=== PATIENT | male | born 1955 | race Caucasian/White ===

== ENCOUNTER 2017-05-09 14:27 | Emergency (ER) | payer MEDICARE ==
[~2017-05-09] VITALS: Ht 175.3 cm; Wt 127.0 kg
[~2017-05-09 14:27] MED LIST: ALBIPROI; ALBIPROI INH; ALBU90OI61 INH; ALPR.5 PO; ASCO1ER; ASPI325; ASPI81CH PO; AZIT500 PO; BUSP5 PO; CARV25 PO; CLAR500 PO; CLIN300 PO; CLOP75; DOXY100 PO; DULO60 PO; FLUSAL2505; GABA300 PO; HYDACE5 PO; Hytrin2 MG PO; IBUP800; IBUP800 PO; ISOMON20 PO; ISOMON60ER PO; LISI10; LISI20 PO; LOVA20; LOVA20 PO; LOVA40; METF500 PO; METO50; MULVITMINF; NAPR550 PO; NITRSPRAY SL; OXYACE5T PO; PRED10 PO; PRED20 PO; Prednisone20 MG PO; RXHYDACE PO; RXNAPNA550 PO; TERA5 PO; WARF5 PO; [UNRECOGNIZED DRUG - OTHER]
[2017-05-09 15:01] LABS: BASOPHILS ABSOLUTE AUTO 0.01 K/mm3 (0.00-0.23); BASOPHILS PERCENT AUTO 0 % (0-2); EOSINOPHILS ABSOLUTE AUTO 0.03 K/mm3 (0.00-0.68); EOSINOPHILS PERCENT AUTO 0 % (0-6); Hematocrit 42.6 % (37.0-53.0); Hemoglobin 13.8 g/dL (13.5-17.5); IMMATURE GRAN ABSOLUTE AUTO 0.03 K/mm3 (0.00-0.10); IMMATURE GRAN PERCENT AUTO 0 % (0-1); LYMPHOCYTES ABSOLUTE AUTO 1.17 K/mm3 (0.84-5.20); LYMPHOCYTES PERCENT AUTO 12 % (21-46); MONOCYTES ABSOLUTE AUTO 0.61 K/mm3 (0.16-1.47); MONOCYTES PERCENT AUTO 6 % (4-13); Mean Corpuscular HGB 29.6 pg (26.0-34.0); Mean Corpuscular HGB Conc 32.4 g/dL (31.5-36.5); Mean Corpuscular Volume 91 fL (80-100); Mean Platelet Volume 10.9 fL (9.1-12.4); NEUTROPHILS ABSOLUTE AUTO 7.93 K/mm3 (1.96-9.15); NEUTROPHILS PERCENT AUTO 81 % (41-73); Platelet Count 179 K/mm3 (150-400); RDW Coefficient Variation 14.4 % (11.7-14.2); RDW Standard Deviation 48.5 fL (35.1-46.3); Red Blood Cell Count 4.67 M/mm3 (4.30-5.90); White Blood Cell Count 9.78 K/mm3 (4.00-11.30)
[2017-05-09 15:20] LABS: Alanine Aminotransfer (ALT/SGP 21 U/L (12-78); Albumin, Blood 3.6 g/dL (3.4-5.0); Albumin/Globulin Ratio 0.9 (0.8-1.8); Alk Phos 72 U/L (50-136); Anion Gap 7 mmol/L (6-16); Aspartate Aminotrans (AST/SGOT 17 U/L (12-37); Bilirubin, Total 1.2 mg/dL (0.1-1.0); Blood Urea Nitrogen 13 mg/dL (8-24); Bun/Creatinine Ratio 13.3 (12.0-20.0); CO2, Blood 23 mmol/L (21-32); Calcium, Blood 9.2 mg/dL (8.5-10.1); Chloride, Blood 108 mmol/L (98-108); Creatinine, Blood 0.98 mg/dL (0.60-1.20); Globulin, Blood 4.1 g/dL (2.2-4.0); Glomerular Filtration Rate >60 (60-); Glucose, Blood 243 mg/dL (70-99); Potassium, Blood 4.2 mmol/L (3.5-5.5); Sodium, Blood 138 mmol/L (136-145); Total Protein, Blood 7.7 g/dL (6.4-8.2)
[2017-05-09] MEDS ORDERED: Zofran Odt4 MG PO (17:05)
== END 2017-05-09 17:40 | disposition home or self-care (01) ==
LOC: ER 14:27
PROVIDERS: Internal Medicine
DX: R11.2 Nausea with vomiting, unspecified (principal); E11.65 Type 2 diabetes mellitus with hyperglycemia; I10 Essential (primary) hypertension; E78.00 Pure hypercholesterolemia, unspecified; J44.9 Chronic obstructive pulmonary disease, unspecified; I48.91 Unspecified atrial fibrillation; Z88.0 Allergy status to penicillin; Z88.2 Allergy status to sulfonamides; Z79.899 Other long term (current) drug therapy; Z79.82 Long term (current) use of aspirin; Z79.01 Long term (current) use of anticoagulants; Z79.84 Long term (current) use of oral hypoglycemic drugs
CPT/HCPCS: 36415; 80053; 83690; 85025; 96374; 96376; 99283; J2405

== ENCOUNTER → 2017-05-11 | Outpatient (CLI) | payer MEDICARE, OTHER ==
[~2017-05-11] MED LIST changes: +Buspirone HCl7.5 MG PO; +COMBIVENT RESPIM4 GM INH; +GLIP5 PO; +Isosorbide Mono60 MG PO; +Metformin HCl1000 MG PO; +Zithromax250 MG PO; +Zofran Odt4 MG PO
== END | disposition home or self-care (01) ==
LOC: LAB 15:14 → LAB SHORT 15:14
DX: E11.9 Type 2 diabetes mellitus without complications (principal)
CPT/HCPCS: 82043

== ENCOUNTER 2017-06-30 13:22 | Emergency (ER) | payer MEDICARE ==
[~2017-06-30] VITALS: Ht 175.3 cm; Wt 112.0 kg
[~2017-06-30 13:22] MED LIST changes: -Buspirone HCl7.5 MG PO; -COMBIVENT RESPIM4 GM INH; -GLIP5 PO; -Isosorbide Mono60 MG PO; -Metformin HCl1000 MG PO; -Zithromax250 MG PO
[2017-06-30 14:35] LABS: Troponin I <0.015 ng/mL (0.000-0.040)
[2017-06-30] MEDS ORDERED: Metformin HCl1000 MG PO (15:21)
[2017-06-30] MEDS ORDERED: GLIP5 PO (15:21)
[2017-06-30] MEDS ORDERED: Isosorbide Mono60 MG PO (15:21)
[2017-06-30] MEDS ORDERED: Buspirone HCl7.5 MG PO (15:21)
[2017-06-30] MEDS ORDERED: COMBIVENT RESPIM4 GM INH (15:21)
[2017-06-30 15:44] LABS: BASOPHILS ABSOLUTE AUTO 0.02 K/mm3 (0.00-0.23); BASOPHILS PERCENT AUTO 0 % (0-2); EOSINOPHILS ABSOLUTE AUTO 0.33 K/mm3 (0.00-0.68); EOSINOPHILS PERCENT AUTO 6 % (0-6); Hematocrit 38.1 % (37.0-53.0); Hemoglobin 11.9 g/dL (13.5-17.5); IMMATURE GRAN ABSOLUTE AUTO 0.03 K/mm3 (0.00-0.10); IMMATURE GRAN PERCENT AUTO 1 % (0-1); LYMPHOCYTES ABSOLUTE AUTO 1.43 K/mm3 (0.84-5.20); LYMPHOCYTES PERCENT AUTO 24 % (21-46); MONOCYTES ABSOLUTE AUTO 0.41 K/mm3 (0.16-1.47); MONOCYTES PERCENT AUTO 7 % (4-13); Mean Corpuscular HGB Conc 31.2 g/dL (31.5-36.5); Mean Corpuscular Volume 93 fL (80-100); Mean Platelet Volume 11.3 fL (9.1-12.4); NEUTROPHILS ABSOLUTE AUTO 3.77 K/mm3 (1.96-9.15); NEUTROPHILS PERCENT AUTO 63 % (41-73); Platelet Count 176 K/mm3 (150-400); RDW Coefficient Variation 14.1 % (11.7-14.2); RDW Standard Deviation 48.4 fL (35.1-46.3); Red Blood Cell Count 4.11 M/mm3 (4.30-5.90); White Blood Cell Count 5.99 K/mm3 (4.00-11.30)
[2017-06-30 16:17] LABS: Alanine Aminotransfer (ALT/SGP 50 U/L (12-78); Albumin/Globulin Ratio 0.9 (0.8-1.8); Anion Gap 5 mmol/L (6-16); Aspartate Aminotrans (AST/SGOT 37 U/L (12-37); Bilirubin, Total 0.4 mg/dL (0.1-1.0); Blood Urea Nitrogen 15 mg/dL (8-24); Bun/Creatinine Ratio 13.6 (12.0-20.0); CO2, Blood 24 mmol/L (21-32); Calcium, Blood 8.4 mg/dL (8.5-10.1); Chloride, Blood 111 mmol/L (98-108); Globulin, Blood 3.5 g/dL (2.2-4.0); Glomerular Filtration Rate >60 (60-); Glucose, Blood 132 mg/dL (70-99); Potassium, Blood 5.1 mmol/L (3.5-5.5); Sodium, Blood 140 mmol/L (136-145); Total Protein, Blood 6.5 g/dL (6.4-8.2)
[2017-06-30 16:19] LABS: Alk Phos 103 U/L (50-136)
[2017-06-30] MEDS ORDERED: Zithromax250 MG PO (16:46)
== END 2017-06-30 17:03 | disposition home or self-care (01) ==
LOC: ER 13:22
PROVIDERS: Emergency Medicine; Physician Assistant
DX: J18.0 Bronchopneumonia, unspecified organism (principal); I50.9 Heart failure, unspecified; Z88.0 Allergy status to penicillin; Z88.2 Allergy status to sulfonamides; Z79.899 Other long term (current) drug therapy; Z79.82 Long term (current) use of aspirin; Z79.84 Long term (current) use of oral hypoglycemic drugs; Z79.01 Long term (current) use of anticoagulants; Z79.2 Long term (current) use of antibiotics; E78.5 Hyperlipidemia, unspecified; I10 Essential (primary) hypertension; E11.9 Type 2 diabetes mellitus without complications; I48.91 Unspecified atrial fibrillation; Z87.891 Personal history of nicotine dependence
CPT/HCPCS: 36415; 80053; 83735; 83880; 84484; 85025; 93005; 93010; J0696

== ENCOUNTER 2017-09-14 00:17 | Day surgery (SDC) | payer MEDICARE ==
[~2017-09-14] VITALS: Ht 175.3 cm; Wt 113.0 kg
[~2017-09-14 00:17] MED LIST changes: +Buspirone HCl7.5 MG PO; +COMBIVENT RESPIM4 GM INH; +GLIP5 PO; +Isosorbide Mono60 MG PO; +Metformin HCl1000 MG PO; +Zithromax250 MG PO
== END 2017-09-14 14:50 | disposition home or self-care (01) ==
LOC: MHTC 00:17
PROC: B211YZZ Fluoroscopy of Multiple Coronary Arteries using Other Contrast (ICD-10-PCS; principal; 2017-09-14)
PROC: 4A023N7 Measurement of Cardiac Sampling and Pressure, Left Heart, Percutaneous Approach (ICD-10-PCS; principal; 2017-09-14)
DX: I25.10 Atherosclerotic heart disease of native coronary artery without angina pectoris (principal); R94.39 Abnormal result of other cardiovascular function study; Z95.5 Presence of coronary angioplasty implant and graft; I34.0 Nonrheumatic mitral (valve) insufficiency; E78.00 Pure hypercholesterolemia, unspecified; I10 Essential (primary) hypertension; E11.9 Type 2 diabetes mellitus without complications; E78.5 Hyperlipidemia, unspecified; R06.02 Shortness of breath; G47.33 Obstructive sleep apnea (adult) (pediatric); Z79.82 Long term (current) use of aspirin; Z79.01 Long term (current) use of anticoagulants; Z79.84 Long term (current) use of oral hypoglycemic drugs; Z79.899 Other long term (current) drug therapy
CPT/HCPCS: 85347; 92978; 93288; 93458; 99152; 99153; C1725; C1753; C1769; C1874; C1894; C9600; J1644; J7030; Q9967

== ENCOUNTER 2018-06-26 09:58 | Emergency (ER) | payer OTHER ==
[~2018-06-26] VITALS: Ht 177.8 cm; Wt 113.4 kg
[2018-06-26 10:42] LABS: BASOPHILS ABSOLUTE AUTO 0.01 K/mm3 (0.00-0.23); BASOPHILS PERCENT AUTO 0 % (0-2); EOSINOPHILS ABSOLUTE AUTO 0.01 K/mm3 (0.00-0.68); EOSINOPHILS PERCENT AUTO 0 % (0-6); Hematocrit 39.4 % (37.0-53.0); Hemoglobin 12.4 g/dL (13.5-17.5); IMMATURE GRAN ABSOLUTE AUTO 0.07 K/mm3 (0.00-0.10); IMMATURE GRAN PERCENT AUTO 1 % (0-1); LYMPHOCYTES ABSOLUTE AUTO 1.06 K/mm3 (0.84-5.20); LYMPHOCYTES PERCENT AUTO 10 % (21-46); MONOCYTES ABSOLUTE AUTO 0.85 K/mm3 (0.16-1.47); MONOCYTES PERCENT AUTO 8 % (4-13); Mean Corpuscular HGB 28.2 pg (26.0-34.0); Mean Corpuscular HGB Conc 31.5 g/dL (31.5-36.5); Mean Corpuscular Volume 90 fL (80-100); Mean Platelet Volume 10.8 fL (9.1-12.4); NEUTROPHILS ABSOLUTE AUTO 8.86 K/mm3 (1.96-9.15); NEUTROPHILS PERCENT AUTO 82 % (41-73); Platelet Count 234 K/mm3 (150-400); RDW Coefficient Variation 13.9 % (11.7-14.2); RDW Standard Deviation 45.2 fL (35.1-46.3); Red Blood Cell Count 4.39 M/mm3 (4.30-5.90); White Blood Cell Count 10.86 K/mm3 (4.00-11.30)
[2018-06-26 11:02] LABS: Albumin, Blood 3.3 g/dL (3.4-5.0); Albumin/Globulin Ratio 0.7 (0.8-1.8); Bilirubin, Total 0.6 mg/dL (0.1-1.0); Bun/Creatinine Ratio 20.3 (12.0-20.0); Calcium, Blood 9.4 mg/dL (8.5-10.1); Creatinine, Blood 1.48 mg/dL (0.60-1.20); Globulin, Blood 4.5 g/dL (2.2-4.0); Potassium, Blood 4.6 mmol/L (3.5-5.5); Total Protein, Blood 7.8 g/dL (6.4-8.2)
[2018-06-26] MEDS ORDERED: AMLO5 PO (11:41)
[2018-06-26] MEDS ORDERED: TORS10 (11:41)
[2018-06-26 11:57] LABS: Influenza A Negative (NEGATIVE); Influenza B Negative (NEGATIVE)
[2018-06-26] MEDS ORDERED: Prednisone20 MG PO (12:21)
[2018-06-26] MEDS ORDERED: BENZ100A PO (12:21)
[2018-06-26 12:30] LABS: Source, Urine Clean Catch
[2018-06-26 12:34] LABS: Appearance, Urine Clear (Clear); Bilirubin, Urine Neg (Neg); Blood, Urine Neg (Neg); Color, Urine Yellow (P-Yellow); Glucose Qualitative, Urine Neg (Neg); Ketones, Urine 1+ (Neg); Leukocyte Esterase, Urine Neg (Neg); Nitrite, Urine Neg (Neg); Protein, Urine 1+ (Neg); Urobilinogen, Urine NORM (Normal)
== END 2018-06-26 13:37 | disposition home or self-care (01) ==
LOC: ER 09:58
PROVIDERS: Emergency Medicine
DX: J44.1 Chronic obstructive pulmonary disease with (acute) exacerbation (principal); R11.2 Nausea with vomiting, unspecified; R19.7 Diarrhea, unspecified; I10 Essential (primary) hypertension; E11.9 Type 2 diabetes mellitus without complications; I48.91 Unspecified atrial fibrillation; E78.5 Hyperlipidemia, unspecified; Z87.891 Personal history of nicotine dependence; Z88.0 Allergy status to penicillin; Z88.2 Allergy status to sulfonamides; Z79.899 Other long term (current) drug therapy; Z79.82 Long term (current) use of aspirin; Z79.84 Long term (current) use of oral hypoglycemic drugs; Z79.01 Long term (current) use of anticoagulants
CPT/HCPCS: 36415; 71046; 80053; 83690; 85025; 87804; 93005; 93010; 94640; 96361; 96374; 99284-25; J2930; J7030

== ENCOUNTER 2018-06-28 07:41 | Inpatient (IN) | payer OTHER ==
[~2018-06-28] VITALS: Ht 177.8 cm; Wt 121.3 kg
[~2018-06-28 07:41] MED LIST changes: +AMLO5 PT; -ASPI81CH PO; +ASPI81CH PT; +BENZ100A PO; +CARV25 PT; -DULO60 PO; +DULO60 PT; -GABA300 PO; +GABAPENTIN250 MG/5 M PT; +TORS10
[2018-06-28 08:17] LABS: BASOPHILS ABSOLUTE AUTO 0.04 K/mm3 (0.00-0.23); BASOPHILS PERCENT AUTO 0 % (0-2); EOSINOPHILS PERCENT AUTO 0 % (0-6); Hematocrit 37.8 % (37.0-53.0); Hemoglobin 11.7 g/dL (13.5-17.5); IMMATURE GRAN ABSOLUTE AUTO 0.18 K/mm3 (0.00-0.10); IMMATURE GRAN PERCENT AUTO 1 % (0-1); LYMPHOCYTES ABSOLUTE AUTO 1.99 K/mm3 (0.84-5.20); LYMPHOCYTES PERCENT AUTO 10 % (21-46); MONOCYTES ABSOLUTE AUTO 1.67 K/mm3 (0.16-1.47); MONOCYTES PERCENT AUTO 8 % (4-13); Mean Corpuscular HGB 28.4 pg (26.0-34.0); Mean Corpuscular Volume 92 fL (80-100); Mean Platelet Volume 11.4 fL (9.1-12.4); NEUTROPHILS ABSOLUTE AUTO 15.97 K/mm3 (1.96-9.15); NEUTROPHILS PERCENT AUTO 81 % (41-73); NRBC ABSOLUTE 0.02 K/mm3 (0.00-0.02); NRBC Auto 0.1 /100 WBC (0.0-0.2); Platelet Count 351 K/mm3 (150-400); RDW Coefficient Variation 14.1 % (11.7-14.2); RDW Standard Deviation 47.9 fL (35.1-46.3); Red Blood Cell Count 4.12 M/mm3 (4.30-5.90); White Blood Cell Count 19.85 K/mm3 (4.00-11.30)
[2018-06-28 08:33] LABS: Albumin, Blood 3.3 g/dL (3.4-5.0); Albumin/Globulin Ratio 0.6 (0.8-1.8); Bilirubin, Total 0.7 mg/dL (0.1-1.0); Bun/Creatinine Ratio 25.6 (12.0-20.0); Creatinine, Blood 1.76 mg/dL (0.60-1.20); Globulin, Blood 5.3 g/dL (2.2-4.0); Potassium, Blood 4.5 mmol/L (3.5-5.5); Total Protein, Blood 8.6 g/dL (6.4-8.2)
[2018-06-28 08:35] LABS: Troponin I 0.041 ng/mL (0.000-0.040)
[2018-06-28 10:18] LABS: Base Excess Venous -4.7 mmol/L; Bicarbonate Venous 20.5 mmol/L (24.0-30.0); PCO2 Venous 44.3 mmHg (38-42); PO2 Venous 63.1 mmHg (38-42)
[2018-06-28 10:24] LABS: Prothrombin Time Results 56.4 Sec (9.7-11.5)
[2018-06-28 10:36] LABS: International Normalized Ratio 6.29
[2018-06-28 14:04] LABS: Source, Urine Voided
[2018-06-28 14:13] LABS: Appearance, Urine Hazy (Clear); Bilirubin, Urine Neg (Neg); Blood, Urine 1+ (Neg); Color, Urine Yellow (P-Yellow); Glucose Qualitative, Urine 2+ (Neg); Ketones, Urine Neg (Neg); Leukocyte Esterase, Urine Neg (Neg); Nitrite, Urine Neg (Neg); Protein, Urine 2+ (Neg); Urobilinogen, Urine NORM (Normal)
[2018-06-28 14:52] LABS: Squamous Epithelial Cells Few /hpf (Few)
[2018-06-28 14:53] LABS: Bacteria Rare /hpf; White Blood Cells, Urine 0-2 /hpf (0-5)
--- NOTE | 2018-06-28 15:13 | NUR ---
1030: PT TO ICU8 FROM ER, CARE ASSUMED, ASSESSMENT COMPLETED. PT ON BIPAP 16/60%, SPO2 96-98%. FIO2 BEING TITRATED BY RT. HR AFIB, PT DENIES CHEST PAIN/PRESSURE, STATES SOB HAS IMPROVED BUT REMAINS MINIMAL TO MODERATE AT REST, RR MID 20'S, LOOSE COUGH PRESENT WITH BROWN SPUTUM. PT AFEBRILE, ORIENTED X4, SKIN INTACT. BLIND IN RIGHT EYE, LEFT EYE WITH NORMAL LIGHT ACOMMIDATION. HR 60, PT HAS PACEMAKER, NO PACING NOTED AT THIS TIME. AT BEDSIDE TO HELP COMPLETE ASSESSMENTS, REPORTS THAT PT BEGAN FEELING SOB LAST NIGHT, WAS UNABLE TO SLEEP DESPITE HOME CPAP, PRESENTED TO ER THIS MORNING DUE TO WORSENING SYMPTOMS. LS COARSE WITH EXPIRATORY WHEEZES T/O, PT RECEIVING NEB FROM RT AT THIS TIME. NITRO GTT AT 50MCG/MIN, BP 110'S SYSTOLIC. WILL CONTINUE TO MONITOR. 1115: PT DENIES CHEST PAIN/PRESSURE, NITRO GTT DECREASED TO 40MCG/MIN. 1300: PT RESTING IN BED, AWAKE ON AND OFF, REMAINS ORIENTED. FIO2 CONTINUES TO BE TITRATED BY RT. 1500: RT AT BEDSIDE, BIPAP 16/35%, SPO2 96-97%. BIPAP REMOVED AND O2 PLACED BY RT AT 4L/NC. PT GIVEN WATER PER DR. FERREIRA. 1515: SPO2 93%, PT SPEAKING IN SHORT SENTENCES WITH MINIMAL SOB, DRINKING WATER WITHOUT DIFFICULTY. NITRO CONTINUES TO INFUSE AT 40MCG/MIN, SBP 140'S. HR 60 AFIB, PT DENIES CHEST PAIN, CONTINUES TO EXPECTORATE BROWN SPUTUM. FAMILY AT BEDSIDE.
--- NOTE | 2018-06-28 15:58 | NUR ---
1555: PT BECOMING SOB, SPO2 88% ON 4L/NC. BIPAP REPLACED AT THIS TIME, SETTINGS 16/30%. SPO2 INCREASED TO 92% AND CLIMBING, PT DENIES CHEST PAIN. REMAINS AT BEDSIDE, PT DENIES OTHER NEEDS. LS COARSE T/O, NO WHEEZES NOTED. NITRO GTT INCREASED TO 50MCG/MIN AT THIS TIME FOR SBP 170.
--- NOTE | 2018-06-28 17:13 | NUR ---
1705: SPO2 91% ON BIPAP 16/30%, FIO2 INCREASED TO 35% BY RT AT THIS TIME. PT RSTING, AT BEDSIDE, PT DENIES OTHER NEEDS.
--- NOTE | 2018-06-28 17:41 | NUR ---
1740: PT R 40'S, FIO2 35%, SPO2 91%, RT NOTIFIED. TEMP 101.2, TYLENOL ADMINISTERE PER ORDERS
--- NOTE | 2018-06-28 18:10 | NUR ---
1809: PT HAD SUDEN ONSET ANXIETY, TACHYPNEA, SPO2 88%, PT WIDE EYED, PALLOR AND DIAPHORESIS NOTED. RT AT BEDSIDE, DR FERREIRA NOTIFIED, ORDERS RECEIVED, ATIVAN ADMINISTERED PER RONNIE. DR. GRAHAM CONSULTING, PRECEDEX ORDER RECEIVED, WILL BEGIN INFUSION SOON IT ARRIVES.
--- NOTE | 2018-06-28 19:10 | NUR ---
ASSUMING CARE OF PT AT THIS TIME. PT REPORT RECEIVED AT BEDSIDE WITH OFFGOING NURSE, TOMAS HAMMER. JAQUELIN STEPHEN INSERTING OG TUBE AT THIS TIME. DR. GRAHAM AT BEDSIDE TO EXAMINE PT. PT RECENTLY INTUBATED. PROPOFOL DRIP AT 40 MCG/KG/MIN. TITRATED PROPOFOL DRIP TO 35 MCG/KGMIN D/T HYPOTENSION (SEE VS FS). OTHERWISE, VS STABLE (SEE VS FS). PT DOES NOT APPEAR TO BE IN DISTRESS. UI LEAD DEVELOPER AT BEDSIDE FOR CHEST XRAY. DR. GRAHAM VERIFIED PLACEMENT OF ETT AND OG TUBE BASED ON CHEST XRAY. DR. GRAHAM PLANNING FOR ECHO TOMORROW AM. WILL REVIEW PLAN OF CARE.
--- NOTE | 2018-06-28 19:17 | NUR ---
1830: PT BECAME INCREASINGLY PANICKED, TACHYPNEIC AND HYPOXIC, DR. GRAHAM, NURSING STAFF, AND RT AT BEDSIDE, PT GIVEN TOTAL OF 10MG VERSED AND 250 MG PROPOFOL, INTUBATED WITH A SIZE 8.0 TUBE, 26CM AT THE LIP, CONFIRMED WITH XRAY. PT REMAINS DIAPHORETIC AND PALE, SPO2 98% VENT SETTINGS AC 16/450/100%/5, LS REMAIN COARSE IN ALL LOBES, HR 60'S AFIB. 2 PERPHERAL IV'S INSERTED INTO RIGHT ARM/HAND, 18G IN LFA DC'D WITH TIP INTACT FOR INFILTRATION. MACEDO AND OGT INSERTED, OGT PLACEMENT CONFIRMED WITH AUSCULTATION AND ASPIRATION, CONNECTED TO LIWS. SWB RESTRAINTS ON BUE'S, MACEDO DRAINING TO GRAVITY, SECURED TO PT'S LEG. 0: Vt 400-500'S, RR 34, SPO2 HIGH 90'S, VENT SETTINGS REMAIN UNCHANGED. PROPOFOL INFUSING AT 50MCG/KG/MIN, PRECEDEX AND NITRO SHUT OFF PER DR. GRAHAM. REPORT TO ONCOMING NURSE.
--- NOTE | 2018-06-28 19:30 | NUR ---
ASSESSMENT PT RESPONDS TO PAINFUL STIMULI, OPENS EYES TO PRESSURE, LOCALIZES PAIN, DOES NOT FOLLOW COMMANDS, DOES NOT NOD HEAD Y/N TO QUESTIONS. PROPOFOL DRIP AT 35 MCG/KG/MIN - WILL CONT TO TITRATE TO EFFECT. PRECEDEX ON STANDBY - WILL CONT TO TITRATE TO EFFECT. PER DR. GRAHAM - PRECEDEX AND PROPOFOL MAY BE TITRATED FOR SEDATION. HAIDER SENSATION. PT HENNING. WEAK MOVEMENT NOTED. NO S/SX OF PAIN/DISCOMFORT NOTED. PT'S FAMILY AT BEDSIDE AND PLANNING TO SPEND NIGHT IN ICU THIS SHIFT. PT IN BILAT WRIST RESTRAINTS TO PROTECT VITAL LINES/CORDS/TUBES AND TO PROTECT FROM SELF-EXTUBATION. LUNGS CLEAR AND DIMINISHED T/O. PT INTUBATED PRIOR TO ONCOMING SHIFT. VENT SETTINGS: AC 16, TV 450, PEEP 5, FIO2 100%. RT SIENA PLANNING TO OBTAIN ABG. SUCTION VIA ETT: MODERATE AMOUNTS OF THICK YELLOW SECRETIONS. SPUTUM SAMPLE SENT PRIOR TO ONCOMING SHIFT. WILL SEND RESP PANEL. DR. GRAHAM VERIFIED PLACEMENT OF OG TUBE AND ETT BASED ON CHEST XRAY. TEMP 102.7 - TYLENOL ADMINSITERED PRIOR TO ONCOMING SHIFT, ROOM TEMP TURNED DOWN, ICE PACKS ON, BLANKETS REMOVED, FAN TURNED ON. ACCELERATED JUNCTIONAL RHYTHM WITH BBB AND OCC PVC'S. NO PACEMAKER SPILES. HR 60'S. BP STABLE - SEE VS FS. STRONG PULSES. WARM, PINK SKIN. DIAPHORETIC. SCD'S FOR DVT PRO. DR GRAHAM INSTRUCTED TO D/C LOVENOX D/T INR RESULTS. DR. GRAHAM INSTRUCTED TO HOLD COREG TONIGHT D/T HYPOTENSION WITH INCREASED SEDATION AND HR 60'S. DR. GRAHAM PLANNING TO ORDER ALBUMIN FOR HYPOTENSION. HYPOACTIVE BT X4 QUADRANTS. ABD MOD DIST, SOFT, NONTENDER (NO GRIMACING WITH PALPATION). OG IN PLACE TO LIS: PINK SECRETIONS NOTED. SMALL AMOUNTS OF BLOODY ORAL SECRETIONS NOTED UPON COMPLETING ORAL CARE. NO BM. F/C IN PLACE: CLEAR, CLOUDY URINE. UA SENT BY JAQUELIN RECIO. PIV X3. DR. GRAHAM PLANNING TO ORDER NS AT 100 ML/HR AND ABX. WAITING FOR ORDERS AT THIS TIME AND WAITING FOR MEDICATIONS FROM PHARMACY AT THIS TIME.
[2018-06-28 21:17] LABS: PO2 Arterial 366 mmHg (80-100); pH Blood Arterial 7.36 (7.35-7.45)
[2018-06-28 21:53] LABS: Source, Urine Catheter
[2018-06-28 22:14] LABS: Bilirubin, Urine Neg (Neg); Blood, Urine 1+ (Neg); Glucose Qualitative, Urine 2+ (Neg); Ketones, Urine Neg (Neg); Leukocyte Esterase, Urine Neg (Neg); Nitrite, Urine Neg (Neg); Protein, Urine 2+ (Neg); Specific Gravity, Urine 1.015 (1.003-1.022); Urobilinogen, Urine NORM (Normal)
[2018-06-28 22:30] LABS: Appearance, Urine Clear (Clear); Color, Urine Yellow (P-Yellow)
[2018-06-28 22:31] LABS: Amorphous Mod (0-Heavy); Bacteria Rare /hpf; Red Blood Cells, Urine 0-2 /hpf (0-2); Squamous Epithelial Cells Rare /hpf (Few); White Blood Cells, Urine Rare /hpf (0-5)
[2018-06-28 23:17] LABS: Adenovirus Not Detected (NOT DETECT); Bordetella pertussis Not Detected (NOT DETECT); Chlamydophila pneumoniae Not Detected (NOT DETECT); Coronavirus 229E Not Detected (NOT DETECT); Coronavirus HKU1 Not Detected (NOT DETECT); Coronavirus NL63 Not Detected (NOT DETECT); Coronavirus OC43 Not Detected (NOT DETECT); Human Metapneumovirus Detected (NOT DETECT); Human Rhinovirus/Enterovirus Not Detected (NOT DETECT); Influenza A Not Detected (NOT DETECT); Influenza A/2009-H1 Not Detected (NOT DETECT); Influenza A/H1 Not Detected (NOT DETECT); Influenza A/H3 Not Detected (NOT DETECT); Influenza B Not Detected (NOT DETECT); Mycoplasma pneumoniae Not Detected (NOT DETECT); Parainfluenza Virus 1 Not Detected (NOT DETECT); Parainfluenza Virus 2 Not Detected (NOT DETECT); Parainfluenza Virus 3 Not Detected (NOT DETECT); Parainfluenza Virus 4 Not Detected (NOT DETECT); Respiratory Syncytial Virus Not Detected (NOT DETECT)
--- NOTE | 2018-06-29 03:30 | NUR ---
DR. GRAHAM PROPOFOL ON STANDBY FOR SEDATION VACATION. PT HYPERTENSIVE (SEE VS FS). CALLED DR. GRAHAM AT THIS TIME. INFORMED DR. GRAHAM OF PT'S VS (SEE VS FS). DR. GRAHAM ORDERED HYDRALAZINE PRN FOR HYPERTENSION. DR. GRAHAM INSTRUCTED TO START NITRO DRIP IF SBP REMAINS >160 AFTER ADMINSITERING HYDRALAZINE PRN. WAITING FOR VERIFICATION OF MEDICATION FROM PHARMACY AT THIS TIME. DR. GRAHAM ALSO INSTRUCTED TO NOT COMPLETE SBT THIS AM.
--- NOTE | 2018-06-29 04:25 | NUR ---
DR. CAPONE PAGED DR. HAM AT 0400. DR. CAPONE CALLED ICU BACK AT THIS TIME. INFORMED DR. CAPONE OF RESP PANEL RESULTS WHICH WAS POSITIVE FOR HUMAN METAPNEUMOVIRUS. INFORMED DR. CAPONE OF SCHEDULED ABX. NO NEW ORDERS FROM DR. CAPONE AT THIS TIME. PT PLACED IN DROPLET PRECAUTIONS AT THIS TIME.
--- NOTE | 2018-06-29 05:03 | NUR ---
SHIFT ASSESSMENT NO ACUTE CHANGES NOTED T/O SHIFT. DURING SEDATION VACATION WITH PROPOFOL ON STANDBY, PT RESPONDED TO VERBAL AND PAINFUL STIMULI, OPENED EYES TO VERBAL STIMULI, DID NOT OPEN EYES SPONT, FOLLOWED COMMANDS (PT ABLE WIGGLE TOES AND TITLE AGENT ON COMMAND), NODDED HEAD Y/N TO MOST QUESTIONS. PROPOFOL DRIP CURRENTLY AT 50 MCG/KG/MIN - CONT TO TITRATE TO EFFECT. PRECEDEX REMAINED ON STANDBY D/T HR 50'S TO 60'S. SENSATION INTACT DURING SEDATION VACATION. PT DID NOT NOD HEAD Y/N TO N/T IN EXTREMETIES. PT HENNING. WEAK MOVEMENT NOTED. OCC S/SX OF PAIN/DISCOMFORT NOTED T/O SHIFT - MEDICATED WITH FENT PER PHYSICIAN'S ORDER / UTILIZED NONPHARM METHODS. PT DENIED PAIN/DISCOMFORT DURING SEDATION VACATION. PT DENIED CP DURING SEDATION VACATION. PT'S REMAINED AT BEDSDIE T/O SHIFT. PT REMAINED IN BILAT WRIST RESTRAINTS TO PROTECT VITAL LINES/CORDS/TUBES AND TO PROTECT FROM SELF-EXTUBATION. LUNGS CLEAR AND DIMINISHED T/O. OCC WHEEZING NOTED THAT RESOLVED AFTER BREATHING TX. VENT SETTINGS: AC 16, TV 450, PEEP 5, FIO2 50%. SX VIA ETT: MODATE AMOUNTS OF THICK YELLOW SECRETIONS AT BEGINNING OF THE SHIFT TO SCANT AMOUNTS OF SEBASTIAN/PINK SECRETIONS THIS AM. AM CHEST XRAY COMPLETED. TMAX 102.9 - TYLENOL ADMINISTERED PRN, ROOM TEMP REMAINED DOWN, ICE PACKS ON, BLANKETS REMOVED, FAN TURNED ON. JUNCTIONAL TO ACCELERATED JUNCTIONAL WITH BBB AND OCC PVC'S. NO PACEMAKER SPIKES. HR 50'S TO 60'S. INCREASING BP NOTED T/O SHIFT. HYDRALAZINE 20 MG PRN ADMINISTERED. NITRO DRIP STARTED AT 5 MCG/MIN. PT DENIED CP DURING SEDATION VACATION. STRONG PULSES. WARM, PINK SKIN. LESS DIAPHORETIC THIS AM. SCD'S FOR DVT PRO. HYPOACTIVE BT X4 QUADRANTS. ABD MOD DIST, SOFT, NONTENDER (NO GRAIMACING WITH PALPATION). OG IN PLACE TO LIS: PINK SECRETIONS AT BEGINNING OF THE SHIFT TO DARK BROWN THIS AM. SMALL AMOUNTS OF BLOODY ORAL SECRETIONS UPON COMPLETING ORAL CARE. NO BM. F/C IN PLACE: DARK YELLOW URINE, LESS CLOUDY THIS AM. PIV X3. NS AT 100 ML/HR. WAITING FOR DRUM CARRIER TO COMPLETE AM LABS. WILL CONT TO MONITOR PT AND TABITAH PROVIDE BEDSIDE REPORT TO ONCOMING NURSE THIS AM.
[2018-06-29 06:20] LABS: BASOPHILS ABSOLUTE AUTO 0.01 K/mm3 (0.00-0.23); BASOPHILS PERCENT AUTO 0 % (0-2); EOSINOPHILS PERCENT AUTO 0 % (0-6); Hematocrit 32.6 % (37.0-53.0); Hemoglobin 10.2 g/dL (13.5-17.5); IMMATURE GRAN ABSOLUTE AUTO 0.17 K/mm3 (0.00-0.10); IMMATURE GRAN PERCENT AUTO 2 % (0-1); LYMPHOCYTES ABSOLUTE AUTO 0.73 K/mm3 (0.84-5.20); LYMPHOCYTES PERCENT AUTO 7 % (21-46); MONOCYTES ABSOLUTE AUTO 0.86 K/mm3 (0.16-1.47); MONOCYTES PERCENT AUTO 8 % (4-13); Mean Corpuscular HGB 28.7 pg (26.0-34.0); Mean Corpuscular HGB Conc 31.3 g/dL (31.5-36.5); Mean Corpuscular Volume 92 fL (80-100); Mean Platelet Volume 10.9 fL (9.1-12.4); NEUTROPHILS ABSOLUTE AUTO 9.23 K/mm3 (1.96-9.15); NEUTROPHILS PERCENT AUTO 84 % (41-73); Platelet Count 231 K/mm3 (150-400); RDW Coefficient Variation 14.1 % (11.7-14.2); RDW Standard Deviation 47.8 fL (35.1-46.3); Red Blood Cell Count 3.56 M/mm3 (4.30-5.90)
[2018-06-29 06:40] LABS: Bun/Creatinine Ratio 22.1 (12.0-20.0); Calcium, Blood 8.9 mg/dL (8.5-10.1); Creatinine, Blood 1.95 mg/dL (0.60-1.20); Magnesium, Blood 2.1 mg/dL (1.6-2.4); Phosphorus, Blood 2.2 mg/dL (2.5-4.9); Potassium, Blood 4.4 mmol/L (3.5-5.5); Prothrombin Time Results 40.7 Sec (9.7-11.5)
[2018-06-29 06:42] LABS: International Normalized Ratio 4.39
--- NOTE | 2018-06-29 06:45 | NUR ---
ELECTROLYTE PROTOCOL ORDERED SODIUM PHOS 20 MM PER ELECTROLTYE PROTOCOL. VERIFIED MEDICATION WITH JAQUELIN DOMINGUEZ. WAITING FOR MEDICATION FROM PHARMACY AT THIS TIME.
--- NOTE | 2018-06-29 08:42 | NUR ---
INFECTION CONTROL/ISOLATION PER INFECTION CONTROL, METAPNEUMOVIRUS DOES NOT REQUIRE ISOLATION PRECAUTIONS. ISOLATION PRECAUTIONS DISCONTINUED AT THIS TIME.
--- NOTE | 2018-06-29 11:03 | NUR ---
1045: URINE OUTPUT AND ETT SECRETIONS ARE TIGED RED, MOERATE AMOUNT OF SECRETIONS FROM ETT AT THIS TIME. CALL OUT TO DR. GRAHAM. LS REMAIN COARS T/O WITH EXPIRATORY WHEEZES. 1100: DR. GRAHAM AT [facility] TO ASSESS, NEW ORDERS RECEIVED.
--- NOTE | 2018-06-29 11:15 | NUR ---
Per admit trigger, I attempted to meet with pt/family to offer information re: Advanced Directive. Spouse is far too worried and upset for this conversation. Pt has declined and is ventilated. Provided calm presence to spouse. Comforted and affirmed excellent care and attention by nursing. Encouraged taking a break for self-care as she is clearly physically and emotionally exhausted. She was appreciative of support. Physician's/nursing still trying to determine POC. I will remain available.
--- NOTE | 2018-06-29 13:40 | NUR ---
1115: VITAMIN K INFUSING PER ORDERS. 1230: URINE SEEMS TO BE CLEARING, APPEARS TO BE PINK TINGED IN MACEDO TUBING, ETT SECRETIONS ARE WHITE AT THIS TIME. PT SEEMS TO BE RESTING MORE COMFORTABLY, RR 20'S, SPO2 HIGH 90'S. 1330: FAMILY REMAINS AT BEDSIDE, NITRO INFUSING AT 100MCG/MIN, PROPOFOL 60MCG/KG/MIN, VSS, SPO2 96%, VENT SETTINGS AC 16, Vt 450, PEEP 5, FIO2 70%.
--- NOTE | 2018-06-29 14:55 | NUR ---
TUBE FEEDING INFUSING PER ORDERS VIA OGT. VSS, PT RESTING QUIETLY.
[2018-06-29 16:36] LABS: Hematocrit 31.7 % (37.0-53.0); Hemoglobin 9.8 g/dL (13.5-17.5)
--- NOTE | 2018-06-29 16:55 | NUR ---
1630: BP 130'S-140'S SYSTOLIC, NITRO GTT OFF AT THIS TIME, WILL CONTINUE TO MONITOR. HR 60, RR 21, SPO2 93% ON FIO2 50%. PROPOFOL GTT DECREASED TO 40MCG/KG/MIN. 1655: PT GRIMACING, RR INCREASED TO 28-30, PROPOFOL BACK TO 50MCG/KG/MIN. OTHER. BP 157/68, HR 60, NITRO GTT REMAINS OFF. TEMP 100.6, FAN ON, BLANKETS OFF, WILL CONTINUE TO MONITOR.
--- NOTE | 2018-06-29 17:04 | NUR ---
0700: CARE ASSUMED, VENT SETTINGS AC 16, Vt 450, FIO2 50%, PEEP 5. SPO2 90%, RR 22, PT'S Vt 500. ICE TO GROIN, NECK, AND UNDER ARMS, NO BLANKETS, FAN ON, TEMP REMAINS LOW GRADE FEBRILE. 0800: CARE ASSUMED, VENT SETTINGS UNCHANGED, SPO2 REMAINS LOW 90'S, LS COARSE T/O WITH EXP WHEEZES ON THE LEFT, ETT SUCTIONED AT THIS TIME, THICK SEBASTIAN SPUTUM. HR 60, PACED, SCDS ON, PROPOFOL AT 60MCG/KG/MIN, NITRO AT 50MCG/MIN. 0815: SPO2 88%, TITRATING FIO2, OTHER VENT SETTINGS UNCHANGED. RR HIGH 20'S. 0930: NITRO GTT BEING TITRATED FOR HTN. 1040: SEDATION VACATION AT THIS TIME, PROPOFOL DECREASED TO 30MCG/KG/MIN. PT NOT TOLERATING SEDATION VACATION WELL, BECOMES TACHYPNEIC, GRIMACES, SPO2 88%, RR 41. PT RESPONDING TO PAIN, DOES NOT OPEN EYES OR FOLLOW COMMANDS. PROPOFOL RESUMED AT 60MCG/KG/MIN, WILL CONTINUE TO MONITOR.
--- NOTE | 2018-06-29 19:04 | NUR ---
1800: PT REPOSITIONED, FRESH ICE PACKS APPLIED TO GROIN, UNDERARMS, AND BACK OF NECK. PT TOLERATING PROPOFOL WELL AT 40MCG/KG/MIN, ALSO TOLERATING FIO2 WELL AT 50%. RR 20'S, SPO2 MID 90'S, BP 140'S-150'S SYSTOLIC, PT RESTING WITH EYES CLOSED, NO GRIMACING OR AGITATION NOTED. ET SECRETIONS SCANT AT THIS TIME, LIGHT IN COLOR. URINE YELLOW WITH SEDIMENT, NO RED TINGE NOTED TO PT'S OUTPUT. HI VITAL PROTEIN INFUSING AT 20ML/HR PER ORDERS, NO RESIDUAL. 1900: REPORT TO ONCOMING NURSE.
--- NOTE | 2018-06-29 19:15 | NUR ---
ASSUMING CARE OF PT AT THIS TIME. PT REPORT RECEIVED AT BEDSIDE WITH OFFGOING NURSE, TOMAS HAMMER. PT LAYING IN BED, INTUBATED, AND SEDATED UPON ENTERING THE ROOM. VS STABLE - SEE VS FS. PT DOES NOT APPEAR TO BE IN DISTRESS AT THIS TIME. WILL REVIEW PLAN OF CARE. PT'S AT BEDSIDE AND PLANNING TO SPEND NIGHT IN ICU THIS SHIFT.
--- NOTE | 2018-06-29 19:30 | NUR ---
ASSESSMENT PT RESPONDS TO PAINFUL STIMULI, OPENS EYES TO PRESSURE, LOCALIZES PAIN, DOES NOT FOLLOW COMMANDS, DOES NOT NOD HEAD Y/N TO QUESATIONS. PROPOFOL DRIP AT 40 MCG/KG/MIN - WILL CONT TO TITRATE TO EFFECT. PRECEDEX DRIP ON STANDBY - WILL CONT TO TITRATE TO EFFECT. HAIDER SENSTAION. PT HENNING. WEAK MOVEMENT NOTED. LESS MOVEMENT NOTED THIS PM. NO S/SX OF PAIN/DISCOMFORT NOTED. PT'S AT BEDSIDE AND PLANNING TO SPEND NIGHT IN ICU THIS HFIT. PT IN BILAT WRIST RESTRAINTS TO PROTECT VITAL LINES/CORDS/TUBES AND TO PROTECT FROM SELF-EXTUBATION. LUNGS COARSE T/O, DIMINISHED LOWER LOBES, EXP WHEEZING T/O. VENT SETTINGS: AC 16, TV 450, PEEP 5, FIO2 50%. OXY SAT >90%. RR 20'S. SUCTION VIA ETT: MODERATE AMOUNTS OF THICK YELLOW SECRETIONS. TEMP 100.6 - TYLENOL PRN, ROOM TEMP DOWN, ICE PACKS ON, BLANKETS OFF, FAN ON. 100% PACED WITH BBB. HR 60'S. BP STABLE - SEE VS FS. STRONG PULSES. WARM, PINK SKIN. SLIGHTLY DIAPHORETIC. SCD'S FOR DVT PRO. HYPOACTIVE BT X4 QUADRANTS. ABD MOD DIST, SOFT, NONTENDER (NO FACIAL GRIMACING WITH PALPATION). OG IN PLACE. TF STARTED THIS AM. VHP @ GOAL RATE 20 ML/HR AND 30 ML FLUSH Q4 HR. RESIDUAL O. NO BM. DOCUSATE ADMINISTERED. F/C IN PLACE: YELLOW, CLOUDY URINE WITH SEDIMENT. PIV X3. NS AT 100 ML/HR.
--- NOTE | 2018-06-30 | NUR ---
DR. GLADYS GRAHAM IN TO SEE PT AT THIS TIME. INFORMED DR GRAHAM OF POC GLUCOSE 398. DR. GRAHAM INSTRUCTED TO ADMINISTER INSULIN PER ORDER. DR. GRAHAM DOES NOT WANT TO INCREASE SLIDING SCALE AT THIS TIME. NO NEW ORDERS AT THIS TIME.
[2018-06-30 03:28] LABS: BASOPHILS ABSOLUTE AUTO 0.02 K/mm3 (0.00-0.23); BASOPHILS PERCENT AUTO 0 % (0-2); EOSINOPHILS PERCENT AUTO 0 % (0-6); Hematocrit 35.9 % (37.0-53.0); Hemoglobin 10.9 g/dL (13.5-17.5); IMMATURE GRAN ABSOLUTE AUTO 0.14 K/mm3 (0.00-0.10); IMMATURE GRAN PERCENT AUTO 1 % (0-1); LYMPHOCYTES ABSOLUTE AUTO 0.48 K/mm3 (0.84-5.20); LYMPHOCYTES PERCENT AUTO 5 % (21-46); MONOCYTES ABSOLUTE AUTO 0.21 K/mm3 (0.16-1.47); MONOCYTES PERCENT AUTO 2 % (4-13); Mean Corpuscular HGB 28.6 pg (26.0-34.0); Mean Corpuscular HGB Conc 30.4 g/dL (31.5-36.5); Mean Corpuscular Volume 94 fL (80-100); Mean Platelet Volume 11.5 fL (9.1-12.4); NEUTROPHILS ABSOLUTE AUTO 9.61 K/mm3 (1.96-9.15); NEUTROPHILS PERCENT AUTO 92 % (41-73); Platelet Count 231 K/mm3 (150-400); RDW Coefficient Variation 13.9 % (11.7-14.2); RDW Standard Deviation 48.3 fL (35.1-46.3); Red Blood Cell Count 3.81 M/mm3 (4.30-5.90); White Blood Cell Count 10.46 K/mm3 (4.00-11.30)
[2018-06-30 03:47] LABS: International Normalized Ratio 1.37; Prothrombin Time Results 14.1 Sec (9.7-11.5)
[2018-06-30 03:49] LABS: Albumin, Blood 3.1 g/dL (3.4-5.0); Anion Gap 8 mmol/L (6-16); Blood Urea Nitrogen 47 mg/dL (8-24); CO2, Blood 21 mmol/L (21-32); Calcium, Blood 8.8 mg/dL (8.5-10.1); Chloride, Blood 104 mmol/L (98-108); Creatinine, Blood 1.81 mg/dL (0.60-1.20); Glomerular Filtration Rate 40 (60-); Glucose, Blood 411 mg/dL (70-99); Phosphorus, Blood 3.5 mg/dL (2.5-4.9); Potassium, Blood 4.8 mmol/L (3.5-5.5); Sodium, Blood 133 mmol/L (136-145)
--- NOTE | 2018-06-30 04:30 | NUR ---
DR. GRAHAM CALLED DR. GRAHAM AT THIS TIME. INFORMED DR. GRAHAM OF LABS. DR. GRAHAM [place]AS[place] [facility] [place].
--- NOTE | 2018-06-30 05:12 | NUR ---
SHIFT ASSESSMENT NO ACUTE CHANGES NOTED T/O SHIFT. DURING SEDATION VACATION WITH PROPOFOL ON STABDY, PT CONT TO RESPOND ONLY TO PAINFUL STIMULI, OPENED EYES SLIGHTLY TO PAINFUL STIMULI, DIDNOT OPEN EYES SPONT OR TO VERBAL STIMULI, DID NOT FOLLOW COMMANDS, DID NOT NOD HEAD Y/N TO ANY QUESTIONS, LOCALIZED PAIN, RESTLESS, THRASHING AROUND IN BED, AGITATED, AND PULLING ON BILAT WRIST RESTRAINTS TOWARDS ETT. PROPOFOL DRIP AT 50 MCG/KG/MIN - CONT TO TITRATE TO EFFECT. PRECEDEX DRIP REMAINED OFF. HAIDER SENSATION. PT HENNING. WEAK MOVEMENT NOTED. LESS MOVEMENT NOTED THIS PM. NO S/SX OF PAIN/DISCOMFORT EXCEPT DURING SEDATION VACATION. MEDICATED WITH FENT PER PHYSICIAN'S ORDER / UTILIZED NONPHARM METHODS. PT'S REMAINED AT BEDSIDE T/O SHIFT. PT IN BILAT WRIST RESTRAINTS TO PROTECT VITAL LINES/CORDS/TUBES AND TO PROTECT FROM SELF-EXTUBATION. LUNGS COARSE T/O, DIMINISHED LWOER LOBES, FREQUENT EXP WHEEZING T/O. VENT SETTINGS: AC 16, TV 450, PEEP 5, FIO2 50%. OXY SAT >90%. RR 16 TO 30'S. SUCTIONV IA ETT: MODERATE AMOUNTS OF THICK YELLOW SECRETIONS. TMAX 100.6 THAT RESOLVED WITH TYLENOL PRN, ROOM TEMP DOWN, ICE PACKS ON, BLANKETS OFF, FAN ON. CURRENTLY AFEBRILE WITH ICE PACKS OFF, BLANKETS ON, FAN OFF. 100% PACED WITH BBB. HR 50'S TO 60'S. SBP INCREASED TO 180'S DURING SEDATION VACATION. OTHERWISE, BP STABLE (SEE VS FS). STRONG PULSES, WARM, PINK SKIN. LESS DIAPHORETIC THIS AM. SCD'S FOR DVT PRO. TRACE EEDEMA TO BILAT HANDS AND BILAT FT. HYPOACTIVE BT X4 QUADRANTS. ABD SOFT, NONTNEDER (NO FACIAL GRIMACING WITH PALPATION), MOD DIST. OG IN PLACE. TF: VHP @ GOAL RATE 20 ML/HR AND 30 ML FLUSH Q4 HR. RESIDUAL WNL. NO BM. F/C: YELLOW CLOUDY URINE WITH SEDIMENT. PIV X3. NS AT 100 ML/HR. WILL CONT TO MONITOR PT AND WILL PROVIDE BEDSIDE REPORT TO ONCOMING NURSE THIS AM.
--- NOTE | 2018-06-30 08:55 | NUR ---
CARE ASSUMED CARE AND REPORT ASSUMED FROM UTE HAMMER. PT INTUBATED AND SEDATED. PROPOFOL GTT INFUSING AT 50 MCG AT THIS TIME. VENT AC 16, 450, PEEP 5, FIO2 50%. LUNG SOUNDS COARSE T/O WITH THICK, YELLOW SPUTUM IN ETT. HOB ELEVATED. PT RESPONDS TO PAIN WITH STIMULATION AND APPEARS COMFORTABLE AT THIS TIME. AFEBRILE, TEMP 98.1. BP 160S/70S; BP MEDS GIVEN PER TUBE. OGT SECURED AND TF AT GOAL RATE 20 ML/HR; 10 ML RESIDUAL. BUE RESTRAINED TO PROTECT ETT AND LINES. 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 NS INFUSING AT 100 ML/HR PER ORDER. BEDSIDE AND UPDATED. WILL CONTINUE TO MONITOR.
--- NOTE | 2018-06-30 12:30 | NUR ---
REASSESSMENT SEDATION VACATION LASTING 20 MINUTES. PT BECAME AGITATED, SITTING UP IN BED, PULLING AGAINST RESTRAINTS AND SWINGING LEGS. PT NOT ABLE TO FOLLOW COMMANDS. RR UP TO 36-40. AT BEDSIDE DURING SEDATION VACATION. NOW SEDATED AGAIN WITH PROPOFOL GTT AT 50 MCG AND FENTANYL 100 MCG IVP GIVEN POST SEDATION VACATION PT WAS GRIMACING. REMAINS IN BUE RESTRAINTS. FAMILY AT BEDSIDE. VSS. REMAINS IN PACED RHYTHM, HR 60. BP STABLE. LINENS AND GOWN CHANGED DUE TO BEING WET. TF INCREASED TO 25 ML/HR PER ORDER. WILL CONTINUE TO MONITOR.
--- NOTE | 2018-06-30 18:24 | NUR ---
SHIFT SUMMARY PT INTUBATED AND SEDATED ENTIRE SHIFT. PROPOFOL GTT REMAINED AT 50-55 MCG ENTIRE SHIFT. FENTANYL GIVEN PRN. VENT REMAINED ON AC 16, 450, 5, WITH INCREASE OF FIO2 TO 55% THIS AFTERNOON. PTS LINENS WERE WET AND AFTER THOROUGH INVESTIGATING, REALIZED THAT PTS CATHETER WAS LEAKING AND SOILING BED. MACEDO CATHETER CHANGED, LINENS CHANGED, AND PT CLEANED. SINCE THEN, NO LEAKING OF URINE. TOLERATED OGT FEEDINGS ENTIRE SHIFT WITH MINIMAL RESIDUAL. TF INCREASED TO 25 ML/HR AND HAS TOLERATED. REMAINED IN BUE RESTRAINTS ENTIRE SHIFT. HAD APPROX 20 MINUTE SEDATION VACATION, IN WHICH HE QUICKLY BECAME RESTLESS AND AGITATED, PULLING AGAINST RESTRAINTS AND SHAKING HEAD BACK AND FORTH. LUNG SOUNDS COARSE THROUGHOUT ALL BANUELOS. FAMILY BEDSIDE ENITRE SHIFT. PROPOFOL GTT NOW INFUSING AT 55 MCG/KG/MIN. WILL GIVE BEDSIDE, HANDOFF REPORT TO AKOSUA RN.
--- NOTE | 2018-06-30 21:18 | NUR ---
ASSUMPTION OF CARE: Pt is intubated and sedated with vent set to AC 16/450/55%/5, O2 90-92%, VSS propofol @ 50mcg/kg/min. Pt responds to painful stimuli, occasional gross movement of the extremities. Peripheral IV x3 infusing propofol, maintanence fluids, with remaining IV SL. Soler intact and draining clear yellow urine. Tube feed per OG infusing vital high protein @ goal of 25 mL/hr.
--- NOTE | 2018-07-01 00:34 | NUR ---
High Glucose: Patient continues to have high glucose levels, 456 @ 0000hr. Contacted Dr. Mathis and informed her of glucose level, 18u regular insulin SC per sliding scale, given at 0000hr, and 20u Lantus given per EMAR at HS. Received order for IV insulin gtt. Awaiting this medication from pharmacy at this time. Will monitor blood glucose q1hr.
[2018-07-01 03:26] LABS: BASOPHILS ABSOLUTE AUTO 0.02 K/mm3 (0.00-0.23); BASOPHILS PERCENT AUTO 0 % (0-2); EOSINOPHILS PERCENT AUTO 0 % (0-6); Hematocrit 33.3 % (37.0-53.0); Hemoglobin 10.4 g/dL (13.5-17.5); IMMATURE GRAN ABSOLUTE AUTO 0.23 K/mm3 (0.00-0.10); IMMATURE GRAN PERCENT AUTO 2 % (0-1); LYMPHOCYTES ABSOLUTE AUTO 0.33 K/mm3 (0.84-5.20); LYMPHOCYTES PERCENT AUTO 3 % (21-46); MONOCYTES ABSOLUTE AUTO 0.36 K/mm3 (0.16-1.47); MONOCYTES PERCENT AUTO 3 % (4-13); Mean Corpuscular HGB 28.8 pg (26.0-34.0); Mean Corpuscular HGB Conc 31.2 g/dL (31.5-36.5); Mean Corpuscular Volume 92 fL (80-100); Mean Platelet Volume 11.1 fL (9.1-12.4); NEUTROPHILS ABSOLUTE AUTO 9.87 K/mm3 (1.96-9.15); NEUTROPHILS PERCENT AUTO 91 % (41-73); NRBC ABSOLUTE 0.04 K/mm3 (0.00-0.02); NRBC Auto 0.4 /100 WBC (0.0-0.2); Platelet Count 309 K/mm3 (150-400); RDW Coefficient Variation 14.2 % (11.7-14.2); RDW Standard Deviation 48.5 fL (35.1-46.3); Red Blood Cell Count 3.61 M/mm3 (4.30-5.90); White Blood Cell Count 10.81 K/mm3 (4.00-11.30)
[2018-07-01 03:41] LABS: International Normalized Ratio 1.25
[2018-07-01 03:46] LABS: Albumin, Blood 2.8 g/dL (3.4-5.0); Anion Gap 6 mmol/L (6-16); Blood Urea Nitrogen 63 mg/dL (8-24); Bun/Creatinine Ratio 36.8 (12.0-20.0); CO2, Blood 22 mmol/L (21-32); Calcium, Blood 9.1 mg/dL (8.5-10.1); Chloride, Blood 113 mmol/L (98-108); Creatinine, Blood 1.71 mg/dL (0.60-1.20); Glomerular Filtration Rate 43 (60-); Glucose, Blood 409 mg/dL (70-99); Phosphorus, Blood 3.2 mg/dL (2.5-4.9); Potassium, Blood 4.4 mmol/L (3.5-5.5); Sodium, Blood 141 mmol/L (136-145)
--- NOTE | 2018-07-01 06:28 | NUR ---
SHIFT SUMMARY: Pt remains intubated and sedated with vent set to AC 16/450/50%/5, 02 97%-100%, VSS with HR 60 and systolic BP 110-130's. Soler cath remains intact and draining clear yellow urine. One peripheral IV DC'd due to infiltration. Peripheral IV x2 remain intact and infusing. Insulin drip initiated at 2 units/hr and titrated (by Jones HAMMER) to 6 units/hr. Sedation vacation and spontaneous breathing trial attempted on this shift, pt became agitated/restless, violently thrashing head, lifting torso off of bed, see RT note. Precedex drip started prior to decreasing/stopping propofol to help tolerate breathing trial with no effect.
--- NOTE | 2018-07-01 09:18 | NUR ---
PT SEDATED ON 55MCG PROPOFOL FOR MECH VENT. PT GRIMACES AND MOVES TO NOXIOUS STIMULI. LUNGS COARSE T/O WITH SCATTERED EXP WHEEZES. THICK SEBASTIAN SECRETIONS SX'D FROM ETT. AT BEDSIDE. INSULIN GTT INCREASED FROM 6UNITS TO 7UNITS. BP STABLE, 100% PACED.
--- NOTE | 2018-07-01 09:49 | NUR ---
DR CHANDLER IN TO SEE PT, SEE NEW ORDERS. PROPOFOL OFF FOR APPROX. 2MIN. PT WOKE UP THRASHING HEAD FROM SIDE TO SIDE, PULLING SELF UP INTO SITTING POSITION. DID NOT OPEN EYES, DID NOT FOLLOW DIRECTIONS. PROPOFOL RESUMED AT 55MCG.
--- NOTE | 2018-07-01 10:43 | NUR ---
IV FLUIDS PLACED TO TKO, LASIX AND LOVENOX GIVEN PER ORDERS.
--- NOTE | 2018-07-01 11:50 | NUR ---
TUBE FEEDING SET CHANGED. AT GOAL RATE OF 25CC/HR, NO RESIDUAL. LUNGS SOUNS IMPROVED AFTER LASIX, EXP WHEEZE REMAINS SCATTERED. PT MEDICATED W 50MCG FENT FOR RESTLESSNESS AND AGITATION W GOOD EFFECT. INSULIN REMAINS AT 7UNITS.
--- NOTE | 2018-07-01 13:01 | NUR ---
INSULIN DECREASED FROM 6 TO 3 UNITS/HR FOR CBG 134
--- NOTE | 2018-07-01 18:02 | NUR ---
INSULIN GTT REMAINS AT 3UNITS/HR WITH BS AVERAGING AROUND 160. PROPOFOL REMAINS AT 55MCG, ATIVAN AND FENT GIVEN IV PRN FOR RESTLESSNESS AND AGITATION W ORAL CARE AND TURNING. RT TITRATED 02 DOWN TO 35%; PT APPEARS TO BE TOLERATING LOWER FI02. LUNGS CONT TO HAVE SCATTERED WHEEZES, COARSENESS HAS IMPROVED OVER THE DAY. PT'S THICK SEBASTIAN SECRETIONS HAVE REMAINED THE SAME. PT'S REMAINS AT BEDSIDE.
--- NOTE | 2018-07-01 19:15 | NUR ---
ASSUMPTION OF CARE: Pt is intubated and sedated with vent set to AC 16/450/30%/5, VSS with O2 96-99%. Pt responds to painful stimuli and positive plantar reflexes. Peripheral IV x3 patent and intact with Rt arm IV's infusing (See flowsheet) and Lt arm IV SL. OG tube set to continuous feed at goal rate of 25 mL/hr. Soler cath in place and draining clear yellow urine. Plan for sedation vacation with spontaneous breathing trial in the morning, plan to provide precedex and/or PRN ativan to help pt tolerate breathing trial.
[2018-07-02 03:08] LABS: BASOPHILS ABSOLUTE AUTO 0.02 K/mm3 (0.00-0.23); BASOPHILS PERCENT AUTO 0 % (0-2); EOSINOPHILS PERCENT AUTO 0 % (0-6); Hematocrit 35.5 % (37.0-53.0); Hemoglobin 11.2 g/dL (13.5-17.5); IMMATURE GRAN ABSOLUTE AUTO 0.33 K/mm3 (0.00-0.10); IMMATURE GRAN PERCENT AUTO 2 % (0-1); LYMPHOCYTES ABSOLUTE AUTO 0.49 K/mm3 (0.84-5.20); LYMPHOCYTES PERCENT AUTO 4 % (21-46); MONOCYTES ABSOLUTE AUTO 0.63 K/mm3 (0.16-1.47); MONOCYTES PERCENT AUTO 5 % (4-13); Mean Corpuscular HGB 28.4 pg (26.0-34.0); Mean Corpuscular HGB Conc 31.5 g/dL (31.5-36.5); Mean Corpuscular Volume 90 fL (80-100); NEUTROPHILS ABSOLUTE AUTO 12.06 K/mm3 (1.96-9.15); NEUTROPHILS PERCENT AUTO 89 % (41-73); NRBC ABSOLUTE 0.04 K/mm3 (0.00-0.02); NRBC Auto 0.3 /100 WBC (0.0-0.2); Platelet Count 371 K/mm3 (150-400); RDW Coefficient Variation 14.3 % (11.7-14.2); RDW Standard Deviation 47.4 fL (35.1-46.3); Red Blood Cell Count 3.94 M/mm3 (4.30-5.90); White Blood Cell Count 13.53 K/mm3 (4.00-11.30)
[2018-07-02 03:22] LABS: International Normalized Ratio 1.33; Prothrombin Time Results 13.7 Sec (9.7-11.5)
[2018-07-02 03:24] LABS: Albumin, Blood 2.9 g/dL (3.4-5.0); Anion Gap 5 mmol/L (6-16); Blood Urea Nitrogen 60 mg/dL (8-24); Bun/Creatinine Ratio 40.3 (12.0-20.0); CO2, Blood 23 mmol/L (21-32); Calcium, Blood 9.4 mg/dL (8.5-10.1); Chloride, Blood 119 mmol/L (98-108); Creatinine, Blood 1.49 mg/dL (0.60-1.20); Glomerular Filtration Rate 50 (60-); Glucose, Blood 186 mg/dL (70-99); Magnesium, Blood 2.7 mg/dL (1.6-2.4); Phosphorus, Blood 3.1 mg/dL (2.5-4.9); Potassium, Blood 4.6 mmol/L (3.5-5.5); Sodium, Blood 147 mmol/L (136-145)
[2018-07-02 05:39] LABS: pH Blood Arterial 7.36 (7.35-7.45)
--- NOTE | 2018-07-02 05:52 | NUR ---
SHIFT SUMMARY: Pt remains intubated and sedated vent set to AC 16/450/30%/5 with O2 95-98%, VSS. Peripheral IV's x3 remain patent and intact, right arm IV's infusing and left arm IV SL. Soler catheter in place, draining clear yellow to green urine. Sedation vacation and spontaneous breathing trial was done this AM, pt less restless than previous breathing trial but remained agitated and did not follow commands.
--- NOTE | 2018-07-02 10:57 | NUR ---
ON FIRST ASSESSMENT AT 0720, PT ON PROPOFOL 30MCG AND PRECEDEX AT 0.7MCG FOR MECH VENT. SHIFT PROGRESSED PT BECAME MORE AGITATED AND RESTLESS; USING ACCESSORY MUSCLES TO BREATH, RATE 30'S, THRASHING HEAD, SITTING UP, UNABLE TO FOLLOW DIRECTIONS, EYES GAZING UPWARD. ATIVAN PUSH DID NOT HELP. PROPOFOL PLACED BACK TO 55MCG, PRECEDEX STOPPED, FENT 50MCG GIVEN. PT NOW CALM WITH REGULAR UNLABORED RESP. SATS ALSO DECREASED TO 88% ON 30%. FIO2 TITRATED UP TO 50%. LUNGS COARSE WITH SCATTERED WHEEZES T/O. RT NOTIFIED. LARGE AMT OF THICK YELLOW SPUTUM SX'D FROM ETT. COLOR IS IMPROVED FROM YESTERDAY. DR CHANDLER IN TO SEE PT; LASIX ORDERED AND GIVEN. DR NOVAK IN THIS AM. INSULIN GTT STOPPED AT 0800; CBG Q 6HRS W MED SLIDING SCALE.
--- NOTE | 2018-07-02 18:21 | NUR ---
PT U/O > 2L AFTER LASIX GIVEN, URINE CLEAR W GREEN TINT. PROPOFOL REMAINED AT 55MCG W ATIVAN AND FENT GIVEN IV PRN FOR AGITATION. PT SEDATED AND CALM FOR MAJORITY OF SHIFT. PT WOULD OCCASSIONALLY BECOME AGITATED PRIOR TO ATIVAN AND FENT PUSHES; PEAK PRESSURES WOULD RISE INTO 40'S, PT WOULD STACK BREATHS ON VENT, AND THRASH HEAD FORM SIDE TO SIDE. INSULIN GTT REMAINED OFF. SLIDING SCALE INCREASED FROM MED TO HIGH AFTER 1630 CBG. NS REMAINED AT TKO. FIO2 TITRATED UP TO 50% AND WAS TITRATED BACK DOWN TO 40%. LUNGS COARSE WITH SCATTERED WHEEZING T/O SHIFT; SOME IMPROVEMENT OVERALL TOWARDS END OF SHIFT. DECREASE IN ETT SECRETIONS TOWARDS END OF SHIFT WELL. PT'S REMAINED AT BEDSIDE FOR MOST OF SHIFT; SHE DID RETURN TO HER HOME TODAY TO SHOWER.
--- NOTE | 2018-07-02 19:00 | NUR ---
ASSUMPTION OF CARE: Pt is intubated and sedated, vent set to AC 16/450/40%/5 with O2 97-98%, VSS. Pt responds to painful stimuli and plantar reflexes are present. Peripheral IV x3 patent and intact with propofol and TKO infusing, LFA IV SL. Soler catheter in place, draining clear yellow urine. Plan for spontaneous breathing trial in the morning.
[2018-07-03 03:36] LABS: International Normalized Ratio 1.28; Prothrombin Time Results 13.3 Sec (9.7-11.5)
[2018-07-03 04:40] LABS: BASOPHILS ABSOLUTE AUTO 0.02 K/mm3 (0.00-0.23); BASOPHILS PERCENT AUTO 0 % (0-2); EOSINOPHILS PERCENT AUTO 0 % (0-6); Hemoglobin 10.9 g/dL (13.5-17.5); IMMATURE GRAN ABSOLUTE AUTO 0.39 K/mm3 (0.00-0.10); IMMATURE GRAN PERCENT AUTO 4 % (0-1); LYMPHOCYTES ABSOLUTE AUTO 0.42 K/mm3 (0.84-5.20); LYMPHOCYTES PERCENT AUTO 4 % (21-46); MONOCYTES ABSOLUTE AUTO 0.49 K/mm3 (0.16-1.47); MONOCYTES PERCENT AUTO 5 % (4-13); Mean Corpuscular HGB 28.5 pg (26.0-34.0); Mean Corpuscular HGB Conc 31.1 g/dL (31.5-36.5); Mean Corpuscular Volume 92 fL (80-100); Mean Platelet Volume 11.3 fL (9.1-12.4); NEUTROPHILS ABSOLUTE AUTO 9.05 K/mm3 (1.96-9.15); NEUTROPHILS PERCENT AUTO 87 % (41-73); NRBC ABSOLUTE 0.02 K/mm3 (0.00-0.02); NRBC Auto 0.2 /100 WBC (0.0-0.2); Platelet Count 378 K/mm3 (150-400); RDW Coefficient Variation 14.6 % (11.7-14.2); RDW Standard Deviation 49.3 fL (35.1-46.3); Red Blood Cell Count 3.82 M/mm3 (4.30-5.90); White Blood Cell Count 10.37 K/mm3 (4.00-11.30)
[2018-07-03 04:52] LABS: Calcium, Blood 9.5 mg/dL (8.5-10.1); Creatinine, Blood 1.34 mg/dL (0.60-1.20)
--- NOTE | 2018-07-03 06:44 | NUR ---
SHIFT SUMMARY: Pt remains intubated and sedated, vent set to AC 16/450/30%/5, VSS O2 93-96%. Peripheral IV x3 patent and in tact. Soler catheter draining clear yellow urine. Spontaneous breathing trial attempted this morning, pts BP increased to 190's-212 systolic (See RT note).
--- NOTE | 2018-07-03 07:40 | NUR ---
ASSUMED CARE: REPORT RECEIVED FROM MELANIE Adamson, STUDENT NURSE, & DARNELL Gerard RN. ASSUMED CARE OF THIS PT AT APPROX 0700. ON ASSESSMENT, THE PT IS RESTING QUIETLY. BILAT WRIST RESTRAINTS IN PLACE. VENT SETTINGS: AC 16, TV 450, PEEP 5 & FIO2 30%. PROPOFOL INFUSING FOR SEDATION. PT WITHDRAWS TO PAINFUL STIMULI. MONITOR SHOWING 100% V-PACED RHYTHM, HR 60s. TUBE FEED INFUSING AT GOAL RATE OF 25 ML/HR. MACEDO PATENT/DRAINING. SKIN OVERALL CDI. WILL CONTINUE TO MONITOR & UPDATE NEEDED.
--- NOTE | 2018-07-03 08:10 | NUR ---
DR. NOVAK: PROVIDER AT BEDSIDE TO SEE PT. NO NEW ORDERS OR CHANGES AT THIS TIME. PROVIDER HAS UPDATED PT's ON POC. WILL CONTINUE TO MONITOR & UPDATE NEEDED.
--- NOTE | 2018-07-03 08:30 | NUR ---
DR. CHANDLER: PROVIDER AT BEDSIDE TO SEE PT. UPDATED ON POC. THERE ARE NO PLANS TO EXTUBATE TODAY AT THIS TIME. ORDERS FOR AM DOSE OF LANTUS HAVE BEEN PLACED R/T CONTINUED HIGH CBG READINGS. WILL CONTINUE TO MONITOR & UPDATE NEEDED.
--- NOTE | 2018-07-03 09:30 | NUR ---
SEDATION VACATION: SEDATION DECREASED & PLACED ON STANDBY THIS AM. PT PREMEDICATED FOR ANXIETY PER EMAR. HE HAS BEEN UNABLE TO FOLLOW COMMANDS BUT WITHDRAWS EXTREMITIES TO PAINFUL STIMULI & HENNING. EYES OPEN SPONTANEOUSLY, UPWARD GAZE PRESENT, NO TRACKING OR FOCUSING NOTED. PT BECOMING MORE HYPERTENSIVE & AGITATED, SEDATION RESUMED DOCUMENTED IN FLOWSHEET. WILL CONTINUE TO MONITOR & UPDATE NEEDED,
--- NOTE | 2018-07-03 18:05 | NUR ---
SHIFT SUMMARY: NO ACUTE CHANGES SINCE ASSUMING CARE. PT REMAINS SEDATED/INTUBATED. WITHDRAWS TO PAINFUL STIMULI. BILAT SOFT WRIST RESTRAINTS REMAIN ON & DOCUMENTED IN INTERVENTIONS. LS ARE COARSE & DIM T/O, OCCASIONAL WHEEZING NOTED. VENT SETTINGS UNCHANGED; AC 16, TV 450, PEEP 5 & FIO2 30%. MONITOR SHOWS 100% V-PACED RHYTHM, HR 60 ON AVG. BT HYPOACTIVE x4 QUADS, PT TOLERATING TF WELL W/ LOW RESIDUALS. FORMULA IS VITAL HP, INFUSING AT GOAL OF 25 ML/HR. 230 ML H2O FLUSH Q4H, FLUSH VOLUME INCREASED R/T HIGH SODIUM LEVELS ON LABWORK. TEMP MACEDO REMAINS PATENT/DRAINING YELLOW-GREEN URINE. SCATTERED BRUISING TO BUE. WILL CONTINUE TO MONITOR & REPORT OFF TO ONCOMING RN.
--- NOTE | 2018-07-03 19:15 | NUR ---
ASSUMING CARE OF PT AT THIS TIME. PT REPORT RECEIVED AT BEDSIDE WITH OFFGOING NURSE, REGINO HAMMER. PT LAYING IN BED, INTUBATED, AND SEDATED UPON ENTERING THE ROOM. VS STABLE - SEE VS FS. PT DOES NOT APPEAR TO BE IN DISTRESS AT THIS TIME. WILL REVIEW PLAN OF CARE.
--- NOTE | 2018-07-03 19:30 | NUR ---
ASSESSMENT PT RESPONDS TO PAINFUL STIMULI, DOES NOT OPEN EYES TO PAINFUL OR VERBAL STIMULI, LOCALIZES PAIN, DOES NOT FOLLOW COMMANDS, DOES NOT NOD HEAD Y/N TO QUESTIONS. PROPOFOL DRIP AT 55 MCG/KG/MIN - WILL CONT TO TITRATE TO EFFECT. PRECEDEX DRIP ON STANDBY - WILL CONT TO TITRATE TO EFFECT. HAIDER SENSATION. PT HENNING. WEAK MOVEMENT NOTED. LESS MOVEMENT NOTED THIS PM. NO S/SX OF PAIN/DISCOMFORT NOTED. PT'S AT BEDSIDE AND PLANNING TO SPEND NIGHT IN ICU THIS SHIFT. PT IN BILAT WRIST RESTRAINTS TO PROTECT VITAL LIENS/CORDS/TUBES AND TO PROTECT FROM SELF-EXTUBATION. LUNGS COARSE T/O, EXP WHEEZING, DIMINIHSED LOWER LOBES. VENT SETTINGS: AC 16, TV 450, PEEP 5, FIO2 30%. OXY SAT >90%. RR 20'S. SUCTION VIA ETT: SMALL AMOUNTS OF THICK YELLOW SECRETIONS. TEMP 99.3 - ROOM TEMP DOWN, BLANKETS OFF, FAN ON. 100% PACED WITH BBB. HR 60'S. BP STABLE - SEE VS FS. STRONG PULSES. WARM, PINK, DRY SKIN. SCD'S FOR DVT PRO. TRACE EDEMA BUE'S AND BLE'S. HYPOACTIVE BT X4 QUADRANTS. ABD MOD DIST, SOFT, NONTENDER (NO FACIAL GRIMACING WITH PALPATION). OG IN PLACE. TF: VHP AT GOAL RATE 25 ML/HR AND 200 ML FLUSH Q4 HR. RESIDUAL 6 ML. PER REPORT - BM X2 THIS AM. NO BM AT THIS TIME. F/C IN PLACE: YELLOW, CLEAR URINE. PIV X3. NS TKO AT 10 ML/HR.
--- NOTE | 2018-07-04 01:50 | NUR ---
DR. CHANDLER PT REMAINS HYPERTENSIVE (SEE VS FS). ADMINSITERED HYDRALAZINE PRN AND SCHEDULED ANTI-HYPERTENSIVES. CALLED DR. CHANDLER AT THIS TIME. DR CHANDLER ORDERED COREG 12.5 MG NOW AND INCREASED COREG 25 MG BID. WAITING FOR VERIFICATION OF MEDICATION FROM PHARMACY AT THIS TIME.
[2018-07-04 03:45] LABS: BASOPHILS ABSOLUTE AUTO 0.04 K/mm3 (0.00-0.23); BASOPHILS PERCENT AUTO 0 % (0-2); EOSINOPHILS PERCENT AUTO 0 % (0-6); Hematocrit 38.5 % (37.0-53.0); Hemoglobin 11.9 g/dL (13.5-17.5); IMMATURE GRAN ABSOLUTE AUTO 0.46 K/mm3 (0.00-0.10); IMMATURE GRAN PERCENT AUTO 4 % (0-1); LYMPHOCYTES ABSOLUTE AUTO 0.55 K/mm3 (0.84-5.20); LYMPHOCYTES PERCENT AUTO 4 % (21-46); MONOCYTES ABSOLUTE AUTO 0.61 K/mm3 (0.16-1.47); MONOCYTES PERCENT AUTO 5 % (4-13); Mean Corpuscular HGB 28.3 pg (26.0-34.0); Mean Corpuscular HGB Conc 30.9 g/dL (31.5-36.5); Mean Corpuscular Volume 92 fL (80-100); NEUTROPHILS ABSOLUTE AUTO 10.86 K/mm3 (1.96-9.15); NEUTROPHILS PERCENT AUTO 87 % (41-73); NRBC ABSOLUTE 0.03 K/mm3 (0.00-0.02); NRBC Auto 0.2 /100 WBC (0.0-0.2); Platelet Count 375 K/mm3 (150-400); RDW Coefficient Variation 15.1 % (11.7-14.2); White Blood Cell Count 12.52 K/mm3 (4.00-11.30)
[2018-07-04 03:59] LABS: International Normalized Ratio 1.19; Prothrombin Time Results 12.4 Sec (9.7-11.5)
[2018-07-04 04:03] LABS: Bun/Creatinine Ratio 48.5 (12.0-20.0); Calcium, Blood 9.4 mg/dL (8.5-10.1); Creatinine, Blood 1.32 mg/dL (0.60-1.20); Magnesium, Blood 2.6 mg/dL (1.6-2.4); Phosphorus, Blood 3.3 mg/dL (2.5-4.9); Potassium, Blood 5.1 mmol/L (3.5-5.5)
[2018-07-04 05:04] LABS: PCO2 Arterial 56.7 mmHg (35-45); PO2 Arterial 56.7 mmHg (80-100)
--- NOTE | 2018-07-04 05:30 | NUR ---
DR. CHANDLER INFORMED DR. CHANDLER OF PT'S VS (SEE VS FS). DR. CHANDLER INCREASED FREQUENCY OF HYDRALAZINE TO Q4 HR PRN.
--- NOTE | 2018-07-04 05:58 | NUR ---
ISOLATION ACCORDING TO NESTOR FROM INFECTION CONTROL, ISOLATION IS NOT REQUIRED FOR HAEMOPHILUS INFLUENZAE AT THIS TIME. ISOLATION D/C AT THIS TIME.
--- NOTE | 2018-07-04 06:08 | NUR ---
SHIFT ASSESSMENT DURING SEDATION VACATION WITH PROPOFOL ON STANDBY, PT CONT TO RESOPND TO PAINFUL STIMULI, OPENED EYES SLIGHTLY TO PAINFUL STIMULI, DID NOT OPEN EYES SPONT OR TO VERBAL STIMULI, DID NOT FOLLOW COMMANDS, DID NOT NOD HEAD Y/N TO ANY QUESTIONS, LOCALIZED PAIN, RESTLESS, THRASHING AROUND IN BED, AGITATED, AND PULLING ON BILAT WRIST RESTRAINTS. PROPOFOL DRIP AT 60 MCG/KG/MIN - CONT TO TITRATE TO EFFECT. PRECEDEX DRIP REMAINED OFF. HAIDER SENSATION. PT HENNING. GENERALIZED WEAKNESS NOTED. LESS MOVEMENT NOTED THIS PM. S/SX OF PAIN/DISCOMFORT NOTED THIS AM. CONT TO ASSESS FOR PAIN/DISCOMFORT AND MEDCATED WITH PAIN MEDS PER PHYSICIAN'S ORDER / UTILIZED NONPHARM METHODS. PT'S REAMINED AT [facility] T/O SHIFT. PT IN BILAT WRIST RESTRAINTS TO PROTECT VITAL LINES/CORDS/TUBES AND TO PORTECT FROM SELF-EXTUBATION. LUNGS COARSE T/O, OCC EXP WHEEZING, DIMINISHED LOWER LOBES. VENT SETTINGS: AC 16, TV 450, PEEP 5, FIO2 40%. INCREASED FIO2 REQUIRED POST SEDATION VACATION D/T OXY SAT <90%. RR 16 TO 30'S. SUCTION VIA ETT: SMALL AMOUNTS OF THICK YELLOW SECRETIONS. TMAX 99.3 - ROOM TEMP DOWN, BLANKETS OFF, FAN ON. 100% PACED WITH BBB. HR 50'S TO 60'S. HTN T/O SHIFT. ADMINISTERED SCHEUDLED ANTI-HYPERTENSIVES AND HYDRALAZINE PRN. INCREASED BP, HR, TEMP, AND RR NOTED DURING SEDATION VACATION - SEE VS FS. STRONG PULSES. WARM, PINK, DRY SKIN. SCD'S FOR DVT PRO. TRACE EDEMA BUE'S AND BLE'S. 1+ EDEMA L HAND. SCLERAL EDEMA. HYPOACTIVE BT X4 QUADRANTS ABD MOD DIST, SOFT, NONTENDER (NO FACIAL GRIMACING WITH PALPATION). OG IN PLACE. TF: VHP AT GOAL RATE AT 25 ML/HR AND 200 ML FLUSH Q4 HR. RESIDUAL WNL. NO BM T/O SHIFT. F/C IN PLACE: YELLOW/GREEN URINE. PIV X2. NS TKO ON STANDBY. WILL CONT TO MONITOR PT AND WILL PROVIDE BEDSIDE REPORT TO ONCOMING NURSE THIS AM.
--- NOTE | 2018-07-04 09:27 | NUR ---
ASSUMED CARE: REPORT RECEIVED FROM UTE Walter RN. ASSUMED CARE OF THIS PT AT APPROX 0700. ON ASSESSMENT, THE PT IS SEDATED/INTUBATED. HE APPEARS COMFORTABLE & IS SHOWING NO S/SX PAIN OR DISCOMFORT AT THAT TIME. THE PT GRIMACES/WITHDRAWS TO PAINFUL STIMULUS BUT REMAINS UNABLE TO FOLLOW COMMANDS OR TRACK/FOCUS W/ EYES. WILL PERFORM SEDATION VACATION ABLE W/ IMPROVEMENT OF BP. PERSISTANT HTN NOTED. AM MEDS PER EMAR W/ SOME IMPROVEMENT. VENT SETTINGS: AC 16, TV 450, PEEP 5 & FIO2 40%. LS ARE COARSE W/ CRACKLES TO R SIDE ON AUSCULTATION. MONITOR SHOWS 100% V-PACED RHYTHM, HR 60. BT HYPOACTIVE, VITAL HP INFUSING AT GOAL RATE OF 35 ML/HR, LOW RESIDUALS CHARTED. MACEDO REMAINS PATENT/DRAINING CLEAR, YELLOW-GREEN URINE. FAMILY IS CONTINUALLY AT BEDSIDE & SUPPORTIVE. WILL CONTINUE TO MONITOR & UPDATE NEEDED.
--- NOTE | 2018-07-04 10:16 | NUR ---
SEDATION VACATION: SEDATION VACTION INITIATED AT APPROX 0950. PT AWAKENED SOMEWHAT DURING THIS TIME & WAS ABLE TO HENNING. HE CONTINUES TO WITHDRAW FROM PAINFUL STIMULUS DURING THIS TIME, BUT IS NOT FOLLOWING COMMANDS CONSISTENTLY. WHEN PROMPTED TO WIGGLE HIS TOES, THE PT WITHDREW BOTH LEGS. IT WAS DIFFICULTY TO ASCERTAIN IF THIS WAS PURPOSEFUL OR REFLEXIVE HE HAS NOT BEEN ABLE TO FOLLOW ANY OTHER COMMANDS OR TRACK/FOCUS W/ HIS EYES. SEDATION HAS BEEN RESUMED AT APPROX 1015 FOR WORSENING HTN. HYDRALAZINE PRN PER EMAR DURING THIS TIME HAS HAD NO EFFECT ON PT's BP DURING SEDATION VACATION. W/ SEDATION RESUMED, THE PT IS NOW RESTING QUIETLY AGAIN. FAMILY REMAINS AT BEDSIDE. WILL CONTINUE TO MONITOR & UPDATE NEEDED.
--- NOTE | 2018-07-04 11:09 | NUR ---
DR. GRAHAM: PROVIDER AT BEDSIDE TO SEE PT. FAMILY IN THE ROOM AT THAT TIME. HE HAS UPDATED THEM ON THE PT's CURRENT STATUS & PLANS FOR FOR HEAD CT THIS SHIFT TO FURTHER EVALUATE PT's WORSENED MENTATION & INABILITY TO FULLY WAKE/ FOLLOW COMMANDS WHEN SEDATION OFF. ORDERS HAVE BEEN PLACED. WILL CONTINUE TO MONITOR & UPDATE NEEDED.
--- NOTE | 2018-07-04 18:03 | NUR ---
SHIFT SUMMARY: NO ACUTE CHANGES SINCE INITIAL ASSESSMENT. PT REMAINS SEDATED/INTUBATED. VENT SETTINGS: AC 16, TV 450, PEEP 5 & FIO2 40%. LS ARE COARSE T/O, OCCASIONAL WHEEZING. MONITOR SHOWS 100% V-PACED RHYTHM, AVG HR 60. BY HYPOACTIVE x4 QUADS, PT TOLERATING TF WELL W/ LOW RESIDUALS CHARTED. TF INFUSING AT GOAL RATE OF 25 ML/HR. MACEDO PATENT/DRAINING CLEAR, YELLOW URINE. PER DR. GRAHAM, HEAD CT IS NEGATIVE FOR ANY ACUTE EVENTS. FAMILY HAS BEEN AT BEDSIDE T/O SHIFT & IS SUPPORTIVE IN CARE, NEEDING OCCASIONAL REMINDERS TO LIMIT STIMULUS & NUMBER OF VISITORS AT BEDSIDE. WILL CONTINUE TO MONITOR & REPORT OFF TO ONCOMING RN.
--- NOTE | 2018-07-04 19:15 | NUR ---
ASSUMING CARE OF PT AT THIS TIME. PT REPORT RECEIVED AT BEDSIDE WITH OFFGOING REGINO BANUELOS RN. PT LAYING IN BED, INTUBATED, AND SEDATED UPON ENTERING THE ROOM. VS STABLE - SEE VS FS. PT DOES NOT APPEAR TO BE IN DISTRESS AT THIS TIME. WILL REVIEW PLAN OF CARE.
--- NOTE | 2018-07-04 19:30 | NUR ---
ASSESSMENT PT RESPONDS TO PAINFUL STIMULI, DOES NOT OPEN EYES TO PAINFUL OR VERBAL STIMULI, LOCALIZES PAIN, DOES NOT FOLLOWS COMMADNS, DOES NOT NOD HEAD Y/N TO QUESTIONS. PROPOFOL DRIP AT 60 MCG/KG/MIN - WILL CONT TO TITRATE TO EFFECT. PRECEDEX DRIP ON STANDBY - WILL CONT TO TITRATE TO EFFECT. HAIDER SENSATION. PT HENNING. MINIMAL MOVEMENT. NO S/SX OF PAIN/DISCOMFORT NOTED. PT'S AT BEDSIDE AND PLANNING TO SPEND NIGHT IN ICU THIS SHIFT. PT IN BILAT WRIST RESTARINTS TO PROTECT VITAL LINES/CORDS/TUBES AND TO PROTECT FROM SELF-EXTUBATION. LUNGS COARSE T/O, OCC EXP WHEEZING, DIMINISHED LOWER LOBES. VENT SETTINGS: AC 16, TV 450, PEEP 5, FIO2 40%. OXY SAT >90%. RR 20'S. SUCTION VIA ETT: SMALL AMOUNTS OF THICK YELLWO SECRETIONS. AFEBRILE. 100% PACED WITH BBB. HR 60'S. BP STABLE - SEE VS FS. STRONG PULSES. WARM, PINK, DRY SKIN. SCD'S FOR DVT PRO. TRACE EDEMA BUE'S AND BLE'S. HYPOACTIVE BT X4 QUADRANTS. ABD MOD DIST, SOFT, NONTENDER (NO FACIAL GRIMACING WITH PALPATION). OG IN PLACE. TF: VHP AT GOAL RATE 25 ML/HR AND 200 ML FLUSH Q4 HR. RESIDUAL 100 ML/HR. NO BM. F/C IN PLACE: YELLOW, CLEAR URINE. PIV X2.
[2018-07-05 03:46] LABS: BASOPHILS ABSOLUTE AUTO 0.03 K/mm3 (0.00-0.23); BASOPHILS PERCENT AUTO 0 % (0-2); EOSINOPHILS PERCENT AUTO 0 % (0-6); Hematocrit 40.3 % (37.0-53.0); Hemoglobin 12.6 g/dL (13.5-17.5); IMMATURE GRAN ABSOLUTE AUTO 0.61 K/mm3 (0.00-0.10); IMMATURE GRAN PERCENT AUTO 4 % (0-1); LYMPHOCYTES PERCENT AUTO 5 % (21-46); MONOCYTES ABSOLUTE AUTO 0.75 K/mm3 (0.16-1.47); MONOCYTES PERCENT AUTO 5 % (4-13); Mean Corpuscular HGB Conc 31.3 g/dL (31.5-36.5); Mean Corpuscular Volume 93 fL (80-100); Mean Platelet Volume 11.1 fL (9.1-12.4); NEUTROPHILS ABSOLUTE AUTO 13.64 K/mm3 (1.96-9.15); NEUTROPHILS PERCENT AUTO 87 % (41-73); NRBC ABSOLUTE 0.02 K/mm3 (0.00-0.02); NRBC Auto 0.1 /100 WBC (0.0-0.2); Platelet Count 357 K/mm3 (150-400); RDW Coefficient Variation 14.9 % (11.7-14.2); RDW Standard Deviation 50.8 fL (35.1-46.3); Red Blood Cell Count 4.35 M/mm3 (4.30-5.90); White Blood Cell Count 15.73 K/mm3 (4.00-11.30)
--- NOTE | 2018-07-05 03:50 | NUR ---
DR. GRAHAM / HYPERTENSION PT REMAINS HYPERTENSIVE (SEE VS FS). SCHEDULED ANTI-HYPERTENSIVES AND PRN HYDRALAZINE ADMINISTERED PER PHYSICIAN'S ORDER. DURING PREVIOUS SEDATION VACATIONS: INCREASED BP, HR, RR, AND TEMP NOTED. UNABLE TO COMPLETE SEDATION VACATION AT THIS TIME D/T HYPERTENSION. UNABLE TO COMPLETE SBT YESTERDAY AND THIS AM D/T HYPERTENSION. CALLED DR. GRAHAM AT THIS TIME. INFORMED DR. GRAHAM OF PT'S VS (SEE VS FS). DR. GRAHAM ORDERED HYDRALAZINE 50 MG Q6 HR, CLONIDINE 0.2 MG Q6 HR, AND AND CARDIZEM [address] GRAHAM INSTRUCTED TO ADMINSITERED 0600 HYDRALAZINE, CLONIDINE, AND CARDIZEM AT THIS TIME. WAITING FOR VERIFICATION OF MEDICATIONS FROM PHARMACY AT THIS TIME.
[2018-07-05 04:00] LABS: International Normalized Ratio 1.15
[2018-07-05 04:03] LABS: Albumin, Blood 2.6 g/dL (3.4-5.0); Anion Gap 4 mmol/L (6-16); Blood Urea Nitrogen 64 mg/dL (8-24); Bun/Creatinine Ratio 49.6 (12.0-20.0); CO2, Blood 26 mmol/L (21-32); Calcium, Blood 9.2 mg/dL (8.5-10.1); Chloride, Blood 115 mmol/L (98-108); Creatinine, Blood 1.29 mg/dL (0.60-1.20); Glomerular Filtration Rate 60 (60-); Glucose, Blood 261 mg/dL (70-99); Phosphorus, Blood 3.7 mg/dL (2.5-4.9); Potassium, Blood 5.4 mmol/L (3.5-5.5); Sodium, Blood 145 mmol/L (136-145)
--- NOTE | 2018-07-05 05:37 | NUR ---
SHIFT ASSESSMENT NO ACUTE CHANGES NOTED T/O SHIFT. PT RESPONDS TO PAINFUL STIMULI, DOES NOT OPEN EYES TO PAINFUL OR VERBAL STIMULI, LOCALIZES PAIN, DOES NOT FOLLOW COMAMNDS, DOES NOT NOD HEAD Y/N TO QUESTIONS. UNABLE TO COMPLETED AM SEDATION VACATION AND SBT D/T HYPERTENSION. DR. GRAHAM IS AWARE OF INABILITY TO COMPLETE AM SEDATION VACATION AND SBT. PROPOFOL DIRPO AT 50 MCG/KG/MIN - CONT TO TITRATE TO EFFECT. PRECEDEX DRIP ON STANDBY. HAIDER SENSATION. PT HENNING. MINIMAL MOVEMENT. OCC S/SX OF PAIN/DISCOMFORT NOTED T/O SHIFT. CONT TO ASSESS FOR PAIN/DISCOMFORT AND MEDICATED WITH FENT PER PHYSICIAN'S ORDER / UTILIZED NONPHARM METHODS. PT'S AT BEDSIDE T/O SHIFT. PT IN BILAT WRIST RESTRAINTS TO PROTECT VITAL LINES/CORDS/TUBES AND TO PROTECT FROM SELF-EXTUBATION. LUNGS COARSE T/O, DIMINISHED LOWER LOBES, OCC EXP WHEEZING. VENT SETTINGS: AC 16, TV 450, PEEP 5, FIO2 25%. OXY SAT >90%. RR 16 TO 20'S. SUCTION VIA ETT: SMALL TO MODERATE AMOUNTS OF THICK YELLOW SECRETIONS. TMAX 99.1 - UTILIZED FAN, BLANKETS OFF, AND ROOM TEMP TURNED DOWN. 100% PACED WITH BB. HR 50'S TO 60'S. PT HYPERTENSIVE T/O SHIFT. MEDICATED WITH ANTI-HYPERTENSIVES PER PHYSICIAN'S ORDER AND HYDRALAZINE PRN. STRONG PULSES. WAMR, PINK, DRY SKIN. SCD'S FOR DVT PRO. TRACE EDEMA BUE'S AND BLE'S. HYPOACTIVE BT X4 QUADRANTS. ABD MOD DIST, SOFT, NONTEDER (NO FACIAL GRIMACING WITH PALPATION). OG IN PLACE. TF: VHP AT GOAL RATE 25 ML/HR AND 200 ML FLUSH Q4 HR. RESIDUAL WNL. NO BM. F/C: YELLOW, CLEAR URINE. PIV X2. WILL CONT TO MONITOR PT AND WILL PROVIDE BEDSIDE REPORT TO ONCOMING NURSE THIS AM.
--- NOTE | 2018-07-05 08:00 | NUR ---
ASSUMED CARE: REPORT RECEIVED FROM UTE Walter RN. ASSUMED CARE OF THIS PT AT APPROX 0700. ON ASSESSMENT, THE PT APPEARS COMFORTABLE. HE REMAINS SEDATED/INTUBATED. SBT WAS NOT PERFORMED DURING LOOM INSPECTOR R/T PT's PERSISTANT HTN. WILL ATTEMPT SEDATION VACATION THIS SHIFT IF BP CONTROLLED. VENT SETTINGS: AC 16, TV 450, PEEP 5 & FIO2 25%. LS ARE COARSE IN R SIDE & DIM IN L SIDE. MONITOR SHOWS 100% V-PACED RHYTHM AT 60 BPM ON AVG. HTN CHARTED IN VS. TF INFUSING AT GOAL RATE, LOW RESIDUALS. MACEDO PATENT/DRAINING YELLOW-GREEN URINE. WILL CONTINUE TO MONITOR & UPDATE NEEDED.
--- NOTE | 2018-07-05 08:15 | NUR ---
DR. NOVAK: PROVIDER AT BEDSIDE TO SEE PT. CONTINUED HYPERTENSION & ELEVATED CBG READINGS ARE DISCUSSED. COREG DOSE INCREASED STARTING THIS AM. LANTUS DOSE FOR AM ALSO INCREASED. WILL CONTINUE TO MONITOR & UPDATE NEEDED.
--- NOTE | 2018-07-05 10:00 | NUR ---
SPONTANEOUS BREATHING TRIAL: VENTILATOR SWITCHED TO SPONTANEOUS MODE W/ PS 8/5 & FIO2 25% AT APPROX 0935. PT TOLERATING THIS WELL W/ RR 16-22, TV > 400. WILL CONTINUE TO MONITOR & UPDATE NEEDED.
--- NOTE | 2018-07-05 10:22 | NUR ---
DR. LARSON: PROVIDER AT BEDSIDE TO SEE PT. 200 ML H20 FLUSH Q2 HAS BEEN DISCUSSED R/T PT's DECREASING SODIUM LEVEL ON LABWORK, NO ADJUSTMENTS TO BE MADE AT THIS TIME. MONTIOR SODIUM LEVELS CLOSELY. LLL PRECUSSION HAS BEEN ORDERED FOR ATELECTASIS NOTED ON CXR. PROVIDER WOULD LIKE PROPOFOL TO BE TITRATED DOWN & PRECEDEX TO BE RESTARTED. DOCUMENTATION REGARDING TITRATION IN FLOWSHEET. IV STEROID FREQUENCY DECREASED R/T IMPROVEMENT IN WHEEZING. COUMADIN CONSULT PER PHARMACY ORDERED W/ INTENT TO D/C LOVENOX. WILL CONTINUE TO MONITOR & UPDATE NEEDED.
--- NOTE | 2018-07-05 17:51 | NUR ---
SHIFT SUMMARY: PT REMAINS SEDATED/INTUBATED. WITHDRAWS FROM PAINFUL STIMULI, DOES NOT FOLLOW COMMANDS. SEDATION DECREASED THIS AFTERNOON DOCUMENTED IN FLOWSHEET. PT TOLERATING WELL & APPEARS COMFORTABLE AT THIS TIME. VENT REMAINS ON SPONTANEOUS W/ PS 8/5 & FIO2 25%. MONITOR SHOWS 100% V-PACED RHYTHM W/ AVG HR 60. BP STABLE THIS SHIFT W/ IMPROVEMENT TO HTN NOTED. BT HYPOACTIVE x4 QUADS, TF INFUSING AT GOAL RATE W/ LOW RESIDUALS. MACEDO PATENT/DRAINING DARK, YELLOW-GREEN URINE. DR. LARSON STS SHE DOES NOT WISH TO RESUME LASIX AT THIS TIME R/T PT's IMPROVING BP & SUFFICIENT URINE OUTPUT THIS SHIFT. WILL CONTINUE TO MONITOR & REPORT OFF TO ONCOMING RN.
--- NOTE | 2018-07-05 19:15 | NUR ---
ASSUMED CARE PT INTUBATED, ON P/S 8/5 FIO2 25% AND TOLERATING WELL WITH GOOD VT'S, RR 16-20 AND O2 SATS MID 90'S; PLAN ON LEAVING PT ON PS LONG HE TOLERATES. SEDATION VIA PROPOFOL AT 30MCG/KG/MIN AND PRECEDEX AT 0.2MCG/KG/HR, PLAN TO TITRATE PROPOFOL DOWN IF ABLE. BP MEDS CHANGED TODAY AND SBP IN THE 120'S, ECG SHOWS 100% VENT PACED. KIKO IN ROOM AND PLANS TO SPEND THE NIGHT.
[2018-07-06 03:31] LABS: BASOPHILS ABSOLUTE AUTO 0.04 K/mm3 (0.00-0.23); BASOPHILS PERCENT AUTO 0 % (0-2); EOSINOPHILS PERCENT AUTO 0 % (0-6); Hematocrit 39.3 % (37.0-53.0); Hemoglobin 12.1 g/dL (13.5-17.5); IMMATURE GRAN ABSOLUTE AUTO 0.68 K/mm3 (0.00-0.10); IMMATURE GRAN PERCENT AUTO 5 % (0-1); LYMPHOCYTES ABSOLUTE AUTO 0.86 K/mm3 (0.84-5.20); LYMPHOCYTES PERCENT AUTO 6 % (21-46); MONOCYTES ABSOLUTE AUTO 0.44 K/mm3 (0.16-1.47); MONOCYTES PERCENT AUTO 3 % (4-13); Mean Corpuscular HGB 28.4 pg (26.0-34.0); Mean Corpuscular HGB Conc 30.8 g/dL (31.5-36.5); Mean Corpuscular Volume 92 fL (80-100); Mean Platelet Volume 11.1 fL (9.1-12.4); NEUTROPHILS ABSOLUTE AUTO 12.77 K/mm3 (1.96-9.15); NEUTROPHILS PERCENT AUTO 86 % (41-73); Platelet Count 314 K/mm3 (150-400); RDW Coefficient Variation 14.8 % (11.7-14.2); Red Blood Cell Count 4.26 M/mm3 (4.30-5.90); White Blood Cell Count 14.79 K/mm3 (4.00-11.30)
[2018-07-06 03:44] LABS: International Normalized Ratio 1.14; Prothrombin Time Results 11.9 Sec (9.7-11.5)
[2018-07-06 03:46] LABS: Albumin, Blood 2.4 g/dL (3.4-5.0); Anion Gap 8 mmol/L (6-16); Blood Urea Nitrogen 62 mg/dL (8-24); CO2, Blood 21 mmol/L (21-32); Calcium, Blood 9.1 mg/dL (8.5-10.1); Chloride, Blood 111 mmol/L (98-108); Creatinine, Blood 1.17 mg/dL (0.60-1.20); Glomerular Filtration Rate >60 (60-); Glucose, Blood 272 mg/dL (70-99); Magnesium, Blood 2.2 mg/dL (1.6-2.4); Phosphorus, Blood 3.6 mg/dL (2.5-4.9); Potassium, Blood 5.3 mmol/L (3.5-5.5); Sodium, Blood 140 mmol/L (136-145)
--- NOTE | 2018-07-06 06:03 | NUR ---
SEDATION VACATION PROPOFOL OFF AND PRECEDEX AT 0.2MCG/KG/HR. PT OPENS EYES SPONTANEOUSLY, DOES NOT TRACK, LEFT GAZE REMAINS UPWARD (RT EYE BLIND), PT DOES NOT FOLLOW COMMANDS AND IS SHAKING HEAD BACK AND FORTH. PROPOFOL RESUMED.
--- NOTE | 2018-07-06 06:19 | NUR ---
SHIFT SUMMARY SEE PREVIOUS NOTES FOR SHIFT. PT ON PS 8/5 FIO2 AT 35%, INCREASED FROM 25% D/T DROP IN O2 SATS AFTER BATH/REPOSITIONING TO RT SIDE. PROPOFOL AT 30MCG/KG/MIN AND PRECEDEX AT 0.2MCG/HR AFTER SEDATION VACATION X 30 MINUTES. TF AT GOAL WITH MINIMAL RESIDUALS, NO BM THIS SHIFT, BUT IS FREQUENTLY PASSING FLATUS. THIS AM, SBP IN THE 90'S AND AM BP MEDS HELD, ECG REMAINS 100% VENTRICULAR PACED AND O2 MID 90'S. ONE DOSE OF TYLENOL GIVEN FOR TEMP OF 100.2 LAST NIGHT. PT'S KIKO SPENT NIGHT IN ROOM.
--- NOTE | 2018-07-06 07:17 | NUR ---
ASSUMED CARE REPORT FROM JAQUELIN RIVER. PATIENT INTUBATED, RESTRAINED, SEDATED ON BOTH PROPOFOL AND PRECEDEX. AT BEDSIDE.
--- NOTE | 2018-07-06 08:30 | NUR ---
MD VISIT DR. NOVAK IN. NO NEW ORDERS
--- NOTE | 2018-07-06 10:59 | NUR ---
MD VISIT DR. CHANDLER IN. PROPOFOL OFF FOR SEDATION VACATION. PRECEDEX REMAINS AT 0.2
--- NOTE | 2018-07-06 11:01 | NUR ---
PERFORMING ROM WITH PATIENT. WILL REMEMBER TO PUT RESTRAINTS BACK ON WRISTS WHEN FINISHED
--- NOTE | 2018-07-06 18:43 | NUR ---
HTN Q6 MEDS HELD FOR LOW BLOOD PRESSURES WHILE ON PROPOFOL. BECOMES HYPERTENSIVE WHEN OFF SEDATION FOR SEDATION VACATION, BUT DOES NOT FOLLOW COMMANDS. HAS BEEN ON PS ALL SHIFT.
--- NOTE | 2018-07-06 19:25 | NUR ---
ASSUMED CARE PT REMAINS INTUBATED ON P/S 8/5 FIO2 35% AND SEDATED VIA PROPOFOL AT 30MCG/KG/MIN AND PRECEDEX AT 0.2MCG/KG/HR. PT OPENS EYES SPONTANEOUSLY BUT DOES NOT TRACK WITH LEFT EYE AND LEFT EYE HAS UPWARD GAZE AND DOES NOT FOLLOW COMMANDS. BP HAS REMAINED LOW BUT WITH ADEQUATE MAP AND UOP AND HYPERTENSION MEDS HAVE BEEN HELD FOR AM SHIFT. PLAN TO HOLD MEDS IF BP REMAINS LOW AND SBP CURRENTLY 90-100 BUT MAPS IN THE 70'S. TF REMAINS AT GOAL, MINIMAL RESIDUAL AT ASSESSMENT. ECG IS 100% VENTRICULAR PACED AND O2 SATS MID 90'S.
[2018-07-07 03:40] LABS: Hematocrit 37.6 % (37.0-53.0); Hemoglobin 11.8 g/dL (13.5-17.5); Mean Corpuscular HGB 28.4 pg (26.0-34.0); Mean Corpuscular HGB Conc 31.4 g/dL (31.5-36.5); Mean Corpuscular Volume 91 fL (80-100); Mean Platelet Volume 11.6 fL (9.1-12.4); Platelet Count 288 K/mm3 (150-400); RDW Coefficient Variation 14.6 % (11.7-14.2); Red Blood Cell Count 4.15 M/mm3 (4.30-5.90)
[2018-07-07 03:56] LABS: International Normalized Ratio 1.34; Prothrombin Time Results 13.8 Sec (9.7-11.5)
[2018-07-07 04:00] LABS: Albumin, Blood 2.1 g/dL (3.4-5.0); Anion Gap 8 mmol/L (6-16); Blood Urea Nitrogen 64 mg/dL (8-24); Bun/Creatinine Ratio 54.2 (12.0-20.0); CO2, Blood 22 mmol/L (21-32); Chloride, Blood 113 mmol/L (98-108); Creatinine, Blood 1.18 mg/dL (0.60-1.20); Glomerular Filtration Rate >60 (60-); Glucose, Blood 154 mg/dL (70-99); Phosphorus, Blood 3.1 mg/dL (2.5-4.9); Potassium, Blood 4.2 mmol/L (3.5-5.5); Sodium, Blood 143 mmol/L (136-145)
[2018-07-07 04:16] LABS: PCO2 Arterial 32.9 mmHg (35-45); PO2 Arterial 63.6 mmHg (80-100); pH Blood Arterial 7.41 (7.35-7.45)
[2018-07-07 05:32] LABS: BAND PERCENT MAN 1 % (0-8); BASOPHILS PERCENT MAN 0 % (0-2); EOSINOPHILS PERCENT MAN 0 % (0-6); LYMPHOCYTES ABSOLUTE MAN 1.19 K/mm3 (0.84-5.20); LYMPHOCYTES PERCENT MAN 10 % (21-46); METAMYELOCYTE ABSOLUTE MAN 0.23 K/mm3 (0.00-0.00); METAMYELOCYTE PERCENT MAN 2 % (0-0); MONOCYTES ABSOLUTE MAN 0.95 K/mm3 (0.16-1.47); MONOCYTES PERCENT MAN 8 % (4-13); MYELOCYTE ABSOLUTE MAN 0.23 K/mm3 (0.00-0.00); MYELOCYTE PERCENT MAN 2 % (0-0); NEUTROPHILS ABSOLUTE MAN 9.28 K/mm3 (1.96-9.15); SEG NEUTROPHILS PERCENT MAN 77 % (41-73); TOTAL CELLS COUNTED 100
--- NOTE | 2018-07-07 06:03 | NUR ---
SHIFT SUMMARY PT REMAINS INTUBATED. VENT SETTINGS AT PS 8/5 FIO2 25% AND TOLERATING WELL. THIS AM PROPOFOL DOWN TO 10MCG/KG/MIN AND PRECEDEX AT 0.4MCG/KG/HR. PT OPENS EYES SPONTANEOUSLY BUT IS NOT TRACKING, LEFT EYE GAZES UPWARD, NO FOLLOWING COMMANDS AND PT MOVING HEAD BACK AND FORTH. TF REMAINS AT GOAL W/ MINIMAL RESIDUALS FOR SHIFT. BP REMAINS LOW W/ ADEQUATE MAP AND SOME HTN MEDS HELD-SEE EMAR. KIKO REMAINS IN ROOM AND REPORTS IT IS PT'S BIRTHDAY.
--- NOTE | 2018-07-07 07:35 | NUR ---
ASSUMED CARE REPORT FROM JAQUELIN RIVER. SEDATION LIGHTENED. EYES OPED, BUT NOT MAKING EYE CONTACT YET. AT BEDSIDE, TALKING TO PATIENT
--- NOTE | 2018-07-07 07:46 | NUR ---
MD VISIT DR. NOVAK IN.
--- NOTE | 2018-07-07 09:15 | NUR ---
PROPOFOL OFF. PRECEDEX AT 0.6 MCG/KG/HR
--- NOTE | 2018-07-07 10:09 | NUR ---
PATIENT BECOMING INCREASINGLY AGITATED WHILE NOT FOLLOWING COMMANDS. PROPOFOL TURNED ON AT 20 MCG/KG/MIN. PRECEDEX AT 0.2 MCG/KG/HR.
--- NOTE | 2018-07-07 10:29 | NUR ---
, KIKO JONES, HAS ASKED THAT THE FOLLOWING PEOPLE NOT BE ALLOWED TO VISIT: JAMILAH STOLL, MICHAEL OLIVERA, HAMMAD WHARTON, ROBBIE REED OR AGATA REED. THIS AM, BOTH JAMILAH AND MICHAEL PRESENTED AT THE DOOR AND ASKED TO COME IN. THEY WERE TOLD THEY WERE ON A LIST OF PEOPLE NOT PERMITTED. THEY WERE UPSET, THREATENED TO LAUREN AND SENT A TEXT MESSAGE TO THE , WHO IS NOW IN TEARS.
--- NOTE | 2018-07-07 10:43 | NUR ---
MD VISIT DR. CHANDLER IN
--- NOTE | 2018-07-07 10:50 | NUR ---
BECKY KARATE INSTRUCTOR IN WITH AT THIS TIME
--- NOTE | 2018-07-07 11:24 | NUR ---
Spiritual care visit conducted. Upon receiving a request for soda fountain clerk services, I visited patient. Spouse, Kusum, is bedside and in tears. She shares with me the family unit complications, the medical issues the patient is dealing with and about her emotional staus. I listen empathically, provide pastoral counesl, reinforce helpful attitudes and practices, provide emotional support and provide prayer. Kusum responds well and displayed evidence of reduced stress and increased peace. I will continue to remain available to patient and family.
[2018-07-07 12:16] LABS: Albumin, Blood 2.3 g/dL (3.4-5.0); Albumin/Globulin Ratio 0.5 (0.8-1.8); Bilirubin, Direct 0.4 mg/dL (0.0-0.3); Bilirubin, Indirect 0.3 mg/dL (0.1-0.7); Bilirubin, Total 0.7 mg/dL (0.1-1.0); Globulin, Blood 4.3 g/dL (2.2-4.0); Total Protein, Blood 6.6 g/dL (6.4-8.2)
--- NOTE | 2018-07-07 18:35 | NUR ---
IT SOUNDS IF THERE IS A CUFF LEAK AFTER TURN. BIOX MAINTAINED. WILL NOTIFY ONCOMING RT.
--- NOTE | 2018-07-07 19:01 | NUR ---
RT DONITA. RESPONDED FOR CUFF LEAK AND ADVISED THE TUBE NEEDED TO BE ADVANCED. ASSISTED WITH ADVANCEMENT TO 26 FAY
--- NOTE | 2018-07-07 22:55 | NUR ---
REPORT GIVEN TO JAQUELIN SILVER
--- NOTE | 2018-07-08 00:12 | NUR ---
ASSUMING CARE RECEIVED PT REPORT FROM JAQUELIN NOBLE. AT APPROX 2300. PT IS INTUBATED AND SEDATED AT THIS TIME. PT IS RECEIVING PROPOFOL AT 30MCG/KG/MIN AND PRECEDEX AT 0.2MCG/KG/HR. PT VENT IS CURRENTLY ON PRESSURE SUPPORT AT 8/5 WITH 40% FIO2. PT SPO2 IS MAINTAINING IN THE MID 90'S AT THIS TIME. PT IS 100% PACED AT THIS TIME WITH RATE OF APPROX 60. PT BP IS STABLE AT THIS TIME IN THE 100-130 RANGE. PT HAS MAC[place]O TEMP PROBE IN PLACE. PT TEMP IS APPROX 99.7 AT THE TIME CARE WAS ASSUMED. PT IS RESPONSIVE TO NOXIOUS STIMULI ONLY AT THIS TME. PT WILL MOVE HEAD AND ARMS. PT IS RESTRAINED AT THIS TIME. WILL CONTINUE TO MONITOR PT.
[2018-07-08 03:44] LABS: BASOPHILS ABSOLUTE AUTO 0.05 K/mm3 (0.00-0.23); BASOPHILS PERCENT AUTO 0 % (0-2); EOSINOPHILS ABSOLUTE AUTO 0.09 K/mm3 (0.00-0.68); EOSINOPHILS PERCENT AUTO 1 % (0-6); Hematocrit 38.9 % (37.0-53.0); Hemoglobin 12.3 g/dL (13.5-17.5); IMMATURE GRAN ABSOLUTE AUTO 0.54 K/mm3 (0.00-0.10); IMMATURE GRAN PERCENT AUTO 4 % (0-1); LYMPHOCYTES ABSOLUTE AUTO 1.48 K/mm3 (0.84-5.20); LYMPHOCYTES PERCENT AUTO 11 % (21-46); MONOCYTES ABSOLUTE AUTO 1.01 K/mm3 (0.16-1.47); MONOCYTES PERCENT AUTO 7 % (4-13); Mean Corpuscular HGB 28.9 pg (26.0-34.0); Mean Corpuscular HGB Conc 31.6 g/dL (31.5-36.5); Mean Corpuscular Volume 91 fL (80-100); NEUTROPHILS ABSOLUTE AUTO 10.82 K/mm3 (1.96-9.15); NEUTROPHILS PERCENT AUTO 77 % (41-73); Platelet Count 296 K/mm3 (150-400); RDW Coefficient Variation 14.7 % (11.7-14.2); RDW Standard Deviation 48.6 fL (35.1-46.3); Red Blood Cell Count 4.26 M/mm3 (4.30-5.90); White Blood Cell Count 13.99 K/mm3 (4.00-11.30)
[2018-07-08 04:10] LABS: Anion Gap 7 mmol/L (6-16); Blood Urea Nitrogen 60 mg/dL (8-24); Bun/Creatinine Ratio 48.4 (12.0-20.0); CO2, Blood 23 mmol/L (21-32); Calcium, Blood 9.1 mg/dL (8.5-10.1); Chloride, Blood 112 mmol/L (98-108); Creatinine, Blood 1.24 mg/dL (0.60-1.20); Glomerular Filtration Rate >60 (60-); Glucose, Blood 148 mg/dL (70-99); Potassium, Blood 3.9 mmol/L (3.5-5.5); Sodium, Blood 142 mmol/L (136-145)
[2018-07-08 04:45] LABS: PCO2 Arterial 34.1 mmHg (35-45); PO2 Arterial 59.5 mmHg (80-100); pH Blood Arterial 7.42 (7.35-7.45)
--- NOTE | 2018-07-08 06:29 | NUR ---
SHIFT SUMAMRY NOTE PT REMAINS INTUBATED ON PRESSURE SUPPORT OF 8/5 WITH 40% FIO2. PT SPO2 HAS MAINTAINED IN THE 90'S THROUGHOUT THE NIGHT. PT REMAINES ON PROPOFOL FOR SEDATION, PROPOFOL WAS REDUCED TO 25MCG/KG/MIN. PT PRECEDEX WAS PLACED ON STANDBY. PT CONTINUES TO BE 100% PACED, WITH A RATE OF APPROX 60. PT BP HAS INCREASED TO THE 140-150'S RANGE. PT CONTINUES TO BE RESPONSIVE TO NOXIOUS STIMULI ONLY. PT HAS UPWARD GAZE. PT OCCASIONALLY THRASHES HEAD AND WILL MOVE ARMS, MOVEMENTS DO NOT APPEAR PURPOSEFUL. PT CONTINUES TO HAVE MAC[place]O CATH IN PLACE, CURRENTLY PATENT AND DRAINING AT THIS TIME. WILL REPORT OFF TO ONCOMING DAY SHIFT NURSE.
[2018-07-08 17:55] LABS: Source, Urine Catheter
[2018-07-08 18:06] LABS: Bilirubin, Urine Neg (Neg); Blood, Urine 2+ (Neg); Glucose Qualitative, Urine 1+ (Neg); Ketones, Urine Neg (Neg); Leukocyte Esterase, Urine 1+ (Neg); Nitrite, Urine Neg (Neg); Protein, Urine 1+ (Neg); Specific Gravity, Urine 1.015 (1.003-1.022); Urobilinogen, Urine 2+ (Normal)
[2018-07-08 18:17] LABS: Appearance, Urine Clear (Clear); Color, Urine Yellow (P-Yellow)
[2018-07-08 18:20] LABS: Bacteria Rare /hpf; Squamous Epithelial Cells Rare /hpf (Few); White Blood Cells, Urine 0-2 /hpf (0-5)
--- NOTE | 2018-07-08 19:07 | NUR ---
SEDATION VACATION THIS AM, NO PURPOSEFUL MOVEMENT, PER DR CHANDLER, PT REMAINED OFF PROPOFOL TO ASSESS NEURO STATUS. CT SCAN DONE. HYDRALYZINE 10 MG IV GIVEN ONCE FOR SBP > 200 WITH DECREASE TO 160'S. TUBE FEEDS NOTED IN ETT. RT NOTIFIED. PT BIT THROUGH OG TUBE AND TUBE FEED LEAKED AND PT ASPIRATED TUBE FEEDS. OG TUBE CLAMPED AND SUCTIONED TF. OG TUBE REPLACED AND CONFIRMED WITH XR. TF CONTINUED THIS EVENING @ 25 ML/HR. PT REMAINS V-PACED, HR 60'S. BREATHING SPONTANEOUS ON VENT, 8/, FI02 50%. URINE OUTPUT [address] CHANDLER, PLAN TO RETRIAL INTERMITTENT SEDATION VACATIONS TOMORROW.
--- NOTE | 2018-07-08 20:16 | NUR ---
Brief visits with throughout today. Review of plan of care and prognsis of patient with staff.
--- NOTE | 2018-07-08 21:25 | NUR ---
ASSUMING CARE RECEIVED PT REPORT FROM DAY SHIFT RN, PT REMAINS INTUBATED AT THIS TIME. PT VENT IS ON SPONTAINIOUS AT 8/5 WITH 50% FIO2. PT FIO2 TITRATED DOWN TO 40% BY RT SHORTLY AFTER CARE ASSUMED. PT SPO2 IS IN THE MID 90'S. PT HAS OG TUBE IN PLACE THAT WAS REPLACED ON DAY SHIFT PER REPORT. PT IS RECEIVEING TUBE FEEDING AT RATE OF 25ML/HR. MINIMAL RESIDUALS NOTED. RATE INCREASED TO 35ML/HR AT APPROX 2115. GOAL RATE FOR TUBE FEEDING IS 55ML/HR. PT IS 100% PACED AT THIS TIME WITH A RATE OF 60. PT BP IS STABLE AT THIS TIME IN THE 110'S SYSTOLIC. PT HAS MACEDO CATH IN PLACE, CURRENTLY PATENT AND DRAINING CLEAR YELLOW URINE. PT IS RECEIVING PROPOFOL FOR SEDATION AT 35MCG/KG/MIN. PT IS RECEIVING NO OTHER IV FLUIDS AT THIS TIME. PT IS RESPONSIVE TO NOXIOUS STIMULI. PT IS NON-RESPONSIVE TO VERBAL STIMULI AND IS NOT FOLLOWING ANY COMMANDS. PT IS AT BEDSIDE. ASSUMED CARE OF PT AT THE TIME OF SHIFT REPORT. WILL CONTINUE TO MONITOR PT.
--- NOTE | 2018-07-09 04:36 | NUR ---
SEDATION VACATION STARTED AT THIS TIME
--- NOTE | 2018-07-09 04:57 | NUR ---
SEDATION RESTARTED SEDATION RESTARTED DUE TO INCREASED AGITATION AND THRASHING OF HEAD BACK AND FORTH. PT ABLE TO OPEN EYES, BUT DID NOT APPEAR TO RESPOND TO VERBAL STIMULI OR TRACK MOVEMENTS WITH EYES. PT UNABLE TO FOLLOW ANY COMMANDS. WILL CONTINUE TO MONITOR PT.
--- NOTE | 2018-07-09 06:31 | NUR ---
SHIFT SUMMARY NOTE PT REMAINS INTUBATED ON PRESSURE SUPPORT AT 8/. PT FIO2 IS 40%. PT SPO2 IS IN THE 90'S. PT CONTINES TO RECEIVE TUBE FEEDING AT 35ML/HR. GOAL RATE FOR TUBE FEEDING IS 55ML/HR. PT HAS HAD MINIMAL RESIDUALS THROUGH THE NIGHT. PT WAS GIVEN SEDATION VACATION, THROUGH SEDATION VACATION PT BECAME AGITATED AND WOULD THRASH HEAD BACK AND FORTH. PT HAS REMAINED UNRESPONSIVE TO VERBAL STIMULI THROUGH THE NIGHT, AND HAS NOT FOLOWED ANY COMMANDS. PT CONTINUES TO HAVE AN UPWARD GAZE. PT IS RECEIVING PROPOFOL AT 35MCG/KG/MIN AT THIS TIME. PT HAS REMAINED 100% PACED THROUGH THE NIGHT WITH A RATE OF 60. PT BP HAS REMAINED STABLE THROUGH THE NIGHT. WILL REPORT OFF TO ONCOMING DAY SHIFT NURSE.
[2018-07-09 12:54] LABS: BASOPHILS ABSOLUTE AUTO 0.02 K/mm3 (0.00-0.23); BASOPHILS PERCENT AUTO 0 % (0-2); EOSINOPHILS ABSOLUTE AUTO 0.03 K/mm3 (0.00-0.68); EOSINOPHILS PERCENT AUTO 0 % (0-6); Hematocrit 36.3 % (37.0-53.0); Hemoglobin 11.4 g/dL (13.5-17.5); IMMATURE GRAN ABSOLUTE AUTO 0.21 K/mm3 (0.00-0.10); IMMATURE GRAN PERCENT AUTO 1 % (0-1); LYMPHOCYTES ABSOLUTE AUTO 0.76 K/mm3 (0.84-5.20); LYMPHOCYTES PERCENT AUTO 5 % (21-46); MONOCYTES ABSOLUTE AUTO 0.65 K/mm3 (0.16-1.47); MONOCYTES PERCENT AUTO 4 % (4-13); Mean Corpuscular HGB 28.9 pg (26.0-34.0); Mean Corpuscular HGB Conc 31.4 g/dL (31.5-36.5); Mean Corpuscular Volume 92 fL (80-100); NEUTROPHILS ABSOLUTE AUTO 14.91 K/mm3 (1.96-9.15); NEUTROPHILS PERCENT AUTO 90 % (41-73); Platelet Count 264 K/mm3 (150-400); RDW Standard Deviation 49.3 fL (35.1-46.3); Red Blood Cell Count 3.95 M/mm3 (4.30-5.90); White Blood Cell Count 16.58 K/mm3 (4.00-11.30)
[2018-07-09 13:20] LABS: Alanine Aminotransfer (ALT/SGP 37 U/L (12-78); Albumin, Blood 2.2 g/dL (3.4-5.0); Albumin/Globulin Ratio 0.5 (0.8-1.8); Alk Phos 96 U/L (50-136); Anion Gap 7 mmol/L (6-16); Aspartate Aminotrans (AST/SGOT 19 U/L (12-37); Blood Urea Nitrogen 51 mg/dL (8-24); Bun/Creatinine Ratio 44.7 (12.0-20.0); CO2, Blood 23 mmol/L (21-32); Calcium, Blood 9.2 mg/dL (8.5-10.1); Chloride, Blood 113 mmol/L (98-108); Creatinine, Blood 1.14 mg/dL (0.60-1.20); Globulin, Blood 4.5 g/dL (2.2-4.0); Glomerular Filtration Rate >60 (60-); Glucose, Blood 261 mg/dL (70-99); Potassium, Blood 4.8 mmol/L (3.5-5.5); Sodium, Blood 143 mmol/L (136-145); Total Protein, Blood 6.7 g/dL (6.4-8.2)
--- NOTE | 2018-07-09 18:56 | NUR ---
INTERMITTENT SEDATION VACATIONS PERFORMED TODAY. PT STILL HAS NO PURPOSEFULL MOVEMENT, L EYE UPWARD GAZE, THRASHES HEAD SIDE TO SIDE, DECREASES ON 35 MCG/KG/MIN PROPOFOL. L/S SLIGHTLY COARSE, SPO2 MID TO HIGH 90'S, 8/5 WITH FI02 40% IN SPONTANEOUS MODE ON VENT. FREQUENT THICK, BROWN SPUTUM FROM ETT. HR 60'S, V-PACED RHYTHM. PICC PLACED TO GIVE VANCOMYCIN, SPUTUM POSITIVE FOR STAPH. TUBE FEEDS INCREASED TO 45 ML/HR, GOAL 55 ML/HR. LACTULOSE GIVEN. PLAN TO ASSESS PT TUESDAY FOR POSSIBLE TRACH PLACEMENT ON 07/11/18. FAMILY AWARE AND REMAIN AT BEDSIDE. REPOSITIONED Q 2 HRS. REPORT TO JAQUELIN SILVER.
--- NOTE | 2018-07-09 23:12 | NUR ---
ASSUMING CARE RECEIVED PT REPORT FROM DAY SHIFT RN. PT REMAINS INTUBATED ON PRESSURE SUPPORT 8/5 WITH 40% FIO2. PT SPO2 IS IN THE MID 90'S. PT HAS COARSE LUNG SOUNDS THAT ARE DIMINISHED IN THE BASES. PT HR IS 100% PACED WITH HR OF APPROX 60. PT BP IS ELEVATED AT TIMES INTO THE 160'S. PT HAS MACEDO TEMP PROBE IN PLACE. CURRENTLY PATENT AND DRAINING CONCENTRATED URINE. PT TEMP INCREASED TO 101.1. TYLENOL PROVIDED. PT IS RECEIVING PROPOFOL FOR SEDATION AT 35MCG/KG/MIN. PT WAS GIVEN FREQUENT SHORT SEDATION VACATIONS THROUGH DAY SHIFT PER REPORT. PER DR MADRIGAL INSTUCTIONS PT WILL BE ALLOWED TO REST THROUGH THE NIGHT AND SEDATION VACATIONS WILL RESUME IN THE AM. PT PT APPEARS TO FLUTTER EYELIDS TO VERBAL STIMULI, PT IS UNABLE TO FOLLOW COMMANDS AT THIS TIME. ASSUMED CARE OF PT AT THE TIME OF SHIFT REPORT. WILL CONTINUE TO MONITOR PT.
[2018-07-10 03:40] LABS: BASOPHILS ABSOLUTE AUTO 0.02 K/mm3 (0.00-0.23); BASOPHILS PERCENT AUTO 0 % (0-2); EOSINOPHILS ABSOLUTE AUTO 0.08 K/mm3 (0.00-0.68); EOSINOPHILS PERCENT AUTO 1 % (0-6); Hematocrit 34.9 % (37.0-53.0); Hemoglobin 10.9 g/dL (13.5-17.5); IMMATURE GRAN ABSOLUTE AUTO 0.17 K/mm3 (0.00-0.10); IMMATURE GRAN PERCENT AUTO 1 % (0-1); LYMPHOCYTES ABSOLUTE AUTO 1.12 K/mm3 (0.84-5.20); LYMPHOCYTES PERCENT AUTO 9 % (21-46); MONOCYTES ABSOLUTE AUTO 0.87 K/mm3 (0.16-1.47); MONOCYTES PERCENT AUTO 7 % (4-13); Mean Corpuscular HGB 28.6 pg (26.0-34.0); Mean Corpuscular HGB Conc 31.2 g/dL (31.5-36.5); Mean Corpuscular Volume 92 fL (80-100); Mean Platelet Volume 11.9 fL (9.1-12.4); NEUTROPHILS ABSOLUTE AUTO 9.88 K/mm3 (1.96-9.15); NEUTROPHILS PERCENT AUTO 81 % (41-73); Platelet Count 257 K/mm3 (150-400); RDW Coefficient Variation 15.6 % (11.7-14.2); RDW Standard Deviation 50.4 fL (35.1-46.3); Red Blood Cell Count 3.81 M/mm3 (4.30-5.90); White Blood Cell Count 12.14 K/mm3 (4.00-11.30)
--- NOTE | 2018-07-10 07:03 | NUR ---
SHIFT SUMMARY NOTE PT REMAINS INTUBATED AND SEDQATED. PT IS ON PRESSURE SUPPORT OF 8/5. PT FIO2 WAS TITRATED DOWN BY RT TO 35% OVERNIGHT. PT SPO2 IS MAINTAINING IN THE 90'S. PT HR REMAINS 100% PACED. PT BP IS LABILE AND IS INCREASED IN TO THE 160'S AT TIMES. PT WAS PROVIDE TYLENOL FOR A TEMPERATURE OF 101.1. PT TEMPERATURE REDUCED TO 100.0 AT THIS TIME. PT IS RECEIVING PROPOFOL AT 35MCG/KG/MIN. PT WAS ALLOWED TO REST OVERNIGHT AND DID NOT HAVE A SEDATION VACATION. PT WILL OCCASIONALLY THRASH HEAD BACK AND FORTH. PT WILL OCCASIONALLY REPOSND TO VERBAL STIMULI BY APPEARING TO ATTEMPT TO OPEN EYES. PT HAS NOT BEEN ABLE TO FOLLOW ANY COMMANDS THROUGH THE NIGHT. PT HAD 3 BOWEL MOVEMENTS OVERNIGHT. PT HAD APPROX 1000ML OF URINE OUTPUT OVERNIGHT, URINE APPEARS DARK WITH SOME SEDIMENT. PT HAS REMAINED AT BEDSIDE THROUGH THE NIGHT. WILL REPORT OFF TO ONCOMING DAY SHIFT NURSE.
--- NOTE | 2018-07-10 08:39 | NUR ---
ASSUMED CARE: REPORT RECEIVED FROM ADRIANNE Cedillo RN. ASSUMED CARE OF THIS PT AT APPROX 0700. ON ASSESSMENT, THE PT REMAINS SEDATED/INTUBATED. BILAT SOFT WRIST RESTRAINTS IN PLACE. PROPOFOL FOR SEDATION, TITRATION DOCUMENTED IN FLOWSHEET. VENT SETTINGS: SPONTANEOUS W/ PS 8/5 & FIO2 35%. MONITOR SHOWING 100% V-PACED RHYTHM, HR 60s. HTN DOCUMENTED IN VS, AM MEDS PER EMAR. TF INFUSING AT GOAL, LOW RESIDUALS. PT HAD NO BM THIS AM, BUT IS PASSING FLATUS. MACEDO PATENT/ DRAINING. SKIN OVERALL CDI, SCATTERED BRUISING T/O. WILL CONTINUE TO MONITOR & UPDATE NEEDED.
--- NOTE | 2018-07-10 09:11 | NUR ---
DR. GARCIA: PROVIDER AT BEDSIDE TO SEE PT. NO CHANGES AT THIS TIME, PROVIDER HAS DISCUSSED POC W/ PT's & SISTER. PLAN IS FOR TRACH EVAL PER DR. CAMACHO THIS SHIFT. NO OTHER CHANGES AT THIS TIME. WILL CONTINUE TO MONITOR & UPDATE NEEDED.
--- NOTE | 2018-07-10 10:37 | NUR ---
SEDATION VACATION: SEDATION DECREASED & THEN PLACED ON STANDBY AT 0940. DURING THIS TIME, PT IS OPENING EYES & HENNING. HE DOES NOT FOLLOW COMMANDS OR TRACK W/ EYES. L EYE MOVING MORE W/ SEDATION OFF, EYE IS MORE MIDLINE VERSUS UPWARD GAZE THAT IS PRESENT W/ SEDATION ON. PRN BP MEDS PER EMAR FOR HTN DURING SEDATION VACATION. TYLENOL ALSO GIVEN PER EMAR PT's LOWGRADE TEMP INCREASED TO TMAX 100.8 W/ INCREASED MVMT OF EXTREMITIES/ RESTLESSNESS. SEDATION RESUMED AT 1015 W/ DECREASED RATE FOR WORSENING AGITATION W/ NEEDED LINEN CHANGE & ADLs. THE PT IS NOW RESTING QUIETLY & SHOWING NO S/SX PAIN OR DISTRESS. WILL CONTINUE TO MONITOR & UPDATE NEEDED.
--- NOTE | 2018-07-10 11:36 | NUR ---
DR. CAMACHO: PROVIDER AT BEDSIDE TO SEE PT. POC IS DISCUSSED REGARDING POSSIBLE TRACH PLACEMENT. DR. CAMACHO STS HE WOULD LIKE TO EXTUBATE THE PT & PLACE HIM ON CPAP AT 14. HE BELIEVES THAT THE PT SHOULD BE ABLE TO SUPPORT HIS OWN AIRWAY, BASED ON ASSESSMENT. THE IS IN THE ROOM AT THIS TIME & IS AGREEABLE TO THIS PLAN. SHERMAN Lopez, RT, IS AWARE OF PLANS TO EXTUBATE & IS GETTING VISION BIPAP READY AT BEDSIDE TO BE USED ON CPAP SETTINGS. WILL CONTINUE TO MONITOR & UPDATE NEEDED.
[2018-07-10 11:46] LABS: Alanine Aminotransfer (ALT/SGP 61 U/L (12-78); Albumin/Globulin Ratio 0.5 (0.8-1.8); Alk Phos 93 U/L (50-136); Anion Gap 6 mmol/L (6-16); Aspartate Aminotrans (AST/SGOT 31 U/L (12-37); Bilirubin, Total 0.8 mg/dL (0.1-1.0); Blood Urea Nitrogen 47 mg/dL (8-24); Bun/Creatinine Ratio 41.2 (12.0-20.0); CO2, Blood 22 mmol/L (21-32); Calcium, Blood 8.7 mg/dL (8.5-10.1); Chloride, Blood 114 mmol/L (98-108); Creatinine, Blood 1.14 mg/dL (0.60-1.20); Globulin, Blood 4.3 g/dL (2.2-4.0); Glomerular Filtration Rate >60 (60-); Glucose, Blood 289 mg/dL (70-99); Potassium, Blood 4.5 mmol/L (3.5-5.5); Sodium, Blood 142 mmol/L (136-145); Total Protein, Blood 6.3 g/dL (6.4-8.2)
[2018-07-10 11:58] LABS: Vancomycin, Trough 20.1 ug/mL (5.0-10.0)
--- NOTE | 2018-07-10 12:28 | NUR ---
EXTUBATION / BIPAP PLACEMENT: PT EXTUBATED AT 1215 BY RT EARNEST. FOLLOWING EXTUBATION & PRIOR TO BIPAP MASK PLACEMENT, THE PT IS NOT BREATHING ADEQUATELY ON HIS OWN. PT LET OUT LARGE SIGH FOLLOWING EXTUBATION & DID NOT TAKE A FULL BREATHE UNTIL BIPAP MASK WAS PLACED ONTO HIS FACE, DESPITE VERBAL DIRECTION TO "TAKE A DEEP BREATH" & "KEEP BREATHING." INITIAL ATTEMPT TO USE CPAP SETTINGS WAS NOT APPROPRIATE PT WAS UNABLE TO TAKE IN TIDAL VOLUMES > 200. SETTINGS SWITCHED TO BIPAP 12/6 & FIO2 35%. PT NOW TAKING IN TIDAL VOLUMES > 500 & O2 SATS > 92%. BILAT SOFT WRIST RESTRAINTS REMOVED AT TIME OF EXTUBATION (1215) & DOCUMENTED SUCH IN INTERVENTIONS. WILL CONTINUE TO MONITOR & UPDATE NEEDED.
--- NOTE | 2018-07-10 14:55 | NUR ---
Spiritual care visit conducted. Patient is aggitated in bed and thrashing his head. Patient's , Kusum, is bedside and talking in soft tones to patient and protecting his head from the bed rail. Patient knocks the tube off his face mask and she quickly hooks it back up. Kusum is more optimistic today and states that many of the family unit complications from last week were resolved over the weekend. I provided emotioanal support, companionship and prayer. Kusum responded well and thanked me for the visit. I continue to be available to patient and family.
--- NOTE | 2018-07-10 17:01 | NUR ---
DR. CAMACHO UPDATE / SHIFT SUMMARY: ATTEMPT TO PLACE DOBHOFF FOR CONTINUED ENTERAL NUTRITION & PO PARTS DEPARTMENT MANAGER WAS UNSUCCESSFUL BY THIS RN, ANGIE Adamson RN & DR. CAMACHO. THE PT IS TOO AGITATED & UNABLE TO FOLLOW COMMANDS REGARDING SWALLOWING TO ADVANCE THE TUBE WHEN NECESSARY. DR. CAMACHO STS THAT HE IS OKAY W/ THE PT NOT RECEIVING TUBE FEEDS OR PO MEDS FOR ONE DAY & THAT WE WILL REASSESS THE PT's MENTATION AND/OR FURTHER NEED FOR GASTRIC TUBE PLACEMENT TOMORROW. ASYA HAS ALSO BEEN D/C'd PROVIDER IS CONCERNED THAT THIS MAY BE CONTRIBUTING TO PT's AMS & INABILITY TO CLEAR MENTATION. PT IS NOW TRACKING MOVEMENT IN ROOM W/ EYES & TURNING HEAD TOWARDS VOICES, HE CONTINUES NOT FOLLOWING COMMANDS. LS REMAIN COARSE T/O, PT IS TOLERATING BREAKS FROM BIPAP WELL & HE APPEARS MORE RELAXED W/O BIPAP ON, O2 SATS > 90% ON RA. HE HAS A STRONG COUGH & IS CLEARING SECRETIONS WELL, OCCASIONAL ORAL SUCTIONING NEEDED FOR SECRETIONS AT BACK OF THROAT. MONITOR SHOWS 100% V-PACED RHYTHM, HR 60s. PRN MEDS FOR HTN PER EMAR, PT IS NOT SAFE TO SWALLOW PO MEDS AT THIS TIME. BT HYPERACTIVE x4 QUADS, HAS HAD 3 SOFT BROWN BMs SINCE LACTULOSE ADMIN THIS AM. TEMP MACEDO PATENT/DRAINING DARK YELLOW-ORANGE COLORED URINE. SCATTERED BRUISING TO ABD & BUE, SKIN OVERALL CDI. WILL CONTINUE TO MONITOR & REPORT OFF TO ONCOMING RN.
--- NOTE | 2018-07-10 19:20 | NUR ---
ASSUMED CARE PT EXTUBATED TODAY. SPONTANEOUSLY OPENS EYES, DOES NOT TRACK OR FOLLOW COMMANDS AND IS SHAKING HEAD BACK AND FORTH. CURRENTLY ON RA WITH PLANS FOR BIPAP AT HS. NO IV FLUIDS OR TF INFUSING. BP STABLE W/ PRN IV MEDS AVAILABLE, O2 SATS MID 90'S AND ECG SHOWS 100% PACED RHYTHM. PLAN TO MAINTAIN NPO STATUS D/T NEURO DEFICITS, CHECK BG'S D/T PREVIOUS REPORT OF LANTUS/HUMALOG ADMINISTRATION PRIOR TO EXTUBATION/NPO STATUS.
[2018-07-11 03:51] LABS: BASOPHILS ABSOLUTE AUTO 0.02 K/mm3 (0.00-0.23); BASOPHILS PERCENT AUTO 0 % (0-2); EOSINOPHILS ABSOLUTE AUTO 0.06 K/mm3 (0.00-0.68); EOSINOPHILS PERCENT AUTO 1 % (0-6); Hematocrit 34.9 % (37.0-53.0); Hemoglobin 10.9 g/dL (13.5-17.5); IMMATURE GRAN ABSOLUTE AUTO 0.13 K/mm3 (0.00-0.10); IMMATURE GRAN PERCENT AUTO 1 % (0-1); LYMPHOCYTES ABSOLUTE AUTO 1.05 K/mm3 (0.84-5.20); LYMPHOCYTES PERCENT AUTO 9 % (21-46); MONOCYTES ABSOLUTE AUTO 0.76 K/mm3 (0.16-1.47); MONOCYTES PERCENT AUTO 6 % (4-13); Mean Corpuscular HGB 28.4 pg (26.0-34.0); Mean Corpuscular HGB Conc 31.2 g/dL (31.5-36.5); Mean Corpuscular Volume 91 fL (80-100); NEUTROPHILS ABSOLUTE AUTO 10.18 K/mm3 (1.96-9.15); NEUTROPHILS PERCENT AUTO 83 % (41-73); Platelet Count 276 K/mm3 (150-400); RDW Coefficient Variation 15.9 % (11.7-14.2); RDW Standard Deviation 50.4 fL (35.1-46.3); Red Blood Cell Count 3.84 M/mm3 (4.30-5.90)
[2018-07-11 04:12] LABS: Alanine Aminotransfer (ALT/SGP 52 U/L (12-78); Albumin, Blood 2.2 g/dL (3.4-5.0); Albumin/Globulin Ratio 0.5 (0.8-1.8); Alk Phos 86 U/L (50-136); Anion Gap 8 mmol/L (6-16); Aspartate Aminotrans (AST/SGOT 20 U/L (12-37); Bilirubin, Total 0.8 mg/dL (0.1-1.0); Blood Urea Nitrogen 36 mg/dL (8-24); Bun/Creatinine Ratio 34.3 (12.0-20.0); CO2, Blood 23 mmol/L (21-32); Calcium, Blood 9.3 mg/dL (8.5-10.1); Chloride, Blood 119 mmol/L (98-108); Creatinine, Blood 1.05 mg/dL (0.60-1.20); Globulin, Blood 4.5 g/dL (2.2-4.0); Glomerular Filtration Rate >60 (60-); Glucose, Blood 113 mg/dL (70-99); Sodium, Blood 150 mmol/L (136-145); Total Protein, Blood 6.7 g/dL (6.4-8.2)
--- NOTE | 2018-07-11 06:21 | NUR ---
SHIFT SUMMARY NO ACUTE EVENTS OVERNIGHT. PT WORE BIPAP 12/6 W/ FIO2 21% FROM 2300 TO 0600 WITH SHORT BREAKS FOR ORAL CARE. THIS AM PT HAS BEEN SHAKING HEAD NO IN RESPONSE TO SOME QUESTIONS BUT DOES NOT SHAKE HEAD FOR YES QUESTIONS, STILL NOT FOLLOWING COMMANDS BUT DOES APPEAR TO BE TRACKING MORE IN RESPONSE TO NOISE AND MOVEMENT. BP ELEVATED AGAIN, MEDICATED PER ORDERS WITH BOTH HYDRALAZINE AND LABETALOL TO MAINTAIN SBP <160 WITH LIMITED SUCCESS. O2 SATS MID 90'S, ECG REMAINS 100% VENTRICULAR PACED. NPO STATUS MAINTAINED FOR SHIFT.
--- NOTE | 2018-07-11 07:58 | NUR ---
ASSUMED CARE: REPORT RECEIVED FROM LEELEE Calix RN. ASSUMED CARE OF THIS PT AT APPROX 0700. ON ASSESSMENT, THE PT IS AWAKE & RESTING QUIETLY. HE APPEARS TO TRACK VOICES T/O THE ROOM & LOOK TOWARDS MOVEMENT, BUT HE CONTINUES NOT FOLLOWING COMMANDS & ONLY MAKES GRUNTING NOISES IN RESPONSE TO QUESTIONS. HE REPEATEDLY SHAKES HIS HEAD BACK/FORTH IF TO SAY "NO," FOR EVERY QUESTION ASKED OF HIM, INCLUDING HIS NAME//ETC. HIS , KIKO, REMAINS AT BEDSIDE & IS SUPPORTIVE IN HIS CARE. PT CONTINUES TO BE NPO STATUS HE IS UNABLE TO SAFELY SWALLOW PO MEDS R/T INABILITY TO FOLLOW DIRECTIONS/COMMANDS. CBGs STABLE AT THIS TIME. PRN MEDS FOR HTN, CONSIDER PLACING GASTRIC TUBE AGAIN THIS SHIFT FOR PO RN ENT & CONTINUED NUTRITION. PT/OT WOULD ALSO BE BENEFICIAL TO MOBILIZE PT TODAY. WILL CONTINUE TO MONITOR & UPDATE NEEDED.
--- NOTE | 2018-07-11 08:30 | NUR ---
DR. CAMACHO: PROVIDER AT BEDSIDE TO SEE PT & DISCUSS POC. PT's AT BEDSIDE DURING THIS TIME. IT IS DECIDED THAT PT IS TO REMAIN NPO & THAT NO GASTRIC TUBE IS TO BE PLACED, WILL REASSESS THIS TOMORROW. D5W WILL BE INITIATED TO MAINTAIN STABLE BLOOD GLUCOSE LEVELS. SPEECH, PHYSICAL & OCCUPATIONAL THERAPIES TO BE ORDERED FOR EVAL & TX. VERBALIZES UNDERSTANDING OF THIS PLAN & PT's SISTER, JEREMIE, HAS BEEN UPDATED BY THIS RN PER REQUEST. WILL CONTINUE TO MONITOR & UPDATE NEEDED.
--- NOTE | 2018-07-11 15:42 | NUR ---
UPDATE: THE PT IS NOW ANSWERING QUESTIONS BY NODDING YES/NO. MACEDO CATH REMOVED & ATTENDS PLACED. PT UP TO CHAIR W/ LIFT. HE IS TOLERATING THIS WELL & IS MORE REDIRECTABLE THIS AFTERNOON, ALTHOUGH NOT YET FOLLOWING COMMANDS/DIRECTIONS. WILL CONTINUE TO MONITOR & UPDATE NEEDED.
--- NOTE | 2018-07-11 17:15 | NUR ---
SHIFT SUMMARY: NO ACUTE CHANGES SINCE PRIOR UPDATES. PT REMAINS A&O TO HIMSELF, IS NOT FOLLOWING COMMANDS. TRACKS W/ EYES & ANSWERS YES/NO QUESTIONS W/ NODS. LS ARE COARSE T/O & PT HAS PRODUCTIVE COUGH, ORAL SUCTIONING NEEDED AT TIMES TO CLEAR THESE SECRETIONS. PT ON RA W/ O2 SATS > 90%. MONITOR SHOWS 100% V-PACED RHYTHM W/ MINIMAL PVCs THIS SHIFT. BT HYPERACTIVE x4, NO BM THIS SHIFT. MACEDO OUT AT 1500 THIS AFTERNOON, NO VOID SINCE THAT TIME, ATTENDS IN PLACE. WILL CONTINUE TO MONITOR & REPORT OFF TO ONCOMING RN.
--- NOTE | 2018-07-11 19:00 | NUR ---
ASSUMING CARE OF PT AT THIS TIME. PT REPORT RECEIVED AT BEDSIDE WITH OFFGOING NURSE, REGINO HAMMER. PT SITTING IN CHAIR UPON ENTERING THE ROOM. PT'S AT BEDSIDE AND PLANNING TO SPEND NIGHT IN ICU THIS SHIFT. HTN - WILL ADMINISTER PRN HYDRALAZINE. OTHERWISE, VS STABLE - SEE VS FS. PT DOES NOT APPEAR TO BE IN DISTRESS AT THIS TIME. WILL REVIEW PLAN OF CARE.
--- NOTE | 2018-07-11 19:15 | NUR ---
ASSESSMENT PT RESPONDS TO VERBAL STIMULI, MOVES HEAD TOWARDS VERBAL STIMULI, SPONT OPENS EYES, OCC TRACKS WITH L EYE, SLUGGISH TRACKINGW ITH L EYE, DOES NOT NOD HEAD Y/N TO QUESTIONS, DOES NOT FOLLOW COMMANDS, MAKES SOUNDS, FREQ SHAKES HEAD. HAIDER SENSATION. PT HENNING. GENEARLIZED WEAKNESS. PT SITTING IN CHAIR. NO S/SX OF PAIN/DISCOMFORT NOTED. PT'S AT BEDSIDE AND PLANNING TO SPEND NIGHT IN ICU THIS SHIFT. LUNGS CLEAR, EXP WHEEZING, DIMINISHED LOWER LOBES. PT ON RA. OXY SAT >90%. RR 18. BIPAP PRN: 12/6, FIO2 21%. SHALLOW BREATHING. OCC PRODUCTIVE COUGH: SMALL AMOUNTS OF THICK SEBASTIAN SECRETIONS. WILL USE SUCTION INDICATED FOR SECRETIONS. AFEBRILE. 100% WITH BBB. HR 60'S. HTN - WILL ADMINISTER PRN HYDRALAZINE. STRONG PULSES. WARM, PINK SKIN. TRC EDEMA TO BUE'S AND BLE'S. HYPOACTIVE BT X4 QUADRANTS. ABD SOFT, NONTENDER, MOD DIST. PT NPO. PT UNABLE TO FOLLOW COMMANDS FOR SAFE SWALLOWING. PER REPORT - DOBHOFF INSERTION WAS ATTEMPTED MULTIPLE TIMES AND WILL ADDRESS NPO STATUS TOMORROW. UNABLE TO PROVIDE PO MEDICATIONS D/T NPO. NO BM. NO N/V. PER REPORT - F/C REMOVED THIS AM. ATTENDS IN PLACE. NO UO. PICC TIM. NS TKO AT 10 ML/HR. D5W AT 50 ML/HR.
[2018-07-12 03:18] LABS: BASOPHILS ABSOLUTE AUTO 0.02 K/mm3 (0.00-0.23); BASOPHILS PERCENT AUTO 0 % (0-2); EOSINOPHILS ABSOLUTE AUTO 0.08 K/mm3 (0.00-0.68); EOSINOPHILS PERCENT AUTO 1 % (0-6); Hematocrit 36.3 % (37.0-53.0); Hemoglobin 11.1 g/dL (13.5-17.5); IMMATURE GRAN ABSOLUTE AUTO 0.06 K/mm3 (0.00-0.10); IMMATURE GRAN PERCENT AUTO 1 % (0-1); LYMPHOCYTES ABSOLUTE AUTO 1.01 K/mm3 (0.84-5.20); LYMPHOCYTES PERCENT AUTO 10 % (21-46); MONOCYTES ABSOLUTE AUTO 0.61 K/mm3 (0.16-1.47); MONOCYTES PERCENT AUTO 6 % (4-13); Mean Corpuscular HGB 27.8 pg (26.0-34.0); Mean Corpuscular HGB Conc 30.6 g/dL (31.5-36.5); Mean Corpuscular Volume 91 fL (80-100); Mean Platelet Volume 12.1 fL (9.1-12.4); NEUTROPHILS ABSOLUTE AUTO 7.89 K/mm3 (1.96-9.15); NEUTROPHILS PERCENT AUTO 82 % (41-73); Platelet Count 318 K/mm3 (150-400); RDW Coefficient Variation 16.2 % (11.7-14.2); Red Blood Cell Count 3.99 M/mm3 (4.30-5.90); White Blood Cell Count 9.67 K/mm3 (4.00-11.30)
[2018-07-12 03:39] LABS: Alanine Aminotransfer (ALT/SGP 58 U/L (12-78); Albumin, Blood 2.2 g/dL (3.4-5.0); Albumin/Globulin Ratio 0.5 (0.8-1.8); Alk Phos 86 U/L (50-136); Anion Gap 8 mmol/L (6-16); Aspartate Aminotrans (AST/SGOT 31 U/L (12-37); Bilirubin, Total 1.1 mg/dL (0.1-1.0); Blood Urea Nitrogen 30 mg/dL (8-24); Bun/Creatinine Ratio 30.5 (12.0-20.0); CO2, Blood 22 mmol/L (21-32); Chloride, Blood 119 mmol/L (98-108); Creatinine, Blood 0.99 mg/dL (0.60-1.20); Globulin, Blood 4.4 g/dL (2.2-4.0); Glomerular Filtration Rate >60 (60-); Glucose, Blood 151 mg/dL (70-99); Magnesium, Blood 1.9 mg/dL (1.6-2.4); Potassium, Blood 3.8 mmol/L (3.5-5.5); Sodium, Blood 149 mmol/L (136-145); Total Protein, Blood 6.6 g/dL (6.4-8.2)
--- NOTE | 2018-07-12 03:59 | NUR ---
DR. PAULSON CALLED DR. PAULSON AT THIS TIME. INFORMED DR. PAULSON OF LABS. DR. PAULSON DOES NOT WANT TO REPLACE [facility] AT THIS TIME. NO NEW ORDERS AT THIS TIME.
--- NOTE | 2018-07-12 04:27 | NUR ---
SHIFT ASSESSMENT NO ACUTE CHANGES NOTED T/O SHIFT. PT SLEPT ON AND OFF T/O SHIFT. PT RESPONDS TO VERBAL STIMULI, MOVES HEAD TOWRADS VERBAL STIMULI, SPONT OPENS EYES, OCC TRACKS WITH L EYE, SLUGGISH TRACKING WITH L EYE, DOES NOT NOD HEAD Y/N TO QUESTIONS, DOES NOT FOLLOW COMMANDS, MAKES SOUNDS, FREQUENTLY SHAKES HEAD FROM L SIDE TO R SIDE. HAIDER SENSATION. PT HENNING. GENERALIZED WEAKNESS. INCREASED MOVEMENT NOTED T/O SHIFT. NO S/SX OF PAIN/DISCOMFORT NOTED. PT'S AT BEDSIDE T/O SHIFT. LUNGS CLEAR, DIMINISHED LOWER LOBES. OCC EXP WHEEZING. PT ON RA AT BEGINNING OF THE SHIFT WHILE AWAKE. OTHERWISE, PT ON BIPAP 01/26, FIO2 21% T/O SHIFT. OXY SAT >90%. RR 13 TO 20'S. SHALLOW BREATHING. OCC PRODUCTIVE COUGH: SMALL AMOUNTS OF THICK SEBASTIAN SECRETIONS. USE SUCTION INDICATED FOR SECRETIONS. AFEBRILE. 100% PACED WITH BBB AND OCC PVC'S. HR 50'S TO 60'S. ADMINISTERED PRN HYDRALAZINE AND PRN LABETOLOL FOR HTN. OTHERWISE, BP STABLE - SEE VS FS. STRONG PULSES. WARM, PINK SKIN. TRC EDEMA TO BUE'S AND BLE'S. HYPOACTIVE BT X4 QUADRANTS. ABD SOFT, NONTEDER, MOD DIST. PT NPO. PT UNABLE TO FOLLOW COMMANDS FOR SAFE SWALLOWING. UNABLE TO PROVIDE PO MEDICATIONS D/T NPO. NO BM. NO N/V. ATTENDS IN PLACE. INCONTINENT X2. PICC TIM. NS TKO ON STANDBY. D5W AT 50 ML/HR. WILL CONT TO MONITOR PT AND WILL PROVIDE BEDSIDE REPORT TO ONCOMING NURSE THIS AM.
--- NOTE | 2018-07-12 07:27 | NUR ---
ASSUMED CARE: REPORT RECEIVED FROM UTE Walter RN. ASSUMED CARE OF THIS PT AT APPROX 0700. ON ASSESSMENT, THE PT IS WEARING BIPAP W/ SETTINGS 12/6 & 21% FIO2. HE IS SHAKING HIS HEAD SIDE TO SIDE AT THAT TIME & APPEARS UNCOMFORTABLE. BIPAP IS REMOVED & PT LEFT ON RA W/ O2 SATS > 90%. UPON REMOVAL OF BIPAP, THE PT IS NOTED TO HAVE DRIED SEBASTIAN/GREEN SECRETIONS ON HIS LIPS & IN HIS MOUTH. EXTENSIVE ORAL CARE HAS BEEN PERFORMED THIS AM. HE IS UNABLE TO FOLLOW COMMANDS, BUT IS TRACKING MOVEMENT & VOICES T/O THE ROOM & HENNING. MONITOR SHOWS 100% V-PACED RHYTHM W/ HR 60s. BP LABILE, PRN MEDS PER EMAR. PT VOIDING W/O DIFFICULTY, ATTENDS IN PLACE FOR INCONTINENCE. PT's REMAINS AT BEDSIDE & IS SUPPORTIVE W/ ALL CARE. WILL CONTINUE TO MONITOR & UPDATE NEEDED.
--- NOTE | 2018-07-12 08:31 | NUR ---
DR. CAMACHO: PROVIDER AT BEDSIDE TO SEE PT. HE WOULD LIKE FOR THIS RN TO ATTEMPT DOBHOFF PLACEMENT AGAIN THIS SHIFT, HE WOULD LIKE TO KEEP ATTEMPTS MINIMAL SO NOT TO CAUSE BLEEDING OR IRRITATION. PO MEDS TO RESUME ORDERED IF DOBHOFF PLACEMENT SUCCESSFUL. STATUS CHANGE TO PCU OR MED OKAY PER DOUG, STS DR. GARCIA CAN DECIDE LEVEL OF TX. CPT & LACTULOSE D/C'd PER DR. CAMACHO. WILL CONTINUE TO MONITOR & UPDATE NEEDED.
--- NOTE | 2018-07-12 08:35 | NUR ---
DR. GARCIA: PROVIDER STS PT OKAY TO TRANSFER TO PCU STATUS. NO OTHER CHANGES AT THIS TIME. WILL CONTINUE TO MONITOR & UPDATE NEEDED.
--- NOTE | 2018-07-12 09:21 | NUR ---
DOBHOFF PLACEMENT / RADIOLOGY: DOBHOFF PLACED BY THIS RN, SECURED & CXR COMPLETED AT BEDSIDE. CALL FROM RADIOLOGY, DOBHOFF PLACEMENT IS CORRECT PER DR. GUY & BAILEY TO BE USED.
--- NOTE | 2018-07-12 13:41 | NUR ---
TUBE FEEDING: TUBE FEEDS INITIATED PER DIETARY RECOMMENDATIONS AT 1330. WILL ADVANCE IN 4 HRS IF PT TOLERATING WELL.
--- NOTE | 2018-07-12 14:01 | NUR ---
Therapeutic Pt visit this afternoon. Pt resting in bed with his eyes closed. Pt's Kusum present during visit. Pt appears comfortable at this time. Engaged in therapeutic discussion and encouraged Kusum to express concerns or fears. She states that God will not give her more than she can handle. She states that she knows there is a chance the Pt may not make a full recovery and know he may need 24 hours care. Kusum reports lots of family and friend support to help with his care needs. Listened as Kusum discusses her love for painting rocks and hiding them. She is part of many [employer] organizations around the [facility]. Kusum does inquire about insurance and wheather his medicaid and supplemental will cover all the current bills for this hospital stay. Instructed Kusum this RN will contact floor care specialist to address these questions. Kusum reports no other concerns. Spoke with Pt's bedside nurse Vanessa and she reports no concerns at this time. Spoke with floor care specialist Missy and relayed Kusum's concerns regarding insurance. Page reports she will address concerns with Kusum. Palliative Care will remain available.
--- NOTE | 2018-07-12 15:51 | NUR ---
Assumed care of patient and recieved report from Vanessa HAMMER. Patient on RA and sats mid 90%'s. He has PICC line in TIM dressing intact and site WNL's and is infusing NS @ 50ml/hr and Vanco. He has Dobhhoff left nares and infusing Jevity 1.5 and 25ml/hr and will increase at 1730 and has 30ml flushes Q4hr. He has attends in place and is incontinent stool and urine. He is not responsive and purposeful conversation or movement. He is 100% paced at 60 and systolic in the loww 100's
--- NOTE | 2018-07-12 18:18 | NUR ---
ASSUMED CARE OF PT FROM JAQUELIN STEPHEN AT 1730. PT OPENS EYES AND MOVES HEAD SIDE TO SIDE, NO PURPOSEFUL MOVEMENT WITH EXTREMITIES. DOES GRIMACE/CRY IN RESPONSE TO AND MUMBLES. SBP 110'S. PACED RHYTHM WITH HR 60'S. RR 20'S, SPO2 HIGH 90'S ON RA. LS COARSE. D5W @ 50 ML/HR. DOBHOFF PLACED TODAY, TUBE FEEDS 25 ML/HR. MACEDO CATHETER D/C'D, WEARING BRIEFS. REPOSITIONING Q 2 HRS. CHANGED TO PCU STATUS.
--- NOTE | 2018-07-12 21:58 | NUR ---
ASSUMING CARE RECEIVED PT REPROT FOR DAY SHIFT JAQUELIN JACINTO. PT IS ON ROOM AIR WITH SPO2 IN THE MID 90'S. PT IS RESPONSIVE TO VERBAL STIMULI IN THAT HE WILL MOVE HEAD TO DIRECTION OF SOUND OCCASIONALLY. PT IS NOT ABLE TO FOLLOW ANY COMMANDS. PT IS UNABLE TO COMMUNICATE AT THIS TIME AND WILL ONLY MAKE OCCASIONAL GRUNTING NOISES APPARENTLY IN RESPONSE TO VERBAL STIMULI. PT HAS BEEN OBSERVED TO MAKE LAUGHING SOUNDS AT TIMES IN RESPONSE TO SPEAKING WITH HIM. PT IS RECEIVING D5 W AT 50ML/HR. PT HR IS 100% PACED WITH A RATE OF 60 AT THIS TIME. PT BP IS IN THE 110-120 RANGE AT THIS TIME. PT HAS ATTENDS IN PLACE. PT HAS DOBHOFF IN PLACE. PT IS RECEIVING TUBE FEEDING OF JEVITY 1.5 SOLUTION AT A RATE OF 25ML/HR. RATE INCRESED TO 35ML/HR AT APPROX 2200. GOAL RATE IS 50ML/HR. PT IS AT BEDSIDE. ASSUMED CARE OF PT AT THE TIME OF SHIFT REPORT. WILL CONTINUE TO MONITOR.
[2018-07-13 04:11] LABS: Anion Gap 6 mmol/L (6-16); Blood Urea Nitrogen 35 mg/dL (8-24); Bun/Creatinine Ratio 28.5 (12.0-20.0); CO2, Blood 23 mmol/L (21-32); Calcium, Blood 8.7 mg/dL (8.5-10.1); Chloride, Blood 118 mmol/L (98-108); Creatinine, Blood 1.23 mg/dL (0.60-1.20); Glomerular Filtration Rate >60 (60-); Glucose, Blood 224 mg/dL (70-99); Potassium, Blood 3.8 mmol/L (3.5-5.5); Sodium, Blood 147 mmol/L (136-145)
--- NOTE | 2018-07-13 07:41 | NUR ---
SHIFT SUMMARY NOTE PT CONTINUES TO BE UNABEL TO FOLLOW COMMANDS. PT DOES APPEAR TO RESPOND TO VERBAL STIMULI AND OCCASIONALLY TRACKS WITH RIGHT EYE. PT HAS REMAINED 100% PACED THROUGH THE NIGHT WITH HR OF APPROX 60. PT BP HAS REMAINED IN THE 100-120 RANGE. PT HAS REMAINED ON ROOM AIR THROUGHOUT THE NIGHT WITHOUT ANY NOTED DESATURATIONS. PT CONTINUES TO RECEIVE TUBE FEEDING VIA DOBHOFF AT A RATE OF 35ML/HR. PT HAS BEEN INCONTINENT THROUGH THE NIGHT, WITH FREQUENT ATTENDS CHANGES. PT CONTINUES TO RECEIVE D5 W AT 50ML/HR. WILL REPORT OFF TO ONCOMING DAY SHIFT NURSE.
--- NOTE | 2018-07-13 10:28 | NUR ---
PHYSICAL THERAPY & HEAD CT: PHYSICAL THERAPY IN ROOM, ATTENDS CHANGE AND LIFT SHEET PLACED UNDER PT. IN PROCESS OF MOVING PT TO RECLINER WITH THE LIFT WHEN IMAGING CALLED TO TAKE PATIENT FOR CT OF THE HEAD. LEFT PT IN THE BED, BOOSTED UP TO THE HEAD OF THE BED. PT TO CT WITHOUT ATIVAN. TECH CALLED AND STATED PT AGITATED AND WOULD NOT BE STILL. THIS RN TOOK ATIVAN TO CT AND ADMINISTERED ATIVAN PER ORDERS. RETURNED WITH PT TO THE ROOM PT APPEARS TO BE VERY DROUSY, BUT CONTINUES TO WHIP HEAD BACK AND FORTH WHILE GRUNTING. WILL HOLD OFF ON PLACING PT IN RECLINER PER WIFES REQUEST D/T PT DROUSYNESS.
[2018-07-13 17:19] LABS: Vancomycin, Trough 22.7 ug/mL (5.0-10.0)
--- NOTE | 2018-07-13 18:07 | NUR ---
ELAVATED GLUCOSE & TRANSFER: BLOOD SUGAR IS NOTED TO BE 316 AND HAS BEEN NOTED IN THE 300'S TODAY. TALKED TO DR GARCIA ABOUT STARTING PT ON LONG ACTING INSULIN AND RECEIVED NEW ORDER. REPORT CALLED TO MEDICAL FLOOR RN. PT TRANSFERED TO 340 AT THIS TIME.
--- NOTE | 2018-07-13 18:43 | NUR ---
PT ARRIVED TO THE UNIT AT 1800. IS AT THE BEDSIDE. USED LIFT TO TRANSFER PATIENT. SUCTION IS SET UP. FEEDING WITH NG TUBE. PT MOANS AND GRUNTS. IS VERY HELPFUL WITH HIS CARE. RT CALLED ABOUT CONTINUOUS PULSE OXIMETRY.
--- NOTE | 2018-07-14 04:39 | NUR ---
REPORTS PAIN IN BLE PATIENT STARTED TO GET VERY RESTLESS IN BLE, KICKING HIS LEGS AROUND. SAYING THEY HURT. ADMINISTERED TYLENOL TO SEE IF THIS IMPROVED. WILL REASSESS.
[2018-07-14 06:30] LABS: BASOPHILS ABSOLUTE AUTO 0.01 K/mm3 (0.00-0.23); BASOPHILS PERCENT AUTO 0 % (0-2); EOSINOPHILS ABSOLUTE AUTO 0.15 K/mm3 (0.00-0.68); EOSINOPHILS PERCENT AUTO 3 % (0-6); Hematocrit 31.2 % (37.0-53.0); Hemoglobin 9.3 g/dL (13.5-17.5); IMMATURE GRAN ABSOLUTE AUTO 0.03 K/mm3 (0.00-0.10); IMMATURE GRAN PERCENT AUTO 1 % (0-1); LYMPHOCYTES ABSOLUTE AUTO 0.82 K/mm3 (0.84-5.20); LYMPHOCYTES PERCENT AUTO 14 % (21-46); MONOCYTES ABSOLUTE AUTO 0.33 K/mm3 (0.16-1.47); MONOCYTES PERCENT AUTO 6 % (4-13); Mean Corpuscular HGB 28.3 pg (26.0-34.0); Mean Corpuscular HGB Conc 29.8 g/dL (31.5-36.5); Mean Corpuscular Volume 95 fL (80-100); NEUTROPHILS ABSOLUTE AUTO 4.48 K/mm3 (1.96-9.15); NEUTROPHILS PERCENT AUTO 77 % (41-73); Platelet Count 191 K/mm3 (150-400); RDW Standard Deviation 54.4 fL (35.1-46.3); Red Blood Cell Count 3.29 M/mm3 (4.30-5.90); White Blood Cell Count 5.82 K/mm3 (4.00-11.30)
[2018-07-14 06:49] LABS: Alanine Aminotransfer (ALT/SGP 114 U/L (12-78); Albumin, Blood 2.2 g/dL (3.4-5.0); Albumin/Globulin Ratio 0.6 (0.8-1.8); Alk Phos 106 U/L (50-136); Anion Gap 5 mmol/L (6-16); Aspartate Aminotrans (AST/SGOT 50 U/L (12-37); Blood Urea Nitrogen 28 mg/dL (8-24); Bun/Creatinine Ratio 27.2 (12.0-20.0); CO2, Blood 23 mmol/L (21-32); Calcium, Blood 8.4 mg/dL (8.5-10.1); Chloride, Blood 119 mmol/L (98-108); Creatinine, Blood 1.03 mg/dL (0.60-1.20); Globulin, Blood 3.7 g/dL (2.2-4.0); Glomerular Filtration Rate >60 (60-); Glucose, Blood 289 mg/dL (70-99); Magnesium, Blood 1.9 mg/dL (1.6-2.4); Sodium, Blood 147 mmol/L (136-145); Total Protein, Blood 5.9 g/dL (6.4-8.2)
--- NOTE | 2018-07-14 07:04 | NUR ---
SHIFT SUMMARY: ERIK ARRIVED TODAY FROM ICU PRIOR TO SHIFT. PRESENT IN ROOM. HE IS ALERT ONLY TO SELF AND RESPONDS WITH MOANS AND GROANS AT BEGINNING OF SHIFT. THIS IMPROVED THROUGHOUT THE NIGHT. HE STARTED TO FORM WORDS, AND BY MORNING WAS ABLE TO SPEAK SHORT SENTANCES HERE AND THERE. HE IS BED BOUND, WITH SIERRA TO LIFT, HAS NOT GOTTEN OUT OF BED. NGT TO LEFT NOSTRIL INFUSING JEVITY 1.5 HIGH CALORIE AT 50ML AND HOUR WITH FLUSHES EVERY 4 HOURS. IV FLUIDS WERE CONNECTED BUT TURNED OFF, ORDER WAS FOR CONTINUOUS D5 45%. THEREFORE, RESTARTED FLUIDS. PICC LINE 3 LUMEN TO RUE, DRESSING WITH SMALL AMOUNT OF BLOOD NOTED, DRESSING CHANGE WAS COMPLETED PER PROTOCOL. LUNG SOUNDS WERE DIMINISHED THROUGHOUT, COUGH IS PRODUCTIVE, BUT UNABLE TO GET FULLY OUT. HE DOES NOT LIKE HIS MOUTH CLEANSED, BITES DOWN ON SWABS. ASSIST WITH THIS. ATTENDS CHANGED, AND REPOSITIONED WITH SKATESMAN ASSIST. BRUISING LARGE TO LEFT LOWER ABDOMIN. VS STAYED WNL, CHEM BG ELEVATED IN HIGH 200-300'S. HUMOLOG HIGH SLIDING SCALE GIVEN PER ORDERS, AND LANTUS IN AM. CONTINUOUS PULSE OX STARTED BY RT, REMIANED IN 90'S ALL NIGHT. HE DEVELOPED RESTLESS OF HIS LEGS THAT STOPPED WHEN CPAP WAS PLACED AND HE SLEPT FOR MOST OF THE NIGHT. IT RESTARTED THIS MORNING, HE COMPLAINED OF PAIN IN BLE, GAVE TYLENOL, THIS DID NOT WORK. DOES NOT WANT ANY SUDATION MEDS, IN FORMED ONCOMING NURSE OF POSSIBLE ORDER FOR REQUIP TO SEE IF THIS MIGHT HELP. INCONTINTIENT OF URINE, ATTENDS WAS CHANGED MULTIPLE TIMES THROHGOUT THE NIGHT. ALL MEDS GIVEN VIA PEG TUBE WIHT NO DIFFICULTY. NO OTHER CHANGES TO REPORT. AWARE TO CALL FOR ASSISTANCE.
--- NOTE | 2018-07-14 12:03 | NUR ---
Patient is lying in bed and alert with Kusum, bedside. Patient is markedly improved since my last visit. Patient is able to interact with me and even is playing jokes on me. Kusum is weary but is working hard to keep patient moving forward. I provide emotional support, encourage self care for Kusum and provide prayer. Kusum and patient respond well and show evidence of an elevated mood. I continue to remain available to patient and family.
--- NOTE | 2018-07-14 17:00 | NUR ---
SHIFT SUMMARY PATIENT HAD AN EVENTFUL SHIFT. HE PULLED HIS DOBHOFF AND HAD IT REPLACED. HE IS CURRENTLY IN WRIST RESTRAINTS TO KEEP HIM FROM PULLING THE KAREN A SECOND TIME. HE WAS PLACED WITH A CONDOM CATHETER TO REDUCE RISK OF SKIN BREAKDOWN DUE TO TENDER SCROTUM. PATIENT HAS CONTINOUS FEEDS AND A 30ML OF FLUID FLUSH Q4. PATIENT HAD CONFIRMATION OF NG TUBE PLACEMENT, AND WILL ASSESS FOR FURTHER NEED OF CHANGES. PATIENT IS TO NOT BE SEDATED IF POSSIBLE DUE TO ALERTNESS.
--- NOTE | 2018-07-15 04:29 | NUR ---
SHIFT SUMMARY ALERT AND RESPONDS TO STIMULI; AT BEDSIDE. FORMED WORDS WHEN ADDRESSED AND ANSWERED QUESTIONS APPROPRIATE SOME OF THE TIME. WRIST RESTRAINTS REMAINED IN PLACE R/T PULLING AND LINES/TUBES. CONTINUOUS TUBE FEEDINGS THROUGHOUT NIGHT WITH FLUSHES. IV FLUIDS CONTINUOUS AND INFUSING WITHOUT COMPLICATION. CONDOM CATHETER REPLACED AND CAME OFF IMMEDIATELY; WILL CONTINUE TO CHECK ATTENDS FOR INCONTINENCE. REPOSITIONED. NO ACUTE CHANGES NOTED OVERNIGHT. CPAP ON @ HS. BP ELEVATED THIS AM; BUT ALL OTHER VS WNL. BED IN LOWEST POSITION. CALL LIGHT WITHIN REACH. WCTM. REPORT TO ONCOMING RN.
[2018-07-15 08:51] LABS: BASOPHILS ABSOLUTE AUTO 0.01 K/mm3 (0.00-0.23); BASOPHILS PERCENT AUTO 0 % (0-2); EOSINOPHILS ABSOLUTE AUTO 0.16 K/mm3 (0.00-0.68); EOSINOPHILS PERCENT AUTO 2 % (0-6); Hematocrit 34.7 % (37.0-53.0); Hemoglobin 10.5 g/dL (13.5-17.5); IMMATURE GRAN ABSOLUTE AUTO 0.04 K/mm3 (0.00-0.10); IMMATURE GRAN PERCENT AUTO 1 % (0-1); LYMPHOCYTES ABSOLUTE AUTO 0.98 K/mm3 (0.84-5.20); LYMPHOCYTES PERCENT AUTO 13 % (21-46); MONOCYTES ABSOLUTE AUTO 0.37 K/mm3 (0.16-1.47); MONOCYTES PERCENT AUTO 5 % (4-13); Mean Corpuscular HGB 28.8 pg (26.0-34.0); Mean Corpuscular HGB Conc 30.3 g/dL (31.5-36.5); Mean Corpuscular Volume 95 fL (80-100); Mean Platelet Volume 11.6 fL (9.1-12.4); NEUTROPHILS ABSOLUTE AUTO 6.27 K/mm3 (1.96-9.15); NEUTROPHILS PERCENT AUTO 80 % (41-73); Platelet Count 212 K/mm3 (150-400); RDW Standard Deviation 54.4 fL (35.1-46.3); Red Blood Cell Count 3.65 M/mm3 (4.30-5.90); White Blood Cell Count 7.83 K/mm3 (4.00-11.30)
[2018-07-15 09:15] LABS: Vancomycin, Trough 19.6 ug/mL (5.0-10.0)
[2018-07-15 09:17] LABS: Alanine Aminotransfer (ALT/SGP 122 U/L (12-78); Albumin, Blood 2.4 g/dL (3.4-5.0); Albumin/Globulin Ratio 0.6 (0.8-1.8); Alk Phos 123 U/L (50-136); Anion Gap 6 mmol/L (6-16); Aspartate Aminotrans (AST/SGOT 51 U/L (12-37); Bilirubin, Total 0.8 mg/dL (0.1-1.0); Blood Urea Nitrogen 22 mg/dL (8-24); Bun/Creatinine Ratio 21.2 (12.0-20.0); CO2, Blood 21 mmol/L (21-32); Calcium, Blood 8.7 mg/dL (8.5-10.1); Chloride, Blood 118 mmol/L (98-108); Creatinine, Blood 1.04 mg/dL (0.60-1.20); Glomerular Filtration Rate >60 (60-); Glucose, Blood 304 mg/dL (70-99); Potassium, Blood 4.1 mmol/L (3.5-5.5); Sodium, Blood 145 mmol/L (136-145); Total Protein, Blood 6.4 g/dL (6.4-8.2)
--- NOTE | 2018-07-15 18:04 | NUR ---
PT IS ALERT. HE RESPONDS TO FAMILY MORE THAN HE DOES TO STAFF. HE MOANS AND GRUNTS. HAS A HARD TIME FOLLOWING COMMANDS. PHYSICAL THERAPY TRIED TO WORK WITH HIM TWICE BUT HE WAS UNABLE TO PARTICIPATE. Q2H TURNS AND REPOSITIONING WITH PILLOWS. NG FEEDING TUBE PATENT AND RUNNING AT 50 ML/HR WITH WATER FLUSHES 30 ML Q4H. ATTENDS CHANGED NEEDED AND BARRIER CREAM APPLIED TO BUTTOX AND DELFINO AREA. THE SKIN ON THE PATIENT'S PENIS IS PINK AND STARTING TO PEEL. THE PATIENT CONSTANTLY DRIBBLES URINE IN HIS ATTENDS. WILL CONTINUE TO MONITOR
[2018-07-16 05:56] LABS: BASOPHILS ABSOLUTE AUTO 0.01 K/mm3 (0.00-0.23); BASOPHILS PERCENT AUTO 0 % (0-2); EOSINOPHILS ABSOLUTE AUTO 0.14 K/mm3 (0.00-0.68); EOSINOPHILS PERCENT AUTO 2 % (0-6); Hematocrit 33.1 % (37.0-53.0); Hemoglobin 10.2 g/dL (13.5-17.5); IMMATURE GRAN ABSOLUTE AUTO 0.04 K/mm3 (0.00-0.10); IMMATURE GRAN PERCENT AUTO 1 % (0-1); LYMPHOCYTES ABSOLUTE AUTO 1.07 K/mm3 (0.84-5.20); LYMPHOCYTES PERCENT AUTO 13 % (21-46); MONOCYTES ABSOLUTE AUTO 0.43 K/mm3 (0.16-1.47); MONOCYTES PERCENT AUTO 5 % (4-13); Mean Corpuscular HGB 29.1 pg (26.0-34.0); Mean Corpuscular HGB Conc 30.8 g/dL (31.5-36.5); Mean Corpuscular Volume 94 fL (80-100); Mean Platelet Volume 12.1 fL (9.1-12.4); NEUTROPHILS ABSOLUTE AUTO 6.68 K/mm3 (1.96-9.15); NEUTROPHILS PERCENT AUTO 80 % (41-73); Platelet Count 201 K/mm3 (150-400); RDW Coefficient Variation 16.5 % (11.7-14.2); RDW Standard Deviation 55.8 fL (35.1-46.3); Red Blood Cell Count 3.51 M/mm3 (4.30-5.90); White Blood Cell Count 8.37 K/mm3 (4.00-11.30)
[2018-07-16 06:21] LABS: Alanine Aminotransfer (ALT/SGP 100 U/L (12-78); Albumin, Blood 2.1 g/dL (3.4-5.0); Albumin/Globulin Ratio 0.5 (0.8-1.8); Alk Phos 117 U/L (50-136); Anion Gap 5 mmol/L (6-16); Aspartate Aminotrans (AST/SGOT 30 U/L (12-37); Bilirubin, Total 0.8 mg/dL (0.1-1.0); Blood Urea Nitrogen 22 mg/dL (8-24); Bun/Creatinine Ratio 20.2 (12.0-20.0); CO2, Blood 23 mmol/L (21-32); Calcium, Blood 8.8 mg/dL (8.5-10.1); Chloride, Blood 118 mmol/L (98-108); Creatinine, Blood 1.09 mg/dL (0.60-1.20); Glomerular Filtration Rate >60 (60-); Glucose, Blood 267 mg/dL (70-99); Potassium, Blood 4.1 mmol/L (3.5-5.5); Sodium, Blood 146 mmol/L (136-145); Total Protein, Blood 6.1 g/dL (6.4-8.2)
--- NOTE | 2018-07-16 17:09 | NUR ---
SHIFT SUMMARY PT AXO TO SPOUSE BUT GRUNTS AT TIMES TO COMMUNICATE. DOES NOT FOLLOW COMMANDS. VSS. PT TOLERATING TUBE FEEDING WELL, CONTINUOUS AT 50ML/HR PER ORDERS. WRIST RESTRAINTS REMAIN IN PLACE PER SPOUSE REQUEST PT CONTINUES TO PULL AT LINES EVERY CHANCE HE CAN. IV PATENT AND INFUSING AT THIS TIME PER EMAR. CHARGE NURSE NOTIFIED OF PT RESTRAINTS AND CPAP. NURSE WILL DISCUSS THIS WITH PT, POSSIBLY USING NOSE PIECE C-PAP SO PT CAN REMAIN ON THIS FLOOR. NO ACUTE CHANGES THIS SHIFT. PT INCONTINENT OF BOWEL AND BLADDER. BED IN LOW POSITION, CALL LIGHT WITHIN REACH, SPOUSE PRESENT BUT SLEEPING AT THIS TIME
--- NOTE | 2018-07-16 19:25 | NUR ---
NURSE CALLED ALBERTO LYNN TO RENEW RESTRAINT ORDER, NO ANSWER, LEFT MESSAGE TO PLEASE CALL BACK IN ORDER TO RENEW.
--- NOTE | 2018-07-17 04:13 | NUR ---
Shift summary: Pt has been very agitated the last few hours. Pt given 2 doses of ativan to help with this. Pt taken off cpap to see if this would help with the agitation. It did not make much difference. Pt also groaning frequently with no apparent reason and pt cannot communicate what the issue is. Occasionally you canmake out a word but most of the time one cannot understand him. Pt does respond to pain. After giving pt ativan I was able to get cpap back on. Restraints remain on and assessment completed. CPAP and dobhoff would be gone immediately if he could reach it. remains at bedside.
[2018-07-17 05:30] LABS: BASOPHILS ABSOLUTE AUTO 0.01 K/mm3 (0.00-0.23); BASOPHILS PERCENT AUTO 0 % (0-2); EOSINOPHILS PERCENT AUTO 3 % (0-6); Hematocrit 31.2 % (37.0-53.0); Hemoglobin 9.4 g/dL (13.5-17.5); IMMATURE GRAN ABSOLUTE AUTO 0.03 K/mm3 (0.00-0.10); IMMATURE GRAN PERCENT AUTO 1 % (0-1); LYMPHOCYTES ABSOLUTE AUTO 1.06 K/mm3 (0.84-5.20); LYMPHOCYTES PERCENT AUTO 17 % (21-46); MONOCYTES ABSOLUTE AUTO 0.32 K/mm3 (0.16-1.47); MONOCYTES PERCENT AUTO 5 % (4-13); Mean Corpuscular HGB Conc 30.1 g/dL (31.5-36.5); Mean Corpuscular Volume 96 fL (80-100); NEUTROPHILS ABSOLUTE AUTO 4.64 K/mm3 (1.96-9.15); NEUTROPHILS PERCENT AUTO 74 % (41-73); Platelet Count 156 K/mm3 (150-400); RDW Coefficient Variation 16.8 % (11.7-14.2); RDW Standard Deviation 58.3 fL (35.1-46.3); Red Blood Cell Count 3.24 M/mm3 (4.30-5.90); White Blood Cell Count 6.26 K/mm3 (4.00-11.30)
[2018-07-17 05:56] LABS: Alanine Aminotransfer (ALT/SGP 80 U/L (12-78); Albumin, Blood 2.1 g/dL (3.4-5.0); Albumin/Globulin Ratio 0.6 (0.8-1.8); Alk Phos 104 U/L (50-136); Anion Gap 5 mmol/L (6-16); Aspartate Aminotrans (AST/SGOT 22 U/L (12-37); Bilirubin, Total 0.7 mg/dL (0.1-1.0); Blood Urea Nitrogen 28 mg/dL (8-24); Bun/Creatinine Ratio 23.3 (12.0-20.0); CO2, Blood 23 mmol/L (21-32); Calcium, Blood 8.2 mg/dL (8.5-10.1); Chloride, Blood 116 mmol/L (98-108); Globulin, Blood 3.6 g/dL (2.2-4.0); Glomerular Filtration Rate >60 (60-); Glucose, Blood 233 mg/dL (70-99); Potassium, Blood 4.1 mmol/L (3.5-5.5); Sodium, Blood 144 mmol/L (136-145); Total Protein, Blood 5.7 g/dL (6.4-8.2)
--- NOTE | 2018-07-17 10:30 | NUR ---
SUCTION SET UP FOR ORAL CARE PLACED IN ROOM. SPEECH THERAPY AT BEDSIDE, PT STILL NOT SAFE WITH PO MEDS. ORDER RECEIVED FROM DR GARCIA FOR RESPIRATORY TO PERFORM SOME NT SUCTION.
--- NOTE | 2018-07-18 06:29 | NUR ---
shift summary: Pt has been awake and moaning all night. Per family no sedatives given. BP high last night- hydralazine given. Pt was also able to say that he was in pain- tylenol given. Very difficult to access results. Pt will not follow commands for the most part but occasionally he will say something that is understandable. Restraints remain on to keep pt from pulling out dophoff tube. Pt changed x 4 times last night. Pt incontinent of urine and stool. at bedside.
--- NOTE | 2018-07-18 07:13 | NUR ---
ASSUMED CARE: PT RESTING AT THIS TIME. CONTINUOUS MOANS AND GROANS WHILE SLEEPING. DOBHOFF IN PLACE FOR TUBE FEED. BILATERAL WRIST RESTRAINTS. ASLEEP AT BEDSIDE. NO ACUTE NEEDS OR CONCERNS AT THIS TIME.
--- NOTE | 2018-07-18 08:38 | NUR ---
PT CONTINUES TO MOAN AND GROAN. AT BEDSIDE RAISING HER VOICE AT HIM. PT DOES NOT FOLLOW COMMANDS. BILATERAL WRIST RESTRAINTS. FAMILY IS ADAMANT THAT THEY DO NOT WANT SEDATING MEDICATIONS ADMINISTERED. DISCUSSED WITH CHARGE RNS WHO STATE TO TRANSFER PT TO SCU, ROOM 345 FOR LIFT. ROOM BEING CLEANED AT THIS TIME. FAMILY AWARE
--- NOTE | 2018-07-18 10:30 | NUR ---
PT TRANSFERRED TO ROOM 345. REPORT GIVEN TO JAQUELIN WEBB. FAMILY AWARE
--- NOTE | 2018-07-18 12:09 | NUR ---
Spiritual care visit conducted. Patient is lying in bed and alert. Patient is responding with multiple word sentences and clearly aware of his surroundings. Patient's , Kusum is bedside and she admits that this nearly 4 wk stay in the hospital has been very wearisome. I encouraged self care and normalized her experience.
--- NOTE | 2018-07-18 12:16 | NUR ---
PATIENT DID NOT EAT LUNCH THIS SHIFT DUE TO BEING NPO AT THIS TIME.
--- NOTE | 2018-07-18 17:27 | NUR ---
PATIENT ARRIVES TO ROOM ABOUT 11AM. DOBHOFF INFUSING JEVITY IN LEFT NARES. POWER PICC RT UPPER ARM WITH FLUIDS INFUSING. LUNGS COARSE T/O. BILATERAL SOFT WRIST RESTRAINTS PATIENT HAS ALREADY PULLED OUT PREVIOUS DOBHOFF. BRUISING LOWER ABD TO BACK AND TO GROIN. DOES NOT RESPOND APPROPRIATELY TO QUESTIONS. SEEMS TO LISTEN WHEN QUESTION ASKED. MOANS AND GROANS OFTEN. TURNED Q 2 HOURS. WHEN RSTRAINTS TAKEN OFF HAND GOES TO NOSE LIKE HE IS GOING TO PULL OUT TUBE. SEEMS TO TOLERATE FEEDING. WCTM
--- NOTE | 2018-07-18 18:40 | NUR ---
PATIENT PULLED DOBHOFF WHEN BAKERY CHEF'S TURNED PATIENT TO CLEAN HIM. DOBHOFF OUT ABOUT 5 -6 INCHES. DARYA RN NOTIFIED AND TAKES DOBHOFF OUT . ANA RN, PERMIT AGENT, NOTIFIED OF NEED OF DOBHOFF PLACEMENT.
[2018-07-19 05:55] LABS: PCO2 Arterial 30.6 mmHg (35-45); PO2 Arterial 75.6 mmHg (80-100); pH Blood Arterial 7.43 (7.35-7.45)
--- NOTE | 2018-07-19 07:22 | NUR ---
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 Went to pull meds for his BP, walked in room and noticed his resp were labored, above 30 using abdominal muscles, confused, and sweating. Checked BS 176, Stopped fluids, and RT was called. Blood gas was performed, no concern was noted. RT deep suctioned the patient, got small amount of secreations. I&O were noted. Conclusion was possible fluid overload.Called Dr. Franco got order to hold IV fluids, and for IV lasix 40mg. RT placed on CPAP with O2. Resp improved. Blood pressure checked 144/97, gave IV lasix, BP to be rechecked to on coming shift.
--- NOTE | 2018-07-19 07:30 | NUR ---
SHIFT SUMMARY: PT Alert to name only, will respond with moans and groins. at bedside. Soft wrist restraints in place, checked per protocol. Procedure nurse already came and placed a dobhoff NGT as the patient had pulled out previous one. States placement checked by aspiration of stomach content. Jacob RN already started his tube feeding at 50ml/hr, infusing w/out difficulty. IV fluids infusing to Picc line RUE with no difficulty. Skin PWD, attends saturated 50%. Attends changed, groin is broke down from moisture, with skin peeling on the periarea, with starting of rash. Barrier cream was applied, repositioned up in bed. Bruising noted across abdomin, sides and right foot, and BUE scattered Lung sounds were diminished, but difficult to hear due to pt not wanting to take deep breath. Several attends changes and repositioning throughout the noc shift. Pt CPAP placed around midnight, he remained restless, so Serequel was given. Pt slept well for several hours but came aroused shortly there after wanting CPAP off. ORal care was given per orders, he was difficult to suction as he continued to bite the suction and not allow it to get further back to remove secreations. Around 0546 he became labored breathing, increase into the 30's, sweaty, arousable, BS was 176, BP 154/107. Gave scheduled meds, RT was called. Blood gases were taken, per RT. MD called and order for hold fluids due to edema, and IV lasix 40mg. RT placed back on CPAP, with O2. Lasix was given right at Shift change. Informed on coming shift RN of increase in monitoring due to recent changes, and that attends would need to be changed. still at bedside and informed to report any changes if she sees any.
--- NOTE | 2018-07-19 08:43 | NUR ---
PATIENT DID NOT EAT BREAKFAST THIS SHIFT DUE TO BEING NPO AT THIS TIME.
--- NOTE | 2018-07-19 09:30 | NUR ---
SPOKE WITH DR ROBBINS VIA CELL PHONE TO DETERMINE NEW ORDERS. STATES HE WILL COME TO SEE PT IN ABOUT 10 MINUTES.
--- NOTE | 2018-07-19 11:23 | NUR ---
REPORT CALLED TO JAQUELIN WHITAKER IN ICU.
--- NOTE | 2018-07-19 12:11 | NUR ---
PT TRANSFERRED TO ICU 14 FOR CPAP USE WITH WRIST RESTRAINTS. CALL TO DR GARCIA TO DISCUSS PT'S CASE. ASKED ABOUT PLAN AND OUTLOOK. STATES SHE WANTS TO WAIT AND SEE IF PT'S MENTATION CLEARS UP BEFORE PEG TUBE PLACEMENT. PLAN IS TO GIVE PT AT LEAST A WEEK. IN THE MEAN TIME HE IS GETTING DOBHOFF FEEDINGS AND IS IN BILATERAL WRIST RESTRAINTS AND ON CPAP WITH NO O2 BLEED IN, RA. SATTING MID 90S. PT MOANS AND GRUMBLES AND SHAKES HEAD TO FIGHT CARE BUT HAS NOT SPOKEN SINCE ARRIVAL TO UNIT. CXR COMPLETED PER ORDERS. RADIOLOGIST STATES DOBHOFF NEEDS TO BE ADVANCED 10 CM DUE TO BEING IN ESOPHAGUS. WAS AT 50CM, ADVANCED TO 75. NEW ORDER PLACED. WILL CONTINUE TO MONITOR
[2018-07-19 13:30] LABS: PCO2 Arterial 28.9 mmHg (35-45); PO2 Arterial 78.6 mmHg (80-100); pH Blood Arterial 7.45 (7.35-7.45)
--- NOTE | 2018-07-19 14:27 | NUR ---
THIS RN NOTED THAT PT'S DOBHOFF TUBING WAS COILED IN HIS MOUTH. REMOVED OLD DOBHOFF AND REPLACED. AWAITING CONFIRMATION VIA XRAY. PT CURRENTLY ON 2L NC, SATTING 99%. RESPIRATIONS 20S-30S. PT CONTINUES TO SHAKE HEAD WITH ACTIVITY AND DOES NOT SPEAK TO STAFF BUT MOANS AND GROANS. WRIST RESTRAINTS REMAIN BILATERALLY
--- NOTE | 2018-07-19 16:00 | NUR ---
PT WAS PLACED BACK ON CPAP DUE TO RESPIRATIONS IN HIGH 30S. ALL OTHER VSS. PT REAMINS LETHARGIC AND MOANS WHEN STIMULATED. BILATERAL WRIST RESTRAINTS. NO FURTHER NEEDS AT THIS TIME
--- NOTE | 2018-07-19 16:58 | NUR ---
PT'S HR WAS NOTED TO DROP TO 34 BPM. HE HAS A PACER THAT APPEARS TO BE VENTRICULAR PACING. CALL TO DR GARCIA. DR GARCIA ORDERED A CARDIOLOGY CONSULT TO GET PACER INTERROGATED. DR CARL CALLED AND INSTRUCTED TO CONTACT [facility] GAVE NUMBER OF [employer] REP, STEFF. STEFF STATES SHE WILL COME NOW TO TAKE A LOOK AT DEVICE.
--- NOTE | 2018-07-19 17:30 | NUR ---
ANABEL FROM [employer] CAME TO INTERROGATE PACER. STATES PACER IS WORKING AND PACING AT 60 AND THAT OUR MONITOR IS NOT READING CORRECTLY. CHANGED OUT PT'S LEADS AND CONNECTION ON TELE LINE. SPECIFICATION CONSULTANT INSTRUCTED TO HOLD BP MEDS DUE TO HR BEING EXACTLY 60 PER INTERROGATION.
--- NOTE | 2018-07-19 18:26 | NUR ---
SHIFT SUMMARY: PT'S AT BEDSIDE. PT REMAINS ON CPAP WITH BILATERAL WRIST RESTRAINTS. O2 SAT MID 90S WITH NO O2 BLEED IN ON CPAP, RA. IV FLUIDS OFF AND LASIX ADMINISTERED BY MEDICAL FLOOR RN. PT HAS HAD 2 HEAVY INCONTINENT VOIDS SINCE TRANSFER. DOBHOFF RUNNING AT 50 ML/HR WHICH IS GOAL WITH 60 ML FLUSHES Q 4 PER DIETARY. PICC LINE DRESSING CHANGED THIS SHIFT. NO FURTHER CHANGES OR NEEDS AT THIS TIME.
--- NOTE | 2018-07-19 20:00 | NUR ---
PT RESTING IN BED ON CPAP WITH O2 BLEED IN. PT DOES NOT ANSWER QUESTIONS OR FOLLOW COMMANDS. WILL MAKE EYE CONTACT WHEN NAME IS SAID. MOANS CONSISTENTLY. R EYE IS ROLLED BACK IN HEAD WHICH IS BASELINE FOR PT. DOBHOFF IN PLACE FOR TF. NO SIGN OF DISTRESS. SEE ASSESSMENT.
[2018-07-20 05:40] LABS: BASOPHILS ABSOLUTE AUTO 0.01 K/mm3 (0.00-0.23); BASOPHILS PERCENT AUTO 0 % (0-2); EOSINOPHILS ABSOLUTE AUTO 0.22 K/mm3 (0.00-0.68); EOSINOPHILS PERCENT AUTO 3 % (0-6); Hematocrit 30.6 % (37.0-53.0); Hemoglobin 9.5 g/dL (13.5-17.5); IMMATURE GRAN ABSOLUTE AUTO 0.02 K/mm3 (0.00-0.10); IMMATURE GRAN PERCENT AUTO 0 % (0-1); LYMPHOCYTES ABSOLUTE AUTO 1.19 K/mm3 (0.84-5.20); LYMPHOCYTES PERCENT AUTO 17 % (21-46); MONOCYTES ABSOLUTE AUTO 0.48 K/mm3 (0.16-1.47); MONOCYTES PERCENT AUTO 7 % (4-13); Mean Corpuscular HGB 29.3 pg (26.0-34.0); Mean Corpuscular Volume 94 fL (80-100); Mean Platelet Volume 12.6 fL (9.1-12.4); NEUTROPHILS ABSOLUTE AUTO 4.91 K/mm3 (1.96-9.15); NEUTROPHILS PERCENT AUTO 72 % (41-73); Platelet Count 163 K/mm3 (150-400); RDW Coefficient Variation 17.2 % (11.7-14.2); RDW Standard Deviation 59.5 fL (35.1-46.3); Red Blood Cell Count 3.24 M/mm3 (4.30-5.90); White Blood Cell Count 6.83 K/mm3 (4.00-11.30)
[2018-07-20 06:17] LABS: Albumin, Blood 2.2 g/dL (3.4-5.0); Albumin/Globulin Ratio 0.5 (0.8-1.8); Bilirubin, Total 0.8 mg/dL (0.1-1.0); Bun/Creatinine Ratio 23.2 (12.0-20.0); Calcium, Blood 8.6 mg/dL (8.5-10.1); Creatinine, Blood 1.42 mg/dL (0.60-1.20); Globulin, Blood 4.1 g/dL (2.2-4.0); Magnesium, Blood 2.3 mg/dL (1.6-2.4); Potassium, Blood 4.5 mmol/L (3.5-5.5); Total Protein, Blood 6.3 g/dL (6.4-8.2)
--- NOTE | 2018-07-20 06:20 | NUR ---
SUMMARY PT ON CPAP ALL NIGHT. WILL MAKE EYE CONTACT AND MOANS BUT UNABLE TO ANSWER QUESTIONS OR FOLLOW COMMANDS. PT WILL FIGHT AGAINST ORAL CARE BY SHAKING HEAD VIGOROUSLY. HAS DOBHOFF FOR TF AND TOLERATING WELL. REMAINS IN RESTRAINTS TO KEEP HIM FROM PULLING DOBHOFF OUT. AT BEDSIDE ALL NIGHT.
[2018-07-20 06:22] LABS: Thyroid Stimulating Hormone 1.04 uIU/mL (0.360-4.800)
[2018-07-20 10:27] LABS: Percent Saturation 11.9 % (20.0-50.0)
--- NOTE | 2018-07-20 11:16 | NUR ---
The pt was wearing CPAP upon bedside handoff this morning. He was thrashing his head back and forth occasionally, and had managed to slightly pull the cpap off of its normal midline position. Dobhoff was still securely in place. Noted that the pt had his eyes open, would sqeeze my hands on command, and occasionally spoke a word or two. CPAP mask was taken off and he was put on nasal cannula at 2 l/min, but the prongs in his nose seemed to annoy him. When noted that he was maintaining spo2 of 99% on the 2 l/min, the oxygen tubing was removed and he has been maintaining good spo2 on room air this morning. He remains awake, interactive with his , albeit limited comprehension and limited meaningful conversation. He still occasionally shakes his head back and forth, presumably because the Dobhoff tubing may be tickling his nose when it is moved for medication administration, repostioning of the pt, etc. It remains securely in place. His skin on his scrotum is excoriated from very frequent urinary incontinence. Skin was cleaned, skin prep applied, and liquid adhesive also applied before an adhesive collection bag was placed around his penis as a non-invasive way to collect urine and avoid the constant moisture and irration to his skin. He tolerated this well with the assistance of his Lilibeth who has been helping out a lot in the patient's care this morning.
--- NOTE | 2018-07-20 11:22 | NUR ---
The pt was assisted to a recliner chair at this time by the CNAs using the ceiling lift.
--- NOTE | 2018-07-20 14:33 | NUR ---
Spiritual care visit conducted. Patient is sitting on a chair and alert. Patient reached out for my hand and hung on. Patient is able to track alittle better with conversation and is able to express some emotion. Patient's spouse Kusum is painting rocks for her own bit of sanity and expresses that she is weary. She states that she is focusing on the small victories and I encourage helpful attitudes and practices. I also encourage self care for Kusum as she told me that she was going to be gone for a few days because she is going to take care of her son's children. Patient seems far less aggitated today and more of his personality is coming through. I continue to remain available to patient and family.
--- NOTE | 2018-07-20 15:53 | NUR ---
Ren was taken down by imaging transporter and myself for CT of the abdomen. He tolerated it well. He remains in his confused, occasionally agitated sate of being. Frequently attempting and succeeding to reposition himself lower and lower in the bed or chair.
[2018-07-20 16:14] LABS: Calcium, Blood 8.6 mg/dL (8.5-10.1); Creatinine, Blood 1.48 mg/dL (0.60-1.20); Potassium, Blood 4.5 mmol/L (3.5-5.5)
--- NOTE | 2018-07-20 18:36 | NUR ---
Noted results posted of CT of abdomen done today. Call to Dr. Jorge regarding this. New order for Soler catheter placement.
[2018-07-20 19:43] LABS: Source, Urine Catheter
--- NOTE | 2018-07-20 19:50 | NUR ---
ASSUMED CARE REPORT RECIEVED. PT LAYING IN BED, ALERT, AND MOANING OUT. PT TURNS HEAD TOWARDS VOICE AND IS ABLE TO SQUEEZE HANDS UPON COMMAND, BUT DOES NOT FOLLOW OTHER DIRECTION. PT UNABLE TO VERBALIZE OR ANSWER QUESTIONS. PT APPEARS RESTLESS. VITAL SIGNS STABLE WITH PT ON ROOM AIR. DOBHOFF INPLACE WITH TF AT 50 ML/HR GOAL RATE. SBW RESTRAINTS IN PLACE. MACEDO CATHETER PLACED AND AN IMMEDIATE 600 ML URINE RETURN NOTED. OVER NEXT 15 MINS GREATER THAN 1L DARK YELLOW URINE DRAINED. UA SENT. PT APPEARS TO BE LESS AGITATED/RESTLESS AFTER MACEDO INSERTIONS AND BLADDER DRAINED. WILL CONTINUE TO MONITOR.
[2018-07-20 19:52] LABS: Bilirubin, Urine Neg (Neg); Blood, Urine Neg (Neg); Glucose Qualitative, Urine 1+ (Neg); Ketones, Urine Neg (Neg); Leukocyte Esterase, Urine Neg (Neg); Nitrite, Urine Neg (Neg); Protein, Urine Neg (Neg); Urobilinogen, Urine NORM (Normal)
--- NOTE | 2018-07-20 19:52 | NUR ---
Brief supportive visit with . Will get update on plan and prognosis.
[2018-07-20 20:18] LABS: Appearance, Urine Clear (Clear); Color, Urine Yellow (P-Yellow)
[2018-07-21 04:43] LABS: Bun/Creatinine Ratio 25.7 (12.0-20.0); Calcium, Blood 8.5 mg/dL (8.5-10.1); Creatinine, Blood 1.36 mg/dL (0.60-1.20); Potassium, Blood 4.1 mmol/L (3.5-5.5)
--- NOTE | 2018-07-21 06:03 | NUR ---
SHIFT SUMMARY NO ACUTE CHANGES THIS SHIFT. PT HAS REMAINED AWAKE THROUGHOUT MOST OF THE NIGHT. PT HAS BEEN RESTLESS/AGITATED AT TIMES AND INCREASING THIS AM. PT HAS SPOKEN SOME WORDS IN APPROPRIATE CONTEXT, BUT OTHERWISE MOANS OUT CONTINUALLY. PT ALTERNATED BETWEEN ROOM AIR AND CPAP ON ROOM AIR THROUGHOUT THE SHIFT. VITAL SIGNS HAVE REMAINED STABLE. DOBHOFF REMAINS IN PLACE WITH TF AT 50 ML/HR GOAL RATE. PICC REMAINS C/D/I, SALINE LOCKED. MACEDO IN PLACE WITH LARGE AMOUNT OF ANA URINE OUTPUT THIS SHIFT. SBW RESTRAINTS REMAIN IN PLACE. WILL CONTINUE TO MONITOR AND REPORT OFF TO ONCOMING RN.
--- NOTE | 2018-07-21 07:00 | NUR ---
AM ASSESSMENT: PT IS ALERT AND ORIENTED TO SELF ONLY. WHEN ASKED IF PT KNOWS WHERE HE IS, HE WILL SHAKE HIS HEAD YES, HOWEVER, WILL NOT VERBALIZE WHERE HE IS WHEN ASKED. ASKED PT IF HE WAS AT THE MALL, HE SHOOK HE HEAD YES. PT REORIENTED TO TIME AND PLACE. PT DOES NOT VERBALIZE ANY WORDS, HOWEVER, CAN BE FOUND INTERMITTENTLY MOANING. PT APPEARS COMFORTABLE WHEN UNDISTURBED, HOWEVER, SEEMS AGGITATED WITH THE RESTRAINTS. BILATERAL SOFT WRIST RESTRAINTS IN PLACE TO KEEP BIPAP IN PLACE. PT MOVES ALL EXTREMITIES AND WILL FOLLOW SIMPLE COMMANDS, HOWEVER, UNABLE TO FOLLOW DIRECTIONS TO ASSIST WITH REPOSITIONING IN BED. LUNGS ARE CLEAR BUT DIMINISHED IN THE BILATERAL BASES/RML. 02 SATS >90% ON CPAP WITH SLEEP. HR REGULAR, 100% PACED @ 60. PACER PRESENT TO LT CHEST WALL. 1-2 + PITTING EDEMA IN THE BILATERAL LE'S. PICC PRESENT TO THE RT UA, SL'D AT THIS TIME. ABD IS LARGE/ROUND/NO GRIMACE TO PALPATION. BT'S SLIGHTLY HYPOACTIVE X4 QAUDS. TUBE FEEDINGS OF JEVITY AT GOAL RATE OF 50ML/HR PER DOBHOFF. MACEDO CATH DRAINING CLEAR, ANA COLORED URINE. -FULL CODE STATUS -TURN Q2HR TO MAINTAIN SKIN INTEGRITY -CGB'S Q6HR, TX PER S/S
[2018-07-21 08:13] LABS: COMPLEMENT C3, SERUM 176 mg/dL (82-167); COMPLEMENT C4, SERUM 47 mg/dL (14-44)
--- NOTE | 2018-07-21 08:34 | NUR ---
DR GARCIA IN ASSESSING PT. UPDATED WITH PT'S CARE. DISCUSSED POSSIBLE STATUS CHANGE TO PCU. WILL CONTINUE TO MONITOR SODIUM LEVEL AND CONTINUED WITH H20 FLUSHES 100ML/Q4HR.
--- NOTE | 2018-07-21 11:23 | NUR ---
PT UPDATE: PT REMAINS UP IN THE CHAIR. PT MOANS AT MOST TIMES, OCASSIONALLY WILL MUMBLE RANDOM WORDS. PT REMAINS CONFUSED AND ONLY ABLE TO FOLLOW VERY SIMPLE COMMANDS. SOMETIMES, TAKES SEVERAL TIMES OF ASKING BEFORE PT ABLE TO COMPLETE DIRECTION (IE: SQUEEZ HAND, WIGGLE TOES). LUNGS REMAIN DIMINISHED IN THE BILATERAL BASES, W/FINE INSPIRATORY CRACKLES HEARD IN THE RT BASE. SATS MAINTAIN >90% ON RA, ONCE TAKEN OFF OF BIPAP. PT REMAINS IN BILATERAL WRISTR RESTRAINTS TO PROTECT DOBHOFF TUBE.
--- NOTE | 2018-07-21 11:36 | NUR ---
Spiritual care visit. Patient is sitting on a chair with no family present. I ask patient simple questions that he is able to answer appropriately with 3-5 word sentences. Patient can't seem to comprehend or is unable to articulate answers for questions or statement that require much reasoning. Patient still maintains his sense of humor. Patient said "sure" when asked if he would like prayer. Patient said, "Amen," at the conclusion of the prayer. I will continue to remain available to patient and family.
--- NOTE | 2018-07-21 12:03 | NUR ---
VISITORS: PT HAS HAD MULTIPLE VISITORS IN TODAY. PT WILL LOOK AT THEM AT TIMES AND MAKE KAI, NON-SENSICAL WORDS OR SENTENCES, BUT NOT ABLE TO HAVE A BACK AND FORTH CONVERSATION WITH THEM. PT STILL ONLY ORIENTED TO SELF, DESPITE, SEVERAL STAFF/FAMILY REORIENTING PT. PT WILL FOCUS/TRACK WITH LT EYE AT TIMES, OTHERWISE HAS A WANDERING GAZE.
--- NOTE | 2018-07-21 13:25 | NUR ---
PT UPDATE: PT IS STARTING TO INTERACT MORE WITH HIS FAMILY VISITORS. ANSWERS SIMPLE YES/NO QUESTIONS APPROPRIATELY, PER FAMILY. HOWEVER, THIS RN CONTINUING TO HEAR NON-SENSICAL STATEMENTS. PT SEEN PULLING ON DOBHOFF DESPITE BILATERAL WRIST RESTAINTS. EDUCATED PT ON NOT PULLING ON TUBES.
--- NOTE | 2018-07-21 14:20 | NUR ---
Review with patients nurse a plan of care. Daughters spoke with nursing about a possible family meeting about levels of care an if PEG is a good plan. Will attemtp to facilitate conversation.
--- NOTE | 2018-07-21 16:30 | NUR ---
SHIFT SUMMARY: PT MOSTLY UNCHANGED T/O SHIFT. PT IS SPEAKING MORE WORDS, HOWEVER, MUMBLES INCOHERENTLY TO SELF, WHEN NO ONE IS IN THE ROOM. NON-SENSICAL WORDS/SENTENCES WHEN STAFF/FAMILY IS IN THE ROOM. PT ABLE TO FOLLOW VERY SIMPLE COMMANDS. PT UNABLE TO TRACK WITH EYES, BUT WILL FOCUS ON STAFF/FAMILY DURING A CONVERSATION. PT AT TIMES WILL REPORT PAIN, BUT UNABLE TO USE PAIN SCALE OR STATE WHERE PAIN IS. PT BEING TX'D WITH TYLENOL PER DOBHOFF TUBE. LUNGS REMAIN CLEAR BUT DIMINISHED IN THE BILATERAL BASES. SATS 96-99% ON RA T/O SHIFT. WEARS CPAP AT [facility]. PT DOES REQUIRE BILATERAL WRIST RESTRAINTS TO KEEP VITAL LINES IN PLACE. PICC IN THE RT UA REMAINS SL'D T/O SHIFT. PT REMAINS NPO. SPEECH THERAPY IN TODAY TO WORK WITH PT. PT REMAINS STABLE ON JEVITY 1.5 TUBE FEEDINGS @ GOAL RATE OF 50ML/HR. MACEDO CATH CONTINUES TO DRAIN CLEAR, ANA COLORED URINE. -FULL CODE STATUS -TNX PCU WHEN BED IS AVAILABLE -CONTINUOUS REORIENTATION -ENCOURAGE PT WITH ADL'S
--- NOTE | 2018-07-21 17:58 | NUR ---
REPORTED OFF: REPORTED OFF TO JAQUELIN JORGE WHOM WILL ASSUME CARE OF PT ONCE HE IS TRANSFERRED TO PCU-9. ALL PT BELONGINGS, CHART, AND PT MEDS WERE SENT WITH PT. PT TNX'D VIA BED BY RAYA GERARDO AND RAYA XIONG.
--- NOTE | 2018-07-22 00:48 | NUR ---
UPDATE: AT THE BEGINNING OF THE SHIFT PATIENT WAS AWAKE AND RESTING IN BED. PATIENT WOULD SOMETIMES NOD YES/NO, AND SOMETIMES VERBALIZE YES/NO TO SOME SIMPLE QUESTIONS. HOWEVER, PATIENT WILL ASLO FREQUENTLY SIMPLY STARE AT STAFF INSTEAD OF RESPONDING OR SPEAKING TO THEM. PATIENT'S SON STAYING THE NIGHT AT THE BEDSIDE AND HAS STATED SEVERAL TIMES THAT THIS IS THE MOST WAKE AND INTERACTIVE THAT THE FAMILY HAS SEEN HIM SINCE HE CAME TO THE HOSPITAL. THE LAST COUPE OF HOURS PATIENT HAS BEGUN TO CRY OUT/MOAN LOUDLY. WHEN ASKED IF PATIENT'S STOMACH HURT HE SAID NO, PATIENT'S SON STATED THAT HE SOMETIMES JUST GETS RETLESS AND PATIENT NODDED YES VIGOROUSLY DURING SON'S STATMENT OF THIS. PATIENT DOES NOT APPEAR TO NEED ANYTHING AND SIMPLY STARES AT STAFF WHEN HE IS ASKED IF HE NEEDS ANYTHING. PATIENT DOES NOT APPEAR TO HAVE ANY NEEDS AT THIS TIME, PATIENT'S SON STATES THAT THE PATIENT DOES NOT APPEAR TO HIM TO NEED ANYTHING EITHER. PATIENT'S SON ADAMANT THAT PATIENT IS NOT TO RECEIVE ANY SEDITIVIES. PATIENT'S SON ASKED THIS RN MULTIPLE TIMES TO ENSURE THAT PATIENT DOES NOT RECEIVE SEDITIVES TONIGHT EVEN THOUGHT PATIENT APPEARS RESTLESS AND IS CALLING OUT/MOANING FREQUENTLY. SON IN ROOM WITH PATIENT AT THIS TIME AND STATES THAT THEY ARE BOTH, "FINE." WILL CONTINUE TO MONITOR PATIENT.
[2018-07-22 04:07] LABS: BASOPHILS PERCENT AUTO 0 % (0-2); EOSINOPHILS ABSOLUTE AUTO 0.36 K/mm3 (0.00-0.68); EOSINOPHILS PERCENT AUTO 7 % (0-6); Hematocrit 27.3 % (37.0-53.0); Hemoglobin 8.2 g/dL (13.5-17.5); IMMATURE GRAN ABSOLUTE AUTO 0.02 K/mm3 (0.00-0.10); IMMATURE GRAN PERCENT AUTO 0 % (0-1); LYMPHOCYTES ABSOLUTE AUTO 1.15 K/mm3 (0.84-5.20); LYMPHOCYTES PERCENT AUTO 24 % (21-46); MONOCYTES ABSOLUTE AUTO 0.41 K/mm3 (0.16-1.47); MONOCYTES PERCENT AUTO 8 % (4-13); NEUTROPHILS ABSOLUTE AUTO 2.93 K/mm3 (1.96-9.15); NEUTROPHILS PERCENT AUTO 60 % (41-73); Platelet Count 191 K/mm3 (150-400); RDW Coefficient Variation 17.5 % (11.7-14.2); RDW Standard Deviation 62.4 fL (35.1-46.3); Red Blood Cell Count 2.83 M/mm3 (4.30-5.90); White Blood Cell Count 4.87 K/mm3 (4.00-11.30)
[2018-07-22 04:12] LABS: Mean Corpuscular Volume 97 fL (80-100)
[2018-07-22 04:27] LABS: Alanine Aminotransfer (ALT/SGP 39 U/L (12-78); Albumin, Blood 2.1 g/dL (3.4-5.0); Albumin/Globulin Ratio 0.6 (0.8-1.8); Alk Phos 90 U/L (50-136); Anion Gap 6 mmol/L (6-16); Aspartate Aminotrans (AST/SGOT 16 U/L (12-37); Bilirubin, Total 0.6 mg/dL (0.1-1.0); Blood Urea Nitrogen 29 mg/dL (8-24); Bun/Creatinine Ratio 23.4 (12.0-20.0); CO2, Blood 26 mmol/L (21-32); Calcium, Blood 8.5 mg/dL (8.5-10.1); Chloride, Blood 116 mmol/L (98-108); Creatinine, Blood 1.24 mg/dL (0.60-1.20); Globulin, Blood 3.7 g/dL (2.2-4.0); Glomerular Filtration Rate >60 (60-); Glucose, Blood 115 mg/dL (70-99); Potassium, Blood 4.1 mmol/L (3.5-5.5); Sodium, Blood 148 mmol/L (136-145); Total Protein, Blood 5.8 g/dL (6.4-8.2)
--- NOTE | 2018-07-22 04:35 | NUR ---
UPDATE: PATIENT CONTINUES TO BE AWAKE AND TO CALL OUT/MOAN LOADLY FREQUENTLY. THE SON WAS EDUCATED ON SEDITIVES AND HOW IT MAY HELP PATIENT TO BECOME LESS AGITATED AND TO SLEEP BUT SON CONTINUES TO BE ADAMANT THAT PATIENT IS NOT TO RECEIVE ANY SEDATIVES.
--- NOTE | 2018-07-22 05:48 | NUR ---
SHIFT SUMMARY PATIENT CONTINUES TO MOAN/CALL OUT AND FAMILY CONTINUES TO BE ADAMANT THAT PATIENT IS NOT TO HAVE ANY SEDATIVES. PATIENT CONTINUES TO PULL AT SOFT WRIST RESTRAINTS AND DOES ATTEMPT TO REACH TOWARDS THE DOBHOFF TUBE. PATIENT TURNED Q2H. ORAL CARE PROVIDED. FEEDINGS/FLUSHES THROUGH THE DOBHOFF PER ORDERS. SON AT THE BEDSIDE THROUGHOUT THE NIGHT. WILL CONTINUE TO MONITOR PATIENT AND REPORT TO ONCOMING RN.
--- NOTE | 2018-07-22 07:30 | NUR ---
ASSUMED CARE: PT RESTING IN BED, MOANING/YELLING. CAN BE HEARD IN HALLWAY. FAMILY IS ADAMANT THAT NO SEDATIVES BE GIVEN. DISCUSSED WITH RT CPAP WITH WRIST RESTRAINTS. PT DOES NOT WEAR CPAP DURING DAY AND DID NOT WEAR LAST NIGHT. SPOKE WITH RT ABOUT SWITCHIN HIM TO NASAL CPAP WHICH RT STATES THEY WILL PASS ON TO COUNTER MAKER. DISCUSSED WITH CHARGE WELL.
[2018-07-22 11:06] LABS: ANTI-DSDNA ANTIBODIES 1 IU/mL (0-9); RNP ANTIBODIES <0.2 AI (0.0-0.9); SJOGREN'S ANTI-SS-A <0.2 AI (0.0-0.9); SJOGREN'S ANTI-SS-B <0.2 AI (0.0-0.9); SMITH ANTIBODIES <0.2 AI (0.0-0.9)
--- NOTE | 2018-07-22 11:30 | NUR ---
SPOKE WITH DR EDUARDO REGARDING PT. DR AWARE THAT PT IS IN WRIST RESTRAINTS AND USES CPAP AT NIGHT. INSTRUCTS STAFF TO CONTACT HIM WHEN PT'S ARRIVES. STATED HE WAS OK WITH MOVING PT TO MEDICAL BUT INFORMED HIM THAT PT IS IN WRIST RESTRAINTS WITH CPAP AT NIGHT. STATED TO HOLD IN PCU FOR NOW. TOLD HIM OF CONVERSATION WITH RT ABOUT SWITCHING TO NASAL MASK. WILL LEAVE TO RT DISCRETION. PT CONTINUES TO MOAN AND YELL, HEARD IN [place]. OCCASIONAL WORD HEARD, SUCH "MAKE IT HAPPEN," AND "I LOVE HER." PT REMAINS DISORIENTED AND DOES NOT FOLLOW INSTRUCTION. FAMILY STATES NO SEDATIVES.
--- NOTE | 2018-07-22 18:21 | NUR ---
SHIFT SUMMARY: PT HAS HAD VARIOUS FAMILY MEMBERS TO VIST T/O DAY. CONTINUES TO MOAN AND GROAN AND SAY OCCASIONAL PHRASES THAT DO NOT MAKE SENSE TO THE SITUATION. DOBHOFF IN PLACE WITH BILATERAL WRIST RESTRAINTS. PLAN IS FOR FAMILY TO HAVE A MEETING WITH DOCTOR TOMORROW TO DETERMINE PLAN OF CARE. NO FURTHER CHANGES OR NEEDS NOTED AT THIS TIME.
[2018-07-23 04:42] LABS: BASOPHILS ABSOLUTE AUTO 0.01 K/mm3 (0.00-0.23); BASOPHILS PERCENT AUTO 0 % (0-2); EOSINOPHILS PERCENT AUTO 8 % (0-6); Hematocrit 27.7 % (37.0-53.0); Hemoglobin 8.3 g/dL (13.5-17.5); IMMATURE GRAN ABSOLUTE AUTO 0.01 K/mm3 (0.00-0.10); IMMATURE GRAN PERCENT AUTO 0 % (0-1); LYMPHOCYTES ABSOLUTE AUTO 1.04 K/mm3 (0.84-5.20); LYMPHOCYTES PERCENT AUTO 27 % (21-46); MONOCYTES ABSOLUTE AUTO 0.33 K/mm3 (0.16-1.47); MONOCYTES PERCENT AUTO 8 % (4-13); Mean Corpuscular HGB 28.9 pg (26.0-34.0); Mean Corpuscular Volume 97 fL (80-100); Mean Platelet Volume 11.3 fL (9.1-12.4); NEUTROPHILS ABSOLUTE AUTO 2.24 K/mm3 (1.96-9.15); NEUTROPHILS PERCENT AUTO 57 % (41-73); Platelet Count 196 K/mm3 (150-400); RDW Coefficient Variation 17.2 % (11.7-14.2); RDW Standard Deviation 61.2 fL (35.1-46.3); Red Blood Cell Count 2.87 M/mm3 (4.30-5.90); White Blood Cell Count 3.93 K/mm3 (4.00-11.30)
[2018-07-23 04:57] LABS: Anion Gap 5 mmol/L (6-16); Blood Urea Nitrogen 25 mg/dL (8-24); Bun/Creatinine Ratio 22.7 (12.0-20.0); CO2, Blood 27 mmol/L (21-32); Calcium, Blood 8.4 mg/dL (8.5-10.1); Chloride, Blood 116 mmol/L (98-108); Glomerular Filtration Rate >60 (60-); Glucose, Blood 151 mg/dL (70-99); Potassium, Blood 4.1 mmol/L (3.5-5.5); Sodium, Blood 148 mmol/L (136-145)
--- NOTE | 2018-07-23 07:18 | NUR ---
SHIFT SUMMARY PATIENT CONTINUES TO MOAN/CALL OUT FREQUENTLY THROUGHOUT THE NIGHT. PATIENT'S STAYED THE NIGHT AT THE BEDSIDE AND PATIENT'S FAMILY CONTINUES TO REQUEST THAT NO SEDITIVES ARE TO BE GIVEN TO THE PATIENT. PATIENT APPEARED TO BE AWAKE THROUGHOUT THE NIGHT. PATIENT TURNED Q2H, ORAL CARE PROVIDED. PATIENT'S FEEDINGS AND FLUSHES CONTINUE TO RUN PER ORDERS THROUGH THE DOBHOFF. PATIENT'S CONTINUES TO BE IN BILATERAL SOFT WRIST RESTRAINTS DUE TO PATIENT CONTINUING TO ATEMPT TO PULL DOBHOFF TUBE OUT. VITAL SIGNS CHARTED. PATIENT CURRENTLY RESTING IN BED, MOANING AND CALLING OUT. PATIENT HAS BEEN RESTLESS THROUGHOUT THE NIGHT. WILL CONTINUE TO MONITOR PATIENT AND REPORT TO ON COMING RN.
--- NOTE | 2018-07-23 10:36 | NUR ---
RECEIVED REPORT AND ASSUMED CARE OF PATIENT. HE IS LYING IN BED MOANING AND CRYING OUT. SOME WORDS AND SMALL SENTENCES; HOWEVER NOT CONSISTENTLY ANSWERING QUESTIONS APPROPRIATELY. PT AT BEDSIDE. REPOSITIONING NEEDED AND USING 2 LPM VIA NC WHEN PATIENT IS SLEEPING TO KEEP O2 SAT >88%. PT TOLERATING WELL. B/L SOFT WRIST RESTRAINTS IN PLACE FOR SAFETY OF LINES. ISTRATE IN TO SEE PT AND , HE DISCUSSED THE PEG TUBE OPTION WITH . SHE ASKED IF PT CAN GO TO [facility], DR STATED ONCE TUBE IS PLACE, HE CAN BE TRANSFERRED. WILL CONTINUE TO MONITOR AND FOLLOW ORDERS FOR THIS PATIENT. BED LOCKED AND LOW, ALARM SET, RESTRAINTS SECURE, MACEDO PATENT AND DRAINING TO GRAVITY.
--- NOTE | 2018-07-23 14:42 | NUR ---
FAMILY MET WITH DR. EDUARDO AND PLAN TO PUT PEG TUBE IN AND GET PT TRANSFERRED TO [facility]. WILL CONTINUE TO MONITOR.
--- NOTE | 2018-07-23 19:54 | NUR ---
PT HAD A GOOD DAY, NO SIGNIFICANT CHANGES FROM ASSESSMENT. PT CONTINUES TO CRY OUT AND MOAN OFTEN THROUGHOUT THE SHIFT. PT CONTINUES ON 1LPM NC, O2 SAT >95%. PT MACEDO IN PLACE DRAINING CLEAR YELLOW URINE. WILL CONTINUE TO MONITOR AND GIVE REPORT TO NOC RN. PT FAMILY MET WITH DR SANDOVAL, SEE PRIOR NOTE REGARDING DECISIONS.
[2018-07-24 05:46] LABS: BASOPHILS ABSOLUTE AUTO 0.01 K/mm3 (0.00-0.23); BASOPHILS PERCENT AUTO 0 % (0-2); EOSINOPHILS ABSOLUTE AUTO 0.32 K/mm3 (0.00-0.68); EOSINOPHILS PERCENT AUTO 7 % (0-6); Hematocrit 28.6 % (37.0-53.0); Hemoglobin 8.5 g/dL (13.5-17.5); IMMATURE GRAN ABSOLUTE AUTO 0.02 K/mm3 (0.00-0.10); IMMATURE GRAN PERCENT AUTO 0 % (0-1); LYMPHOCYTES ABSOLUTE AUTO 0.95 K/mm3 (0.84-5.20); LYMPHOCYTES PERCENT AUTO 20 % (21-46); MONOCYTES ABSOLUTE AUTO 0.39 K/mm3 (0.16-1.47); MONOCYTES PERCENT AUTO 8 % (4-13); Mean Corpuscular HGB 29.1 pg (26.0-34.0); Mean Corpuscular HGB Conc 29.7 g/dL (31.5-36.5); Mean Corpuscular Volume 98 fL (80-100); Mean Platelet Volume 11.5 fL (9.1-12.4); NEUTROPHILS PERCENT AUTO 64 % (41-73); Platelet Count 210 K/mm3 (150-400); RDW Coefficient Variation 16.8 % (11.7-14.2); RDW Standard Deviation 60.7 fL (35.1-46.3); Red Blood Cell Count 2.92 M/mm3 (4.30-5.90); White Blood Cell Count 4.69 K/mm3 (4.00-11.30)
[2018-07-24 06:02] LABS: Anion Gap 4 mmol/L (6-16); Blood Urea Nitrogen 21 mg/dL (8-24); Bun/Creatinine Ratio 20.4 (12.0-20.0); CO2, Blood 28 mmol/L (21-32); Calcium, Blood 8.8 mg/dL (8.5-10.1); Chloride, Blood 116 mmol/L (98-108); Creatinine, Blood 1.03 mg/dL (0.60-1.20); Glomerular Filtration Rate >60 (60-); Glucose, Blood 131 mg/dL (70-99); Potassium, Blood 4.3 mmol/L (3.5-5.5); Sodium, Blood 148 mmol/L (136-145)
--- NOTE | 2018-07-24 07:15 | NUR ---
SHIFT SUMMARY PATIENT DID NOT APPEAR TO BE ABLE TO ANSWER MANY YES/NO QUESTIONS, BY SHAKING HIS HEAD OR VERBALLY, LAST NIGHT. PATIENT CONTINUES TO CALL OUT/MOAN FREQUENTLY THROUGHOUT THE NIGHT. PATIENT'S DID REQUEST BENADRYL A SLEEP AID IN AN ATTEMPT TO HELP PATIENT SLEEP. BENADRYL WAS GIVEN X 2 PER REQUEST. PATIENT DID APPEAR TO DOZE A LITTLE MORE THAN LAST NIGHT AND WAS A LITTLE LESS AGITATED FOR A SHORT PERIOD OF TIME AFTER THE BENADRYL, HOWEVER, PATIENT WAS AWAKE MOST OF THE NIGHT CALLING OUT AND MOANING. PATIENT TURNED Q2H. ORAL CARE PROVIDED. TUBE FEEDINGS AND FLUSHES RUNNING PER ORDERS THROUGH THE DOBHOFF TUBE. PATIENT CONTINUES TO BE IN BILATERAL SOFT WRIST RESTRAINTS TO PROTECT DOBHOFF AND PICC LINE. STAYED THE NIGHT AT THE BEDSIDE. REPORT GIVEN TO ONCOMING RN.
--- NOTE | 2018-07-24 10:03 | NUR ---
0950 INTO SDS, MIN TANVI MCMAHON AT TIMES, SPOUSE AT BEDSIDE TO SIGN CONSENT FOR PEG TUBE, DUO NEB INITIATED, LUNGS DIM BASES, MIN FOLLOWING OF COMMANDS, FOELY CLEAR YELLOW, KAREN L NARES, L WRIST RESTRAINT WITH CAP REFILL TO FINGERS L HAND LESS THAN TWO SECONDS AND PWD, ABD PREP W/CLIPPING AND CHLORPREP,
--- NOTE | 2018-07-24 11:19 | NUR ---
PT BACK TO BASELINE. WILL GIVE DEBORAH Gonzalez RN FOR ROOM PCU 09 REPORT AT BEDSIDE PER REQUEST. PT AWAKE. BACK TO BASELINE. ABDOMINAL BINDER IN PLACE FOR PT CONFUSION. SITE CDI.
--- NOTE | 2018-07-24 12:15 | NUR ---
PT RETURNED FROM PEG TUBE PLACEMENT. SETTLED IN, TWO 15 MIN VITALS COMPLETED AND SENT. PT TO CT SCAN FOR HEAD CT PER DR. EDUARDO.
--- NOTE | 2018-07-24 18:53 | NUR ---
PT HAD PEG TUBE PLACED TODAY, DR VILLAGRAN STATED TUBE MAY BE USED, STARTED TUBE FEED. PT TOLERATED WELL. HE HAD LOTS OF FAMILY AT BEDSIDE THROUGHOUT THE SHIFT. PT DID HAVE A FEW MOMENT OF LUCIDITY AFTER HE RETURNED FROM THE PROCEDURE, HOWEVER, HE REVERTED BACK TO NONSENSICAL SPEECH AND CALLING OUT. DR EDUARDO INSTRUCTED THIS RN TO CALL PATIENT ADVOCATE, CALLED BUT NO ANSWER, WILL CALL BACK TOMORROW 07/25 TO MAKE CONSULT FOR THE FAMILY. PT ON ROOM AIR. MACEDO CATH IN PLACE DRAINING ANA/YELLOW URINE. BL WRIST RESTRAINTS IN PLACE. USED LFT ANKLE RESTRAINT FOR POSITIONING TO PROTECT AGAINST PT KICKING STAFF. BED LOCKED AND LOW, BED ALARM SET, CALL LIGHT WITH FAMILY. WILL GIVE REPORT TO NOC RN.
--- NOTE | 2018-07-24 19:00 | NUR ---
ASSUMED CARE OF PATIENT - IN ROOM REPORT RECIEVED FROM JAQUELIN CABRERA. PATIENT LYING IN BED, MOVING LEFT LEG RESTLESSLY. NO MOVEMENT NOTED FROM RIGHT LEG. BILATERAL WRIST RESTRAINTS IN PLACE - CIRCULATION CHECKED. PATIENT FEEDING PUT ON HOLD AND PATIENT REPOSTIONED ONTO RIGHT SIDE AND HEAD OF BED ELEVATED TO 40 DEGREES. AT BEDSIDE EDUCATED. PEG TUBE FEEDING RESTARTED. PATIENT HAS NONSENSICAL COMMUNICATION WITH MOANS AND GRUNTS (THIS HAS BEEN PATIENTS BASELINE FOR SEVERAL DAYS). NO MEANINGFUL COMMUNICATION OF NEEDS AND PATIENT DOES NOT FOLLOW DIRECTION WITH REPOSITIONING. IT WAS NOTED THAT PATIENT HAD ANKLE CUFFS IN PLACE BUT RESTRAINTS WEAR NOT LATCHED - PER DAYSHIFT RN THESE WERE IN PLACE FOR REPOSITIONING DUE TO PATIENT KICKING STAFF EARLIER. ANKLE CUFFS REMOVED FROM PATIENT AT THIS TIME, WILL FURTHER ASSESS NEED T/O SHIFT. WILL CONTINUE TO MONITOR.
--- NOTE | 2018-07-24 21:30 | NUR ---
CALLED MD ROCK SPOKE WITH MD ROCK REGARDING FAMILYS REQUEST OF PATIENTS NEED FOR SOMETHING TO CALM HIM FOR SLEEP - ORDERS GIVEN AND MEDICATIONS GIVEN PER EMAR. TYLENOL INCREASED FROM Q6 TO Q4. WILL CONTINUE TO MONITOR.
[2018-07-25 04:12] LABS: BASOPHILS ABSOLUTE AUTO 0.02 K/mm3 (0.00-0.23); BASOPHILS PERCENT AUTO 0 % (0-2); EOSINOPHILS ABSOLUTE AUTO 0.23 K/mm3 (0.00-0.68); EOSINOPHILS PERCENT AUTO 3 % (0-6); Hematocrit 29.6 % (37.0-53.0); Hemoglobin 8.7 g/dL (13.5-17.5); IMMATURE GRAN ABSOLUTE AUTO 0.03 K/mm3 (0.00-0.10); IMMATURE GRAN PERCENT AUTO 0 % (0-1); LYMPHOCYTES PERCENT AUTO 17 % (21-46); MONOCYTES ABSOLUTE AUTO 0.63 K/mm3 (0.16-1.47); MONOCYTES PERCENT AUTO 8 % (4-13); Mean Corpuscular HGB 28.6 pg (26.0-34.0); Mean Corpuscular HGB Conc 29.4 g/dL (31.5-36.5); Mean Corpuscular Volume 97 fL (80-100); Mean Platelet Volume 11.6 fL (9.1-12.4); NEUTROPHILS ABSOLUTE AUTO 5.96 K/mm3 (1.96-9.15); NEUTROPHILS PERCENT AUTO 72 % (41-73); Platelet Count 236 K/mm3 (150-400); RDW Coefficient Variation 17.2 % (11.7-14.2); RDW Standard Deviation 61.8 fL (35.1-46.3); Red Blood Cell Count 3.04 M/mm3 (4.30-5.90); White Blood Cell Count 8.27 K/mm3 (4.00-11.30)
[2018-07-25 04:28] LABS: Anion Gap 4 mmol/L (6-16); Blood Urea Nitrogen 20 mg/dL (8-24); Bun/Creatinine Ratio 17.4 (12.0-20.0); CO2, Blood 28 mmol/L (21-32); Calcium, Blood 8.9 mg/dL (8.5-10.1); Chloride, Blood 116 mmol/L (98-108); Creatinine, Blood 1.15 mg/dL (0.60-1.20); Glomerular Filtration Rate >60 (60-); Glucose, Blood 132 mg/dL (70-99); Potassium, Blood 4.6 mmol/L (3.5-5.5); Sodium, Blood 148 mmol/L (136-145)
--- NOTE | 2018-07-25 06:41 | NUR ---
PCU NOC SHIFT SUMMARY PATIENT MADE NO MEANINGFUL COMMUNICATION T/O SHIFT. MOANED AND SCREAMED OUT T/O SHIFT. PATIENT MEDICATED PER EMAR WITH NO RELIEF NOTED T/O SHIFT. REMAINED AT BEDSIDE. PATIENT HAD 2 BOWEL MOVEMENTS THAT WERE BROWN AND PASTY. RESP LABORED AND UNEVEN AT TIME - PATIENT POSITIONED FOR COMFORT WITH HEAD OF BED ELEVATED GREATER THAN 30 DEGREES T/O SHIFT DUE TO PEG TUBE FEEDING PRECAUTIONS. FEEDING RAN CONTINUOUSLY T/O SHIFT PER ORDERS NO MORE THAN 10 MLS OF RESIDUAL NOTED WHEN CHECKED. PATIENTS MACEDO CATH DRAINING DARK YELLOW URINE. PATIENT HYPERTENSIVE T/O SHIFT AND MEDICATED PER EMAR. PATIENT HAS PACEMAKER AND HEART RATE REMAINED IN THE 60'S PER CHAIN TENDER. NO FURTHER ACUTE FINDINGS, WILL CONTINUE TO MONITOR AND GIVE REPORT TO DAYSHIFT RN.
--- NOTE | 2018-07-25 08:04 | NUR ---
RECIEVED REPORT FROM RN AND ASSUMED CARE OF PATIENT. PT IS MOANING AND HAS SOME NONSENSICAL SPEECH THIS MORNING. IN ROOM TO GIVE MEDS, AND PROVIDE PATIENT CARE WITH SHINGLE PACKER TO GIVE BATH AND CLEAN UP BM, PT IS KICKING AND YELLING OUT FREQUENTLY. IS HOLDING PATIENT LEGS AND HE KICKED HER HURTING HER WRIST/SHOULDER. PLACED RESTRAINT ON PT LFT ANKLE TO SECURE AND PROVIDE SAFETY WHILE GIVING BED BATH AND PROVIDING CARE. B/L WRIST RESTRAINTS IN PLACE, ANKLE RESTRAINT REMOVED AFTER BATH AND CARE COMPLETED. PLACED ALEX VALVE ON PEG TUBE, TUBE FEED RUNNING AT 55 ML/HR WITH 160 H2O FLUSH Q4. PT TOLERATING WELL. WILL CONTINUE TO MONITOR AND FOLLOW ORDERS FOR THIS PATIENT.
--- NOTE | 2018-07-25 12:18 | NUR ---
Spiritual care visit conducted. Sat with patient and provided prayer. Patient is very sleepy today and less verbal.
--- NOTE | 2018-07-25 13:32 | NUR ---
07/25/18 1332 Antonia Kuo EDIT FOR VERIFICATION PURPOSE ON ANESTHESIA END TIME.
--- NOTE | 2018-07-25 19:42 | NUR ---
PT HAD A GOOD DAY, SWITCHED BEDS AND MOVED PT TO ROOM 10 TO MAKE THE LIFT AVALAIBLE FOR THE PATIENT. PT SLEPT OFF AND ON THROUGHOUT THE SHIFT. PT CONTINUES TO GET TF AT 55 ML/HR WITH H2O FLUSHES OF 160 Q4HR. PT TOLERATED WELL THROUGHOUT SHIFT. RESTRAINTS B/L WRISTS, PROVIDED ROM FOR REDUCTION OF EDEMA IN HANDS, PT TOLERATED WELL. MACEDO IN PLACE DRAINING TO GRAVITY. WILL CONTINUE TO MONITOR AND GIVE REPORT TO AKOSUA HAMMER.
--- NOTE | 2018-07-25 20:05 | NUR ---
review of patient needs and plan of care with clinical director and strategies of care. family met with pt advocate.
--- NOTE | 2018-07-26 03:51 | NUR ---
ASSUMED CARE APPROXIMATELY 1900 FROM JAQUELIN CABRERA. PT ON 3 LPM NC, O2 SATS >90%; PT CONFUSED; YELLING OUT AND MOANING THROUGHOUT SHIFT; PT KICKING L LEG CONTINUALLY; BILATERAL WRIST RESTRAINTS DUE TO PULLING ON CORDS AND LINES; PT NODDING YES OR NO TO CERTAIN QUESTIONS; PT STATING "HELP ME"; APPEARS ANXIOUS; NEEDS REORIENTED, EVERY MINUTE AT TIMES; PT STATES "OKAY" OR "YES" WHEN ASKED IF HE IS FEELING FINE; NEEDS AT TIMES; ABLE TO REPORT HE HAS PAIN IN BACK; MUMBLES FREQUENTLY; TURNED FREQUENTLY AND REPOSITIONED OFTEN; ORAL CARE PERFORMED; TUBE FEEDING PER ORDER; PICC LINE IN R UPPER ARM ONLY RED PORT INFUSING, ICU CHARGE NOTIFIED BY PCU CHARGE; PT'S SLEEPING AT BEDSIDE; AT ONE POINT STATED, "JUST GIVE HIM SOMETHING" WHEN ASKED HOW TO HELP W/ HIS AGITATION; TELLING PT TO KEEP IT DOWN; PT INCONTINENT OF STOOL ONCE PER SHIFT; ANA URINE DRAINING IN CATHETER; ABDOMINAL BINDER IN PLACE FROM PREVIOUS SHIFT; R EYE GAZE TO R, REPORTS BASELINE FOR PT; PT NEEDS REASSURANCE OFTEN; STAFF IN FREQUENTLY; PT APPEARS TO FALL ASLEEP AND THEN IN SECONDS WAKES LIKES HE WAS STARTLED; CARE DISCUSSED W/ PT AND FREQUENTLY; BED IN LOWEST POSITION; CALL LIGHT WITHIN REACH; WILL CONTINUE TO MONITOR AND ASSESS UNTIL HANDOFF TO DAY SHIFT RN.
--- NOTE | 2018-07-26 06:06 | NUR ---
PT VERY RESTLESS; 0500 PT C/O BACK PAIN AND STOMACH PAINS; STATES "PLEASE HELP ME"; PT'S STATED HE NEEDED SOMETHING STRONGER THAN TYLENOL; STAFF ASKED IF SHE WANTED THE DOCTOR CALLED AND SHE SAID "YES. MAYBE THE OTHER FAMILY CAN JUST STAY THE NIGHT TO SEE."; ONE TIME ORDER FOR 50MCG OF FENTANYL WAS GIVEN PER ORDER BY HOSPITALIST;
--- NOTE | 2018-07-26 07:38 | NUR ---
NURSING PCU DAYSHIFT: Assumed care of pt at approx 0700. Confused, moans and yells frequently, appears oriented to self and spouse only, unable to follow commands or redirect. Skin fairly intact though redness noted to ngozi area, scattered bruising on UE's. Gross movement of all ext's, no noted fine motor skills, weakness to RLE. Tele in place, paced w/HR 60's, SBP 150 prior to a.m. meds, edema of all ext's other than LLE. L/S fairly cta t/o, O2 sat mid to upper 90's on 2L NC, no noted cough. Abd moderately distended/firm, tender w/palp, BT+, PEG tube present in upper abd w/TF infusing at goal rate of 55mls/hr, abd binder in place, FC/stat lock present and draining. PICC present in RUE, s/l. Spouse arrived at bedside this a.m. Plan of care discussed, denies any questions/needs at this time. Call light in reach of family member, awaiting rounding from PMD, cont to monitor for any changes.
--- NOTE | 2018-07-26 11:06 | NUR ---
PT'S GAVE THIS STUDENT RN PERMISSION TO PROVIDE CARE FOR HIM TODAY. ASSISTED WITH BED BATH AND LINEN CHANGE. PERFORMED ORAL CARE WITH ASSISTANCE FROM AT 1100. PT ATTEMPTED TO BITE THE ORAL SUCTION BUT RELEASED WHEN PROMPTED. PATIENT TOLERATED WELL. AIRWAY IS PATENT. NO OBVIOUS DISTRESS AT THIS TIME. PT STILL YELLING/MOANING IN BED BUT CALMS WHEN SPOKEN TO. PT WILL CONTINUE TO BE MONITORED. PRESENT IN ROOM.
--- NOTE | 2018-07-26 12:19 | NUR ---
[facility] care visit conducted. Patient's , Kusum is just given the news that the patient's current condition maybe his new base-line and that he will be going to extermination supervisor care rather than rehab. Kusum is tearful and shares about her pain of having to see her man like this and many of the concerns going forward (including getting her house ready to move him home viktor). We discuss healthy activities for her, the importance of rest and mini-vacations from care giving and the need to rally the family and friends that are safe and positive. I listened empathically, provided companionship, reinforced helpful attitudes and practices and provided prayer. Kusum responded well and patient gave me a big smile from time to time. I will continue to remain available to patient and family.
--- NOTE | 2018-07-26 14:12 | NUR ---
Review of patient with nurse for supportive care strategy for with his transition.
--- NOTE | 2018-07-26 17:46 | NUR ---
NURSING PCU DAYSHIFT SUMMARY: No significant changes noted t/o the shift. Spouse spent majority of the day at bedside w/other family members visiting intermittently. PMD rounded on pt, discussed plan of care w/spouse. appeared tearful after discussion and was provided much support from clinical coodinator, spiritual care, and floor staff. Spouse denies any questions or needs at this time. Frequent repositioning and ROM completed. Oral care done t/o the shift. TF continues to infuse at 55mls/hr, pt tolerating well w/no residuals. Wrist restraints remain in place d/t pt's frequent pulling at lines and swinging. Pt remains confused w/difficulty expressing needs. Yells out often though attempts to verbally interact w/staff and family at bedside by repeating words or calming briefly w/reassurance. No s/s of acute distress at this time. Cont to monitor until rpt is given to NOC RN.
[2018-07-27 05:59] LABS: BASOPHILS ABSOLUTE AUTO 0.02 K/mm3 (0.00-0.23); BASOPHILS PERCENT AUTO 0 % (0-2); EOSINOPHILS ABSOLUTE AUTO 0.19 K/mm3 (0.00-0.68); EOSINOPHILS PERCENT AUTO 2 % (0-6); Hematocrit 28.2 % (37.0-53.0); Hemoglobin 8.1 g/dL (13.5-17.5); IMMATURE GRAN ABSOLUTE AUTO 0.04 K/mm3 (0.00-0.10); IMMATURE GRAN PERCENT AUTO 0 % (0-1); LYMPHOCYTES ABSOLUTE AUTO 1.34 K/mm3 (0.84-5.20); LYMPHOCYTES PERCENT AUTO 15 % (21-46); MONOCYTES ABSOLUTE AUTO 0.59 K/mm3 (0.16-1.47); MONOCYTES PERCENT AUTO 7 % (4-13); Mean Corpuscular HGB 28.9 pg (26.0-34.0); Mean Corpuscular HGB Conc 28.7 g/dL (31.5-36.5); Mean Corpuscular Volume 101 fL (80-100); Mean Platelet Volume 11.4 fL (9.1-12.4); NEUTROPHILS ABSOLUTE AUTO 6.78 K/mm3 (1.96-9.15); NEUTROPHILS PERCENT AUTO 76 % (41-73); Platelet Count 258 K/mm3 (150-400); RDW Coefficient Variation 17.2 % (11.7-14.2); RDW Standard Deviation 63.7 fL (35.1-46.3); White Blood Cell Count 8.96 K/mm3 (4.00-11.30)
--- NOTE | 2018-07-27 07:28 | NUR ---
SHIFT SUMMARY PATIENT CONTINUES TO MOAN AND CRY OUT/CALL OUT FOR MOST OF THE NIGHT. PATIENT MORE VERBAL AND IS ABLE TO ANSWER SOME YES/NO QUESTIONS AND IS ABLE TO SAY MORE SENTENCES, HOWEVER PATIENT STILL WILL NOT ALWAYS RESPOND TO STAFF WHEN SPOKEN TOO OR WHEN A QUESTION IS ASKED. TYLENOL PROVIDED FOR COMFORT AFTER PEG TUBE INSERTION. ABD BINDER IN PLACE TO HELP PROTECT LINE AND PREVENT IT FROM BEING PULLED OUT. STATED THAT PATIENT TAKES GABAPENTIN AT HOME AND REQUESTED THAT THE PATIENT START IT AGAIN FOR COMFORT. AN ORDER FOR GABAPENTIN WAS RECEIVED FROM DR PAULSON AND PATIENT DID APPEAR TO BE ABLE TO SLEEP WELL FOR APPROX ONE AND A HALF HOURS WITH MINIMAL MOANING/CRYING OUT AFTER GABAPENTIN WAS GIVEN. PATIENT TURNED Q2H, ORAL CARE PROVIDED. PATIENT'S TUBE FEEDINGS/FLUSHES CONTINUE TO RUN PER ORDERS. STAYED THE NIGHT AT THE BEDSIDE AND HELPED TO PROVIDE SOME CARE TO PATIENT. VITAL SIGNS CHARTED. REPORT GIVEN TO ONCOMING RN.
--- NOTE | 2018-07-27 07:48 | NUR ---
NURSING PCU DAYSHIFT: Assumed care of pt at approx 0700. Confused, unable to redirect, does not follow commands. Moans/yells out, unable to express needs. General weakness noted, increased in RLE, gross movement and frequent kicking of LLE. Chronic R eye gaze w/no pupil reaction. Skin is fairly intact though redness noted to ngozi area and skin folds, no breakdown noted, scattered bruising to UE's. B/L soft wrist restraints in place to protect pt, staff, and lines. Tele in place, paced, SBP 130's prior to a.m. meds, trace-1+ edema in all ext's except LLE. L/S w/wheezes in anterior upper lobes, dim bases, respirations shallow and irregular, O2 sat mid 90's on 3L NC, continuous bedside O2 monitoring. Abd moderately distended and firm, BT hypoactive, PEG tube present in upper abd w/TF infusing at goal rate of 55mls/hr, FC and stat lock in place. PICC present in RUE, s/l. No acute changes noted from previous day. Spouse at bedside, plan of care discussed. Plan to discuss w/care management possible placement. Spouse denies any questions or needs at this time. Call light in reach of family. Awaiting rounding from PMD, cont to monitor for changes.
--- NOTE | 2018-07-27 13:41 | NUR ---
Spiritual care visit conducted. Patient is lying in bed, Spouse Kusum, is bedside. Patient is less able to track with me today and said no intelligible words. Kusum weary and will take a couple of days away from the hospital to babysit her grandchildren (she may stil come by for a few minutes in the evenings). Kusum, although emotional, has an inner strength and drive to roll up her sleaves and do whatever it takes to care for the patient. She states that her love for the patient and her ability to just take it a day at a time, is what keeps her going. She is thankful for the support of the hospital staff and her family and friends. She said that she is just waiting on placement. After he is placed in a truck mechanic apprentice care facility she hopes to fix up her home in order to take him home. I provided companionship and emotional support. Kusum thanks me for the visit.
--- NOTE | 2018-07-27 17:48 | NUR ---
NURSING PCU DAYSHIFT SUMMARY: VS remains stable t/o the shift. Upper airway sounds moist w/respirations, RT notified. Called placed to PMD, new d/o received for 1 view CXR. Spouse has remained at bedside t/o shift. Plan for assessment from [facility] tomorrow. No visitors w/o spouse at bedside per spouse request. No s/s of acute distress at this time, call light in reach of family, cont to monitor until rpt is given to NOC RN.
[2018-07-28 05:46] LABS: Hematocrit 27.6 % (37.0-53.0); Hemoglobin 7.8 g/dL (13.5-17.5); Mean Corpuscular HGB 28.8 pg (26.0-34.0); Mean Corpuscular HGB Conc 28.3 g/dL (31.5-36.5); Mean Corpuscular Volume 102 fL (80-100); Mean Platelet Volume 11.5 fL (9.1-12.4); Platelet Count 247 K/mm3 (150-400); RDW Coefficient Variation 16.9 % (11.7-14.2); Red Blood Cell Count 2.71 M/mm3 (4.30-5.90)
[2018-07-28 06:05] LABS: Anion Gap 3 mmol/L (6-16); BAND PERCENT MAN 5 % (0-8); BASOPHILS PERCENT MAN 0 % (0-2); Blood Urea Nitrogen 22 mg/dL (8-24); CO2, Blood 30 mmol/L (21-32); Calcium, Blood 8.8 mg/dL (8.5-10.1); Chloride, Blood 110 mmol/L (98-108); EOSINOPHILS ABSOLUTE MAN 0.06 K/mm3 (0.00-0.68); EOSINOPHILS PERCENT MAN 1 % (0-6); Glomerular Filtration Rate >60 (60-); Glucose, Blood 201 mg/dL (70-99); LYMPHOCYTES PERCENT MAN 11 % (21-46); METAMYELOCYTE ABSOLUTE MAN 0.06 K/mm3 (0.00-0.00); METAMYELOCYTE PERCENT MAN 1 % (0-0); MONOCYTES ABSOLUTE MAN 0.25 K/mm3 (0.16-1.47); MONOCYTES PERCENT MAN 4 % (4-13); MYELOCYTE ABSOLUTE MAN 0.06 K/mm3 (0.00-0.00); MYELOCYTE PERCENT MAN 1 % (0-0); NEUTROPHILS ABSOLUTE MAN 5.24 K/mm3 (1.96-9.15); Potassium, Blood 4.7 mmol/L (3.5-5.5); SEG NEUTROPHILS PERCENT MAN 77 % (41-73); Sodium, Blood 143 mmol/L (136-145); TOTAL CELLS COUNTED 100
--- NOTE | 2018-07-28 07:39 | NUR ---
SHIFT SUMMARY PATIENT PLEASENT AND COOPERATIVE THROUGHOUT THE NIGHT. PATIENT CONTINUES TO BE ABLE TO ANSWER YES/NO QUESTIONS BUT WILL OCCATIONALLY NOT ANSWER QUESTIONS AND SIMPLEY STARE AT STAFF. PATIENT APPEARED TO SLEEP VERY WELL THROUGHOUT MOST OF THE NIGHT. AT APPROX 2330 THE BILATERAL WRIST RESTRAINTS WERE ABLE TO BE TAKEN OFF OF PATIENT. PATIENT HAS TOLERATED WELL. PATIENT HAS NOT ATTEMPTED TO PULL AT LINES OR PEG TUBE. CPAP PLACED AFTER RESTRAINTS REMOVED. PATIENT HAS USED HIS CPAP THROUGHOUT THE REST OF THE NIGHT. PATIENT TURNED Q2H. FEEDINGS/FLUSHES GIVEN VIA PEG TUBE PER ORDERS. NO VISITERS THROUGHOUT THE NIGHT. ORAL CARE PROVIDED. VITAL SIGNS CHARTED. REPORT GIVEN TO ONCOMING RN.
--- NOTE | 2018-07-28 08:30 | NUR ---
AM NOTE. ASSUMED CARE OF PT APROX 0700, PT IS ALERT AND ORIENTED TO HIMSELF, PT IS ABLE TO ANSWER SOME YES OR NO QUESTIONS BUT UNABLE TO STATE HIS LOCATION, DATE OR SITUATION. PT WAS NOT IN SOFT WRIST RESTRAINTS SINCE 07/27 @ 2330. CPAP IS ON AT PT IS NOT IN ANY DISTRESS. PEG TUBE FEEDING IS RUNNING AT 55MLS/HR WITH 160MLS FLUSH Q 4HRS. HRR IN THE 60'S, PT'S BP 136/81. PT HAS 3+ EDEMA TO HIS RUE, 1+ TO HIS LUE, 1+ TO HIS RLE AND TRACE TO HIS LLE. L/S CLEAR AND DIM T/O, PT IS ON 2L NC AT 97% RR 20 EVEN AND UNLABORED, RR CAN BE IRREGULAR AND LABORED AT TIMES. BT PRESENT AND HYPOACTIVE, ABD IS MOD DISTENDED, SLIGHLTY FIRM BUT PT DID NOT REACT WITH ANY PAIN RESPONSE DURING PALP. CALL LIGHT IN REACH, BED IS LOCKED AND LOW WILL CONTINUE TO MONITOR.
--- NOTE | 2018-07-28 17:26 | NUR ---
SHIFT SUMMARY. NO ACUTE CHANGES NOTED THIS SHIFT. PT'S VS HAVE BEEN STABLE. PT HAS NOT BEEN IN RESTRAINTS SINCE 07/27 2330 PER REPORT AND HAS NOT NEEDED RESTRAINTS THIS SHIFT. PT'S WAS AT BEDSIDE FOR A FEW MINS THIS SHIFT BUT NO OTHER VISITORS. PT IS ABLE TO ANSWER VERY BASIC YES OR NO QUESTIONS AT TIMES. PT'S TUBE FEEDING IS RUNNING AT 55MLS/HR W/WATER BOLUS AT 160MLS Q 4. CALL LIGHT IN REACH, BED IS LOCKED AND LOW WILL CONTINUE TO MONITOR UNTIL REPORT IS GIVEN TO ONCOMING RN.
[2018-07-29 04:23] LABS: Hematocrit 27.9 % (37.0-53.0); Hemoglobin 8.1 g/dL (13.5-17.5); Mean Corpuscular HGB 29.1 pg (26.0-34.0); Mean Corpuscular Volume 100 fL (80-100); Mean Platelet Volume 11.6 fL (9.1-12.4); Platelet Count 265 K/mm3 (150-400); RDW Coefficient Variation 16.6 % (11.7-14.2); RDW Standard Deviation 60.8 fL (35.1-46.3); Red Blood Cell Count 2.78 M/mm3 (4.30-5.90); White Blood Cell Count 6.92 K/mm3 (4.00-11.30)
[2018-07-29 04:33] LABS: Anion Gap 1 mmol/L (6-16); Blood Urea Nitrogen 22 mg/dL (8-24); Bun/Creatinine Ratio 23.3 (12.0-20.0); CO2, Blood 31 mmol/L (21-32); Calcium, Blood 8.9 mg/dL (8.5-10.1); Chloride, Blood 108 mmol/L (98-108); Creatinine, Blood 0.94 mg/dL (0.60-1.20); Glomerular Filtration Rate >60 (60-); Glucose, Blood 222 mg/dL (70-99); Potassium, Blood 4.9 mmol/L (3.5-5.5); Sodium, Blood 140 mmol/L (136-145)
[2018-07-29 04:56] LABS: BAND PERCENT MAN 3 % (0-8); BASOPHILS ABSOLUTE MAN 0.06 K/mm3 (0.00-0.23); BASOPHILS PERCENT MAN 1 % (0-2); EOSINOPHILS ABSOLUTE MAN 0.27 K/mm3 (0.00-0.68); EOSINOPHILS PERCENT MAN 4 % (0-6); LYMPHOCYTES ABSOLUTE MAN 0.83 K/mm3 (0.84-5.20); LYMPHOCYTES PERCENT MAN 12 % (21-46); MONOCYTES ABSOLUTE MAN 0.41 K/mm3 (0.16-1.47); MONOCYTES PERCENT MAN 6 % (4-13); NEUTROPHILS ABSOLUTE MAN 5.32 K/mm3 (1.96-9.15); SEG NEUTROPHILS PERCENT MAN 74 % (41-73); TOTAL CELLS COUNTED 100
--- NOTE | 2018-07-29 05:21 | NUR ---
SHIFT SUMMARY PT MEDICAL NO TELE STATUS, ALERT, ORIENTED TO SELF AND FAMILY. PT'S AT BEDSIDE THIS SHIFT STATING PT'S "DOING MUCH BETTER EVER SINCE WE PUT THAT SIGN UP" REFERRING TO SIGN PLACED PER PT'S SPOUSE REQUEST DISALLOWING PERSONS OTHER THAN CARE TEAM IN THE ROOM W/OUT 'S PRESENCE. PT ABLE TO STATE NAME AND BIRTHDATE, OTHERWISE STARES AT STAFF W/ LEFT EYE W/OUT FURTHER COMMUNICATION. PT'S RIGHT EYE ROLLED UPWARDS, HAIDER. SPO2 > 90% ON 4L NC. PT TOLERATING CPAP & SLEEPING T/O SHIFT, WAKING FOR ASSESSMENTS AND CARE. PT INFUSING JEVITY 1.5 @ 55 MLS/HR. MACEDO CATH PATENT AND DRAINING CLEAR, DARK, YELLOW URINE. GROIN RED. ROUTINE/PRN DELFINO CARE/CATH CARE/ATTENDS CHANGES PROVIDED. PT NOT IN RESTRAINTS T/O SHIFT. IN BED W/ CALL LIGHT IN REACH. WILL CONTINUE TO MONITOR AND PROVIDE CARE UNTIL REPORT OFF TO DAY SHIFT RN.
--- NOTE | 2018-07-29 10:35 | NUR ---
AM NOTE. ASSUMED CARE OF PT APROX 0700. PT IS A&O TO HIMSELF AND FAMILY. PT'S ABILITY TO RESPOND PROPERLY TO QUETIONS HAS IMPROVED FROM YESTERDAY. PT WAS ABLE TO PARTICIPATE WITH PT THIS AM WELL. PEG TUBE DRESSING WAS CHANGED AND AREA CLEANED. PT'S HR IN THE 60'S, BP 135/77, PT HAS 3+ EDEMA TO HIS BLE, 3+ EDEMA TO HIS LUE AND 1+ TO HIS RUE, PT ALSO HAS GENERALIZED EDEMA T/O. L/S CLEAR BUT DIM T/O RR 32 EVEN, LABORED AND IRREGULAR W/O2 SATS AT 96% ON 3L NC. BT PRESENT BUT HYPOACTIVE, ABD IS SLIGHTLY FIRM AREA BY HIS PEG TUBE IS TENDER TO PALP HOWEVER THE OTHER ABD QUADRANTS ARE NONTENDER TO PALP. PROVIDER AT THE BEDSIDE, NO NEW ORDERS
--- NOTE | 2018-07-29 18:38 | NUR ---
SHIFT SUMMARY. NO ACUTE CHANGES NOTED THIS SHIFT, PT'S VS HAVE BEEN STABLE. PT'S TUBE FEEDINGS WERE CHANGED TO NOC FEEDINGS PER ORDERS. PT'S 1800 CBG WAS 47, HYPOGLYCEMIA PROTOCOL STARTED AND PT WAS GIVEN DEXTROS PER ORDERS (SEE EMAR.) PT HAS BEEN MORE ALERT AND AWAKE THIS SHIFT, PT HAS BEEN ABLE TO RESPOND TO THIS RN WITH MORE THAN JUST YES OR NO ANSWERS. PT WAS ABLE TO TELL THIS RN "I AM HUNGERY AND DON'T FEEL RIGHT." DURING THE HYPOGLYCEMIC EPISODE. PT WAS IN GOOD SPIRITS ALL SHIFT. CALL LIGHT IN REACH, BED IS LOCKED AND LOW WILL CONTINUE TO MONITOR UNTIL REPORT IS GIVEN TO ONCOMING RN.
[2018-07-30 04:20] LABS: Anion Gap 3 mmol/L (6-16); Blood Urea Nitrogen 21 mg/dL (8-24); Bun/Creatinine Ratio 24.7 (12.0-20.0); CO2, Blood 30 mmol/L (21-32); Calcium, Blood 8.5 mg/dL (8.5-10.1); Chloride, Blood 102 mmol/L (98-108); Creatinine, Blood 0.85 mg/dL (0.60-1.20); Glomerular Filtration Rate >60 (60-); Glucose, Blood 234 mg/dL (70-99); Sodium, Blood 135 mmol/L (136-145)
--- NOTE | 2018-07-30 04:47 | NUR ---
SHIFT SUMMARY PT MEDICAL NO TELE STATUS. PT ALERT, ORIENTED TO SELF AND FAMILY. PT SLEEPING MAJORITY OF SHIFT, WEARING CPAP W/ 4L BLEED IN, SPO2 > 92%. TF INFUSING PER ORDERS VIA PEG TUBE. ABD BINDER IN PLACE TO PROTECT PEG TUBE. MACEDO CATH PATENT AND DRAINING DARK YELLOW URINE. RESTRAINTES NOT NEEDED T/O SHIFT. WILL CONTINUE TO MONITOR AND PROVIDE CARE UNTIL REPORT OFF TO DAY SHIFT RN.
--- NOTE | 2018-07-30 09:55 | NUR ---
AM NOTE. ASSUMED CARE OF PT APROX 0700, PT IS A&O TO SELF AT THIS TIME. PT IS ON HIS CPAP AND SLEEPIING. PT WAKES EASILY TO VERBAL STIMULI. PT HAS BEEN MOVING HIS ARMS MORE INDEPENDENTLY THAN YESTERDAY, CURRENTLY PT'S ARMS ARE CROSSSED OVER HIS ABD. NO TELE, HRR IN THE 60'S. PT'S BP 144/77. PT HAS 2+ EDEMA TO HIS NAMRATA AND BLE WELL GENERALIZED AND SCROTAL EDEMA. L/S CLEAR BUT DIM T/O ON CPAP TO SLEEP OR 2L NC. BT PRESENT AND HYPOACTIVE, ABD IS SOFT AND NONTENDER TO PALP. PT DENEIS PAIN TO PEG TUBE SITE. CALL LIGHT IN REACH, PT IS Q2 TURNS, WILL CONTINUE TO MONITOR.
--- NOTE | 2018-07-30 11:22 | NUR ---
PT UPDATE... DURING PT BATH ABD BINDER WAS REMOVED, IT WAS NOTED THAT THE DRESSING AROUND THE PEG TUBE WAS SATURATED BY A FOUL SMELLING BROWNISH/PINKISH FLUID FROM AROUND THE PEG TUBE. NO RESIDUAL WAS NOTED FROM THE PEG TUBE AT THIS TIME, FEEDINGS ARE CURRENTLY STOPPED DURING THE DAY. IT WAS NOTED YESTERDAY BY THIS RN THAT THERE WAS A SMALLER AMOUNT OF THIS FLUID ON THE PEG TUBE DRESSING, HOWEVER NO FOUL SMELL AND IT WAS NOT SATURATED. PT REPONSDED IN PAIN WITH PALPATION TO THE AREA AROUND HIS PEG TUBE. THERE IS A HARD, FRIM MARGIN NOTED UPON PALPATION THAT IS EGG SHAPED AND DISTAL FROM THE PEG TUBE SITE. PROVIDER CALLED AND ORDERS OBTAINED FOR SUGRICAL CONSULT AND WOUND CULTURES. WILL CONTINUE TO MONITOR.
--- NOTE | 2018-07-30 13:28 | NUR ---
PT UPDATE... SURGICAL PROVIDER IN THE ROOM TO ASSESS PEG TUBE AND DRAINAGE. NO NEW ORDERS OBTAINED, PROVIDER INSTRUCTED DRESSING CHANGES PRN TO KEEP AREA CLEAN, MONITOR FOR FEVERS AND INCREASED DRAINAGE. WILL CONTINUE TO MONITOR.
--- NOTE | 2018-07-30 18:07 | NUR ---
SHIFT SUMMARY. NO ACUTE CHANGES NOTED THIS SHIFT. PT HAS BEEN MORE AWAKE AND ALERT THIS SHFIT THAN YESTERDAY. PT HAD AND FAMILY AT THE BEDSIDE FOR APROX 2 HOURS THIS EARLY AFTERNOON. PT'S VS HAVE BEEN STABLE T/O SHIFT. DRESSING CHANGES TO PEG TUBE DONE 3 TIMES THIS SHIFT. CALL LIGHT IN REACH, BED IS LOCKED AND LOW WILL CONTINUE TO MONITOR UNTIL REPORT IS GIVEN TO ONCOMING RN.
[2018-07-31 03:34] LABS: BASOPHILS ABSOLUTE AUTO 0.04 K/mm3 (0.00-0.23); BASOPHILS PERCENT AUTO 1 % (0-2); EOSINOPHILS ABSOLUTE AUTO 0.13 K/mm3 (0.00-0.68); EOSINOPHILS PERCENT AUTO 2 % (0-6); Hematocrit 28.9 % (37.0-53.0); Hemoglobin 8.6 g/dL (13.5-17.5); IMMATURE GRAN ABSOLUTE AUTO 0.13 K/mm3 (0.00-0.10); IMMATURE GRAN PERCENT AUTO 2 % (0-1); LYMPHOCYTES ABSOLUTE AUTO 1.28 K/mm3 (0.84-5.20); LYMPHOCYTES PERCENT AUTO 16 % (21-46); MONOCYTES ABSOLUTE AUTO 0.55 K/mm3 (0.16-1.47); MONOCYTES PERCENT AUTO 7 % (4-13); Mean Corpuscular HGB 28.7 pg (26.0-34.0); Mean Corpuscular HGB Conc 29.8 g/dL (31.5-36.5); Mean Platelet Volume 11.2 fL (9.1-12.4); NEUTROPHILS ABSOLUTE AUTO 5.82 K/mm3 (1.96-9.15); NEUTROPHILS PERCENT AUTO 73 % (41-73); NRBC ABSOLUTE 0.02 K/mm3 (0.00-0.02); NRBC Auto 0.3 /100 WBC (0.0-0.2); Platelet Count 292 K/mm3 (150-400); RDW Standard Deviation 56.2 fL (35.1-46.3); White Blood Cell Count 7.95 K/mm3 (4.00-11.30)
[2018-07-31 03:38] LABS: Mean Corpuscular Volume 96 fL (80-100)
[2018-07-31 03:53] LABS: Alanine Aminotransfer (ALT/SGP 27 U/L (12-78); Albumin, Blood 2.4 g/dL (3.4-5.0); Albumin/Globulin Ratio 0.6 (0.8-1.8); Alk Phos 164 U/L (50-136); Anion Gap 4 mmol/L (6-16); Aspartate Aminotrans (AST/SGOT 15 U/L (12-37); Bilirubin, Total 0.5 mg/dL (0.1-1.0); Blood Urea Nitrogen 20 mg/dL (8-24); Bun/Creatinine Ratio 22.8 (12.0-20.0); CO2, Blood 30 mmol/L (21-32); Calcium, Blood 8.6 mg/dL (8.5-10.1); Chloride, Blood 102 mmol/L (98-108); Creatinine, Blood 0.88 mg/dL (0.60-1.20); Globulin, Blood 4.1 g/dL (2.2-4.0); Glomerular Filtration Rate >60 (60-); Glucose, Blood 207 mg/dL (70-99); Potassium, Blood 4.7 mmol/L (3.5-5.5); Sodium, Blood 136 mmol/L (136-145); Total Protein, Blood 6.5 g/dL (6.4-8.2)
--- NOTE | 2018-07-31 05:47 | NUR ---
SHIFT SUMMARY PT MEDICAL NO TELE STATUS. PT ALERT, ORIENTED TO SELF AND FAMILY, MINIMALLY FOLLOWING INSTRUCTIONS. PT HYPERTENSIVE, MEDICATING PER EMAR. PT TOLERATING CPAP W/ 2-4L BLEED IN ON AND OFF T/O SHIFT. PT REMOVAL OF O2 W/ DESAT TO 84% X1 THIS SHIFT, QUICK RECOVERY W/ REAPPLICATION OF O2. PEG TUBE INFUSING JEVITY 1.5 PER ORDERS. RESIDUALS < 5MLS UPON EACH ASSESSMENT. PEG TUBE SITE CLEAN AND DRY. MEDICATING CBG'S PER EMAR. MACEDO CATH PATENT AND DRAINING DARK YELLOW URINE. PT 2-PERSON MAX ASSIST FOR REPOSITIONING. BLE AND BUE EDEMATOUS, ATTEMPTING TO KEEP PT EXTREMITIES ELEVATED, BUT PT KICKS OUT AND THROWS OUT PILLOWS. WILL CONTINUE TO MONITOR AND PROVIDE CARE UNTIL REPORT OFF TO DAY SHIFT RN.
--- NOTE | 2018-07-31 18:34 | NUR ---
SHIFT SUMMARY PT ALERT TO SELF AND SITUATION. PT FOLLOWING COMMANDS. PT ANSWERS QUESTIONS WITH MINIMAL RESPONSE. VS STABLE. O2 SATS HAVE REMAINED ABOVE 90% ON 3L NC. PT ON CPAP WHILE SLEEPING. PT REPOSITIONED Q2H. PT WORKED WITH THERAPY TODAY. TUBE FEEDING HAS BEEN CHANGED TO BOLUS FEEDS. PT TOLERATED TUBE FEED TO GRAVITY. CBG HAS BEEN STABLE. MACEDO CATHETER IRRIGATED THIS SHIFT IS PATENT AND DRAINING CLEAR YELLOW URINE WITH SEDIMENT PRESENT. PT DENIES ANY PAIN. FAMILY AT BEDSIDE. WILL CONTINUE TO MONITOR AND REPORT TO ONCOMING RN.
--- NOTE | 2018-07-31 19:40 | NUR ---
ASSUMED CARE PT RESTING IN ROOM COMFORTABLY AT THIS TIME. PER DAY SHIFT PT HAS DONW WELL AND NOT NEEDED RESTRAINTS FOR 48 HRS. PT HAS PEG TUBE AND HAS BOLUS FEEDINGS SCHEDULED. PT ABLE TO ANSWER SHORT QUESTIONS AND APPEARS TO BE ORIENTED TO SELF. RESP EVEN UNLABORED ON 2L NC W/ SATS >92%. PT DENIES PAIN WHEN ASKED, APPEARS TO BE COMFORTABLE AT THIS TIME, NO S/S OF PAIN. MACEDO IN PLACE AND DRAINING YELLOW URINE W/ SOME SEDIMENT. CALL LIGHT IN REACH, AND BED ALARM ON FOR SAFETY. PT CALM AT THIS TIME.
--- NOTE | 2018-08-01 07:16 | NUR ---
SHIFT SUMMARY PT SLEEPING IN ROOM COMFORTABLY AT THIS TIME. NO ACUTE CHANGES IN STATUS T/O NIGHT. PT SLEPT WELL W/ CPAP ON. TOLERATED WELL. PT WAS CALM T/O NIGHT, DENIED NEEDS, OR PAIN. RESP EVEN AND TACHY ON CPAP W/ SATS >92%. MACEDO IN PLACE AND DRAINING YELLOW URINE. CALL LIGHT IN REACH.
--- NOTE | 2018-08-01 11:55 | NUR ---
Spiritual care visit conducted. I spent time with Ren today, he seems to brighten up when people are near him. No family or friends were present at the time of my visit. He grabs ahold of my hand and hangs on. I ask questions that require a "yes' or "no" response and he seems to be tracking with me for a few questions then he becomes less verbal. Patient agreed to having prayer and restated an "Amen" when he I completed the prayer. I think the companionship and attention is really what produces more smiles and focus. I will remain available to patient and family.
--- NOTE | 2018-08-01 17:40 | NUR ---
SHIFT SUMMARY PT ALERT. PT ONLY STATING YES OR NO THIS SHIFT. PT DOES NOT SHOW ANY SIGNS OR SYMPTOMS OF PAIN. VS STABLE. PT TOLERATING BOLUS FEEDS. PT REPOSITIONINED Q2H. MACEDO PATENT AND DRAINING CLEAR YELLOW URINE. THERE HAS NOT BEEN ANY FAMILY PRESENT TODAY. ORAL CARE AND A BED BATH PROVIDED. WILL CONTINUE TO MONITOR AND REPORT TO ONCOMING RN.
--- NOTE | 2018-08-02 03:00 | NUR ---
MACEDO REPLACED MACEDO CATH REPLACED DUE TO NOT FLUSHING AND NO DRAINAGE NOTED. ONCE NEW MACEDO INSERTED 800 ML OUT INTIAL. PATIENT TOLERTATED WELL.
--- NOTE | 2018-08-02 06:13 | NUR ---
PCU NOC SHIFT SUMMARY PATIENT ALERT AND ORIENTED TO SELF AND FAMILY - ANSWERS YES OR NO QUESTIONS AND COMMUNICATES SOME NEEDS. PATIENT REMAINS CONFUSED TO LOCATION AND SITUATIONS AND REMAINS CHILDLIKE IN EXPRESSIONS. PATIENT HAS ABDNORMAL FLEXTION AND EXTENTION OF BLE. MINIMAL TO WEAK MOVEMENT NOTED IN LEFT ARM WITH 2-3 + PITTING EDEMA NOTED IN LEFT ARM. PATIENTS ABD DISTENDED WITH PEG TUBE IN PLACE, 0 RESIDUALS NOTED THIS SHIFT AND PEG TUBE FLOWS WELL TO GRAVITY FOR GOAL RATE OF TUBE FEEDING BOLUS W/ WATER FLUSHES. VS REMAIN STABLE (PATIENT IS NO TELE ORDER). NO ACUTE CHANGES OR FINDINGS THIS SHIFT. PATIENT HAS BEEN PLEASANT AND COOPERATIVE WITH CARE. BEDREST, Q2 TURNS. WILL CONTINUE TO MONITOR AND REPORT TO DAYSHIFT RN.
--- NOTE | 2018-08-02 19:30 | NUR ---
SHIFT SUMMARY PT ALERT AND ORIENTED TO SELF, FAMILY, AND FOLLOWING DIRECTIONS. VS STABLE. PT DENIES ANY PAIN. PT TOLERATING TUBE FEEDING. PEG TUBE HAS SLIGHT DRAINAGE ON THE DRESSING THAT IS LIGHT BROWN AND ODIFEROUS. PER REPORT DR. PRATHER HAS ASSESSED SITE AND IS CLEAR OF INFECTION. PT ABLE TO SIT ON EDGE OF BED THIS SHIFT WITH PHYSICAL THERAPY. NO OTHER CHANGES NOTED THIS SHIFT. REPORT GIVEN TO POULTRY CULLER RN.
--- NOTE | 2018-08-03 03:53 | NUR ---
SHIFT SUMMARY: PATIENT LEFT ARM SEEMS TO BE GETTING WORSE WITH EDEMA, TAUT. PATIENT MUCH BETTER AT COMMUNICATING NEEDS NOW, WAS COOPERATIVE WITH TURNING AND CLEANING. PATIENTS VSS, CALL LIGHT WITHIN REACH, BED LOW AND LOCKED WITH EXIT ALARM ON AND PATIENT EASILY VISUALIZED FROM NURSES STATION.
[2018-08-03 08:00] LABS: BASOPHILS ABSOLUTE AUTO 0.02 K/mm3 (0.00-0.23); BASOPHILS PERCENT AUTO 0 % (0-2); EOSINOPHILS ABSOLUTE AUTO 0.07 K/mm3 (0.00-0.68); EOSINOPHILS PERCENT AUTO 1 % (0-6); Hematocrit 29.2 % (37.0-53.0); Hemoglobin 8.6 g/dL (13.5-17.5); IMMATURE GRAN PERCENT AUTO 1 % (0-1); LYMPHOCYTES PERCENT AUTO 11 % (21-46); MONOCYTES ABSOLUTE AUTO 0.63 K/mm3 (0.16-1.47); MONOCYTES PERCENT AUTO 7 % (4-13); Mean Corpuscular HGB 28.3 pg (26.0-34.0); Mean Corpuscular HGB Conc 29.5 g/dL (31.5-36.5); Mean Corpuscular Volume 96 fL (80-100); Mean Platelet Volume 11.1 fL (9.1-12.4); NEUTROPHILS ABSOLUTE AUTO 7.02 K/mm3 (1.96-9.15); NEUTROPHILS PERCENT AUTO 80 % (41-73); Platelet Count 258 K/mm3 (150-400); RDW Coefficient Variation 17.2 % (11.7-14.2); RDW Standard Deviation 58.8 fL (35.1-46.3); Red Blood Cell Count 3.04 M/mm3 (4.30-5.90); White Blood Cell Count 8.84 K/mm3 (4.00-11.30)
[2018-08-03 08:19] LABS: Alanine Aminotransfer (ALT/SGP 25 U/L (12-78); Albumin, Blood 2.4 g/dL (3.4-5.0); Albumin/Globulin Ratio 0.6 (0.8-1.8); Alk Phos 127 U/L (50-136); Anion Gap 0 mmol/L (6-16); Aspartate Aminotrans (AST/SGOT 13 U/L (12-37); Bilirubin, Total 0.7 mg/dL (0.1-1.0); Blood Urea Nitrogen 20 mg/dL (8-24); Bun/Creatinine Ratio 22.2 (12.0-20.0); CO2, Blood 36 mmol/L (21-32); Calcium, Blood 8.9 mg/dL (8.5-10.1); Chloride, Blood 102 mmol/L (98-108); Globulin, Blood 4.1 g/dL (2.2-4.0); Glomerular Filtration Rate >60 (60-); Glucose, Blood 121 mg/dL (70-99); Potassium, Blood 4.6 mmol/L (3.5-5.5); Sodium, Blood 138 mmol/L (136-145); Total Protein, Blood 6.5 g/dL (6.4-8.2)
--- NOTE | 2018-08-03 16:06 | NUR ---
Patient is sitting on a chair and alert. Patient answers simple questions but only for a short amount of time then he does not respond much at all. I provide companionship and prayer. No family present.
--- NOTE | 2018-08-03 16:24 | NUR ---
SHIFT SUMMARY THE PATIENT PRESENTED THIS SHIFT WITH VITALS WNL, A&O X2 AND WITH CLEAR LUNG SOUNGS. THE PATIENT KNOWS HIS DATE OF AND WILL ANSWER SIMPLE YES OR NO QUESTIONS. THE PATIENT WAS UP TO HIS CHAIR FOR FIVE HOURS. THE PATIENT HAS GOTTEN HIS TUBE FEEDING BOLUS' WITH ON HAVING SMALL RESIDUE. THE PATIENT IS RESTING IN HIS BED AT THIS TIME, WILL CONTINUE TO MONITOR.
--- NOTE | 2018-08-04 06:21 | NUR ---
SHIFT SUMMARY PT VERY RESTLESS @BEGINNING OF NIGHT, WOULD NOT LEAVE NC OR CPAP ON, CAUSING SPO2 TO RANGE 81-89%. LUNGS SOUND DIM W/CRACKLES IN BASES, HAS LABORED BREATHING & USES ACCESSORY MUSCLES, SOUNDS WET IN BACK OF THROAT LIKE HE NEEDS TO COUGH. INCREASED TO 9L O2 BLEED INTO CPAP ONCE FELL ASLEEP TO MAINTAIN SATS. NODS HEAD YES/NO & ANSWERS SOME YES/NO QUESTIONS APPROPRIATE. NO S/S OF PAIN OR N/V. REPOSITIONED & TURNED Q2H PRN. PEG TUBE HAS FOUL SMELLING PURULENT DRAINAGE W/REDNESS AROUND SITE, CLEANED & APPLIED NEW DRAIN SPONGE. NPO & BOLUS FEEDING GIVEN BY PEG TUBE PER ORDERS. BP ELEVATED @176/97 THIS AM, SCHEDULED HYDRALAZINE GIVEN PER ORDERS & BP DOWN TO 165/100. CALL LIGHT IN REACH.
--- NOTE | 2018-08-04 07:37 | NUR ---
AM NOTE. ASSUMED CARE OF PT APROX 0700, PT IS A&Ox2 AND APPEARES SLEEPY/LETHARGIC AT THIS TIME. PT WAS GIVEN MELATONIN AND BENADRYL PREVIOUS SHIFT. PT IS ON HIS CPAP WITH 7 L BLEED IN AT 88-89%, THIS IS A CHANGE FROM EARLIER PER NOC RN. PT'S PEG TUBE SITE IS RED WITH FOUL SMELLING DRAINAGE, SURGICAL CONSULT WAS ALREADY DONE, HOWEVER THIS REDNESS IS A CHANGE WELL TO THE SITE FROM LAST TIME THIS RN HAD THIS PT. PT'S RR IS 36, LABORED, SHALLOW AND IRREGULAR. PT'S HRR IN THE 80'S, PT'S BP 161/89, PT HAS GENERALIZED EDEMA, 1+ EDEMA TO HIS BLE, 3+ TO HIS LUE. BT PRESENT AND HYPOACTIVE, ABD IS MOD DISTENDED AND TENDER TO PALP. L/S COARSE AND VERY DIM T/O ON CPAP W/7L BLEED IN. CALL LIGHT IN REACH, BED IS LOCKED AND LOW WILL CONTINUE TO MONITOR.
[2018-08-04] MEDS ORDERED: ACET325UDC PT (14:45)
[2018-08-04] MEDS ORDERED: ALBU2.5V5 NEB (14:47)
[2018-08-04] MEDS ORDERED: VENL25 PT (14:47)
[2018-08-04] MEDS ORDERED: ASCO500 PT (14:47)
[2018-08-04] MEDS ORDERED: ATOR40TA PT (14:48)
[2018-08-04] MEDS ORDERED: BISA10S PR (14:48)
[2018-08-04] MEDS ORDERED: Docu Liqui50 MG/5 ML PT (14:49)
[2018-08-04] MEDS ORDERED: FEROSUL300 MG/6.8 PT (14:50)
[2018-08-04] MEDS ORDERED: HYDRA50 PT (14:51)
[2018-08-04] MEDS ORDERED: INSULANPEN SC (14:51)
[2018-08-04] MEDS ORDERED: ISODIN10 PO (14:53)
[2018-08-04] MEDS ORDERED: HUMALOG KWIKPEN SC (14:53)
[2018-08-04] MEDS ORDERED: MELATONIN5 M1 PT (14:54)
[2018-08-04] MEDS ORDERED: Pedi-Dri 100,0060 GM TOP (14:55)
[2018-08-04] MEDS ORDERED: MODA200 PT (14:55)
[2018-08-04] MEDS ORDERED: OMEPRAZOLE PT (14:58)
[2018-08-04] MEDS ORDERED: ONDA4ODT MM (14:58)
[2018-08-04] MEDS ORDERED: XARELTO20 MG PT (14:59)
[2018-08-04 16:04] LABS: BASOPHILS ABSOLUTE AUTO 0.02 K/mm3 (0.00-0.23); BASOPHILS PERCENT AUTO 0 % (0-2); EOSINOPHILS ABSOLUTE AUTO 0.04 K/mm3 (0.00-0.68); EOSINOPHILS PERCENT AUTO 1 % (0-6); Hematocrit 30.2 % (37.0-53.0); Hemoglobin 8.9 g/dL (13.5-17.5); IMMATURE GRAN ABSOLUTE AUTO 0.08 K/mm3 (0.00-0.10); IMMATURE GRAN PERCENT AUTO 1 % (0-1); LYMPHOCYTES ABSOLUTE AUTO 0.95 K/mm3 (0.84-5.20); LYMPHOCYTES PERCENT AUTO 11 % (21-46); MONOCYTES ABSOLUTE AUTO 0.54 K/mm3 (0.16-1.47); MONOCYTES PERCENT AUTO 6 % (4-13); Mean Corpuscular HGB 29.2 pg (26.0-34.0); Mean Corpuscular HGB Conc 29.5 g/dL (31.5-36.5); NEUTROPHILS ABSOLUTE AUTO 6.94 K/mm3 (1.96-9.15); NEUTROPHILS PERCENT AUTO 81 % (41-73); Platelet Count 265 K/mm3 (150-400); RDW Coefficient Variation 17.1 % (11.7-14.2); RDW Standard Deviation 60.5 fL (35.1-46.3); Red Blood Cell Count 3.05 M/mm3 (4.30-5.90); White Blood Cell Count 8.57 K/mm3 (4.00-11.30)
[2018-08-04 16:05] LABS: Mean Corpuscular Volume 99 fL (80-100)
[2018-08-04 16:21] LABS: Anion Gap 3 mmol/L (6-16); Blood Urea Nitrogen 21 mg/dL (8-24); Bun/Creatinine Ratio 25.5 (12.0-20.0); CO2, Blood 36 mmol/L (21-32); Calcium, Blood 8.9 mg/dL (8.5-10.1); Chloride, Blood 97 mmol/L (98-108); Creatinine, Blood 0.83 mg/dL (0.60-1.20); Glomerular Filtration Rate >60 (60-); Glucose, Blood 264 mg/dL (70-99); Potassium, Blood 5.1 mmol/L (3.5-5.5); Sodium, Blood 136 mmol/L (136-145)
--- NOTE | 2018-08-04 18:36 | NUR ---
SHIFT SUMMARY. PT WAS SCHEDULED TO D/C TO SNF TODAY AT 1545, HOWEVER, T/O THE DAY THE PT WAS HAVING SEVERE SECRETIONS THAT REQUIRED NT SUCTION BY RT, PT'S MENTAL STATUS ALSO HAS DECLINED, PT IS NOT RESPONDING LIKE HE HAD THE PRVIOUS DAY, PT NOT VERY RESPONSIVE TO STAFF OR . PT'S 02 REQUIREMENTS HAVE INCREASED FROM 2L NC TO 10L NC AND 10L BLEED IN TO THE CPAP. IT WAS DISCUSSED WITH PROVIDER, BLANKET BINDER, THE PT'S , THIS RN AND RT ABOUT KEEPING THE PT HERE FOR OBSERVATION AT LEAST FOR TODAY, EVERYONE WAS IN AGREEMENT. PEG TUBE DRESSING CHANGES HAVE BEEN DONE FREQUENTLY T/O THIS SHIFT DUE TO DRAINAGE. PT'S VS HAVE BEEN STABLE EXCEPT THE PT'S O2 SATS/REQUIREMENTS. CALL LIGHT IN REACH, BED IS LOCKED AND LOW WILL CONTINUE TO MONITOR UNTIL REPORT IS GIVEN TO ONCOMING RN.
--- NOTE | 2018-08-04 19:30 | NUR ---
ASSUMED CARE PT SLEEPING IN ROOM, APPEARS TO BE COMFORTABLE AT THIS TIME. PER DAY SHIFT PT STATUS HAS CHANGED, AND MENTATION HAS DECREASED T/O DAY. PT NOW LETHARGIC, AND HARD TO WAKE TO VERBAL. PT OXYGEN DEMAND HAS INCREASED, AND PT NOW ON CPAP W/ 10L BLEED IN. PT WAS SUPPOSED TO BE SENT TO SNF TODAY BUT W/ CHANGE IN STATUS PT UNABLE TO BE DC'D AT THIS TIME. PT DEVELOPED VERY MOIST PRODUCTIVE COUGH DURING DAY, AND REQUIRED SUCTIONING. RESP IS TACHY AND SEMI LABORED W/ SATS 90-92% ON CPAP. PT SHAKES HEAD YES OR NO TO SIMPLE QUESTIONS, BUT IS UNABLE TO TO COMMUNICATE FURTHER AT THIS TIME. PEG TUBE IN PLACE AND SITE WNL, SOME PURULENT DISCHARGE NOTED, CONSISTENT W/ OTHER RN NOTES. PT APPEARS TO BE SLEEPING COMFORTABLY IN ROOM. BED ALARM ON FOR SAFETY, CALL LIGHT IN REACH.
--- NOTE | 2018-08-05 01:08 | NUR ---
LOW O2 SATS PT ON CPAP AND SATS DIPPED TO MID 80'S, O2 BLEED IN INCREASED TO 13L ON CPAP AND MASK READJUSTED TO FIX LEAK. PT COMFORTABLE, AWAKENS TO VERBAL AND NODS HEAD. SATS BACK UP TO 91-92%.
--- NOTE | 2018-08-05 05:38 | NUR ---
SHIFT SUMMARY PT SLEEPING IN ROM COMFORTABLY AT THIS TIME. PT HAD EPISODE OF LOW O2 SATS INTO MID 80'S. MASK FIT WAS ADJUSTED AND BLEED IN WAS INCREASED FROM 10L TO 13L SATS CAME BACK UP TO 90-91% AT THIS TIME. PT WAS REASSESSED AFTER 2 HOURS AND O2 SATS BACK UP TO 96%, BLEED IN WAS TITRATED DOWN OVER 2 HOURS BACK TO 10L AND PT SATS >92%. PT MENTATION IMPROVED THIS AM. PT WAS ABLE TO SAY "GOOD MORNING" TO THIS RN, AND WAS ABLE TO ANSWER SHORT YES/NO QUESTIONS. RESP EVEN, SHALLOW AND TACHY AT 24-30/MIN. SHAKES HEAD NO WHEN ASKED IF IN PAIN, APPEARS TO BE COMFORTABLE AT THIS TIME. CATH CARE, AND DELFINO CARE DONE. L [facility] WAS ELEVATED T/O SHIFT AND EDEMA APPEARS TO BE REDUCED. CALL LIGHT IN REACH. BED ALARM ON FOR SAFETY.
--- NOTE | 2018-08-05 07:59 | NUR ---
AM NOTE. ASSUMED CARE OF PT APROX 0700, PT'S MENTATION HAS GREATLY IMPROVED FROM YESTERDAY, PT IS RESPONDING TO QUESTIONS APROPPRIATELY BY NODDING HIS HEAD YES/NO. PT IS MORE ALERT THAN YESTERDAY, HIS L/S HAVE IMPROVED GREATLY, HIS O2 REQUIREMENTS HAVE IMPROVED FROM YESTERDAY WELL, HE IS CURRENTLY ON 6L BLEED IN W/HIS CPAP AT 94%, TITRATED DOWN FROM 10L BLEED IN. PT'S HRR IN THE 60'S, PT'S BP 138/78, 2+ EDEMA NOTED TO THE PT'S BLE, PT'S LEFT ARM HAS NONPITTING EDEMA, PT ALSO HAS GENERALIZED/DEPENDENT EDEMA/ L/S CLEAR BUT DIM T/O. BT PRESENT AND HYPERACTIVE, ABD IS SOFT AND NONTENDER TO PALP, PEG TUBE DRESSING CHANGED, RED AREA NOTED TO THE PEG TUBE SITE, THIS IS UNCHANGED FROM YESTERDAY. MACEDO IS PATENT AND DRAINING DARK YELLOW URINE TO GRAVITY. CALL LIGHT IN REACH, BED IS LOCKED AND LOW WILL CONTINUE TO MONITOR.
--- NOTE | 2018-08-05 17:59 | NUR ---
SHIFT SUMMARY. NO ACUTE CHANGES NOTED SINCE PREVIOUS NOTE. PT'S VS HAVE BEEN STABLE. PT HAS BEEN VERY ALERT AND ABLE TO SPEAK IN FULL SENTENCES MOST OF THE TIME. PT IS ABLE TO RESPOND PROPERLY TO QUESTIONS AND HELP WITH TURNING. MACEDO IS PATENT AND DRAINING TO GRAVITY DARK YELLOW URINE. PT HAD BM TODAY. PT WAS UP IN THE CHAIR FOR SEVERAL HOURS THIS SHIFT. PICC LINE DRESSING WAS CHANGED AND ALL 3 LINES NOW FLUSH AND DRAW EASILY. PT HAS BEEN ON 2L NC AND RA AT TIMES. PEG TUBE DRESSING HAS BEEN CHANGEDx4 TODAY DUE TO DISCHARGE. CALL LIGHT IN REACH, BED IS LOCKED AND LOW WILL CONTINUE TO MONTIOR UNTIL REPORT IS GIVEN TO ONCOMING RN.
[2018-08-06 04:34] LABS: BASOPHILS ABSOLUTE AUTO 0.01 K/mm3 (0.00-0.23); BASOPHILS PERCENT AUTO 0 % (0-2); EOSINOPHILS ABSOLUTE AUTO 0.03 K/mm3 (0.00-0.68); EOSINOPHILS PERCENT AUTO 0 % (0-6); Hematocrit 25.9 % (37.0-53.0); Hemoglobin 7.8 g/dL (13.5-17.5); IMMATURE GRAN ABSOLUTE AUTO 0.04 K/mm3 (0.00-0.10); IMMATURE GRAN PERCENT AUTO 1 % (0-1); LYMPHOCYTES ABSOLUTE AUTO 0.95 K/mm3 (0.84-5.20); LYMPHOCYTES PERCENT AUTO 13 % (21-46); MONOCYTES ABSOLUTE AUTO 0.53 K/mm3 (0.16-1.47); MONOCYTES PERCENT AUTO 7 % (4-13); Mean Corpuscular HGB Conc 30.1 g/dL (31.5-36.5); Mean Corpuscular Volume 96 fL (80-100); Mean Platelet Volume 10.9 fL (9.1-12.4); NEUTROPHILS ABSOLUTE AUTO 5.67 K/mm3 (1.96-9.15); NEUTROPHILS PERCENT AUTO 79 % (41-73); Platelet Count 190 K/mm3 (150-400); RDW Coefficient Variation 17.2 % (11.7-14.2); RDW Standard Deviation 59.6 fL (35.1-46.3); Red Blood Cell Count 2.69 M/mm3 (4.30-5.90); White Blood Cell Count 7.23 K/mm3 (4.00-11.30)
[2018-08-06 04:51] LABS: Alanine Aminotransfer (ALT/SGP 22 U/L (12-78); Albumin, Blood 2.3 g/dL (3.4-5.0); Albumin/Globulin Ratio 0.6 (0.8-1.8); Alk Phos 141 U/L (50-136); Anion Gap 2 mmol/L (6-16); Aspartate Aminotrans (AST/SGOT 15 U/L (12-37); Bilirubin, Total 0.6 mg/dL (0.1-1.0); Blood Urea Nitrogen 24 mg/dL (8-24); Bun/Creatinine Ratio 26.3 (12.0-20.0); CO2, Blood 37 mmol/L (21-32); Calcium, Blood 8.6 mg/dL (8.5-10.1); Chloride, Blood 96 mmol/L (98-108); Creatinine, Blood 0.91 mg/dL (0.60-1.20); Globulin, Blood 3.8 g/dL (2.2-4.0); Glomerular Filtration Rate >60 (60-); Glucose, Blood 162 mg/dL (70-99); Potassium, Blood 4.8 mmol/L (3.5-5.5); Sodium, Blood 135 mmol/L (136-145); Total Protein, Blood 6.1 g/dL (6.4-8.2)
--- NOTE | 2018-08-06 05:32 | NUR ---
SHIFT SUMMARY PT SLEEPING IN ROOM COMFORTABLY. NO ACUTE CHANGES T/O SHIFT. PT HAS SLIGHTLY LOWER H/H THIS AM. DISCUSSED W/ CLINICAL RESOURCE NURSE, WILL REPORT TO DAY RN TO DISCUSS W/ HOSPITALIST. PT HAS HX OF ANEMIA. RESP EVEN AND TAHCYPNIC W/ SATS >94% ON CPAP, W/ 5L BLEED IN. PT MUCH MORE ALERT, AND ABLE TO CONVERSE IN SHORT SENTANCES W/ STAFF. PEG TUBE IN PLACE, SITE CONTINUES TO HAVE PURULENT DISCHARGE AT SITE, AND SOME REDNESS NOTED TO SKIN. ABD NONTENDER W/ PALP. MACEDO CATH IN PLACE DRAINING YELLOW URINE W/ SOME SEDIMENT. PT WORE CPAP T/O NIGHT AND TOLERATED WELL. PT DENIES PAIN WHEN ASKED. CALL LIGHT IN REACH. BED ALARM ON FOR SAFETY.
--- NOTE | 2018-08-06 11:59 | NUR ---
AM NOTE. ASSUMED CARE OF PT APROX 0700, PT IS A&Ox2, PT IS ABLE TO RESPOND PROPERLY TO QUESTIONS AND ABLE TO STATE NAME AND BIRTHDAY, AND RECOGNIZE FAMILY. PT'S HRR IN THE 60'S, PT'S BP 148/74, PT HAS 1+ EDEMA TO HIS BLE, 2+ TO THE TOPS OF HIS FEET AND 2+ TO HIS LUE. L/S COARSE T/O AND DIM IN THE BASES, PT IS ON 2-3L NC AT >90%. BT PRESENT AND HYPERACTIVE, ABD IS SLIGHTLY DISTENDED AND A LITTLE FIRM BUT NON TENDER TO PALP. CALL LIGHT IN REACH.
[2018-08-06 12:03] LABS: Hematocrit 27.2 % (37.0-53.0)
--- NOTE | 2018-08-06 18:48 | NUR ---
SHIFT SUMMARY. NO ACUTE CHANGES NOTED THIS SHIFT. PT HAS BEEN SLIGHLTY FEBRILE WITH TEMPS OF 100.1, TYLENOL WAS GIVEN AND TEMP CAME DOWN TO 98.9. PT HAS REFUSED TO GET OUT OF BED TODAY, PT WAS OFFERED SEVERAL TIMES TO GET UP IN THE CHAIR AND EACH TIME PT STATED "NO, I DON'T WANT TO." OR "NO I DON'T WANT IN THE CHAIR." WHEN ASKED WHY THE PT SAID: "I DON'T KNOW I AM JUST HAVING A BAD DAY." PT'S CATH STILL PATENT AND DRAINING DARK YELLOW URINE TO GRAVITY. PT HAS BEEN PULLING OFF HIS NC T/O THE DAY, WHEN THIS HAPPENS THE PT'S O2 SATS WILL DROP DOWN TO THE MID 80'S. A RED/BRUISED AREA WAS NOTED TO THE TOP OF THE PT'S NOSE WHERE HIS CPAP MASK SITS, PT STATED THAT IT HURTS, A GEL PAD IS AVAILABLE FOR THE CPAP TO PREVENT FURTHER PRESSURE SORES. CALL LIGHT IN REACH, BED IS LOCKED AND LOW WILL CONTINUE TO MONITOR UNTIL REPORT IS GIVEN TO ONCOMING RN.
[2018-08-07 04:42] LABS: BASOPHILS ABSOLUTE AUTO 0.02 K/mm3 (0.00-0.23); BASOPHILS PERCENT AUTO 0 % (0-2); EOSINOPHILS ABSOLUTE AUTO 0.06 K/mm3 (0.00-0.68); EOSINOPHILS PERCENT AUTO 1 % (0-6); Hemoglobin 7.9 g/dL (13.5-17.5); IMMATURE GRAN ABSOLUTE AUTO 0.04 K/mm3 (0.00-0.10); IMMATURE GRAN PERCENT AUTO 1 % (0-1); LYMPHOCYTES ABSOLUTE AUTO 0.99 K/mm3 (0.84-5.20); LYMPHOCYTES PERCENT AUTO 13 % (21-46); MONOCYTES ABSOLUTE AUTO 0.55 K/mm3 (0.16-1.47); MONOCYTES PERCENT AUTO 7 % (4-13); Mean Corpuscular HGB 28.9 pg (26.0-34.0); Mean Corpuscular HGB Conc 29.3 g/dL (31.5-36.5); Mean Platelet Volume 11.3 fL (9.1-12.4); NEUTROPHILS ABSOLUTE AUTO 5.88 K/mm3 (1.96-9.15); NEUTROPHILS PERCENT AUTO 78 % (41-73); Platelet Count 197 K/mm3 (150-400); RDW Coefficient Variation 17.1 % (11.7-14.2); RDW Standard Deviation 61.1 fL (35.1-46.3); Red Blood Cell Count 2.73 M/mm3 (4.30-5.90); White Blood Cell Count 7.54 K/mm3 (4.00-11.30)
[2018-08-07 04:49] LABS: Mean Corpuscular Volume 99 fL (80-100)
[2018-08-07 05:02] LABS: Albumin, Blood 2.3 g/dL (3.4-5.0); Anion Gap 3 mmol/L (6-16); Blood Urea Nitrogen 26 mg/dL (8-24); CO2, Blood 36 mmol/L (21-32); Calcium, Blood 8.7 mg/dL (8.5-10.1); Chloride, Blood 95 mmol/L (98-108); Creatinine, Blood 0.96 mg/dL (0.60-1.20); Glomerular Filtration Rate >60 (60-); Glucose, Blood 129 mg/dL (70-99); Phosphorus, Blood 3.4 mg/dL (2.5-4.9); Potassium, Blood 4.8 mmol/L (3.5-5.5); Sodium, Blood 134 mmol/L (136-145)
--- NOTE | 2018-08-07 06:30 | NUR ---
SHIFT SUMMARY PT HAS REMAINED AOX4 THROUGHOUT SHIFT, BUT IS SLOW TO RESPOND TO SOME ORIENTATION QUESTIONS . VSS. PLEASANT AND COOPERATIVE WITH CARE. PT HAS REMAINED ON BEDREST WITH Q2 TURNS AND GENERALIZED WEAKNESS. L EXTREMITIES REMAIN MORE EDEMATOUS THAN R- ELEVATED ON PILLOWS. O2 SATS HAVE REMAINED >90% ON 3L VIA NASAL CANNULA OR ON CPAP WITH 3-6L BLEED IN. PT WITH ONE EPISODE OF O2 DESATURATION TO MID-80'S WHILE ON CPAP WITH 3L O2 BLEED-IN THAT INCREASED WITHIN 30 SECONDS OF INCREASING O2 TO 6L. PT HAS REMAINED >90% SINCE. DENIES PAIN. DENIES FEELING DYSPNEIC. NO OTHER CHANGES NOTED FROM INITIAL ASSESSMENT. WILL CONTINUE TO MONITOR AND REPORT TO ONCOMING SHIFT RN. BED IN LOW POSITION, CALL LIGHT IN REACH. BED ALARM SET FOR SAFETY.
[2018-08-07 13:54] LABS: Hematocrit 27.5 % (37.0-53.0); Hemoglobin 8.1 g/dL (13.5-17.5)
--- NOTE | 2018-08-07 14:42 | NUR ---
Patient is lying in bed and alert. Patient answers short questions with even shorter answers. I provide companionship, a calming presence and held patients hand. Patient is alone with no family present. I continue to remain available to patient and family.
--- NOTE | 2018-08-07 16:56 | NUR ---
SHIFT SUMMARY PT RESTING IN BED THROUGHOUT THE DAY. VSS. ALERT AND ORIENTED TO SELF AND PLACE, FOLLOWING COMMANDS SLOWLY, BUT APPROPRIATELY. LUNG SOUNDS DIMINISHED THROUGHOUT, PT HAS MOIST COUGH THROUGHOUT THE DAY. OXYGEN SATURATION MID 90s ON 3L OXYGEN VIA NC. RIGHT PICC LINE FLUSHING AND DRAWING WELL. RIGHT ARM STRONG, LEFT ARM WEAK. BILATERAL LEGS WEAK, BUT PT IS MOVING THEM INDEPENDENTLY. MACEDO DRAINING CLEAR DARK YELLOW URINE. PEG TUBE CDI, TOLERATING TUBE FEEDS AND MEDICATIONS WELL. FAMILY IN FOR A VISIT THIS AFTERNOON. WILL CONTINUE TO MONITOR.
[2018-08-08 04:16] LABS: BASOPHILS ABSOLUTE AUTO 0.02 K/mm3 (0.00-0.23); BASOPHILS PERCENT AUTO 0 % (0-2); EOSINOPHILS ABSOLUTE AUTO 0.06 K/mm3 (0.00-0.68); EOSINOPHILS PERCENT AUTO 1 % (0-6); Hematocrit 25.4 % (37.0-53.0); Hemoglobin 7.6 g/dL (13.5-17.5); IMMATURE GRAN ABSOLUTE AUTO 0.03 K/mm3 (0.00-0.10); IMMATURE GRAN PERCENT AUTO 0 % (0-1); LYMPHOCYTES ABSOLUTE AUTO 1.15 K/mm3 (0.84-5.20); LYMPHOCYTES PERCENT AUTO 17 % (21-46); MONOCYTES ABSOLUTE AUTO 0.59 K/mm3 (0.16-1.47); MONOCYTES PERCENT AUTO 9 % (4-13); Mean Corpuscular HGB 29.2 pg (26.0-34.0); Mean Corpuscular HGB Conc 29.9 g/dL (31.5-36.5); Mean Corpuscular Volume 98 fL (80-100); Mean Platelet Volume 11.7 fL (9.1-12.4); NEUTROPHILS ABSOLUTE AUTO 5.11 K/mm3 (1.96-9.15); NEUTROPHILS PERCENT AUTO 73 % (41-73); Platelet Count 185 K/mm3 (150-400); RDW Coefficient Variation 17.3 % (11.7-14.2); White Blood Cell Count 6.96 K/mm3 (4.00-11.30)
[2018-08-08 04:33] LABS: Albumin, Blood 2.3 g/dL (3.4-5.0); Anion Gap 3 mmol/L (6-16); Blood Urea Nitrogen 26 mg/dL (8-24); Bun/Creatinine Ratio 24.1 (12.0-20.0); CO2, Blood 37 mmol/L (21-32); Calcium, Blood 8.7 mg/dL (8.5-10.1); Chloride, Blood 97 mmol/L (98-108); Creatinine, Blood 1.08 mg/dL (0.60-1.20); Glomerular Filtration Rate >60 (60-); Glucose, Blood 95 mg/dL (70-99); Phosphorus, Blood 2.8 mg/dL (2.5-4.9); Potassium, Blood 4.4 mmol/L (3.5-5.5); Sodium, Blood 137 mmol/L (136-145)
--- NOTE | 2018-08-08 05:12 | NUR ---
SHIFT SUMMARY PT HAS REMAINED ORIENTED TO SELF, PLACE, YEAR AND FOLLOWING DIRECTIONS THROUGHOUT THE NIGHT. VSS. PLEASANT AND COOPERATIVE WITH CARE. O2 SATS HAVE REMAINED >90% ON RA WHILE AWAKE. PT WITH ONE EPISODE OF O2 DESATURATION WHEN FALLING ASLEEP WITH BIPAP IN PLACE WITH NO O2 BLEED-IN; O2 BLEED-IN INCREASED TO 2-4L WHILE SLEEPING AND SATS INCREASED TO >90% WIHTIN ONE MINUTE. PT WITH NO DISTRESS NOTED WITH DESATURATION. PT MOVING BOTH LEGS AND RIGHT ARM WELL WHEN PROMPTED, BUT REMAINS FAIRLY WEAK. LUE MORE WEAK THAN R AND REQUIRES ENCOURAGEMENT TO MOVE IT. PT HAS TOLERATED BOLUS TUBE FEEDING AND MED ADMINISTRATION WELL. DENIES PAIN OR DYSPNEA. NO OTHER CHANGES NOTED FROM INITIAL ASSESSMENT. WILL CONTINUE TO MONITOR AND REPORT TO ONCOMING SHIFT RN. BED IN LOW POSITION, CALL LIGHT IN REACH. BED ALARM SET FOR SAFETY.
[2018-08-08 09:09] LABS: Percent Saturation 12.5 % (20.0-50.0)
--- NOTE | 2018-08-08 11:45 | NUR ---
SPOKE TO KIKO RE: VISITORS. KIKO STATES STAFF TO ASK THE PT IF HE FEELS UP TO VISITORS WHEN THEY ARRIVE. STATES NO ONE NEEDS TO RECEIVE UPDATES OVER THE PHONE. WILL UPDATE STAFF OF THIS INFORMATION. 1322 SISTER AND MOTHER HERE TO SEE PT, PT AGREEABLE TO SEEING FAMILY.
--- NOTE | 2018-08-08 12:00 | NUR ---
Patient is more verbal today and is speaking in longer sentences. I brought my guitar up to patient's room and provided music from several different genres and patient responded well to all of music but would tap on rhythm to the upbeat songs and smile. Patient voiced appreciation for the music.
--- NOTE | 2018-08-08 17:50 | NUR ---
SHIFT SUMMARY PT RESTING IN BED THROUGHOUT THE DAY. VSS. ALERT AND ORIENTED TO SELF ONLY, FOLLOWING COMMANDS SLOWLY, BUT APPROPRIATELY. DENIES PAIN THROUGHOUT THE DAY. LUNG SOUNDS COARSE THROUGHOUT, PT HAS A MOIST COUGH BUT IS UNABLE TO BRING UP SECRETIONS AT THIS TIME. ON ROOM AIR, OXYGEN SATURATIONS 90%. PLACED ON 1L OXYGEN VIA NC WHEN SATURATIONS BELOW 90%. SATURATIONS MID 95% ON 1L NC. 2+ EDEMA TO LEFT ARM, 1+ PITTING EDEMA TO RIGHT LEG, TRACE EDEMA TO LEFT LEG. WEAKNESS NOTED TO LEFT ARM AND RIGHT LEG, BUT PT IS ABLE TO MOVE THIS EXTREMITIES SLOWLY WHEN ASKED. PT TOLERATING TUBE FEEDS WELL. PT UP TO RECLINER THIS EVENING VIA OVERHEAD LIFT. PT RESTING IN CHAIR, NO NEEDS AT THIS TIME. WILL CONTINUE TO MONITOR.
[2018-08-09 05:29] LABS: BASOPHILS ABSOLUTE AUTO 0.02 K/mm3 (0.00-0.23); BASOPHILS PERCENT AUTO 0 % (0-2); EOSINOPHILS ABSOLUTE AUTO 0.08 K/mm3 (0.00-0.68); EOSINOPHILS PERCENT AUTO 1 % (0-6); Hematocrit 29.5 % (37.0-53.0); Hemoglobin 8.9 g/dL (13.5-17.5); IMMATURE GRAN ABSOLUTE AUTO 0.04 K/mm3 (0.00-0.10); IMMATURE GRAN PERCENT AUTO 1 % (0-1); LYMPHOCYTES ABSOLUTE AUTO 1.06 K/mm3 (0.84-5.20); LYMPHOCYTES PERCENT AUTO 16 % (21-46); MONOCYTES ABSOLUTE AUTO 0.69 K/mm3 (0.16-1.47); MONOCYTES PERCENT AUTO 10 % (4-13); Mean Corpuscular HGB Conc 30.2 g/dL (31.5-36.5); Mean Corpuscular Volume 96 fL (80-100); Mean Platelet Volume 11.3 fL (9.1-12.4); NEUTROPHILS ABSOLUTE AUTO 4.86 K/mm3 (1.96-9.15); NEUTROPHILS PERCENT AUTO 72 % (41-73); Platelet Count 185 K/mm3 (150-400); RDW Coefficient Variation 17.9 % (11.7-14.2); RDW Standard Deviation 62.1 fL (35.1-46.3); Red Blood Cell Count 3.07 M/mm3 (4.30-5.90); White Blood Cell Count 6.75 K/mm3 (4.00-11.30)
[2018-08-09 05:54] LABS: Albumin, Blood 2.4 g/dL (3.4-5.0); Anion Gap 1 mmol/L (6-16); Blood Urea Nitrogen 23 mg/dL (8-24); Bun/Creatinine Ratio 20.5 (12.0-20.0); CO2, Blood 38 mmol/L (21-32); Calcium, Blood 8.8 mg/dL (8.5-10.1); Chloride, Blood 99 mmol/L (98-108); Creatinine, Blood 1.12 mg/dL (0.60-1.20); Glomerular Filtration Rate >60 (60-); Glucose, Blood 53 mg/dL (70-99); Phosphorus, Blood 4.6 mg/dL (2.5-4.9); Potassium, Blood 4.4 mmol/L (3.5-5.5); Sodium, Blood 138 mmol/L (136-145)
--- NOTE | 2018-08-09 06:13 | NUR ---
SHIFT SUMMARY PT HAS REMAINED ORIENTED TO SELF AND FOLLOWING DIRECTIONS THROUGHOUT SHIFT. FORGETFUL OF EVENT/PLACE/TIME. VERY PLEASANT AND COOPERATIVE WITH CARE. VSS. LUNG SOUNDS REMAIN COARSE IN THE UPPER LOBES, DIMINISHED IN THE BASES WITH MOIST, NON-PRODUCTIVE COUGH. PT ENCOURAGED TO COUGH AND WILL OCCASIONALLY. O2 SATS HAVE REMAINED >90% ON RA WHILE AWAKE. CPAP IN PLACE WITH 5L BLEED-IN WHILE SLEEPING AFTER SHORT DESATURATIONS TO THE MID 80'S DURING APNEIC PERIODS. BLOOD SUGAR THIS AM OF 49 MG/DL, 12.5 GRAMS IV DEXTROSE GIVEN DUE TO PATIENT'S NPO STATUS. UNABLE TO TELL IF PATIENT IS SYMPTOMATIC DUE TO MENTAL STATUS- NO APPARENT CHANGE IN MENTATION OR DEMEANOR. NO OTHER CHANGES NOTED FROM INITIAL ASSESSMENT. WILL CONTINUE TO MONITOR AND REPORT TO ONCOMING SHIFT RN. BED IN LOW POSITION, CALL LIGHT IN REACH. BED ALARM SET FOR SAFETY.
--- NOTE | 2018-08-09 08:35 | NUR ---
NURSING PCU DAYSHIFT: Assumed care of pt at approx 0700. Oriented to self, family, following commands, forgets limitations. Denies any pain/discomfort. Skin is fragile, scattered bruising on ext's, redness to ngozi area. No tele in place, SBP 120's, no c/o CP/pressure, 1-3+ BLE edema (R>L) and trace general edema. L/S coarse in upper lobes, diminished t/o, respirations shallow w/pursed lip breathing, O2 sat upper 90's on RA, continuous bedside O2 monitoring. Abd distended and firm, BT+, PEG tube present in upper abd w/bolus feeds scheduled, FC w/stat lock present and draining. PICC line present in RUE, s/l. No s/s of acute distress at this time. Seen by PMD, new d/o received. Plan for discharge this afternoon if CBGs remain stable. No current needs identified, call light in reach, cont to monitor for changes.
--- NOTE | 2018-08-09 14:56 | NUR ---
NURSING PCU DISCHARGE SUMMARY: Seen by PMD this a.m. Discharge home d/o received. CBG's stable during Q1-2 hr checks. Family at bedside this a.m., plan of care discussed, all questions addressed. Pt antipating discharge from hospital though unable to have complete understanding of plan for rehab. Worked w/P.T., able to stand at bedside x3 this a.m., tolerated well. ST at bedside for eval, tolerated "[employer]" with assistance, remains NPO at this time, should receive f/u from facility. No s/s of acute distress at this time. Pt appears in good spirits. Transport scheduled for approx 1630, monitor until discharge is completed.
--- NOTE | 2018-08-09 15:02 | NUR ---
Patient is more talkative today. I ask patient if he is leaving the hospital today and he affirms that he is and that he is going to [facility] [place]. Patient says that he is ready. Patient says that he'll remembers me. I tell patient that he will be missed but I wish him well. I provide companionship and prayer. I pray a prayer of blessing ang healing for him and his family.
== END 2018-08-09 18:16 | DRG 870 ==
LOC: DELPENDDIS → ER 07:41 → ICUW 09:56 → PCU 09:56 → ICUE 09:56 → ICUW 07-12 17:15 → MEDS 07-13 18:10 → ENPENDDIS 07-19 09:41 → ICUW 07-19 11:21 → PCU 07-21 17:58
PROVIDERS: Emergency Medicine; Family Medicine; Internal Medicine; Internal Medicine Critical Care Medicine; Internal Medicine Pulmonary Disease; Pharmacist Critical Care; ADMIT Internal Medicine
PROC: 5A1955Z Respiratory Ventilation, Greater than 96 Consecutive Hours (ICD-10-PCS; principal; 2018-06-28)
PROC: 0BH17EZ Insertion of Endotracheal Airway into Trachea, Via Natural or Artificial Opening (ICD-10-PCS; 2018-06-28)
PROC: 0DH63UZ Insertion of Feeding Device into Stomach, Percutaneous Approach (ICD-10-PCS; 2018-07-24)
PROC: 30233N1 Transfusion of Nonautologous Red Blood Cells into Peripheral Vein, Percutaneous Approach (ICD-10-PCS; 2018-08-08)
DX: A41.9 Sepsis, unspecified organism (principal); J96.01 Acute respiratory failure with hypoxia; I50.33 Acute on chronic diastolic (congestive) heart failure; G92 Toxic encephalopathy; J14 Pneumonia due to Hemophilus influenzae; I63.9 Cerebral infarction, unspecified; I13.0 Hypertensive heart and chronic kidney disease with heart failure and stage 1 through stage 4 chronic kidney disease, or unspecified chronic kidney disease; J44.1 Chronic obstructive pulmonary disease with (acute) exacerbation; E87.1 Hypo-osmolality and hyponatremia; N17.9 Acute kidney failure, unspecified; N13.4 Hydroureter; R65.20 Severe sepsis without septic shock; I48.2 Chronic atrial fibrillation; I25.10 Atherosclerotic heart disease of native coronary artery without angina pectoris; N18.3 Chronic kidney disease, stage 3 (moderate); E11.22 Type 2 diabetes mellitus with diabetic chronic kidney disease; G47.33 Obstructive sleep apnea (adult) (pediatric); R33.9 Retention of urine, unspecified; Z95.5 Presence of coronary angioplasty implant and graft; Z79.01 Long term (current) use of anticoagulants; E11.649 Type 2 diabetes mellitus with hypoglycemia without coma; Z95.0 Presence of cardiac pacemaker; A49.01 Methicillin susceptible Staphylococcus aureus infection, unspecified site; D64.9 Anemia, unspecified; I95.9 Hypotension, unspecified
CPT/HCPCS: 31500; 31720; 36415; 36430; 36569; 36600; 51702; 70450; 70496; 71045; 71046; 74176; 76770; 80048; 80053; 80069; 80076; 80202; 81001; 81003; 82140; 82533; 82607; 82728; 82746; 82803; 82947; 83540; 83550; 83605; 83690; 83735; 83880; 84100; 84145; 84443; 84484; 85014; 85018; 85025; 85610; 85651; 86038; 86160; 86225; 86235; 86850; 86900; 86901; 86923; 87040; 87070; 87075; 87077; 87086; 87147; 87185; 87186; 87205; 87486; 87581; 87633; 87798; 92507; 92523; 92526; 92610; 93005; 93010; 93306; 93970; 94002; 94003; 94640; 94660; 94667; 94668; 94762; 95819; 96365-59; 96366; 96375-59; 97110; 97112; 97163; 97164; 97166; 97168; 97530; 97535; 99285-25; A9270; A9270-GY; C1751; C1769; C9113; J0171; J0360; J0456; J0696; J1200; J1630; J1644; J1650; J1815; J1940; J1956; J2060; J2250; J2704; J2920; J3010; J3370; J3430; J7030; J7042; J7050; J7060; J7070; J7120; J7512; J7799; P9016; P9041; P9046; Q9967

== ENCOUNTER 2018-08-14 09:33 | Inpatient (IN) | payer OTHER ==
[~2018-08-14] VITALS: Ht 182.9 cm; Wt 116.4 kg
[~2018-08-14 09:33] MED LIST changes: +ACET325UDC PT; +ALBU2.5V5 NEB; +ASCO500 PT; +ATOR40TA PT; +BISA10S PR; +Docu Liqui50 MG/5 ML PT; +FEROSUL300 MG/6.8 PT; +HUMALOG KWIKPEN SC; +HYDRA50 PT; +INSULANPEN SC; +ISODIN10 PO; +MELATONIN5 M1 PT; +MODA200 PT; +OMEPRAZOLE PT; +ONDA4ODT MM; +Pedi-Dri 100,0060 GM TOP; +VENL25 PT; +XARELTO20 MG PT
[2018-08-14 10:06] LABS: PO2 Arterial 69.6 mmHg (80-100)
[2018-08-14 10:07] LABS: PCO2 Arterial 104 mmHg (35-45); pH Blood Arterial 7.18 (7.35-7.45)
[2018-08-14 10:14] LABS: BASOPHILS ABSOLUTE AUTO 0.02 K/mm3 (0.00-0.23); BASOPHILS PERCENT AUTO 0 % (0-2); EOSINOPHILS ABSOLUTE AUTO 0.04 K/mm3 (0.00-0.68); EOSINOPHILS PERCENT AUTO 1 % (0-6); Hematocrit 35.2 % (37.0-53.0); Hemoglobin 9.8 g/dL (13.5-17.5); IMMATURE GRAN ABSOLUTE AUTO 0.11 K/mm3 (0.00-0.10); IMMATURE GRAN PERCENT AUTO 1 % (0-1); LYMPHOCYTES ABSOLUTE AUTO 1.05 K/mm3 (0.84-5.20); LYMPHOCYTES PERCENT AUTO 13 % (21-46); MONOCYTES ABSOLUTE AUTO 0.53 K/mm3 (0.16-1.47); MONOCYTES PERCENT AUTO 6 % (4-13); Mean Corpuscular HGB 29.2 pg (26.0-34.0); Mean Corpuscular HGB Conc 27.8 g/dL (31.5-36.5); Mean Platelet Volume 11.8 fL (9.1-12.4); NEUTROPHILS ABSOLUTE AUTO 6.58 K/mm3 (1.96-9.15); NEUTROPHILS PERCENT AUTO 79 % (41-73); Platelet Count 196 K/mm3 (150-400); RDW Coefficient Variation 16.5 % (11.7-14.2); RDW Standard Deviation 64.1 fL (35.1-46.3); Red Blood Cell Count 3.36 M/mm3 (4.30-5.90); White Blood Cell Count 8.33 K/mm3 (4.00-11.30)
[2018-08-14 10:21] LABS: Mean Corpuscular Volume 105 fL (80-100)
[2018-08-14 10:31] LABS: Troponin I <0.015 ng/mL (0.000-0.040)
[2018-08-14 10:34] LABS: Alanine Aminotransfer (ALT/SGP 49 U/L (12-78); Albumin, Blood 2.6 g/dL (3.4-5.0); Albumin/Globulin Ratio 0.6 (0.8-1.8); Alk Phos 137 U/L (50-136); Anion Gap 1 mmol/L (6-16); Aspartate Aminotrans (AST/SGOT 20 U/L (12-37); Bilirubin, Total 0.6 mg/dL (0.1-1.0); Blood Urea Nitrogen 33 mg/dL (8-24); Bun/Creatinine Ratio 23.2 (12.0-20.0); CO2, Blood 35 mmol/L (21-32); Calcium, Blood 8.8 mg/dL (8.5-10.1); Chloride, Blood 99 mmol/L (98-108); Creatinine, Blood 1.42 mg/dL (0.60-1.20); Globulin, Blood 4.2 g/dL (2.2-4.0); Glomerular Filtration Rate 53 (60-); Glucose, Blood 225 mg/dL (70-99); Potassium, Blood 6.4 mmol/L (3.5-5.5); Sodium, Blood 135 mmol/L (136-145); Total Protein, Blood 6.8 g/dL (6.4-8.2)
[2018-08-14 10:47] LABS: PCO2 Arterial 100 mmHg (35-45); PO2 Arterial 55.3 mmHg (80-100)
[2018-08-14 12:08] LABS: Source, Urine Catheter
[2018-08-14 12:16] LABS: Bilirubin, Urine Neg (Neg); Blood, Urine 4+ (Neg); Glucose Qualitative, Urine Neg (Neg); Ketones, Urine Neg (Neg); Leukocyte Esterase, Urine 3+ (Neg); Nitrite, Urine Neg (Neg); Protein, Urine 3+ (Neg); Specific Gravity, Urine 1.015 (1.003-1.022); Urobilinogen, Urine NORM (Normal)
[2018-08-14 12:24] LABS: PCO2 Arterial 102 mmHg (35-45); PO2 Arterial 80.2 mmHg (80-100); pH Blood Arterial 7.17 (7.35-7.45)
[2018-08-14] MEDS ORDERED: FLUT1DIS2 INH (12:55)
[2018-08-14 13:17] LABS: Appearance, Urine Hazy (Clear); Color, Urine Yellow (P-Yellow)
[2018-08-14 13:20] LABS: White Blood Cells, Urine 25-50 /hpf (0-5); Yeast/Fungi Urine Mod /hpf
[2018-08-14 13:21] LABS: Bacteria Mod /hpf; Red Blood Cells, Urine 25-50 /hpf (0-2); Squamous Epithelial Cells Many /hpf (Few)
[2018-08-14 13:47] LABS: PCO2 Arterial 91.8 mmHg (35-45); PO2 Arterial 64.6 mmHg (80-100); pH Blood Arterial 7.21 (7.35-7.45)
--- NOTE | 2018-08-14 14:20 | NUR ---
ARRIVAL TO ICU Assumed care with Joyce RN upon pt arrival to ICU at 1114. Pt arrived accompanied by RT and ED RN. Transferred from ED rbarnhart to ICU bed using slider sheet and 5 staff. Pt arrived wearing BiPAP 22/8 with 45% FiO2. Pt responds to pain- opens eyes and moans. Pt does not follow commands. Right pupil obstructed by cataract and not well visualized. Left pupil 2 mm and not responsive to light. Soler catheter present on admit. Catheter removed. Temp Soler placed and urinalysis sent. Clamped PEG tube noted to abdomen. Moderate amount of green, milky, drainage noted to drain sponge. Site cleaned and new drain sponge applied. 100% ventricular paced with rate at 60 per monitor. Field start IV to right hand saline locked. 20 ga IV to left lateral AC infusing with NS bolus and vancomycin upon arrival; site leaking. 18 ga IV placed to left AC by Joyce RN. Powerglide midline placed to TIM by Rayna HAMMER. Dr Elise in to see pt. Discussed asymmetrical BLE edema, 4+ to RLE and 3+ to LLE. Provider stated plan to order venous doppler of RLE. Provider also notified this RN of orders he entered for labs and fluids. Provider also stated Dr Snyder has been consulted. Dr Snyder in to see patient shortly afterwards. Provider stated to not administer ordered IV fluids until further notice. Stated plan for repeat ABG at 1230. This RN discussed 1230 ABG results with provider. Provider stated plan for repeat ABG at 1330. Provider increased IPAP to 24. This RN discussed changes and plan with RTNasrin. Family updated on plan of care. Family pointed out dry skin under pt's mouth, beneath BiPAP mask, and asked if patient could have a mouth swab. This RN discussed importance of keeping mask in place due to ABG results and risk for potential intubation. Family verbalized understanding. Powerglide replaced with PICC line by Karina HAMMER. Placement verification received from radiologist prior to accessing line. Line utilized to draw one set of blood cultures and BMP. 1330 ABG results discussed with Dr Snyder. Provider stated plan for redraw at 1600 and reinforced need to keep BiPAP in place. Family updated on plan of care. Blood consent and verbal release of information documents completed with pt's spouse, Kusum. Currently, pt is resting in bed with BiPAP in place. Pt is tolerating BiPAP well. Will continue to closely monitor.
[2018-08-14 14:43] LABS: Bun/Creatinine Ratio 22.2 (12.0-20.0); Calcium, Blood 9.2 mg/dL (8.5-10.1); Creatinine, Blood 1.44 mg/dL (0.60-1.20); Potassium, Blood 5.3 mmol/L (3.5-5.5)
[2018-08-14 16:13] LABS: PCO2 Venous 70.1 mmHg (38-42); PO2 Venous 44.6 mmHg (38-42); pH Blood Venous 7.33 (7.34-7.37)
[2018-08-14 16:54] LABS: Bun/Creatinine Ratio 22.5 (12.0-20.0); Calcium, Blood 9.1 mg/dL (8.5-10.1); Creatinine, Blood 1.42 mg/dL (0.60-1.20); Potassium, Blood 5.1 mmol/L (3.5-5.5)
--- NOTE | 2018-08-14 18:27 | NUR ---
SHIFT SUMMARY No acute changes since last note. Pt has remained on BiPAP for entire time since arrival to ICU. Pt continues to tolerate BiPAP well. 24/8 55% FiO2, O2 saturations 96%. NS infusing into PICC line at 75 mL/hr. Pt has not gotten OOB this shift. Bedbath provided, pt tolerated well. Will continue to closely monitor until care handoff and bedside report with oncoming RN.
--- NOTE | 2018-08-14 19:15 | NUR ---
ASSUMING CARE OF PT AT THIS TIME. PT REPORT RECEIVED AT BEDSIDE WITH OFFGOING NURSE, KEE HAMMER. PT LAYING IN BED, SLEEPING, BIPAP ON. VS STABLE (SEE VS FS). PT DOES NOT APPEAR TO BE IN DISTRESS AT THIS TIME. WILL REVIEW PLAN OF CARE.
--- NOTE | 2018-08-14 19:30 | NUR ---
ASSESSMENT PT RESPONDS TO PAINFUL AND VERBAL STIMULI, OPENS EYES TO SOUND, A&O TO SELF, FOLLOWS SOME COMMANDS (ABLE TO HOSPITAL RECEPTIONIST WITH HANDS ON COMMAND), MOANS, DOES NOT ANSWER QUESTIONS, DOES NOT NOD HEAD Y/N TO QUESTIONS, WITHDRAWN. HAIDER SENSATION. PT HENNING. GENEARLIZED WEAKNESS. MINIMAL MOVEMENT. NO S/SX OF PAIN/DISCOMFORT NOTED. LUNGS DIMINISHED T/O. SHALLOW BREATHING. BIPAP 24/8, FIO2 55%. OXY SAT >95%> RR 18. NO SOB. OCC NONPRODUCTIVE COUGH. TEMP 99.9 - DECREASED ROOM TEMP, TURNED FAN ON, BLANKETS REMOVED. 100% V-PACED AND BBB. HR 60'S. BP STABLE - SEE VS FS. STRONG RADIAL PULSES. FAINT TIBIAL AND PEDAL PULSES. EDEMA NOTED. WARM, PALE SKIN. ACTIVE BT X4 QUADRANTS. ABD MOD DIST, SOFT, NONTENDER. NO N/V. NO BM. PEG TUBE - CLAMPED. F/C IN PLACE: CLOUDY, SEDIMENT, DARK YELLOW URINE NOTED. PIV X1 - SL. PICC TIM. NS @ 75 ML/HR. NS TKO AT 10 ML/HR.
--- NOTE | 2018-08-15 00:26 | NUR ---
DR. CAPONE CALLED DR. CAPONE. PT PULLING AT LINES/CORDS/TUBES, REMOVING BP CUFF, REMOVING TELE, REMOVING SPO2 MONITORING, REMOVING GOWN. DR. CAPONE ORDERED BILAT WRIST RESTRAINTS. PT PLACED IN SOFT BILAT WRIST RESTRAINTS TO PROTECT VITAL LINES/CORDS/TUBES. INCREASING TEMP TO 100.[address] CAPONE ORDERED TYLENOL PRN. WAITING FOR VERIFICATION OF MEDICATION FROM PHARMACY AT THIS TIME.
[2018-08-15 03:26] LABS: Bicarbonate Venous 32.9 mmol/L (24.0-30.0); PCO2 Venous 67.5 mmHg (38-42); PO2 Venous 72.6 mmHg (38-42); pH Blood Venous 7.34 (7.34-7.37)
[2018-08-15 03:27] LABS: Base Excess Venous 10.4 mmol/L
[2018-08-15 03:37] LABS: Hematocrit 26.5 % (37.0-53.0); Hemoglobin 7.6 g/dL (13.5-17.5); Mean Corpuscular HGB 29.2 pg (26.0-34.0); Mean Corpuscular HGB Conc 28.7 g/dL (31.5-36.5); Mean Platelet Volume 11.9 fL (9.1-12.4); Platelet Count 140 K/mm3 (150-400); RDW Coefficient Variation 15.9 % (11.7-14.2); RDW Standard Deviation 59.7 fL (35.1-46.3); White Blood Cell Count 4.94 K/mm3 (4.00-11.30)
[2018-08-15 03:40] LABS: Mean Corpuscular Volume 102 fL (80-100)
[2018-08-15 03:56] LABS: Anion Gap 1 mmol/L (6-16); Blood Urea Nitrogen 30 mg/dL (8-24); Bun/Creatinine Ratio 24.4 (12.0-20.0); CO2, Blood 37 mmol/L (21-32); Calcium, Blood 8.7 mg/dL (8.5-10.1); Chloride, Blood 104 mmol/L (98-108); Creatinine, Blood 1.23 mg/dL (0.60-1.20); Glomerular Filtration Rate >60 (60-); Glucose, Blood 92 mg/dL (70-99); Phosphorus, Blood 3.1 mg/dL (2.5-4.9); Potassium, Blood 4.6 mmol/L (3.5-5.5); Sodium, Blood 142 mmol/L (136-145)
--- NOTE | 2018-08-15 04:17 | NUR ---
SHIFT ASSESSMENT NO ACUTE CHANGES NOTED T/O SHIFT. PT RESPONDS TO PAINFUL AND VERBAL STIMULI, OPENS EYES TO SOUND, OCC OPENS EYES SPONTANEOUSLY, A&O TO SELF AND PLACE, FOLLOWING MORE COMMANDS THIS AM (ABLE TO BARTACKER WITH HANDS AND WIGGLE TOES ON COMMAND), SLOW TO RESPOND, ANSWERING SOME QUESTIONS, NODDED HEAD Y/N TO SOME QUESTIONS, WITHDRAWN. PT SLEPT ON AND OFF T/O SHIFT. INCREASING LOC NOTED T/O SHIFT. PT C/O CHRONIC N/T TO ALL EXTREMETIES. PT HENNING. GENERALIZED WEAKNESS. INCREASING MOVEMENT T/O SHIFT. PT RESTLESS IN BED WHEN AWAKE. NO S/SX OF PAIN/DISCOMFORT. PT DENIES PAIN/DISCOMFORT. PT ATTEMPTING TO GET OOB, RESTLESS, AGITATED, CONTINOUSLY MOVING IN BED, YELLING OUT FOR STAFF, PULLING AT BILAT WRIST RESTRAINTS. PT REMAINED IN SOFT BILAT WRIST RESTRAINTS TO PROTECT VITAL LINES/CORDS/TUBES. LUNGS DIMINISHED T/O. SHALLOW BREATHING. BIPAP SETTINGS CHANGED BY SHONNA, RT TO 18/8, FIO2 45%. CONT TO TITRATE FIO2 TO MAINTAIN SPO2. RR 13 TO 20'S. NO SOB. OCC NONPRODUCTIVE COUGH. TMAX 100.2 - ROOM TEMP DECREASED, TURNED REMAINED ON, BLANKETS OFF, TYLENOL PRN. CURRENTLY AFEBRILE. 100% V-PACED WITH BBB AT BEGINNING OF THE SHIFT. CONVERTED TO AFIB WITH BBB AND OCC V-PACEMAKER SPIKLES. INCREASED BP NOTED WITH AGITATION AND RESTLESSNESS IN PLACE. OTHERWISE, BP STABLE (SEE VS FS). STRONG RADIAL PULSES. FAINT TIBIAL AND PEDAL PULSES. EDEMA NOTED. WARM, PALE SKIN. ACTIVE BT X4 QUADRANTS. ABD MOD DIST, SOFT, NONTENDER. NO N/V. NO BM. NPO D/T ASPIRATION PRECAUTIONS. PEG TUBE - CLAMPED. DRESSING AROUND PEG TUBE REMAINED C/D/I. F/C IN PLACE: CLOUDY, SEDIMENT, DARK YELLOW URINE. PIV X1 - SL. PICC TIM. NS AT 75 ML/HR. NS TKO ON STANDBY. WILL CONT TO MONITOR PT AND WILL PROVIDE BEDSIDE REPORT TO ONCOMING NURSE THIS AM.
--- NOTE | 2018-08-15 07:10 | NUR ---
Recieved report Kelsey HAMMER. Patient laying on left side sleeping with BIPAP in place 18/5, 45% FiO2 and sats 97%. He is decreased t/o. He has PICC line TIM and is infusing NS at 75ml/hr. He has temp yepez 16Fr. in place draining to gravity yellow urine HR 70's occassionaly paced with systolics in the 130's. Patient has bilateral SCD's in place. Will assess more when patient awakes
--- NOTE | 2018-08-15 09:30 | NUR ---
Patient starting to awaken. He is able to communicate his needs. Dr Snyder in room with patient and he is able to answer simple questions, denies breathing difficulties and pain. PEG tube site C/D/I and will be getting dietary consult to restart tube feedings. We took of BIPAP and place on High Flow 40/40 and he sats 98%.
--- NOTE | 2018-08-15 11:30 | NUR ---
CBG 79, no coverage needed. He is calling out more often and is redirectable. Remains in restraints and he is pulling at line and tubes and not really aware. He contineus High Flow O2 and sats 98%. He positions self in bed. He has temp 100.[address] fan on him which is up from 98.8.
--- NOTE | 2018-08-15 13:30 | NUR ---
has gone home. He continues to yell out and needs re-direction frequently He remains on High Flow O2 at 40/40 and sats high 90%. He is flopping around in bed and needs constant re adjustment. No other signifcant changes.
--- NOTE | 2018-08-15 15:30 | NUR ---
NO significant changes with patient from last note
--- NOTE | 2018-08-15 18:00 | NUR ---
Medicated patient for anxiety and he has relaxed a little better. His son has been at bedside and that calms him down. His mother and other family was buy as well and he talked with them. He constantly kicks his feet around and trys to reach things with restraints on. He thrashes head around and his High Flow O@ comes off frequently and have to go to room and reapply. While on High Flow O2 he sats upper 90%'s HR 60's with frequent pacer spikes. He has SCD's off per request for a little bit. Start bolus feeding tonite. PICC TIM dressing intact and site WNL's.
--- NOTE | 2018-08-15 21:23 | NUR ---
PATIENT AWAKE YELLING OUT, UNABLE TO SIT STILL. PATIENT UNABLE TO VERBALIZE WHAT HE IS WANTING. HAVING CONFUSED CONVERSATION. PATIENT PULLING AT LINES AND CORDS AND ABLE TO REMOVE OXYGEN DESPITE BILAT WRIST RESTRAINTS. PATIENT INCONT OF STOOL WITH COMPLETE BED CHANGE TWICE ALREADY THIS SHIFT. ATTEMPTING TO PLACE BED MARADIAGA UNSUCCESSFUL. AIRVO IN PLACE SET AT 40L AND 40% FIO2. BIPAP 14/8 NEEDED. PEG TUBE IN PLACE TO LEFT UPPER ABD AND CLAMPED AT THIS TIME. PLAN TO START BOLUS FEEDINGS TONIGHT. AFTER BED CHANGE PATIENT HAVING FREQUENT PVC ON HEART MONITOR AND C/O NAUSEA. ZOFRAN AND ATIVAN GIVEN TO HELP WITH NAUSEA AND TO HELP PATIENT RELAX. PATIENT NOW MORE RELAXED CONTINUES TO YELL OUT OCCASIONALLY TO STAFF. NO LONGER C/O NAUSEA.
[2018-08-15 22:46] LABS: Vancomycin, Trough 11.1 ug/mL (5.0-10.0)
--- NOTE | 2018-08-16 02:40 | NUR ---
AT 0015 DOCTOR LIBORIO NOTIFIED OF PATIENT INCREASED AGITATION AND CONFUSION DESPITE CURRENT ATIVAN ORDER. PATIENT NOW RESTING QUIETLY WITH BIPAP IN PLACE
[2018-08-16 04:37] LABS: BASOPHILS ABSOLUTE AUTO 0.02 K/mm3 (0.00-0.23); BASOPHILS PERCENT AUTO 0 % (0-2); EOSINOPHILS ABSOLUTE AUTO 0.09 K/mm3 (0.00-0.68); EOSINOPHILS PERCENT AUTO 2 % (0-6); Hematocrit 28.1 % (37.0-53.0); Hemoglobin 8.1 g/dL (13.5-17.5); IMMATURE GRAN ABSOLUTE AUTO 0.04 K/mm3 (0.00-0.10); IMMATURE GRAN PERCENT AUTO 1 % (0-1); LYMPHOCYTES ABSOLUTE AUTO 0.87 K/mm3 (0.84-5.20); LYMPHOCYTES PERCENT AUTO 15 % (21-46); MONOCYTES ABSOLUTE AUTO 0.46 K/mm3 (0.16-1.47); MONOCYTES PERCENT AUTO 8 % (4-13); Mean Corpuscular HGB 28.7 pg (26.0-34.0); Mean Corpuscular HGB Conc 28.8 g/dL (31.5-36.5); Mean Corpuscular Volume 100 fL (80-100); Mean Platelet Volume 11.4 fL (9.1-12.4); NEUTROPHILS PERCENT AUTO 75 % (41-73); Platelet Count 162 K/mm3 (150-400); RDW Coefficient Variation 16.4 % (11.7-14.2); RDW Standard Deviation 58.7 fL (35.1-46.3); Red Blood Cell Count 2.82 M/mm3 (4.30-5.90); White Blood Cell Count 5.98 K/mm3 (4.00-11.30)
[2018-08-16 04:53] LABS: Anion Gap 3 mmol/L (6-16); Blood Urea Nitrogen 25 mg/dL (8-24); Bun/Creatinine Ratio 21.7 (12.0-20.0); CO2, Blood 34 mmol/L (21-32); Calcium, Blood 8.7 mg/dL (8.5-10.1); Chloride, Blood 107 mmol/L (98-108); Creatinine, Blood 1.15 mg/dL (0.60-1.20); Glomerular Filtration Rate >60 (60-); Glucose, Blood 158 mg/dL (70-99); Phosphorus, Blood 3.7 mg/dL (2.5-4.9); Potassium, Blood 4.6 mmol/L (3.5-5.5); Sodium, Blood 144 mmol/L (136-145)
--- NOTE | 2018-08-16 07:14 | NUR ---
SUMMARY PATIENT RESTLESS AND IMPULSIVE WHEN AWAKE WITH AIRVO IN PLACE. BIPAP IN PLACE SET AT 14/8 WHILE SLEEPING. PEG TUBE IN PLACE FOR BOLUS FEEDING AND MEDS. PATIENT REQUESTING PO FLUIDS FREQUENTLY T/O NIGHT DESPITE FREQUENT REMINDERS OF ASPIRATION HX. FREQUENT ORAL CARE DONE. PATIENT HAD 3 BM'S DURING THE NIGHT ATTENDS IN PLACE DUE TO BEING INCONT.
--- NOTE | 2018-08-16 07:52 | NUR ---
Recieved report from Kaitlin HAMMER. Patient laying slightly cross zelaya in bed with HOB at 30 degrees and bed partly in trendelenberg position as moves all around bed. He awakens to verbal stimuli and falls right back to sleep. He is on BIPAP 14/8 and 35% FiO2 and sats 99%. He has Peg tube to mid upper quad and tolerated 360 ml of Jevity 1.2 keena gravity feed and 30ml water pre and post and had no pre feed residual. He has bilateral soft wrist restraints, removed and reapplied after checking skin and circulation. He has PICC TIM dressing intact and site WNL and has NS TKO x2. He has temp yepez 98.4 and has light laurent urine to gravity. He has bilateral SCD's in place and tolerates well. Systolic 140's and HR in the 80 A-fib.. No Family in room yet. He has attends in place for incontinent of stool.
--- NOTE | 2018-08-16 09:30 | NUR ---
Patient had large liquid BM this am. He recieved bath and linen change and he is up in chair. I placed on Air Vo 40/40 and tolerating well at 98% sats.. VSS no other changes.
--- NOTE | 2018-08-16 10:44 | NUR ---
Patient is sitting on a chair and alert. Patient tells me he is doing better today. Patient is talkative when intially but then does not repond at all. Patient did agree to prayer and shouts an "Amen" when it is over. I provide comapionship and emotional support. I continue to be available to patient and family.
--- NOTE | 2018-08-16 11:30 | NUR ---
Patient remians up in chair. He continues to squirm around even after repositioning. He is redirectable and forgets very easily. VS stable. He remains on AirVo at 40/40 and when keeps sat probe on he sats mid to upper 90%'s. Family has been coming by for short periods.
--- NOTE | 2018-08-16 13:30 | NUR ---
Tolerated bolus feeding and dietary talked about doing continuous to help prevent aspiration. and son at bedside. He continues to stay afebrile. Continues to squirm and calls out and is unable to tell you what he wants other than asking when is he going home. No other changes.
--- NOTE | 2018-08-16 18:35 | NUR ---
Patient finally getting tired. remains at bedside keeping him from pulling AirVo off. He still very restless in bed and flails extremities.VSS. CBG 170 no coverage needed. He is PCU status.
--- NOTE | 2018-08-16 21:11 | NUR ---
ASSUMED CARE OF PT, REPORT RCV'D FROM JAQUELIN STEPHEN. PT ALERT TO VERBAL STIMULI, PT RESPONDS MINIMALLY TO QUESTIONS BUT APPROPRIATELY. BIPAP 18/8 45% WITH SATS OVER 90. MACEDO PATENT AND DRAINING. BED IN LOW LOCKED POSITION, BED ALARM ON, BUE SOFT RESTRAINTS NEEDED TO KEEP BIPAP IN PLACE AND PROTECT LINES/TUBES. JEVITY 1.5 @ 25 ML/HR WITH GOAL RATE OF 50 ML/HR IN PEG TUBE WITH NO RESIDUALS NOTED. PT'S AT BEDSIDE. SEE FULL SHIFT ASSESSMENT.
[2018-08-16 22:31] LABS: Vancomycin, Trough 15.2 ug/mL (5.0-10.0)
--- NOTE | 2018-08-17 02:41 | NUR ---
ASSUMED CARE BEDSIDE REPORT RECIEVED. PT IS RESTING IN BED QUIETLY, WITH ONE FOOT DANGLING OVER BED RAIL. PT WITH BIPAP IN PLACE 14/, FIO2 35%. LS CLEAR IN UPPER LOBES, DIMINISHED IN BASES. VITAL SIGNS STABLE. PICC TO TIM C/D/I, NS INFUSING TKO. PT WITH PEG TUBE IN PLACE WITH TF AT 40 ML/HR. MACEDO IN PLACE WITH YELLOW URINE OUTPUT NOTED. ATTENDS IN PLACE. NO FAMILY AT BEDSIDE. WILL CONTINUE TO MONITOR.
[2018-08-17 04:28] LABS: BASOPHILS ABSOLUTE AUTO 0.01 K/mm3 (0.00-0.23); BASOPHILS PERCENT AUTO 0 % (0-2); EOSINOPHILS ABSOLUTE AUTO 0.24 K/mm3 (0.00-0.68); EOSINOPHILS PERCENT AUTO 4 % (0-6); Hemoglobin 8.7 g/dL (13.5-17.5); IMMATURE GRAN ABSOLUTE AUTO 0.03 K/mm3 (0.00-0.10); IMMATURE GRAN PERCENT AUTO 1 % (0-1); LYMPHOCYTES ABSOLUTE AUTO 0.82 K/mm3 (0.84-5.20); LYMPHOCYTES PERCENT AUTO 15 % (21-46); MONOCYTES ABSOLUTE AUTO 0.46 K/mm3 (0.16-1.47); MONOCYTES PERCENT AUTO 8 % (4-13); Mean Corpuscular HGB 29.2 pg (26.0-34.0); Mean Corpuscular HGB Conc 28.1 g/dL (31.5-36.5); Mean Platelet Volume 11.5 fL (9.1-12.4); NEUTROPHILS ABSOLUTE AUTO 3.95 K/mm3 (1.96-9.15); NEUTROPHILS PERCENT AUTO 72 % (41-73); Platelet Count 167 K/mm3 (150-400); RDW Coefficient Variation 16.4 % (11.7-14.2); RDW Standard Deviation 62.8 fL (35.1-46.3); Red Blood Cell Count 2.98 M/mm3 (4.30-5.90); White Blood Cell Count 5.51 K/mm3 (4.00-11.30)
[2018-08-17 04:34] LABS: Mean Corpuscular Volume 104 fL (80-100)
[2018-08-17 04:47] LABS: Anion Gap 1 mmol/L (6-16); Blood Urea Nitrogen 18 mg/dL (8-24); Bun/Creatinine Ratio 20.2 (12.0-20.0); CO2, Blood 35 mmol/L (21-32); Calcium, Blood 8.8 mg/dL (8.5-10.1); Chloride, Blood 110 mmol/L (98-108); Creatinine, Blood 0.89 mg/dL (0.60-1.20); Glomerular Filtration Rate >60 (60-); Glucose, Blood 199 mg/dL (70-99); Potassium, Blood 4.4 mmol/L (3.5-5.5); Sodium, Blood 146 mmol/L (136-145)
--- NOTE | 2018-08-17 05:56 | NUR ---
SHIFT SUMMARY NO ACUTE CHANGES THIS AM. PT LAYING IN BED QUIETLY AT THIS TIME WITH BIPAP IN PLACE. VITAL SIGNS HAVE REMAINED STABLE. PT AWAKENS TO VOICE AND IS ABLE TO FOLLOW SOME COMMANDS. PT RESTLESS AT TIMES. SEE PREVIOUS NOTE FOR MORE INFO. WILL CONTINUE TO MONITOR AND REPORT OFF TO ONCOMING RN.
--- NOTE | 2018-08-17 07:25 | NUR ---
TRANSFERRED TO PCU, ROOM 1, VIA BED WITH BIPAP. PATIENT ROUSES; BELONGINGS AND MEDS SENT WITH PATIENT. REPORT GIVEN TO HUSSAIN RODRIGUEZ RN.
--- NOTE | 2018-08-17 07:44 | NUR ---
NURSING PCU DAYSHIFT: Assumed care of pt at approx 0730, arrived from ICU, xfer to unit bed. Alert, simple responses to basic questions, oriented to family, follows most commands. Skin is fragile, scattered bruising on ext's and abd, scab on bridge of nose, redness reported to buttocks. Blind in R eye. Weakness noted of RLE. Tele in place, afib w/BBB, SBP 140's prior to a.m. meds, edema noted to b/l flanks, UE's, and RLE. L/S dim in bases, respirations rapid and shallow, bipap in place w/settings of 16/8, FiO2 35%, backup rate of 18, O2 sat low 90's, continuous bedside O2 monitoring, occ weak/moist PACKAGE COLLECTOR cough. Abd distended, PEG tube present in upper abd infusing at 40mls/hr w/goal rate of 55mls/hr. PICC present in RUE, s/l w/abx as scheduled. No s/s of acute distress at this time. Bipap remains in place, pt tolerating well. Bed alarm set for safety purposes. Requires frequent rounding d/t inability to appropriately use call light. Cont to monitor for any changes.
--- NOTE | 2018-08-17 17:00 | NUR ---
NURSING PCU DAYSHIFT SUMMARY: Pt experienced intermittent restlessness. Rolling over in bed, pulling at lines, not tolerating bipap or airvo, asking for help though staff and/family have remained at bedside. Seemed to calm when music therapy was at bedside. Expieriences dyspnea w/minimal exertion, O2 sat decreases quickly though recovers once O2 source is replaced. Respirations remain rapid. Does not tolerate long periods off bipap. Pt has had BM x2, liquid/yellow. Attends changed. Adamaris area appears excoriated, creams applied, cath care completed. OOB to chair this evening using lift. Tolerated well though remains restless. Spouse remains at bedside and assists w/pt's ADL's. No s/s of acute distress, cont to monitor until rpt is given to AKOSUA RN.
--- NOTE | 2018-08-18 07:38 | NUR ---
TRANSFER NOTE / SHIFT SUMMARY REPORT CALLED TO ENVIRONMENTAL LEAD AT APPROX 0730. PT TO BE TRANSPORTED TO ICU BY BED. PT ALERT, ORIENTED TO SELF. PT FORGETFUL, ONLY FOLLOWING SIMPLE BRIEF COMMANDS. PT INTERMITTENTLY SPEAKING CLEARLY, MUMBLING, OR IGNORING STAFF. PT LUNG SOUNDS CLEAR. SPO2 > 90% ON 5L NC OR BIPAP @ 18/6, FIO2 35%. PT SELF REMOVING O2 SUPPLEMENTATION T/O SHIFT W/ DESAT TO 70'S W/ QUICK RECOVERY W/ REAPPLICATION OF BIPAP BY STAFF W/ PT SOON REMOVING O2 AGAIN REPEATING PATTERN T/O SHIFT WHEN PT AWAKE. MONITOR SHOWS AFIB, HR 90-110 ON AVERAGE W/ NONSUSTAINED TOUCH UPS TO 140. PT NPO W/ PEG TUBE INFUSING JEVITY 1.5 @ GOAL RATE OF 50 MLS/HR W/ 30 ML FLUSH Q4H. RESIDUALS < 10 MLS UPON EACH ASSESSMENT T/O SHIFT. PT HAVING LOOSE BROWN BM'S, WEARING ATTENDS. PT C/O HAVING TO PEE T/O SHIFT. PT REMINDED OF MACEDO CATH DRAINING URINE. MACEDO CATH ADEQUATING DRAINING URINE. PT BED ALARM TRIGGERED TWICE THIS SHIFT W/ PATIENT FOUND STANDING WEAKLY AT BEDSIDE ON FIRST OCCURENCE, AND PT CORRECTION OVER SIDE RAILING ON SECOND OCCURENCE. PT ASSISTED BACK TO BED W/ BED ALARM BACK ON AND CALL LIGHT IN REACH.
--- NOTE | 2018-08-18 08:00 | NUR ---
ARRIVAL NOTE: PT ARRIVED VIA BED. ORIENTED TO ROOM. CALL LIGHT IS WITHIN REACH. PT IS ALERT AND ORIENTED TO SELF ONLY. PT WILL PULL AT LINES AND IS NOT REDIRECTABLE AT THIS TIME. SP02 94% ON 4.5L 02 PER N/C. BIPAP AT BESIDE FOR NOC/NAPS/PRN. HR SLIGHTLY IRREGULAR, ATRIAL FIB-VARIABLE RATE 90-110'S, WILL INCREASE TO 140'S AT TIMES (NON-SUSTAINED). PACEMAKER IN PLACE TO LT CHEST WALL. PICC IN THE RT UA, WITH NS-TKO INFUSINING. ABD LARGE/ROUND/NO GRIMACE TO PALPATION. BT'S DISTANT, ACTIVE X4 QAUDS. PEG TUBE IN PLACE TO RT MID ABD, WITH JEVITY 1.5 @ GOAL OF 50ML/HR. NO BM YET. MACEDO CATH DRAINING CLEAR, YELLOW URINE TO GRAVITY.
[2018-08-18 12:51] LABS: Base Excess Venous 11.3 mmol/L; Bicarbonate Venous 32.7 mmol/L (24.0-30.0); PCO2 Venous 60.4 mmHg (38-42); PO2 Venous 26.7 mmHg (38-42); pH Blood Venous 7.39 (7.34-7.37)
--- NOTE | 2018-08-18 13:47 | NUR ---
Patient is aggitated throwing his leg up and over side rail and then up again. Patient is yelling, "Help me, help me, I have to pee" I introduce myself again and patient states that he remembers me. I assure patient that he has everything he needs to let it all go. I ask patient if he would like to hear some guitar music and he says, "Yes." Patient thrashes in bed. I begin to play guitar patient continues to yell and thrash in the bed. About 20 minutes of playing patient begins to settle down. At 30 minutes patient is fighting to keep his eyes open and his body is calming down. At 45 minutes patient is sleeping and snoring with his body completely calm. I continue to remain available to patient and family.
--- NOTE | 2018-08-18 13:52 | NUR ---
PT UPDATE: PT IS NOW CALM, TOLERATING BIPAP. REMAINS IN BILATERAL WRIST RESTRAINTS FOR HIGH FALL RISK/CONFUSION/PULLING AT VITAL LINES. PT RESTING/SLEEPING WHEN UNDISTURBED WITH THE USE OF PRECEDEX GTT, CURRENTLY AT 0.5MCG/KG/MIN.
--- NOTE | 2018-08-18 18:40 | NUR ---
SHIFT SUMMARY: PT DROWSY INTERMITTENTLY T/O SHIFT. PT WILL AWAKEN TO VERBAL STIMULI. ANSWERS SOME SIMPLE YES/NO QUESTIONS APPROPRIATELY, HOWEVER, ONLY ORIENTED TO SELF AND DOES NOT FOLLOW COMMANDS OR REDIRECT. PT AT TIMES WITH CONTINUOUSLY CALL OUT FOR HELP, EVEN WHEN STAFF IS ACTIVELY AT THE BEDSIDE CARING FOR PT. PT REMAINS VERY WEAK AND NOT DIRECTABLE ENOUGH TO ASSIST WITH ADL'S/REPOSITIONING. PT IS CONSTANTLY SHIFT WEIGHT IN BED WHEN AWAKE. LUNGS REMAIN CLEAR BUT DIMINISHED T/O BILATERALLY. SATS >90% ON BIPAP @ 14/8, FI02-35%. HR IRREGULAR, MOSTLY ATRIAL FIB 90-110'S, AT TIMES WILL BE 100% PACED. ABD LARGE/DISTENDED/NO GRIMACE TO PALPATION. BT'S DISTANT/ACTIVE X4 QAUDS. CONTINUED TUBE FEEDINGS AT GOAL RATE. PT TOLERATING WELL, RESIDUALS ARE >5ML/. PT HAD A SMALL, LOOSE BM TODAY. PT GIVEN LASIX 20MG IVP GIVEN FOR DIURESIS.
--- NOTE | 2018-08-18 19:00 | NUR ---
REPORTED OFF TO JAQUELIN UNGER WHOM ASSUMED CARE OF THIS PT.
--- NOTE | 2018-08-18 19:15 | NUR ---
ASSUMING CARE OF PT AT THIS TIME. PT REPORT RECEIVED AT BEDSIDE WITH OFFGOING NURSE, YAO HAMMER. PT ON BIPAP, SLEEPING UPON ENTERING THE ROOM. VS STABLE - SEE VS FS. PT DOES NOT APEPAR TO BE IN DISTRESS AT THIS TIME. WILL REVIEW PLAN OF CARE.
--- NOTE | 2018-08-18 19:30 | NUR ---
ASSESSMENT OCC ANXIETY, RESTLESSNESS, PULLING ON BILAT WRIST RESTRAINTS, AND ATTEMPTING TO GET OOB. OTHERWISE, PT CALM. PT RESPONDS TO VERBAL STIMULI, A&O TO SELF, FOLLOWS COMMANDS (ABLE TO SUPERINTENDENT OPERATIONS DIVISION ON COMMAND AND WIGGLE TOES ON COMMAND), SLOW TO RESPOND, ANSWERS SOME QUESTIONS APPROPRIATELY, SPONT OPENS EYES. PRECEDEX DRIP AT 0.3 MCG/KG/HR - WILL TITRATE TO EFFECT. SENSATION INTACT. PT DENIES N/T. PT HENNING. GENERALIZED WEAKNESS NOTED. PT DENIES PAIN/DISCOMOFRT. NO S/SX OF PAIN/DISCOMFORT NOTED. LUNGS CLEAR, LOWER LOBES DIMINISHED. PT ON BIPAP 04/10, FIO2 30%. OXY SAT >90%. RR 20'S. DENIES SOB. SOB WITH EXERTION. OCC NONPRODUCTIVE COUGH. WAITING FOR SPUTUM SAMPLE. SHALLOW BREATHING. AFEBRILE. AFIB WITH BBB. HR 80'S. BP STABLE - SEE VS FS. STRONG RADIAL PULSES. FAINT TIBIAL AND PEDAL PULSES. EDEMA NOTED. HYPOACTIVE BT X4 QUADRANTS. ABD SOFT, NONTENDER. NO N/V. NO BM. NPO D/T ASPIRATION PRECAUTIONS. PEG TUBE. TF: JEVITY 1.5 AT GOAL RATE 50 ML/HR AND 30 ML FLUSH Q4 HR. RESIDUAL 2 ML. F/C: DARK YELLOW CLOUDY URINE. PICC TIM. NS TKO AT 10 ML/HR.
[2018-08-18 22:34] LABS: Vancomycin, Trough 18.1 ug/mL (5.0-10.0)
--- NOTE | 2018-08-18 22:47 | NUR ---
SHANNON INFORMED RAQUEL, PHARMACIST OF [facility] TROUGH AT 18.1 COMPLETED AT 2200. RAQUEL PLANNING TO SEND SCHEDULED BONNIEO AT THIS TIME.
--- NOTE | 2018-08-18 23:52 | NUR ---
DR. CAPONE CALLED DR. SANTIZO @ [phone]. CALLED[address] DR[address] LIBORIO Adamson@ [phone]. DR. CAPONE CALLED ICU AT [phone]. INFORMED DR. CAPONE OF HYPERTENSION (SEE VS FS). DR. CAPONE ORDERED HYDRALAZINE 10-20 MG Q6 PRN FOR SBP >160. WAITING FOR VERIFICATION OF MEDICATION FROM PHARMACY AT THIS TIME.
[2018-08-19 03:21] LABS: Base Excess Venous 14.4 mmol/L; Bicarbonate Venous 36.2 mmol/L (24.0-30.0); PCO2 Venous 56.3 mmHg (38-42); pH Blood Venous 7.44 (7.34-7.37)
[2018-08-19 03:45] LABS: BASOPHILS ABSOLUTE AUTO 0.01 K/mm3 (0.00-0.23); BASOPHILS PERCENT AUTO 0 % (0-2); EOSINOPHILS ABSOLUTE AUTO 0.12 K/mm3 (0.00-0.68); EOSINOPHILS PERCENT AUTO 3 % (0-6); Hematocrit 29.5 % (37.0-53.0); Hemoglobin 8.4 g/dL (13.5-17.5); IMMATURE GRAN ABSOLUTE AUTO 0.01 K/mm3 (0.00-0.10); IMMATURE GRAN PERCENT AUTO 0 % (0-1); LYMPHOCYTES PERCENT AUTO 16 % (21-46); MONOCYTES ABSOLUTE AUTO 0.25 K/mm3 (0.16-1.47); MONOCYTES PERCENT AUTO 7 % (4-13); Mean Corpuscular HGB 28.6 pg (26.0-34.0); Mean Corpuscular HGB Conc 28.5 g/dL (31.5-36.5); Mean Platelet Volume 11.7 fL (9.1-12.4); NEUTROPHILS PERCENT AUTO 74 % (41-73); Platelet Count 151 K/mm3 (150-400); RDW Coefficient Variation 16.6 % (11.7-14.2); RDW Standard Deviation 61.1 fL (35.1-46.3); Red Blood Cell Count 2.94 M/mm3 (4.30-5.90); White Blood Cell Count 3.79 K/mm3 (4.00-11.30)
[2018-08-19 03:50] LABS: Mean Corpuscular Volume 100 fL (80-100)
[2018-08-19 04:03] LABS: Alanine Aminotransfer (ALT/SGP 29 U/L (12-78); Albumin, Blood 2.3 g/dL (3.4-5.0); Albumin/Globulin Ratio 0.7 (0.8-1.8); Alk Phos 99 U/L (50-136); Anion Gap -1 mmol/L (6-16); Aspartate Aminotrans (AST/SGOT 14 U/L (12-37); Bilirubin, Total 0.5 mg/dL (0.1-1.0); Blood Urea Nitrogen 11 mg/dL (8-24); Bun/Creatinine Ratio 14.2 (12.0-20.0); CO2, Blood 38 mmol/L (21-32); Calcium, Blood 8.5 mg/dL (8.5-10.1); Chloride, Blood 109 mmol/L (98-108); Creatinine, Blood 0.77 mg/dL (0.60-1.20); Globulin, Blood 3.4 g/dL (2.2-4.0); Glomerular Filtration Rate >60 (60-); Glucose, Blood 252 mg/dL (70-99); Magnesium, Blood 1.7 mg/dL (1.6-2.4); Phosphorus, Blood 2.1 mg/dL (2.5-4.9); Potassium, Blood 4.3 mmol/L (3.5-5.5); Sodium, Blood 146 mmol/L (136-145); Total Protein, Blood 5.7 g/dL (6.4-8.2)
--- NOTE | 2018-08-19 04:20 | NUR ---
DR. LARSON PT REMAINS HYPERTENSIVE (SEE VS FS). CALLED DR. LARSON AT THIS TIME. INFORMED DR. LARSON OF AM LABS AND VS (SEE VS FS). DR. LARSON INCREASED FREQUENCY OF HYDRALAZINE TO Q4 HR. NO ADDITIONAL ORDERS AT THIS TIME. DR. LARSON DOES NOT WANT TO REPLACE PHOS AT THIS TIME.
--- NOTE | 2018-08-19 05:00 | NUR ---
SHIFT ASSESSMENT NO ACUTE CHANGES NOTED T/O SHIFT. OCC ANXIETY, RESTLESSNESS, PULLING ON BILAT WRIST RESTRAINTS, AND ATTEMPTING TO GET OOB. OTHERWISE, PT CALM AND SLEEPING. PT RESPONDS TO VERBAL STIMULI, A&O TO SELF, FOLLOWS COMMANDS (ABLE TO AUTOMOBILE INSURANCE CLAIM EXAMINER ON COMMAND AND WIGGLE TOES ON COMMAND), SLOW TO RESPOND, ANSWERS MORE QUESTIONS APPROPRIATELY THIS AM, SPONT OPENS EYES. PRECEDEX DRIP AT 0.7 MCG/KG/HR - CONT TO TITRATE TO EFFECT. SENSATION INTACT. PT DENIES N/T. PT HENNING. GENERALIZED WEAKNESS NOTED. PT DENIES PAIN/DISCOMFORT. NO S/SX OF PAIN/DISCOMFORT NOTED. LUNGS CLEAR, LOWER LOBES DIMINISHED. PT ON BIPAP 14/8, FIO2 30%. OXY SAT >90%. RR 16 TO 30'S. DENIES SOB. SOB WITH EXERTION. OCC NONPRODUCTIVE COUGH. ENCOURAGED COUGHING AND DEEP BREATHING. WAITING ON SPUTUM. SHALLOW BREATHING. AFEBRILE. AFIB WITH BBB. HR 60'S TO 80'S. BP STABLE - SEE VS FS. STRONG RADIAL PULSES. FAINT TIBIAL AND PEDAL PULSES. EDEMA NOTED. HYPOACTIVE BT X4 QUADRATNS. ABD SOFT, NONTENDER, SEVERE DIST. NO N/V. NO BM. NPO D/T ASPIRATION PRECAUTIONS. PEG TUBE. TF: JEVITY 1.5 AT GOAL RATE 50 ML/HR AND 30 ML FLUSH Q4 HR. RESIDUAL WNL. F/C: DARK YELOW CLOUDY URINE. PICC TIM. NS TKO AT 10 ML/HR. WILL CONT TO MONITOR PT AND WILL PROVIDE BEDSIDE REPORT TO ONCOMING NURSE THIS AM.
--- NOTE | 2018-08-19 07:30 | NUR ---
ONCOMING NOTE REPORT RECEIVED FROM JAQUELIN UNGER. BEDSIDE ROUNDING DONE. PT RESTING WITH EYES CLOSED ON BIPAP. NO S/SX DISTRESS NOTED. PRECEDEX GTT RUNNING AT 0.3MCG. BED IN LOWEST POSITION, UPPER SIDE RAILS RAISED. CALL LIGHT IN REACH. WILL CONT TO MONITOR PT.
--- NOTE | 2018-08-19 09:33 | NUR ---
DR GAMINO ROUNDS DR GAMINO ROUNDED, UPDATED ON PT STATUS THROUGH THE NIGHT. PLAN TO CONTINUE TRIALING PT OFF BIPAP TO NC TOLERATED AND TITRATE PRECEDEX GTT OFF. DR GAMINO TO SPEAK WITH PALLIATIVE CARE ABOUT REGISTERED DENTAL HYGIENIST PLAN OF ACTION. NO FURTHER CHANGES TO PLAN OF CARE AT THIS TIME. WILL CONT TO MONITOR PT.
--- NOTE | 2018-08-19 11:46 | NUR ---
SPEECH THERAPY EVAL SPEECH THERAPIST AT BEDSIDE EVALUATING PT. PT UP IN CHAIR FOR EVALUATION.
--- NOTE | 2018-08-19 12:36 | NUR ---
SHIFT UPDATE NOTE PT UP TO CHAIR WITH ASSISTANCE FROM PHYSICAL THERAPIST, TOLERATED WELL USING GAIT BELT AND FWW. SPEECH THERAPY EVALUATED PT WHILE UP IN CHAIR. PT REMAINS CONFUSED, BUT PLEASANT. PT COOPERATIVE WITH CARE. PRECEDEX GTT TITRATED DOWN TO 0.1MCG, GOAL TO TITRATE OFF PT TOLERATES. PT WITH XL LIQUID BM WHILE UP IN CHAIR, ASSISTED BACK TO BED FOR CLEANUP. PT REQUIRED 2P ASSIST WITH FWW AND GAIT BELT BACK TO BED DUE TO FEELING FATIGUED FROM WORKING WITH PHYSICAL THERAPY. OINTMENT APPLIED TO SCROTUM. PT REPOSITIONED FOR COMFORT. PT NOW RESTING WITH EYES CLOSED, BREATHING E/U ON 4LPM VIA NC. TUBE FEED FORMULA AND TUBING CHANGED OUT, FORMULA REMAINS JEVITY 1.5 RUNNING AT GOAL RATE OF 50ML/HR, WATER FLUSH INCREASED TO 135ML/HR PER DR LARSON ORDERS. BED IN LOWEST POSITION, SIDE RAILS RAISED, CALL LIGHT IN REACH. WILL CONT TO MONITOR PT.
--- NOTE | 2018-08-19 14:20 | NUR ---
FOOT CARE PT'S AT BEDSIDE DOING FOOT CARE. USING ELECTRIC PUMICE STONE AND LOTION.
--- NOTE | 2018-08-19 15:25 | NUR ---
Met with patient and his . pt able to participate in discussion. brought in foot groomer and giving pt some foot care. We reviewed all eight domains of care and their life. showed me papaerwork from [employer]. She thinks he now has benefits. We reviewed their financial stress. They are living with their son and his family. They do not have a bank account he gets a card each month with his social security money. They get 24 dollars in food benefits. The son works for a mill but his hours are unstable and varied. They worry about his employment. The helped pay the electricity before it got shut off. The is hoping to care for him at home. She states they have the room and have gotten him an elevated bed. They need a wheelchair and a ramp. They are hoping he will be able to walk again. They asked me about dental care and now that they have [employer] they are wanting to take him to dentist. Had a difficult conversation on how that is not possible. Pt was distraught by not beieng able to go to dentist. Reviewed his pulmonary disease and the risks of dental care and his limited abilites. did not demonstarte understating or acceptance states they do not have a will or power of state attorney they did do an advance directive but it is at home. Reviewed associate director career services stress and the needs of life long care. pt able to respond to some of the conversation. drifts off. She does not want to speak of the future or prognosis. She complains of having difficulty remebering details. talked to her about signing up with [facility] for help with power bill. Spoke with them about go back to SNF and trying to transition home after more rehab. Reviewed swallow evaluation. Put in social service consult for assistnce with help advised withe to contact her senior service case maker for help. Pt hisgh risk for readmission. high risk for caregiver stress. pt high risk for repeat infections his KPS scale is 40%. Will follow up will try to speak with son to see if plan is viable.
--- NOTE | 2018-08-19 18:30 | NUR ---
SHIFT SUMMARY PT RESTING IN BED, ADJUSTING POSITION INDEPENDENTLY. PT MORE AWAKE AND ALERT, ALTHOUGH REMAINS CONFUSED TO ALL BUT SELF AND FAMILY. PT OOB TO CHAIR THIS AFTERNOON WITH HELP FROM PHYSICAL THERAPY, TOLERATED WELL WITH USE OF FWW AND GAIT BELT. PT WITH HEADACHE, RESOLVED WITH TYLENOL. PT ASKING FOR WATER FREQUENTLY, EDUCATED ON REASON FOR NPO STATUS, SPEECH THERAPY EVALUATED PT TODAY AND REINFORCED THIS. MOUTH SWABS PROVIDED TO PT AND FREQUENT ORAL CARE DONE WITH CHAPSTICK AND MOUTH MOISTURIZER USED. JEVITY 1.5 TF CONTINUES AT GOAL RATE 50ML/HR, WATER FLUSH INCREASED TO 135ML Q4H PER ORDERS. PT PASSING FLATUS AND WITH 3 BMs THIS SHIFT. OINTMENT APPLIED TO DELFINO AREA AND SCROTUM DUE TO RED AND IRRITATED SCROTUM. CATHETER CARE DONE, MACEDO CATHETER PATENT AND DRAINING TO GRAVITY. PEG TUBE PATENT. PRECEDEX GTT OFF SINCE LATE AFTERNOON, GOAL TO REMAIN OFF. PICC TO TIM, FLUSHES AND DRAWS EASILY. BILATERAL CALF SCDs OFF FOR A BREAK. PITTING EDEMA TO BLE AND BUE, EXTREMITIES ELEVATED ON PILLOWS. RHYTHM SHOWING AFIB c BBB. SEE FLOWSHEET FOR VS. BED IN LOWEST POSITION, SIDE RAILS RAISED. CALL LIGHT IN REACH. FAMILY AT BEDSIDE. WILL CONT TO MONITOR PT.
--- NOTE | 2018-08-19 19:15 | NUR ---
ASSUMING CARE OF PT AT THIS TIME. PT REPORT RECEIVED AT BEDSIDE WITH OFFGOING NURSE, MADELINE HAMMER. PT LAYING IN BED, WATCHING TELEVISION, AND TALKING WITH FAMILY MEMBERES. PT'S FAMILY MEMBERS PLANNING TO LEAVE ICU SHORTLY. VS STABLE - SEE VS FS. PT DOES NOT APPEAR TO BE IN DISTRESS AT THIS TIME. WILL REVIEW PLAN OF CARE.
--- NOTE | 2018-08-19 19:30 | NUR ---
ASSESSMENT PT CALM, QUIET, COOPERATIVE. LESS CONFUSED, ANXIETY, RESTLESSNESS, ATTEMPTING TO GET OUT OF BED THIS PM. PT RESPONDS TO VERBAL STIMULI, SPONT OPENS EYES, FOLLOWS COMMANDS, ANSWERING MORE QUESTIONS APPROPRIATELY THIS PM, A&O TO SELF AND FAMILY, SLOW TO RESPOND. SENSATION INTACT. PT DENIES N/T. PT HENNING. GENERALIZED WEAKNESS. PT ASSISTS WITH TURNS. PER REPORT - PT AMBULATED SEVERAL TIMES THIS AM WITH 1-2P SBA WITH WALKER. PT DENIES PAIN/DISCOMFORT. NO S/SX OF PAIN/DISCOMFORT NOTED. LUNGS CLEAR, DIMINISHED LOWER LOBES. SHALLOW BREATHING. PT CURRENTLY ON 2L NC. OXY SAT >90% WHILE ON 2L NC. RR 20'S. BIPAP AT NIGHT: 04/10, FIO2 30%. OCC NONPRODUCTIVE COUGH. TEMP 99.5 - TYLENOL PRN, TURNED ON FANS X2, DECREASED ROOM TEMP, REMOVED BLANKETS. AFIB WITH BBB AND OCC V-PACEMKAER SPIKES. HR 80'S. BP STABLE - SEE VS FS. STRONG RADIAL PULSE. FAINT TIBIAL AND PEDAL PULSES. EDEMA NOTED. WARM, PINK SKIN. ACTIVE BT X4 QUADRANTS. ABD MOD DIST, SOFT, NONTENDER. NO N/V. NO BM. PER REPORT - SEVERAL BM THIS AM. PEG TUBE. TF: JEVITY 1.5 @ GOAL RATE 50 ML/HR AND 135 ML FLUSH Q4 HR. RESIDUAL 0 ML. F/C: DARK YELLOW URINE. PICC TIM. NS TKO PLACED ON STANDBY.
--- NOTE | 2018-08-20 00:24 | NUR ---
DR. CAPONE PT REMAINS HYPERTESIVE (SEE VS FS). HYDRALAZINE ADMINISTERED PER PHYSICIAN'S ORDER. CALLED DR. CAPONE AT 0015. DR. CAPONE CALLED ICU BACK AT 0024. DR. FORD ORDERD LABETOLOL 10 MG IV Q6 HR PRN FOR SBP >160. WAITING FOR VERIFICATION OF MEDICATION FROM PHARMACY AT THIS TIME.
[2018-08-20 03:42] LABS: BASOPHILS ABSOLUTE AUTO 0.01 K/mm3 (0.00-0.23); BASOPHILS PERCENT AUTO 0 % (0-2); EOSINOPHILS ABSOLUTE AUTO 0.23 K/mm3 (0.00-0.68); EOSINOPHILS PERCENT AUTO 3 % (0-6); Hematocrit 31.5 % (37.0-53.0); Hemoglobin 9.2 g/dL (13.5-17.5); IMMATURE GRAN ABSOLUTE AUTO 0.03 K/mm3 (0.00-0.10); IMMATURE GRAN PERCENT AUTO 0 % (0-1); LYMPHOCYTES ABSOLUTE AUTO 1.07 K/mm3 (0.84-5.20); LYMPHOCYTES PERCENT AUTO 16 % (21-46); MONOCYTES ABSOLUTE AUTO 0.46 K/mm3 (0.16-1.47); MONOCYTES PERCENT AUTO 7 % (4-13); Mean Corpuscular HGB 28.7 pg (26.0-34.0); Mean Corpuscular HGB Conc 29.2 g/dL (31.5-36.5); Mean Corpuscular Volume 98 fL (80-100); Mean Platelet Volume 11.5 fL (9.1-12.4); NEUTROPHILS ABSOLUTE AUTO 5.06 K/mm3 (1.96-9.15); NEUTROPHILS PERCENT AUTO 74 % (41-73); Platelet Count 189 K/mm3 (150-400); RDW Coefficient Variation 17.2 % (11.7-14.2); RDW Standard Deviation 61.2 fL (35.1-46.3); Red Blood Cell Count 3.21 M/mm3 (4.30-5.90); White Blood Cell Count 6.86 K/mm3 (4.00-11.30)
[2018-08-20 03:58] LABS: Anion Gap 2 mmol/L (6-16); Blood Urea Nitrogen 12 mg/dL (8-24); Bun/Creatinine Ratio 15.3 (12.0-20.0); CO2, Blood 38 mmol/L (21-32); Calcium, Blood 8.9 mg/dL (8.5-10.1); Chloride, Blood 106 mmol/L (98-108); Creatinine, Blood 0.79 mg/dL (0.60-1.20); Glomerular Filtration Rate >60 (60-); Glucose, Blood 184 mg/dL (70-99); Magnesium, Blood 1.5 mg/dL (1.6-2.4); Phosphorus, Blood 2.4 mg/dL (2.5-4.9); Potassium, Blood 3.6 mmol/L (3.5-5.5); Sodium, Blood 146 mmol/L (136-145)
--- NOTE | 2018-08-20 04:41 | NUR ---
DR. CAPONE CALLED DR. CAPONE AT 0430. DR. CAPONE CALLED ICU BACK AT THIS TIME. INFORMED DR. CAPONE OF AM LABS. DR. CAPONE ORDERED K PHOS 20 MM IV, MAG 2 GRAM IV, AND INCREASED FLUSH VIA PEG TUBE TO 200 ML Q4 HR. INCREASED FLUSH VIA PEG TUBE TO 200 ML Q4 HR AT THIS TIME. WAITING FOR MEDICATIONS FROM PHARMACY AT THIS TIME.
--- NOTE | 2018-08-20 05:53 | NUR ---
SHIFT ASSESSMENT NO ACUTE CHANGES NOTED T/O SHIFT. PT DID NOT SLEEP T/O SHIFT. PT REMAINED CALM, QUIET, COOPERATIVE, OCC UTILIZING CALL LIGHT APPROPRIATELY. PT LESS CONFUSED, ANXIOUS, RESTLESS THIS PM. PT RESPONDS TO VERBAL STIMULI, SPONT OPENS EYES, FOLLOWS COMMANDS, ANSWERING MOST QUESTIONS APPROPRAITLEY, A&O TO SELF AND FAMILY, SLOW TO RESPOND, TALKING AND LAUGHING WITH STAFF T/O SHIFT. SENSATION INTACT. DENIES N/T. PT HENNING. GENERALIZED WEAKNESS. PT ASSISTS WITH TURNS. PT DENIED PAIN/DISCOMFORT. NO S/SX OF PAIN/DISCOMFORT. LUNGS CLEAR, DIMINISHED LOWER LOBES. SHALLOW BREATHING. PT CURRENTLY ON 2L NC. OXY SAT REMAINED 90% AND GREATER WHILE ON 2L NC. PT ON BIPAP T/O SHIFT: 04/10, FIO2 25%. OXY SAT REMAINED 90% AND GREATER WHILE ON BIPAP. PT TOLERATED BIPAP WELL T/O SHIFT. OCC NONPRODUCTIVE COUGH. TMAX 99.7 - TYLENOL PRN, FANS REMAINED ON X2, ROOM TEMP DECREASED, BLANKETS REMAIN OFF. AFIB WITH BBB AND OCC V-PACEMAKER SPIKES. HR 60'S TO 110'S. PT HYPERTENSIVE T/O SHIFT - HYDRALAZINE AND LABETOLOL PRN ADMINISTERED. CALLED DR. CAPONE AT THIS TIME REGARDING CURRENT HYPERTENSION (SEE VS FS). WAITING FOR CALL BACK FROM DR. CAPONE AT [facility]. STRONG RADIAL PULSES. FAINTI TIBIAL AND PEDAL PULSES. EDEMA NOTED. WARM, PINK SKIN. WAITING ON SPUTUM SAMPLE. ACTIVE BT X4 QUADRANTS. ABD MOD DIST, SOFT, NONTENDER. NO N/V. BM X1. PEG TUBE. TF: JEVITY 1.5 @ GOAL RATE 50 ML/HR AND 200 ML FLUSH Q4 HR. RESIDUAL 0 ML. F/C: DARK YELLOW URINE. PICC TIM. NS TKO AT 10 ML/HR X2. K PHOS AND MAG IVPB INFUSING. WILL CONT TO MONITOR PT AND WILL PROVIDE BEDSIDE REPORT TO ONCOMING NURSE THIS AM.
--- NOTE | 2018-08-20 06:10 | NUR ---
DR. LIBORIO CAPONE CALLED ICU BACK AT THIS TIME. INFORMED DR. CAPONE OF HYPERTENSION DESPITE ADMINSITERED HYDRALAZINE AND LABETOLOL PER PHYSICIAN'S ORDER. DR. CAPONE INSTRUCTED TO ADMINISTERED AM COREG AND NORVASC AT THIS TIME.
--- NOTE | 2018-08-20 18:45 | NUR ---
SHIFT SUMMARY: PT REMAINS ALERT AND ORIENTED TO SELF/PLACE/PRESIDENT/FAMILY/STAFF. UNSURE OF DATE. PT ANSWERS QUESTIONS APPROPRIATELY AND FOLLOWS COMMANDS. PT DID WELL WORKING WITH PT TODAY AND WAS OOB TO A CHAIR FOR SEVERAL HOURS TODAY BEFORE PT REPORTS HE IS EXHAUSTED AND REQUESTS TO GO BACK TO BED. PT DENIES PAIN T/O SHIFT. WILL ASSIST WITH TURNS IN THE BED WHEN DIRECTIONS ARE GIVEN TO THE PT. LUNGS ARE CLEAR T/O AND DIMINISHED IN THE BILATERAL BASES. SPO2 >90% ON 2L 02 VIA N/C T/O SHIFT. HR IRREGULAR, ATRIAL FIB WITH BBB. PT DOES HAVE A PACERMAKER TO LT CW AND IS OCASSIONALLY V-PACED. PT HAS CONTINUED DEPENDENT EDMEA T/O BODY 2-3+ AND 3+ SCROTAL EDEMA. ABD SOFT/LARGE/NON-TENDER TO PALPATION. BT'S ACTIVE X4 QAUDS. PEG TUBE WITH JEVITY 1.5 AT GOAL RATE @ 50ML/HR. MACEDO CATHETER WITH DARK YELLOW URINE- 1900 ML OUT THIS SHIFT.
--- NOTE | 2018-08-20 19:00 | NUR ---
REPORTED OFF TO JAQUELIN WREN WHOM WILL ASSUME CARE OF THIS PT.
--- NOTE | 2018-08-20 19:40 | NUR ---
ASSUMED CARE RECEIVED REPORT FROM YAO HAMMER. PT IS ALERT AND ORIENTED TO SELF, PLACE, AND SITUATION, BUT NOT DATE. PT REPORTS NO PAIN, N/V, N/T, OR ANY COMPLAINTS AT THIS TIME. PICC LINE SITE WNL, CURRENTLY INFUSING NS TKO. SCD'S ON. PT REPORTS NOT HAVING TO USE THE RESTROOM. JEVITY 1.5 INFUSING THROUGH PEG TUBE AT 50ML/HR; <5ML RESIDUALS. NC ON WITH 2L, SAT'ING 95. PEG TUBE SITE WNL. AT BEDSIDE. BED LOW AND LOCKED. CALL LIGHT WITHIN REACH.
[2018-08-21 03:44] LABS: BASOPHILS ABSOLUTE AUTO 0.01 K/mm3 (0.00-0.23); BASOPHILS PERCENT AUTO 0 % (0-2); EOSINOPHILS ABSOLUTE AUTO 0.23 K/mm3 (0.00-0.68); EOSINOPHILS PERCENT AUTO 4 % (0-6); Hematocrit 31.1 % (37.0-53.0); Hemoglobin 9.2 g/dL (13.5-17.5); IMMATURE GRAN ABSOLUTE AUTO 0.01 K/mm3 (0.00-0.10); IMMATURE GRAN PERCENT AUTO 0 % (0-1); LYMPHOCYTES ABSOLUTE AUTO 1.02 K/mm3 (0.84-5.20); LYMPHOCYTES PERCENT AUTO 17 % (21-46); MONOCYTES ABSOLUTE AUTO 0.48 K/mm3 (0.16-1.47); MONOCYTES PERCENT AUTO 8 % (4-13); Mean Corpuscular HGB 29.2 pg (26.0-34.0); Mean Corpuscular HGB Conc 29.6 g/dL (31.5-36.5); Mean Corpuscular Volume 99 fL (80-100); Mean Platelet Volume 11.1 fL (9.1-12.4); NEUTROPHILS ABSOLUTE AUTO 4.45 K/mm3 (1.96-9.15); NEUTROPHILS PERCENT AUTO 72 % (41-73); Platelet Count 193 K/mm3 (150-400); RDW Coefficient Variation 17.6 % (11.7-14.2); RDW Standard Deviation 63.9 fL (35.1-46.3); Red Blood Cell Count 3.15 M/mm3 (4.30-5.90)
[2018-08-21 04:06] LABS: Anion Gap 2 mmol/L (6-16); Blood Urea Nitrogen 11 mg/dL (8-24); Bun/Creatinine Ratio 13.7 (12.0-20.0); CO2, Blood 37 mmol/L (21-32); Calcium, Blood 8.4 mg/dL (8.5-10.1); Chloride, Blood 103 mmol/L (98-108); Creatinine, Blood 0.81 mg/dL (0.60-1.20); Glomerular Filtration Rate >60 (60-); Glucose, Blood 189 mg/dL (70-99); Magnesium, Blood 1.7 mg/dL (1.6-2.4); Phosphorus, Blood 3.5 mg/dL (2.5-4.9); Potassium, Blood 3.4 mmol/L (3.5-5.5); Sodium, Blood 142 mmol/L (136-145)
--- NOTE | 2018-08-21 05:41 | NUR ---
SHIFT SUMMARY PT SLEPT MAJORITY OF NIGHT ON BIPAP 04/10, 25%. PT ALERT AND ORIENTED TO EVERYTHING ASIDE DATE. PT COMPLAINE OF STOMACH CRAMPS AT START OF SHIFT BUT AFTER BENTYL GIVEN PT, NO COMPLAINTS. ABDOMEN FIRM, BUT MINIMAL RESIDUALS FROM PEG TUBE; SITE WNL. JEVITY 1.5 INUSING AT GOAL 50ML. PT HAD 1800 UOP. BP STABLE ALL NIGHT TILL RECENTLY, GIVEN 10MG LABETOLOL. NS TKO CURRENTLY INFUSING. CALLED HOSPITALIST (LIBORIO) FOR KPHOS (SEE LABS); WAITING ON PHARAMCY CURRENTLY. PICC LINE SITE WNL, CLAVES CHANGED. BED LOW AND LOCKED, CALL LIGHT WITHIN REACH. SLEPT IN ROOM ALL NIGHT.
--- NOTE | 2018-08-21 08:00 | NUR ---
PT HAS PEG TUBE. RUNNING AT 50 WITH H20 BOLUS ORDERED. SITE CDI. NO OTHER CONCERNSAT THIS TIME.
--- NOTE | 2018-08-21 09:00 | NUR ---
PT PLEASANT COOP A/O. DENIES PAIN. IN RECLINER CHAIR IN ROOM. PT SLOW TO RESPOND. ANSWERS MOST QUESTIONS APPROP. H/R ;REG, NO MURMER NOTED. TELLE PER STRIP. LUNGS CLEAR, RESP EASY, UNLABORED. ON 2L O2. BT X4 LAST BM TODAY. MACEDO CATH DRAINING LIGHT YELLOW FLUID. SOME SEDIMENT NOTED. PT IN BED. BED IN LOW POSITION, CALL LITE IN REACH, CALLS APPROP
--- NOTE | 2018-08-21 12:08 | NUR ---
Patient is lying in bed and more talkative and more clear than in prior visits. Patient and spouse, Kusum, were angry with each other because Kusum felt like patient is not working to move himself forward and patient stated he is just taking the day off from all therapies and making any effort. I tried to work on some conflict resolution and smooth things over but both sides continued to be somewhat annoyed with the other side. I continue to remain available to patient and family.
--- NOTE | 2018-08-21 16:12 | NUR ---
PT STATES HAD PANIC ATTACK. NO KNOWN REASON/TRIGGER. ATIVAN GIVEN. GIVING COREG FOR BP. WILL FOLLOW FOR HYDRALAZINE IF NEEDED.
--- NOTE | 2018-08-21 19:21 | NUR ---
PT PLEASANT TODAY, DID HAVE A PANIC ATTACK PER PT DURING BREATHING TX. ATIVAN HELPED. DID CALM WELL. COREG 45 MIN GIVEN EARLY TO ASSIST BP. DOWN TO 139 LAST CHECK. NO OTHER CONCERNS AT THIS TIME. BED IN LOW POSITION. CALL LITE IN REAC, CALLS APPROP. AT BEDSIDE.
--- NOTE | 2018-08-21 19:30 | NUR ---
Izard of Care: Patient alert and oriented x4. Sitting upright in bed watching TV. Denies pain, discomfort, SOB, or dyspnea. VSS, O2- 95-96% on 3L/NC, plan to place patient on BiPAP mask when he is ready to sleep. Soler cath patent and intact, draining clear yellow urine. PICC line to LULY patent and intact, infusing NS at TKO rate. Will continue to monitor for pain, safety, comfort.
[2018-08-22 04:11] LABS: Anion Gap 6 mmol/L (6-16); Blood Urea Nitrogen 10 mg/dL (8-24); Bun/Creatinine Ratio 13.8 (12.0-20.0); CO2, Blood 35 mmol/L (21-32); Calcium, Blood 8.7 mg/dL (8.5-10.1); Chloride, Blood 101 mmol/L (98-108); Creatinine, Blood 0.73 mg/dL (0.60-1.20); Glomerular Filtration Rate >60 (60-); Glucose, Blood 211 mg/dL (70-99); Potassium, Blood 3.5 mmol/L (3.5-5.5); Sodium, Blood 142 mmol/L (136-145)
--- NOTE | 2018-08-22 07:20 | NUR ---
START OF SHIFT NOTE: RECEIVED REPORT FROM JAQUELIN PATRICK, ASSUMED CARE, PATIENT IS RESTING COMFORTABLY AND APPEARS TO BE SLEEPING, SLEEPING ON COT AT BEDSIDE, PATIENT IS EASILY AWOKEN, ALERT AND ORIENTED, STATED "IT IS COLD", WARM BLANKET GIVEN, BIPAP IN PLACE, LUNG SOUNDS ARE CLEAR BUT DIMINISHED, PATIENT HAS PPM AND IS 100 % PACED, BOWEL TONES PRESENT, PEG TUBE IN LUQ INFUSING TUBE FEED AT 50 CC/HR (GOAL RATE), PATIENT HAS MACEDO CATHETER IN PLACE AND GOOD URINE OUTPUT, SCD'S IN PLACE, CALL LIGHT IN REACH, WILL CONTINUE TO MONITOR.
--- NOTE | 2018-08-22 09:18 | NUR ---
DR. GAMINO IN TO SEE PATIENT, NO NEW ORDERS RECEIVED, PATIENT POSSIBLY TRANSFERRED BACK TO REHAB, ALSO PT IN TO WORK WITH ATIENT, AT BEDSIDE, CALL LIGHT IN REACH, WILL CONTINUE TO MONITOR.
--- NOTE | 2018-08-22 10:09 | NUR ---
PT/OT IN TO SEE PATIENT, UP TO CHAIR WITH SBA ONLY, AT BEDSIDE/CHAIRSIDE, CALL LIGHT IN REACH, WILL CONTINUE TO MONITOR.
--- NOTE | 2018-08-22 10:13 | NUR ---
SPOKE WITH [facility] PUBLIC RECORDS RESEARCHER, ROOMS AVAILABLE AT [facility], DR. GAMINO NOTIFIED, POSSIBLE TRANSFER OF PATIENT LATER TODAY.
--- NOTE | 2018-08-22 12:23 | NUR ---
DISCHARGE PAPERWORK RECEIVED, AWAITING ROOM ASSIGNMENT FOR [facility], NOTIFIED TAN HARRISON, EDGING MACHINE FEEDER, AWAITING CALL BACK.
--- NOTE | 2018-08-22 12:31 | NUR ---
TAN HARRISON, FIRE FIGHTER CRASH FIRE AND RESCUE, CALLED BACK AND STATED "DNS FROM [facility] WILL STOP BY TO ASSESS THE PATIENT, CANNOT TAKE HIM WITH AIRVO", TAN WAS NOTIFIED THAT HE WAS ON NC AT THIS TIME, AND NEEDS CPAP AT NIGHT ONLY.
--- NOTE | 2018-08-22 12:40 | NUR ---
PATIENT ASKED TO HAVE HIS 'S NUMBER DIALED, NO ANSWER, LEFT MESSAGE FOR TO CALL BACK, PATIENT STATED "I DON'T WANT TO SIT HERE ALL WEEK, I WANT TO GET OUT OF HERE", PATIENT WAS RE-ASSURED THAT STEPS ARE FOLLOWED TO TRANSFER HIM BACK TO [facility].
--- NOTE | 2018-08-22 13:39 | NUR ---
BECKY, SPIRITUAL CARE, IN TO SEE PATIENT, HAD TO DIAL 'S NUMBER MULTIPLE TIMES, REORIENTED TO SITUATION, CALL LIGHT IN REACH, WILL CONTINUE TO MONITOR.
--- NOTE | 2018-08-22 14:07 | NUR ---
Spiritual care visit conducted. Patient is sitting on a chair and alert. Patient asks me to call his for him. I call and hand patient the phone and while they talk I go see another patient. When I returned patient told me that he is frustrated because he wants to be discharged but there seems to be many delays in the process. Patient states that he is anxious and that he struggled with this before all these medical issues and now it is much worse. I learn from his RN that the delay is on the receiving facility side because they want to come to the hospital and assess the patient before he is received. I communicate this with the patient and also provide prayer for peace and patience. Patient responds well and thanks me for the visit.
--- NOTE | 2018-08-22 14:10 | NUR ---
PATIENT IS EXTREMELY IMPATIENT AND WANTS TO LEAVE TO GO TO REHAB, STATED "I AM GOING TO WALK OUT OF HERE", CARBURETOR MECHANIC WAS ABLE TO PREVENT THIS FOR NOW, CALL LIGHT IN REACH, WILL CONTINUE TO MONITOR.
--- NOTE | 2018-08-22 15:47 | NUR ---
PER PAGE HUNTER PATIENT WILL TRANSFER TO [facility] TOMORROW, TuesdayAugust, DON FROM [facility] WILL BE HERE TODAY FOR ASSESSMENT.
--- NOTE | 2018-08-22 16:20 | NUR ---
SHU SUGGS, [facility] IN TO ASSESS PATIENT, PATIENT WILL BE TRANSFERRED TO [facility] TOMORROW.
--- NOTE | 2018-08-22 16:24 | NUR ---
REPORT GIVEN TO KEE ZHOU RN, PATIENT WAS MOVED FROM ROOM ICU 7 TO ROOM ICU 15, PATIENT TOLERATED WELL.
--- NOTE | 2018-08-22 17:04 | NUR ---
ASSUMED CARE AT 1615 Report received from Annie HAMMER.
--- NOTE | 2018-08-22 18:50 | NUR ---
SUMMARY No acute changes since assumption of care. Pt transferred from recliner back to bed using two person assist and FWW. Pt on 2 LPM NC. 100% ventricular paced per monitor. No events per monitor. Pt verbalizes strong desire to discharge to [facility] tomorrow. Will continue to closely monitor until care handoff and bedside report with oncoming RN.
--- NOTE | 2018-08-22 19:30 | NUR ---
ASSUME CARE: REPORT RECIEVED FROM OFF GOING SHIFT KEE. MONITOR INTACT SHOWING PACED RHYTHM. LUNG SOUNDS COARSE DECREASED IN THE BASES. WITH O2 IN PLACE AT 2L/MIN SPO2 95-97.% RESPIRATIONS REG AND SHALLOW AT REST BECOMES SHORT OF BREATH WITH EXERTION/ ABDOMEN SOFT WITH BOWEL SOUNDS FOUR QUADS.PEG TUBE INFUSING J EVITY1.5 AT 50ML/HR INCONTINENT OF MOD BROWN NON FORMED STOOL ATTENDS AND LINEN CHANGE. ASSISTS WITH TURNING AND REPOSITIONING. PITTING EDEMA TO LOWER EXTREMITIES ESPECIALLY FEET CONTINUE TO MONITOR AND REPORT CHANGE IN PATIENT CONDITION
--- NOTE | 2018-08-23 02:35 | NUR ---
REPOSITIONED TO R SIDE. ANXIOUS. BREAK FROM BIPAP. CONTINUE TO MONITOR AND REPORT CHANGE IN PATIENT CONDITION
[2018-08-23 04:51] LABS: Albumin, Blood 2.6 g/dL (3.4-5.0); Anion Gap 5 mmol/L (6-16); Blood Urea Nitrogen 11 mg/dL (8-24); Bun/Creatinine Ratio 14.2 (12.0-20.0); CO2, Blood 36 mmol/L (21-32); Calcium, Blood 8.7 mg/dL (8.5-10.1); Chloride, Blood 101 mmol/L (98-108); Creatinine, Blood 0.78 mg/dL (0.60-1.20); Glomerular Filtration Rate >60 (60-); Glucose, Blood 197 mg/dL (70-99); Phosphorus, Blood 3.1 mg/dL (2.5-4.9); Potassium, Blood 3.6 mmol/L (3.5-5.5); Sodium, Blood 142 mmol/L (136-145)
--- NOTE | 2018-08-23 06:04 | NUR ---
SHIFT SUMMARY: RESTS QUIETLY WHEN UNDISTURBED. MONITOR INTACT SHOWING PACED RHYTHM WITH UNDERLYING A FIB WITH BBB HEART RATE 60'S-110'S. LUNG SOUNDS DECREASED WITH CLEAR UPPER LOBES. CPAP AT [facility] WITH PERIODS OF DESATURATION TO 84% ABDOMEN SOFT WITH BOWEL SOUNDS FOUR QUADS/MACEDO PATENT DRAINING ANA URINE. PITTING EDEMA TO LOWER EXTREMITIES. ESPECIALLY FEET. PEDAL PULSES FAINT HOWEVER PAPABLE. CONTINUE TO MONITOR AND REPORT CHANGE IN PATIENT CONDITION.
--- NOTE | 2018-08-23 09:10 | NUR ---
AM ASSESSMENT: Pt resting in bed. Tube feeding running at 50ml/hr. No residual noted. Pt appears comfortable, denie pain. A/O to place, self, time and surroundings. Pt very anxious to be discharged to rehab today. States that he just wants to get back to being able to do things on his own. Plan to discharge to [facility] today. Will monitor until that time.
--- NOTE | 2018-08-23 16:15 | NUR ---
dishcarge: Pt picc was discontinued, intact. W/C from [facility] here. Pt transfered over and discharged to [facility]. Pt very happy to be going. Pt stable at time of discharge. Report called to [facility].
== END 2018-08-23 16:10 | DRG 871 ==
LOC: ER 09:33 → ICUE 10:05 → ICUW 10:05 → ICUE 11:24 → PCU 08-17 07:18 → ICUE 08-18 07:03 → ICUW 08-22 16:29
PROVIDERS: Emergency Medicine; Internal Medicine; Internal Medicine Pulmonary Disease; Nurse Practitioner Acute Care; ADMIT Internal Medicine
PROC: 5A09357 Assistance with Respiratory Ventilation, Less than 24 Consecutive Hours, Continuous Positive Airway Pressure (ICD-10-PCS; principal; 2018-08-14)
DX: A41.9 Sepsis, unspecified organism (principal); J96.22 Acute and chronic respiratory failure with hypercapnia; J96.21 Acute and chronic respiratory failure with hypoxia; G92 Toxic encephalopathy; J18.1 Lobar pneumonia, unspecified organism; N17.9 Acute kidney failure, unspecified; Z79.4 Long term (current) use of insulin; R65.20 Severe sepsis without septic shock; E78.00 Pure hypercholesterolemia, unspecified; Z95.0 Presence of cardiac pacemaker; J44.9 Chronic obstructive pulmonary disease, unspecified; I10 Essential (primary) hypertension; I25.10 Atherosclerotic heart disease of native coronary artery without angina pectoris; I48.2 Chronic atrial fibrillation; E87.5 Hyperkalemia; E11.42 Type 2 diabetes mellitus with diabetic polyneuropathy; Z95.5 Presence of coronary angioplasty implant and graft; Z87.891 Personal history of nicotine dependence; R45.1 Restlessness and agitation; D64.9 Anemia, unspecified; R19.5 Other fecal abnormalities; R13.10 Dysphagia, unspecified; Z96.0 Presence of urogenital implants
CPT/HCPCS: 31720; 36415; 36569; 36600; 51702; 71045; 80048; 80053; 80069; 80202; 81001; 82607; 82746; 82803; 82947; 83605; 83735; 83880; 84100; 84484; 85025; 85027; 87040; 87086; 92526; 92610; 93005; 93010; 93971; 94640; 94660; 94762; 96365; 96368; 96375; 97110; 97162; 97166; 97530; 97535; 99285-25; C1751; C9113; J0360; J0610; J0692; J1644; J1815; J1940; J2060; J2405; J3370; J3475; J7030; J7040; J7060; J7799

== ENCOUNTER 2018-10-20 19:59 | Emergency (ER) | payer OTHER ==
[~2018-10-20] VITALS: Ht 167.6 cm; Wt 96.6 kg
[~2018-10-20 19:59] MED LIST changes: +FLUT1DIS2 INH
[2018-10-21] MEDS ORDERED: METF500 PO (09:44)
[2018-10-21] MEDS ORDERED: POTA10T PO (09:44)
[2018-10-21] MEDS ORDERED: FURO40 PO (09:45)
[2018-10-21] MEDS ORDERED: Bentyl10 MG PO (09:46)
[2018-10-21] MEDS ORDERED: XARELTO20 MG PO (09:46)
[2018-10-21] MEDS ORDERED: GABA300 PO (09:47)
[2018-10-21] MEDS ORDERED: TAMS.4ER PO (09:48)
== END 2018-10-20 21:15 | disposition left against medical advice (07) ==
LOC: ER 19:59
DX: Z53.21 Procedure and treatment not carried out due to patient leaving prior to being seen by health care provider (principal)
CPT/HCPCS: 99281

== ENCOUNTER 2018-10-21 08:41 | Emergency (ER) | payer OTHER ==
[~2018-10-21] VITALS: Ht 172.7 cm; Wt 120.2 kg
[2018-10-21 09:40] LABS: BASOPHILS ABSOLUTE AUTO 0.01 K/mm3 (0.00-0.23); BASOPHILS PERCENT AUTO 0 % (0-2); EOSINOPHILS ABSOLUTE AUTO 0.23 K/mm3 (0.00-0.68); EOSINOPHILS PERCENT AUTO 5 % (0-6); Hematocrit 34.9 % (37.0-53.0); Hemoglobin 10.5 g/dL (13.5-17.5); IMMATURE GRAN ABSOLUTE AUTO 0.01 K/mm3 (0.00-0.10); IMMATURE GRAN PERCENT AUTO 0 % (0-1); LYMPHOCYTES ABSOLUTE AUTO 0.83 K/mm3 (0.84-5.20); LYMPHOCYTES PERCENT AUTO 19 % (21-46); MONOCYTES ABSOLUTE AUTO 0.37 K/mm3 (0.16-1.47); MONOCYTES PERCENT AUTO 9 % (4-13); Mean Corpuscular HGB 27.6 pg (26.0-34.0); Mean Corpuscular HGB Conc 30.1 g/dL (31.5-36.5); Mean Corpuscular Volume 92 fL (80-100); Mean Platelet Volume 11.1 fL (9.1-12.4); NEUTROPHILS ABSOLUTE AUTO 2.85 K/mm3 (1.96-9.15); NEUTROPHILS PERCENT AUTO 66 % (41-73); Platelet Count 148 K/mm3 (150-400); RDW Coefficient Variation 15.6 % (11.7-14.2); RDW Standard Deviation 52.1 fL (35.1-46.3)
[2018-10-21] MEDS ORDERED: METF500 PO (09:44)
[2018-10-21] MEDS ORDERED: POTA10T PO (09:44)
[2018-10-21] MEDS ORDERED: FURO40 PO (09:45)
[2018-10-21] MEDS ORDERED: Bentyl10 MG PO (09:46)
[2018-10-21] MEDS ORDERED: XARELTO20 MG PO (09:46)
[2018-10-21] MEDS ORDERED: GABA300 PO (09:47)
[2018-10-21] MEDS ORDERED: TAMS.4ER PO (09:48)
[2018-10-21 09:58] LABS: Albumin, Blood 3.5 g/dL (3.4-5.0); Bilirubin, Total 0.5 mg/dL (0.1-1.0); Bun/Creatinine Ratio 20.9 (12.0-20.0); Calcium, Blood 9.4 mg/dL (8.5-10.1); Creatinine, Blood 1.48 mg/dL (0.60-1.20); Globulin, Blood 3.4 g/dL (2.2-4.0); Potassium, Blood 4.9 mmol/L (3.5-5.5); Total Protein, Blood 6.9 g/dL (6.4-8.2)
== END 2018-10-21 10:48 | disposition home or self-care (01) ==
LOC: ER 08:41
PROVIDERS: Emergency Medicine
DX: I12.9 Hypertensive chronic kidney disease with stage 1 through stage 4 chronic kidney disease, or unspecified chronic kidney disease (principal); N18.9 Chronic kidney disease, unspecified; E11.22 Type 2 diabetes mellitus with diabetic chronic kidney disease; Z88.0 Allergy status to penicillin; Z88.2 Allergy status to sulfonamides; Z79.899 Other long term (current) drug therapy; Z79.4 Long term (current) use of insulin; J44.9 Chronic obstructive pulmonary disease, unspecified; I48.91 Unspecified atrial fibrillation
CPT/HCPCS: 36415; 80053; 83880; 85025; 96374; 99283-25; J1940

== ENCOUNTER 2018-11-20 08:02 | Emergency (ER) | payer OTHER ==
[~2018-11-20] VITALS: Ht 175.3 cm; Wt 126.1 kg
[~2018-11-20 08:02] MED LIST changes: +Bentyl10 MG PO; +FURO40 PO; +GABA300 PO; +POTA10T PO; +TAMS.4ER PO; +XARELTO20 MG PO
[2018-11-20] MEDS ORDERED: Aldactone100 MG PO (08:31)
[2018-11-20] MEDS ORDERED: BASAGLAR K100 UNIT/1 (08:32)
[2018-11-20] MEDS ORDERED: Humalog100 UNIT/3 (08:33)
[2018-11-20 09:15] LABS: BASOPHILS ABSOLUTE AUTO 0.02 K/mm3 (0.00-0.23); BASOPHILS PERCENT AUTO 0 % (0-2); EOSINOPHILS ABSOLUTE AUTO 0.32 K/mm3 (0.00-0.68); EOSINOPHILS PERCENT AUTO 6 % (0-6); Hematocrit 32.4 % (37.0-53.0); Hemoglobin 9.7 g/dL (13.5-17.5); IMMATURE GRAN ABSOLUTE AUTO 0.02 K/mm3 (0.00-0.10); IMMATURE GRAN PERCENT AUTO 0 % (0-1); LYMPHOCYTES ABSOLUTE AUTO 0.96 K/mm3 (0.84-5.20); LYMPHOCYTES PERCENT AUTO 17 % (21-46); MONOCYTES ABSOLUTE AUTO 0.52 K/mm3 (0.16-1.47); MONOCYTES PERCENT AUTO 9 % (4-13); Mean Corpuscular HGB 27.2 pg (26.0-34.0); Mean Corpuscular HGB Conc 29.9 g/dL (31.5-36.5); Mean Corpuscular Volume 91 fL (80-100); Mean Platelet Volume 10.9 fL (9.1-12.4); NEUTROPHILS ABSOLUTE AUTO 3.95 K/mm3 (1.96-9.15); NEUTROPHILS PERCENT AUTO 68 % (41-73); Platelet Count 141 K/mm3 (150-400); RDW Coefficient Variation 17.2 % (11.7-14.2); RDW Standard Deviation 57.1 fL (35.1-46.3); Red Blood Cell Count 3.57 M/mm3 (4.30-5.90); White Blood Cell Count 5.79 K/mm3 (4.00-11.30)
[2018-11-20 09:41] LABS: Albumin, Blood 3.5 g/dL (3.4-5.0); Albumin/Globulin Ratio 1.1 (0.8-1.8); Bilirubin, Total 0.7 mg/dL (0.1-1.0); Bun/Creatinine Ratio 20.5 (12.0-20.0); Calcium, Blood 9.3 mg/dL (8.5-10.1); Creatinine, Blood 1.46 mg/dL (0.60-1.20); Globulin, Blood 3.3 g/dL (2.2-4.0); Potassium, Blood 4.5 mmol/L (3.5-5.5); Total Protein, Blood 6.8 g/dL (6.4-8.2)
[2018-11-20] MEDS ORDERED: TORSE20 PO (10:20)
== END 2018-11-20 10:45 | disposition home or self-care (01) ==
LOC: ER 08:02
PROVIDERS: Emergency Medicine
DX: R60.0 Localized edema (principal); I12.9 Hypertensive chronic kidney disease with stage 1 through stage 4 chronic kidney disease, or unspecified chronic kidney disease; E11.22 Type 2 diabetes mellitus with diabetic chronic kidney disease; N18.9 Chronic kidney disease, unspecified; D63.1 Anemia in chronic kidney disease; I48.91 Unspecified atrial fibrillation; J44.9 Chronic obstructive pulmonary disease, unspecified; I25.2 Old myocardial infarction; H54.40 Blindness, one eye, unspecified eye; I87.2 Venous insufficiency (chronic) (peripheral); D69.6 Thrombocytopenia, unspecified; D64.9 Anemia, unspecified; I25.10 Atherosclerotic heart disease of native coronary artery without angina pectoris; Z88.0 Allergy status to penicillin; Z88.2 Allergy status to sulfonamides; Z79.899 Other long term (current) drug therapy; Z79.4 Long term (current) use of insulin; Z79.01 Long term (current) use of anticoagulants
CPT/HCPCS: 36415; 80053; 85025; 99284

== ENCOUNTER 2020-03-31 20:52 | Inpatient (IN) | payer OTHER ==
[~2020-03-31] VITALS: Ht 175.3 cm; Wt 125.7 kg
[~2020-03-31 20:52] MED LIST changes: +AMLO5 PO; -AMLO5 PT; +APETIGEN P12.5 MG/15; +Aldactone100 MG PO; +BASAGLAR K100 UNIT/1; +COMBIVENT RESPIM4 GM; +FLUT1DIS2; +Humalog100 UNIT/1; +Humalog100 UNIT/3; +IRON150C; +TORSE20 PO
[2020-03-31 21:17] LABS: BASOPHILS ABSOLUTE AUTO 0.02 K/mm3 (0.00-0.23); BASOPHILS PERCENT AUTO 0 % (0-2); EOSINOPHILS ABSOLUTE AUTO 0.01 K/mm3 (0.00-0.68); EOSINOPHILS PERCENT AUTO 0 % (0-6); Hematocrit 46.2 % (37.0-53.0); Hemoglobin 15.2 g/dL (13.5-17.5); IMMATURE GRAN ABSOLUTE AUTO 0.09 K/mm3 (0.00-0.10); IMMATURE GRAN PERCENT AUTO 1 % (0-1); LYMPHOCYTES ABSOLUTE AUTO 1.65 K/mm3 (0.84-5.20); LYMPHOCYTES PERCENT AUTO 10 % (21-46); MONOCYTES PERCENT AUTO 6 % (4-13); Mean Corpuscular HGB 31.2 pg (26.0-34.0); Mean Corpuscular HGB Conc 32.9 g/dL (31.5-36.5); Mean Corpuscular Volume 95 fL (80-100); Mean Platelet Volume 10.7 fL (9.1-12.4); NEUTROPHILS ABSOLUTE AUTO 13.65 K/mm3 (1.96-9.15); NEUTROPHILS PERCENT AUTO 84 % (41-73); Platelet Count 163 K/mm3 (150-400); RDW Coefficient Variation 13.2 % (11.7-14.2); RDW Standard Deviation 46.1 fL (35.1-46.3); Red Blood Cell Count 4.87 M/mm3 (4.30-5.90); White Blood Cell Count 16.32 K/mm3 (4.00-11.30)
[2020-03-31 21:27] LABS: PCO2 Arterial 35.5 mmHg (35-45); pH Blood Arterial 7.42 (7.35-7.45)
[2020-03-31 21:33] LABS: Troponin I 0.022 ng/mL (0.000-0.040)
[2020-03-31 21:34] LABS: Alanine Aminotransfer (ALT/SGP 33 U/L (12-78); Albumin, Blood 3.8 g/dL (3.4-5.0); Alk Phos 87 U/L (50-136); Anion Gap 8 mmol/L (6-16); Aspartate Aminotrans (AST/SGOT 23 U/L (12-37); Bilirubin, Total 1.5 mg/dL (0.1-1.0); Blood Urea Nitrogen 18 mg/dL (8-24); Bun/Creatinine Ratio 15.8 (12.0-20.0); CO2, Blood 25 mmol/L (21-32); Calcium, Blood 9.3 mg/dL (8.5-10.1); Chloride, Blood 107 mmol/L (98-108); Creatinine, Blood 1.14 mg/dL (0.60-1.20); Globulin, Blood 3.8 g/dL (2.2-4.0); Glomerular Filtration Rate >60 (60-); Glucose, Blood 291 mg/dL (70-99); Potassium, Blood 4.3 mmol/L (3.5-5.5); Sodium, Blood 140 mmol/L (136-145); Total Protein, Blood 7.6 g/dL (6.4-8.2)
[2020-03-31 23:34] LABS: Source, Urine Clean Catch
[2020-03-31 23:37] LABS: Appearance, Urine Clear (Clear); Bilirubin, Urine Neg (Neg); Blood, Urine 4+ (Neg); Color, Urine Yellow (P-Yellow); Glucose Qualitative, Urine 4+ (Neg); Ketones, Urine 1+ (Neg); Leukocyte Esterase, Urine Neg (Neg); Nitrite, Urine Neg (Neg); Protein, Urine 3+ (Neg); Urobilinogen, Urine NORM (Normal)
[2020-03-31 23:47] LABS: Bacteria Few /hpf; Red Blood Cells, Urine 0-2 /hpf (0-2); Squamous Epithelial Cells Few /hpf (Few); White Blood Cells, Urine 0-2 /hpf (0-5)
[2020-03-31 23:50] LABS: U Amphetamine Screen Not Detected; U Barbituate Screen Not Detected; U Benzodiazapine Screen Not Detected; U Buprenorphine Screen Not Detected; U Cannabinoids Screen DETECTED; U Cocaine Screen Not Detected; U Methadone Screen Not Detected; U Methamphetamine Screen Not Detected; U Opiates Screen Not Detected; U Oxycodone Screen Not Detected; U Phencyclidine Screen Not Detected; U Propoxyphene Screen Not Detected
[2020-04-01 00:15] LABS: Influenza A, PCR NEGATIVE (NEGATIVE); Influenza B, PCR NEGATIVE (NEGATIVE); Resp Syncytial Virus, PCR NEGATIVE (NEGATIVE); SARS-Cov-2 (COVID-19) PCR, MMC NEGATIVE (NEGATIVE)
[2020-04-01 03:40] LABS: BASOPHILS ABSOLUTE AUTO 0.03 K/mm3 (0.00-0.23); BASOPHILS PERCENT AUTO 0 % (0-2); EOSINOPHILS ABSOLUTE AUTO 0.01 K/mm3 (0.00-0.68); EOSINOPHILS PERCENT AUTO 0 % (0-6); Hematocrit 43.5 % (37.0-53.0); Hemoglobin 14.8 g/dL (13.5-17.5); IMMATURE GRAN ABSOLUTE AUTO 0.07 K/mm3 (0.00-0.10); IMMATURE GRAN PERCENT AUTO 0 % (0-1); LYMPHOCYTES PERCENT AUTO 9 % (21-46); MONOCYTES ABSOLUTE AUTO 0.85 K/mm3 (0.16-1.47); MONOCYTES PERCENT AUTO 5 % (4-13); Mean Corpuscular HGB 32.5 pg (26.0-34.0); Mean Corpuscular Volume 96 fL (80-100); Mean Platelet Volume 10.8 fL (9.1-12.4); NEUTROPHILS ABSOLUTE AUTO 13.54 K/mm3 (1.96-9.15); NEUTROPHILS PERCENT AUTO 85 % (41-73); Platelet Count 166 K/mm3 (150-400); RDW Coefficient Variation 13.2 % (11.7-14.2); RDW Standard Deviation 46.8 fL (35.1-46.3); Red Blood Cell Count 4.55 M/mm3 (4.30-5.90)
[2020-04-01 03:56] LABS: Anion Gap 9 mmol/L (6-16); Blood Urea Nitrogen 19 mg/dL (8-24); Bun/Creatinine Ratio 15.3 (12.0-20.0); CO2, Blood 26 mmol/L (21-32); Calcium, Blood 9.3 mg/dL (8.5-10.1); Chloride, Blood 106 mmol/L (98-108); Creatinine, Blood 1.24 mg/dL (0.60-1.20); Glomerular Filtration Rate >60 (60-); Glucose, Blood 288 mg/dL (70-99); Potassium, Blood 4.3 mmol/L (3.5-5.5); Sodium, Blood 141 mmol/L (136-145)
--- NOTE | 2020-04-01 07:33 | NUR ---
Received report from Wilian HAMMER. Patienr olling around in bed agitated yelling out help me and when ask him what he needs help with, he is unable to state problem. He then states I need to pee and when holding urinal he denies needing to go. Spoke with Dr Rutledge about Precedex for agitation and yepez for possible retenetion and she is currently in room evaluating patient. He is on 2L O2 via NC and sats 99%. He has attends in place and is rolling around and scooting and are hard to keep on. He is alert to name and family and is unable to stae year and place. He has two IV's, 20ga LAC and 20ga IV in LFA. Both flushed and SL'd.
--- NOTE | 2020-04-01 07:39 | NUR ---
SHIFT SUMMARY PT ARRIVED TO THE UNIT AROUND 0120. BP WAS HYPERTENSIVE 200 SYSTOLIC, PRN HYDRALAZINE WAS GIVEN, BP DOWN TO 180'S STYSTOLIC. AROUND 0300 PT BECAME MORE CONFUSED AND STARTED YELLING AND GETTING OUT OF BED. PT VOIDED INTO URNAL 400ML, BLADDER SCAN SHORTLY AFTER SHOWED ABOUT 300ML. PT STATED 10 OF 10 CHEST PAIN, WAS SWEATING AND BECOMING SOB. NITRO X 3 WAS GIVEN, PT STATED SOME RELIEF OF PAIN. PT WAS YELLING AND COMBATIVE T/O THIS EPISODE. HR 60'S AND PACED WITH LITTLE CHANGE. PT WAS GIVEN ATIVAN AND PT CALMED. PT HAS ANOTHER YELLING EVENT ABOUT 0400, YELLING AND COMBATIVE. THIS OCCURED WITH GREATER FREQUENCY AND INTENSITY T/O THE MORNING. PT WAS STATING HE WANTED HIS , HE NEEDED HELP, WHEN ASKED HOW WE COULD HELP HE WOULD JUST SAY HELP ME. PT WAS CONFUSED AND AAOX1, ONLY KNEW HIS BIRTHDAY. HE STATED HAVING NAUSEA AND PRN ZOFRAN WAS GIVEN. AT THE END OF SHIFT PT WAS PUT INTO SOFT BILAT WRIST RESTRAINTS.
--- NOTE | 2020-04-01 07:54 | NUR ---
Dr Rutledge starting on fluids with LR bolus and then NS at 125m ml/hr. He is currentlty NPO for hx of aspiration. Patient has relaxed and is starting top rest.
--- NOTE | 2020-04-01 09:30 | NUR ---
Started LR bolus and started him on 0.5 mcg/kg/hr precedex and increased to 0.7 mcg/kg/hr and gave 0.25 ativan and is resting quietly on 2L O2 via NC and sats 98%. VSS, See EMR
--- NOTE | 2020-04-01 10:31 | NUR ---
ECHOCARDIOGRAM COMPLETED
--- NOTE | 2020-04-01 12:00 | NUR ---
Patient placed on CPAP while sleeping set auto 8-20 and sats >95%. he has been sleeping and awakens to verbal stimuli and is mostly appropriate, but still pulls at lines and tubes. VSS, See EMR. Reduced Precedex to 0.3 mcg/kg/hr. Started NS at 125 ml/hr as well. He remaisn in bilateral soft wrist restraints as he still pulls at lines and tubes.
--- NOTE | 2020-04-01 14:00 | NUR ---
patient continues to rest with intermitent awkenings for care. He has been more pleasant. He remains on 0.3 mcg/kg/hr of Precedex and NS at 125ml/hr. medicated with 25 mcg fentanyl and seems to help him relax with the Precedex. He asked for CPAP off for a little bit and has been on RA and sats >95%. VSS, See EMR.
[2020-04-01 16:17] LABS: Source, Urine Catheter
[2020-04-01 16:27] LABS: Appearance, Urine Clear (Clear); Bilirubin, Urine Neg (Neg); Blood, Urine 2+ (Neg); Color, Urine Yellow (P-Yellow); Glucose Qualitative, Urine 4+ (Neg); Ketones, Urine 1+ (Neg); Leukocyte Esterase, Urine Neg (Neg); Nitrite, Urine Neg (Neg); Protein, Urine 3+ (Neg); Specific Gravity, Urine 1.015 (1.003-1.022); Urobilinogen, Urine NORM (Normal)
--- NOTE | 2020-04-01 16:30 | NUR ---
Patient awakened briefly and gave some meds per MAR and was getting nauseated and gave Zofran and Fentanyl and he was more relaxed and started to nap again. VSS, See EMR No changes in Precedex or fluids. Remains on RA.
[2020-04-01 16:36] LABS: Amorphous Light (0-Heavy); Bacteria Few /hpf; Squamous Epithelial Cells Few /hpf (Few); White Blood Cells, Urine 0-2 /hpf (0-5)
--- NOTE | 2020-04-01 18:49 | NUR ---
Removed restraints at 1800, he has been directable and has been taking sips of water for meds all at once. Precedex at 0.3 mcg/kg/min and NS at 125 ml/hr until am doctor visit. He continues on RA and sats >90%.
--- NOTE | 2020-04-01 19:34 | NUR ---
ASSUMED CARE OF PT, BEDSIDE REPORT RECEIVED. PT IS RESTING QUIETLY RECLINING IN BED, ROUSES TO VERBAL STIMULI, SPEAKING IN FULL SENTENCES WITHOUT VISIBLE INCREASED WORK OF BREATHING. DENIES NEEDS AT THIS TIME. DENIES CP/PRESSURE, DENIES SOB/DYSPNEA, DENIES N/V, DENES NUMBNESS/TINGLING. SATS ARE MAINTAINING ON ROOM AIR, RATE NEAR 20, OCCASIONAL EXPIRATORY WHEEZE IS AUDIBLE HOWEVER LUNGS ARE CLEAR WITH DIM BASES BILAT TO AUSCULTATION, RESPIRATIONS ARE NOTED SHALLOW. PACED RHYTHM NOTED, HYPERTENSIVE WITH SBP AT 160 AT THIS TIME, PULSES FULL, NO EDEMA IS NOTED, CAP REFILL BRISK, SKIN PWD. ABD DISTENDED, ACTIVE BOWEL TONES, FIRM TO PALPATION HOWEVER PT DENIES PAIN. PER OFFGOING RN, PT HAS NEEDED IN AND OUT CATH TODAY FOR RETENTION, PLAN IS TO BLADDER SCAN Q6 HOURS AND IF RETENTION CONTINUES PLACE MACEDO CATH. IV ACCESS NOTED TO LEFT FOREARM AND AC, SITES WNL, DRESSINGS CDI, PRECEDEX AT 0.3 MCG/KG/HR, NS @ 125 ML/HR.
--- NOTE | 2020-04-02 05:15 | NUR ---
PT RESTS QUIETLY THROUGHOUT SHIFT, USES CALL LIGHT TO MAKE NEEDS KNOWN, CALLS OUT TO STAFF WHEN CALL LIGHT IS DROPPED FOR ASSISTANCE IN RETRIEVING IT. HAS BEEN ABLE TO STATE THAT HE IS IN [facility] IN [place] HOWEVER REMAINS UNCLEAR REGARDING THE EXACT DATE. CONTINUES TO DENY INCREASED WORK OF BREATHING, DENIES PAIN THROUGHOUT SHIFT, DENIES NAUSEA, HAS COMPLAINED OF DRY MOUTH AND REQUESTS ORAL SWABS FREQUENTLY, FREQUENT ORAL CARE IS DONE THROUGHOUT NOC BY PT. HE CONTINUES TO MAINTAIN SATS ON ROOM AIR IS ABLE TO TURN AND REPOSITION SELF WELL. PRECEDEX CONTINUES AT 0.3 MCG/KG/HR.
[2020-04-02 05:32] LABS: BASOPHILS ABSOLUTE AUTO 0.02 K/mm3 (0.00-0.23); BASOPHILS PERCENT AUTO 0 % (0-2); EOSINOPHILS ABSOLUTE AUTO 0.13 K/mm3 (0.00-0.68); EOSINOPHILS PERCENT AUTO 2 % (0-6); Hematocrit 40.9 % (37.0-53.0); Hemoglobin 13.4 g/dL (13.5-17.5); IMMATURE GRAN ABSOLUTE AUTO 0.02 K/mm3 (0.00-0.10); IMMATURE GRAN PERCENT AUTO 0 % (0-1); LYMPHOCYTES ABSOLUTE AUTO 1.02 K/mm3 (0.84-5.20); LYMPHOCYTES PERCENT AUTO 12 % (21-46); MONOCYTES PERCENT AUTO 6 % (4-13); Mean Corpuscular HGB 31.5 pg (26.0-34.0); Mean Corpuscular HGB Conc 32.8 g/dL (31.5-36.5); Mean Corpuscular Volume 96 fL (80-100); Mean Platelet Volume 10.5 fL (9.1-12.4); NEUTROPHILS ABSOLUTE AUTO 7.21 K/mm3 (1.96-9.15); NEUTROPHILS PERCENT AUTO 81 % (41-73); Platelet Count 128 K/mm3 (150-400); RDW Coefficient Variation 13.2 % (11.7-14.2); RDW Standard Deviation 46.9 fL (35.1-46.3); Red Blood Cell Count 4.25 M/mm3 (4.30-5.90)
[2020-04-02 05:54] LABS: Anion Gap 6 mmol/L (6-16); Blood Urea Nitrogen 22 mg/dL (8-24); Bun/Creatinine Ratio 18.6 (12.0-20.0); CO2, Blood 25 mmol/L (21-32); Calcium, Blood 8.6 mg/dL (8.5-10.1); Chloride, Blood 114 mmol/L (98-108); Creatinine, Blood 1.18 mg/dL (0.60-1.20); Glomerular Filtration Rate >60 (60-); Glucose, Blood 171 mg/dL (70-99); Sodium, Blood 145 mmol/L (136-145)
--- NOTE | 2020-04-02 08:00 | NUR ---
Receieved report from nicholas HAMMER. Patient is awake in bed and on RA with fan in face. He is cooperative with care and asked appropriately. He c/o of constant nausea and gave zofran without success. Dr diane was in rom and gave order for Phenergren. Afterwards Dr mcghee came by and made med no tele. Placed Precedex on hold at 0700. He has 18ga IV in LAC and is receiving NS at 125ml/hr. 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 gave him lemon swabs.
--- NOTE | 2020-04-02 10:05 | NUR ---
Patient up in chair with SBA with lines and tubes. He tolerated pill swith water. He has been getting lemon swabs to moisturize his mouth. Speech therapy has been here and set new diet and texture. He remains up in chair. He tolerated Phenergren well and has not had nausea since. he was incontinent of stool in chair and feels embarassed. Cleaned and changes linen. VSS. Talked with Dr diane and now that he is taking fluids we can DC NS.
--- NOTE | 2020-04-02 12:00 | NUR ---
Patient remnains up in chair. we called so he could talk with . He has been really appropriate with calling and needs. He has another stool in joshua and incontinent. He has tolerated thickened liquids well. He ate about 80% of lunch without any nausea. He remains on RA and sats >95%. Fluids remain dc'f.
--- NOTE | 2020-04-02 17:57 | NUR ---
Patient continues to improve. He has been tolerating thicken liquid and needs to be reminded to slow down drinking fluids. He remaisn on Ra and sats >90%. His Phenergren has really helped his nausea. he needs help with urinal as he has tendency to not find opening of urinal and pee on floor. He is still awaiting bed on medical.
--- NOTE | 2020-04-02 19:47 | NUR ---
ASSESSMENT PT RESTING QUIETLY. STATES,"I HOPE I HAVE A GOOD NIGHT BUT WE WILL SEE". DENIES PAIN AT THIS TIME. LUNGS CLEAR BUT DECREASED IN THE BASES ON ROOMAIR. SOB NOTED WITH ACTIVITY RESOLVES QUICKLY WITH REST. NONPRODUCTIVE COUGH NOTED. HEART RATE 100% PACED. BP ELEVATED, PT TO BE MED WITH HYDRALAZINE FOR HTN. NO EDEMA. BT+ ABD OBESE, SOFT AND NONTENDER. IV 20G TO LEFT AC AND 20G TO LEFT FOREARM BOTH SALINE LOCKED, SITES CLEAR, FLUSHED WITHOUT DIFFICUTLY. PT UP TO BATHROOM AD JULIAN. HAD LOOSE STOOL. TEMP 99.5, MED WITH TYLENOL. PT SHIVERING. WILL RECHECK TEMP.
--- NOTE | 2020-04-02 21:00 | NUR ---
TEMP SPOKE WITH HOSPITALIST WAYLON DOUGLAS REGARDING TEMP 101.2. BLOOD CULTURES ORDERED. PT ALREADY MED WITH TYLENOL. COOL CLOTH TO FOREHEAD, FAN ON AND BLANKET REMOVED.
--- NOTE | 2020-04-03 01:33 | NUR ---
TEMP PT SITTING UP IN BED WATCHING TV. STATES,"I JUST DON'T FEEL GOOD". TEMP UP TO 101.2. PT MED WITH TYLENOL, FAN ON, COOL CLOTH TO FOREHEAD, AND BLANKETS OFF.
--- NOTE | 2020-04-03 05:30 | NUR ---
SHIFT SUMMARY PT AWAKE MOST OF THE NIGHT. TEMP 101.2 DURING THE NIGHT. MED WITH TYLENOL FOR FEVER AND NOW AFEBILE. VSS. PT MED WITH HYDRALAZINE DURING THE NIGHT DUE TO HYPERTENION. PT TURNING AND MOVING SELF IN BED. NO ACUTE CHANGE. REPORT TO ON COMING NURSE
--- NOTE | 2020-04-03 08:00 | NUR ---
ASSUMED CARE RECEIVED REPORT FROM JAQUELIN LEE. PT IS IN ROOM SITTING UP - AWAKE, ALERT, AND ORIENTED X 4. HE C/O FATIGUE AND TROUBLE SLEEPING LAST NIGHT. BUT HE IS INDEPENDENT IN THE ROOM BY HIMSELF, USES THE TOILET, UP IN THE ROOM WITH NO ASSIST. DENIES CHEST PAIN, SOB, NAUSEA, AND DISCOMFORT OF ANY KIND. BED LOW AND LOCKED. CALL LIGHT WITHIN REACH.
--- NOTE | 2020-04-03 10:12 | NUR ---
UPDATE PT AFEBRILE SINCE 0200. ST WORKING WITH PT AND MADE CHANGES. DR. PAULSON STATED THAT HE BELIEVES THE PT WILL BE DISCHARGED TODAY, BY THIS AFTERNOON. PT IS EAGER TO GO HOME. PT HYPERTENSIVE, BUT MORNING MEDS INCLUDED ANTIHYPETENSIVES, AND PT HAD BEEN COMPLAINING OF NOT SLEEPING WELL AND APPEARS STRESSED THIS MORNING.
--- NOTE | 2020-04-03 11:51 | NUR ---
UPDATE PT REFUSING LUNCH DUE TO HIM MIGHT BEING DISCHARGED AT [address] PAULSON.
[2020-04-03] MEDS ORDERED: AZIT250 PO (12:51)
[2020-04-03] MEDS ORDERED: VISBIOME 112.51 EACH PO (12:51)
[2020-04-03] MEDS ORDERED: AUGMENTIN XR 11 EACH PO (12:52)
[2020-04-03] MEDS ORDERED: BANOPHEN50 MG PO (12:52)
--- NOTE | 2020-04-03 13:29 | NUR ---
UPDATE PT OUT OF ICU AT 1320; ALERT AND ORIENTED X 4; DENIES PAIN, NAUSEA, AND SOB AT TIME OF DISCHARGE. PT's SON IN ROOM HELPING HIM LEAVE ICU. BOTH PERIPHERAL IVs REMOVED.
--- NOTE | 2020-04-03 18:04 | NUR ---
UPDATE KIKO, THE PT's , CALLED THE ICU AND INFORMED US THAT THE PRESCRIPTION: AUGMENTIN PO, THAT WAS ORDERED FOR AFTER DISCHARGE WAS NOT COVERED BY THEIR INSURANCE AND WAS GOING TO COST OVER 150$. THIS RN CALLED DR. PAULSON AND HE DECIDED TO ORDER A DIFFERENT ANTIBIOTIC: CEFUROXIME 500 MG BID X 3 DOSES (6 TABS, 0 REFILS). THIS WAS CALLED TO [facility] IN [place] @ [phone] AND KIKO WAS UPDATED.
== END 2020-04-03 13:40 | disposition home or self-care (01) | DRG 871 ==
LOC: ER 20:52 → ICUE 23:42 → ERHOLD 23:42 → ICUE 04-01 01:15
PROVIDERS: Emergency Medicine; Family Medicine; ADMIT Family Medicine
PROC: 5A09557 Assistance with Respiratory Ventilation, Greater than 96 Consecutive Hours, Continuous Positive Airway Pressure (ICD-10-PCS; principal; 2020-04-01)
DX: A41.9 Sepsis, unspecified organism (principal); I50.33 Acute on chronic diastolic (congestive) heart failure; J69.0 Pneumonitis due to inhalation of food and vomit; I13.0 Hypertensive heart and chronic kidney disease with heart failure and stage 1 through stage 4 chronic kidney disease, or unspecified chronic kidney disease; E87.2 Acidosis; I25.2 Old myocardial infarction; R65.20 Severe sepsis without septic shock; Z20.822 Contact with and (suspected) exposure to COVID-19; I25.10 Atherosclerotic heart disease of native coronary artery without angina pectoris; J44.9 Chronic obstructive pulmonary disease, unspecified; Z95.0 Presence of cardiac pacemaker; Z95.5 Presence of coronary angioplasty implant and graft; E11.22 Type 2 diabetes mellitus with diabetic chronic kidney disease; Z79.4 Long term (current) use of insulin; G47.33 Obstructive sleep apnea (adult) (pediatric); R33.9 Retention of urine, unspecified; Z88.0 Allergy status to penicillin; Z78.1 Physical restraint status; N18.9 Chronic kidney disease, unspecified
CPT/HCPCS: 0241U; 36415; 36600; 51798; 70450; 71045; 71260; 80048; 80053; 81001; 82140; 82803; 82947; 83605; 83880; 84484; 85025; 87040; 92526; 92610; 93005; 93010; 93306; 94640; 94660; 96365; 96366; 96375; 99285-25; A9270; J0360; J0456; J0696; J1815; J1940; J2060; J2405; J2550; J3010; J7030; J7050; J7120; Q9967

== ENCOUNTER 2021-01-09 10:16 | Inpatient (IN) | payer OTHER ==
[~2021-01-09] VITALS: Ht 170.2 cm; Wt 116.3 kg
[~2021-01-09 10:16] MED LIST changes: +AUGMENTIN XR 11 EACH PO; +AZIT250 PO; +BANOPHEN50 MG PO; +VISBIOME 112.51 EACH PO
[2021-01-09 10:47] LABS: PCO2 Venous 46.7 mmHg (38-42); pH Blood Venous 7.35 (7.34-7.37)
[2021-01-09 10:48] LABS: BASOPHILS ABSOLUTE AUTO 0.03 K/mm3 (0.00-0.23); BASOPHILS PERCENT AUTO 0 % (0-2); Base Excess Venous -0.2 mmol/L; Bicarbonate Venous 23.8 mmol/L (24.0-30.0); EOSINOPHILS ABSOLUTE AUTO 0.01 K/mm3 (0.00-0.68); EOSINOPHILS PERCENT AUTO 0 % (0-6); Hematocrit 45.5 % (37.0-53.0); Hemoglobin 14.9 g/dL (13.5-17.5); IMMATURE GRAN ABSOLUTE AUTO 0.11 K/mm3 (0.00-0.10); IMMATURE GRAN PERCENT AUTO 1 % (0-1); LYMPHOCYTES ABSOLUTE AUTO 1.21 K/mm3 (0.84-5.20); LYMPHOCYTES PERCENT AUTO 9 % (21-46); MONOCYTES ABSOLUTE AUTO 0.97 K/mm3 (0.16-1.47); MONOCYTES PERCENT AUTO 7 % (4-13); Mean Corpuscular HGB 31.7 pg (26.0-34.0); Mean Corpuscular HGB Conc 32.7 g/dL (31.5-36.5); Mean Corpuscular Volume 97 fL (80-100); NEUTROPHILS ABSOLUTE AUTO 11.97 K/mm3 (1.96-9.15); NEUTROPHILS PERCENT AUTO 84 % (41-73); Platelet Count 151 K/mm3 (150-400); RDW Standard Deviation 46.5 fL (35.1-46.3)
[2021-01-09 11:05] LABS: Anion Gap 5 mmol/L (6-16); Blood Urea Nitrogen 17 mg/dL (8-24); Bun/Creatinine Ratio 13.4 (12.0-20.0); CO2, Blood 27 mmol/L (21-32); CPK Creatine Kinase 81 U/L (39-308); Calcium, Blood 9.7 mg/dL (8.5-10.1); Chloride, Blood 106 mmol/L (98-108); Creatinine, Blood 1.27 mg/dL (0.60-1.20); Glomerular Filtration Rate 57 (60-); Glucose, Blood 255 mg/dL (70-99); Magnesium, Blood 1.7 mg/dL (1.6-2.4); Potassium, Blood 4.5 mmol/L (3.5-5.5); Sodium, Blood 138 mmol/L (136-145); Troponin I <0.015 ng/mL (0.000-0.040)
[2021-01-09 11:31] LABS: Source, Urine Catheter
[2021-01-09 11:31] LABS: Influenza A, PCR NEGATIVE (NEGATIVE); Influenza B, PCR NEGATIVE (NEGATIVE); Resp Syncytial Virus, PCR NEGATIVE (NEGATIVE); SARS-Cov-2 (COVID-19) PCR, MMC NEGATIVE (NEGATIVE)
[2021-01-09 11:36] LABS: Appearance, Urine Clear (Clear); Bilirubin, Urine Neg (Neg); Blood, Urine 2+ (Neg); Color, Urine Yellow (P-Yellow); Glucose Qualitative, Urine 4+ (Neg); Ketones, Urine Neg (Neg); Leukocyte Esterase, Urine Neg (Neg); Nitrite, Urine Neg (Neg); Protein, Urine 3+ (Neg); Urobilinogen, Urine NORM (Normal)
[2021-01-09] MEDS ORDERED: COMBIVENT RESPIM4 G1 INH (11:45)
[2021-01-09 11:49] LABS: Red Blood Cells, Urine 0-2 /hpf (0-2); White Blood Cells, Urine 0-2 /hpf (0-5)
[2021-01-09] MEDS ORDERED: POTA10T PO (11:49)
[2021-01-09 11:50] LABS: Bacteria Rare /hpf; Renal Epithelial Rare /hpf (0-Rare); Squamous Epithelial Cells Rare /hpf (Few)
[2021-01-09] MEDS ORDERED: BASAGLAR K100 UNIT/1 (11:51)
[2021-01-09] MEDS ORDERED: HUMALOG100 UNIT/1 (11:51)
[2021-01-09] MEDS ORDERED: Acetaminophen325 M1 PO (11:52)
[2021-01-09] MEDS ORDERED: Crestor20 MG PO (11:53)
[2021-01-09] MEDS ORDERED: LOSA25 PO (11:54)
[2021-01-09 16:32] LABS: U Amphetamine Screen Not Detected; U Barbituate Screen Not Detected; U Benzodiazapine Screen Not Detected; U Buprenorphine Screen Not Detected; U Cannabinoids Screen DETECTED; U Cocaine Screen Not Detected; U Methadone Screen Not Detected; U Methamphetamine Screen Not Detected; U Opiates Screen Not Detected; U Oxycodone Screen Not Detected; U Phencyclidine Screen Not Detected; U Propoxyphene Screen Not Detected
[2021-01-10 03:27] LABS: BASOPHILS ABSOLUTE AUTO 0.03 K/mm3 (0.00-0.23); BASOPHILS PERCENT AUTO 0 % (0-2); EOSINOPHILS ABSOLUTE AUTO 0.01 K/mm3 (0.00-0.68); EOSINOPHILS PERCENT AUTO 0 % (0-6); Hematocrit 40.4 % (37.0-53.0); Hemoglobin 13.5 g/dL (13.5-17.5); IMMATURE GRAN ABSOLUTE AUTO 0.05 K/mm3 (0.00-0.10); IMMATURE GRAN PERCENT AUTO 0 % (0-1); LYMPHOCYTES ABSOLUTE AUTO 0.91 K/mm3 (0.84-5.20); LYMPHOCYTES PERCENT AUTO 8 % (21-46); MONOCYTES PERCENT AUTO 7 % (4-13); Mean Corpuscular HGB 31.7 pg (26.0-34.0); Mean Corpuscular HGB Conc 33.4 g/dL (31.5-36.5); Mean Corpuscular Volume 95 fL (80-100); Mean Platelet Volume 10.9 fL (9.1-12.4); NEUTROPHILS ABSOLUTE AUTO 9.34 K/mm3 (1.96-9.15); NEUTROPHILS PERCENT AUTO 84 % (41-73); Platelet Count 126 K/mm3 (150-400); RDW Coefficient Variation 13.3 % (11.7-14.2); RDW Standard Deviation 47.1 fL (35.1-46.3); Red Blood Cell Count 4.26 M/mm3 (4.30-5.90); White Blood Cell Count 11.14 K/mm3 (4.00-11.30)
[2021-01-10 03:45] LABS: Albumin, Blood 2.9 g/dL (3.4-5.0); Albumin/Globulin Ratio 0.8 (0.8-1.8); Bun/Creatinine Ratio 15.3 (12.0-20.0); Calcium, Blood 9.1 mg/dL (8.5-10.1); Creatinine, Blood 1.37 mg/dL (0.60-1.20); Globulin, Blood 3.7 g/dL (2.2-4.0); Total Protein, Blood 6.6 g/dL (6.4-8.2)
--- NOTE | 2021-01-10 13:21 | NUR ---
0800 Pt recieved on bed disoriented and confused on bipap/CPAP tolerating well. Pt assessment done. Pt able to move all extremities and get combative when awake. Pt has Left and right arm PIV infusing Cardene and Precedex. Soler noted draining adequate output. 1000 Dr. Han seen and assessed pt; orders recieved. Pt denies pain, Cardene weaned off; pt more coherent but continue to be impulsive precedex increased. 1200 Pt reassessed, no change in pt status. Family updated; pt bed bath completed and pericare done. Pt placed on NC tolerating well. Pt afebrile, VSS and in no acute distress. Will monitor pt closely.
--- NOTE | 2021-01-10 18:32 | NUR ---
No change in pt status, Pericare done and pt repositioned. Pt continue to have moments of confusion and aggresive episodes. Precedex titrated up to 0.7; tolrating well. Family updated on status of pt. Will continue to monitor pt until remainder of shift.
--- NOTE | 2021-01-11 01:44 | NUR ---
STATUS CHANGE: AT APPROX 0030 PT WAS UNABLE TO BE REDIRECTED OR ORIENTED AND KEPT SCREAMING FOR "KIKO" ATTEMPTS TO REASSURE PT DID NOT CONSOLE HIM. MD NOTIFIED. PRN MEDS PASSED AND ORDERS ADJUSTED. PT HAS SINCE CALMED AND IS IN BED SLEEPING. DURING AGITATION ALL 3 iv'S WERE PULLED OR INFILRTRATED.A POWERGLIDE WAS PLACED BY SANDBLAST OPERATOR AND IV MEDS RESTARTED. BP INCREASED TO SBP 190-200 AND TEMP WENT FROM 98.8 TO 101.3. FAN ADDED AND BLANKET REMOVED. PT APPEARS COMFORTABLE AND IN NO DISTRESS.WILL CONTINUE TO MONITOR
[2021-01-11 03:42] LABS: BASOPHILS ABSOLUTE AUTO 0.02 K/mm3 (0.00-0.23); BASOPHILS PERCENT AUTO 0 % (0-2); EOSINOPHILS ABSOLUTE AUTO 0.02 K/mm3 (0.00-0.68); EOSINOPHILS PERCENT AUTO 0 % (0-6); Hematocrit 39.9 % (37.0-53.0); Hemoglobin 13.2 g/dL (13.5-17.5); IMMATURE GRAN ABSOLUTE AUTO 0.05 K/mm3 (0.00-0.10); IMMATURE GRAN PERCENT AUTO 1 % (0-1); LYMPHOCYTES ABSOLUTE AUTO 0.55 K/mm3 (0.84-5.20); LYMPHOCYTES PERCENT AUTO 5 % (21-46); MONOCYTES ABSOLUTE AUTO 0.59 K/mm3 (0.16-1.47); MONOCYTES PERCENT AUTO 6 % (4-13); Mean Corpuscular HGB 31.8 pg (26.0-34.0); Mean Corpuscular HGB Conc 33.1 g/dL (31.5-36.5); Mean Corpuscular Volume 96 fL (80-100); Mean Platelet Volume 11.2 fL (9.1-12.4); NEUTROPHILS ABSOLUTE AUTO 9.39 K/mm3 (1.96-9.15); NEUTROPHILS PERCENT AUTO 88 % (41-73); Platelet Count 145 K/mm3 (150-400); RDW Coefficient Variation 13.1 % (11.7-14.2); RDW Standard Deviation 46.5 fL (35.1-46.3); Red Blood Cell Count 4.15 M/mm3 (4.30-5.90); White Blood Cell Count 10.62 K/mm3 (4.00-11.30)
[2021-01-11 04:08] LABS: Albumin/Globulin Ratio 0.8 (0.8-1.8); Bun/Creatinine Ratio 17.3 (12.0-20.0); Calcium, Blood 9.3 mg/dL (8.5-10.1); Creatinine, Blood 1.27 mg/dL (0.60-1.20); Globulin, Blood 3.9 g/dL (2.2-4.0); Potassium, Blood 4.3 mmol/L (3.5-5.5); Total Protein, Blood 6.9 g/dL (6.4-8.2)
--- NOTE | 2021-01-11 06:11 | NUR ---
SUMMARY NEURO- PT CALMED AFTER 1 PRN MED FOR AGITATION. REDIRECTABLE AND RESTING IN BED. LEFT PUPIL IS ROUND AND REACTIVE BRISK 3MM. RESP-ON CPAP PART OF NIGHT. WITH HIS AGITATION AT 0100 BREATHING WAS LABORED, WET SOUNDING AND TACHYPNIC. RR 50. SPO2 WAS STABLE ABOVE 95%. LUNGS STILL COARSE T/O BUT RATE HAS SLOWED TO 25-30. CV- HTN. 170'S TO 200'S SYSTOLIC WITH AGITATION. PRN MEDS PASSED WITH SOME EFFECT. HR V PACED 60. WILL RANGE FROM 45-75 THOUGH. PALPABLE PULSES X 4, CAP REFILL LESS 3 SEC. GI NPO ACTIVE BS. MENTATION BETTER. SWALLOW STUDY POSSIBLE IF PT ABLE TO NOT BE SO RESTLESS. SENTHIL MACEDO WITH TEMP PROB. FEBRILE TO 101.3 WHEN AGITATED. WHEN CALM IT IS WNL. 600 ML OUT FOR SHIFT. SKIN INTACT. PT PULLED 3 IV'S. 1 POWERGLIDE REPLACEMENT.
--- NOTE | 2021-01-11 17:50 | NUR ---
Dr. Blanco and team reassessed pt. Orders recieved. Pt more awake but remains confused. Meds given and pt reposition. Family @ bedside updated on plan of care. Will continue to monitor pt until remainder of shift.
--- NOTE | 2021-01-11 20:38 | NUR ---
PATIENT AWAKE, RESTLESS IN BED PULLING ON RESTRAINTS, CONSTANTLY MOVING LEGS AND LIFTING/ ADJUSTING HIPS. ANSWERING QUESTIONS, FORGETTING MONTH AND YEAR. BILAT WRIST RESTRAINTS CONTINUE TO PREVENT ACCIDENTAL REMOVAL OF MONITORS AND LINES. MOIST COUGH SWALLOWING SPUTUM. LUNG SOUNDS CLEAR, BIOX 98% ON 1L/NC. PRECEDEX DRIP TITRATED TO 0.7 MCG TO HELP PATIENT RELAX.
--- NOTE | 2021-01-12 01:58 | NUR ---
AT APROX 0100 PATIENT MORE AGITATED AND RESTLESS AND DIAPHORETIC, VERBALIZING THAT HE NEEDED TO URINATE. TEMP BACK UP TO 102.0. MACEDO CHECKED CONTINUES TO DRAIN ANA URINE. PRECEDEX INCREASED TO 1 MCG. SBP 200'S HR 100'S WITH FREQUENT PVC SEE STRIPS IN CHART. DOCTOR LIBORIO NOTIFIED HALDOL AND LABETALOL GIVEN PER EMAR. PATIENT MORE RELAXED CONTINUES TO BE DIAPHORETIC. BIPAP PLACED BY RT 10/12 WITH 4L BLEED IN.
[2021-01-12 04:28] LABS: Hematocrit 40.1 % (37.0-53.0); Hemoglobin 13.1 g/dL (13.5-17.5); Mean Corpuscular HGB 31.8 pg (26.0-34.0); Mean Corpuscular HGB Conc 32.7 g/dL (31.5-36.5); Mean Corpuscular Volume 97 fL (80-100); Mean Platelet Volume 10.9 fL (9.1-12.4); Platelet Count 159 K/mm3 (150-400); RDW Coefficient Variation 13.4 % (11.7-14.2); RDW Standard Deviation 47.8 fL (35.1-46.3); Red Blood Cell Count 4.12 M/mm3 (4.30-5.90); White Blood Cell Count 9.69 K/mm3 (4.00-11.30)
--- NOTE | 2021-01-12 04:47 | NUR ---
PATIENT AWAKE APPEARS MORE CLEAR IN HIS ANSWERS. REQUESTING WATER, ISIDRO PO WELL. CONTINUES TO BE UNSURE OF MONTH (THINKING IT IS JUNE) AND YEAR.
[2021-01-12 04:51] LABS: Albumin/Globulin Ratio 0.8 (0.8-1.8); Bun/Creatinine Ratio 19.8 (12.0-20.0); Calcium, Blood 9.3 mg/dL (8.5-10.1); Creatinine, Blood 1.31 mg/dL (0.60-1.20); Globulin, Blood 3.9 g/dL (2.2-4.0); Total Protein, Blood 6.9 g/dL (6.4-8.2)
--- NOTE | 2021-01-12 06:58 | NUR ---
SUMMARY PATIENT RESTLESS T/O NIGHT. MORE RELAXED AND ABLE TO SLEEP WITH BIPAP IN PLACE FOR APROX 1 HR AFTER HALDOL GIVEN. PATIENT NOW AWAKE WITH 1L/NC IN PLACE. SPEECH CLEAR, BUT CONFUSED CONVERSATION CONTINUES. PRECEDEX 1 MCG TO HELP PATIENT ISIDRO [facility] LINES AND CORDS. PATIENT MEDICATED TWICE FOR HYPERTENSION SEE EMAR. BILAT WRIST RESTRAINTS REMAIN IN PLACE DUE TO PATIENT BEING VERY IMPULSIVE
--- NOTE | 2021-01-12 18:52 | NUR ---
Pt recieved on bed AAOX2, able follow commands but still have moment of confusion. Dr. Singh seen and assessed pt; orders recieved. Notified Dr. Singh of hypertensive episodes; orders recieved. Precedex weaned off. 1200 Pt OOB on chair tolerating well. Pt had mutiple BMs; pericare done. 1700 Pt reassessed, Rectal tube placed. Pt more coherent but has moments of confusion. Will monitor pt until remainder of shift,
--- NOTE | 2021-01-13 06:06 | NUR ---
PT A/OX3, COOPERATIVE, CALM THROUGHOUT SHIFT. HTN UNCONTROLLED THROUGHOUT SHIFT WITH SBP 170-200 WHILE ADMINISTERING HYDRALAZINE AND LABETALOL 2X EACH THIS SHIFT. DISCUSS POSSIBILITY OF INCREASING PO MEDICATION DOSES WITH DAY TEAM.
[2021-01-13 07:29] LABS: Bun/Creatinine Ratio 17.3 (12.0-20.0); Calcium, Blood 9.5 mg/dL (8.5-10.1); Creatinine, Blood 1.27 mg/dL (0.60-1.20); Potassium, Blood 3.4 mmol/L (3.5-5.5)
--- NOTE | 2021-01-13 09:00 | NUR ---
PATIENT CALM AND COOPERATIVE TODAY. ORIENTED TO SELF, PLACE, SITUATION, BUT SOMEWHAT DISORIENTED TO TIME. IS ABLE TO REMEMBER TIME WITH CUEING. HAS SOME ODD COMMENTS, ASKS "IS THAT A POOP EMOJI ON THE WALL?" AND "WHAT CONSTRUCTION IS HAPPENING OUT THERE?" WHEN THERE IS NO CONSTRUCTION PROJECTS VISIBLE. STATES HE DID NOT SLEEP AT ALL LAST NIGHT. REMAINS HYPERTENSIVE WITH SBP 180-200. DISCUSSED WITH MD TEAM. ROOM AIR. RECTAL TUBE IN PLACE BUT NO STOOL DRAINING THUS FAR. ANA URINE DRAINING FROM MAECDO. HE IS DIAPHORETIC ON HIS FOREHEAD, TEMP MAX 100.2, MD AWARE. UPDATED ABOUT PATIENT STATUS. WHEN ASKED ABOUT PATIENT'S BASELINE MENTAL STATUS, SHE STATES THAT AT BASELINE PT IS "JUST LIKE YOU AND ME."
--- NOTE | 2021-01-13 18:42 | NUR ---
PT SAT IN CHAIR TODAY MOST OF THE DAY. A&OX4 NOW. WALKED WITH PT - HE IS A BIT UNSTEADY ON HIS FEET - GAIT BELT AND WALKER USED FOR TRANSFERS AND AMBULATION. RECTAL TUBE REMOVED AROUND 1300 - NO BM TODAY. MACEDO REMOVED AT 1300. SATS >90% ON ROOM AIR ALL DAY. HYPERTENSIVE TODAY W/ SYSTOLIC 170-200. NEW ORDERS ADDED PER DR. RIZZO. BP CURRENTLY 136/91. HE DID NOT EAT MUCH TODAY, PO FLUIDS ENCOURAGED.
--- NOTE | 2021-01-13 20:49 | NUR ---
PATIENT SITTING UP IN CHAIR WATCHING TV. A&O YET HAS SLIGHTLY ODD CONVERSATION AND ALSO REPEATING CONVERSATION FREQUENTLY. VERBALIZED THAT HE IS FEELING BETTER. PATIENT DIAPHORETIC, VERBALIZED THAT HE SWEETS A LOT AT HOME NORMALLY. PATIENT VERBALIZED THAT HE IS WANTING TO STAY UP IN THE CHAIR FOR A WHILE LONGER AND FINISH WATCHING TV. REQUESTING HIS MELATONIN TO BE AROUND 2200. PATIENT DENIES URGE TO URINATE AT THIS TIME. PHYSICAL SECURITY MANAGER CONTINUES TO SHOW AFIB WITH BBB AND OCCASIONAL PVC. HYPERTENSION CONTINUES.
--- NOTE | 2021-01-14 02:38 | NUR ---
PATIENT RESTING QUIETLY IN BED. CONTINUES TO WANT TO STAY IN THE RECLINER CHAIR, AGREEING TO BRING HIS FEET UP, BUT NOT WANTING TO GO TO BED. PATIENT VERBALIZED NO URGE TO VOID. I'LL GO WHEN I NEED TO GO.
[2021-01-14 04:48] LABS: Bun/Creatinine Ratio 22.9 (12.0-20.0); Calcium, Blood 9.5 mg/dL (8.5-10.1); Creatinine, Blood 1.53 mg/dL (0.60-1.20); Potassium, Blood 3.8 mmol/L (3.5-5.5)
--- NOTE | 2021-01-14 05:05 | NUR ---
AT 0400 PATIENT AGREEING TO GET IN BED AND TRY TO GET SOME SLEEP. PATIENT C/O BACK AND SHOULDER PAIN. TYLENOL PO GIVEN. PATIENT ABLE TO TRANSFER TO BED WITH 1 PERSON ASSIST. WHEN BACK TO BED SBP 202/110. AFTER RELAXING IN BED BP 208/105 HYDRALAZINE IV GIVEN. PATIENT ABLE TO URINATE 400 CC OF ANA URINE WITH ASSISTANCE WITH URINAL.
--- NOTE | 2021-01-14 06:37 | NUR ---
SUMMARY PATIENT AWAKE UP IN CHAIR MOST OF THE NIGHT. TRANSFER IN ROOM 1 PERSON ASSIST, POOR COORDINATION AND SHUFFLE IN HIS WALK. HYPERTENSIVE EARLY THIS MORNING. PATIENT VOIDING ONCE DURING THE NIGHT WITH DARK ANA URINE.
--- NOTE | 2021-01-14 12:30 | NUR ---
PATIENT TRANSFERRED TO MEDICAL FLOOR AT 1215. REPORT GIVEN TO TROY. ALL BELONGINGING SENT WITH PATEINT. SPOUSE NOTIFIED OF PATIENT'S TRANSFER.
--- NOTE | 2021-01-14 14:39 | NUR ---
ARRIVAL TO UNIT: LATE ENTRY: PATIENT ARRIVED TO UNIT AFTER LUNCH VIA WHEELCHAIR. PATIENT ABLE TO TRANSFER FROM THE WHEELCHAIR TO CHAIR WITH MINIMAL ASSIST AND FWW. PATIENT DID NOT DISPLAY SHORTNESS OF BREATH WITH THIS ACTIVITY. PATIENT DENIED SHORTNESS OF BREATH. BREATH SOUNDS ARE CLEAR BUT DIMINISHED THROUGHOUT. PATIENT UP TO CHAIR TO LOOK OUT THE WINDOW. DENIES NEEDS AT THIS TIME. NOTIFIED SPEECH THAT THE PATIENT HAD BEEN TRANSFERRED AND WAS READY FOR RE-ASSESSMENT AT ANY TIME. PATIENT APPRECIATIVE OF CARE.
[2021-01-14 14:48] LABS: Bun/Creatinine Ratio 23.5 (12.0-20.0); Calcium, Blood 9.4 mg/dL (8.5-10.1); Creatinine, Blood 1.49 mg/dL (0.60-1.20); Potassium, Blood 4.1 mmol/L (3.5-5.5)
[2021-01-14] MEDS ORDERED: METR500 PO (17:54)
[2021-01-14] MEDS ORDERED: CEFD300 PO (17:55)
[2021-01-14] MEDS ORDERED: AMLO10 PO (18:03)
--- NOTE | 2021-01-14 18:35 | NUR ---
DISCHARGE SUMMARY: PATIENT READY TO DISCHARGE PER ORDERS. PATIENT DENIED PAIN OR DISCOMFORT FOR THIS AFTERNOON. PATIENT DENIED SHORTNESS OF BREATH OR DIFFICULTY BREATHING. PATIENT UP TO THE CHAIR FOR THIS AFTERNOON. PATIENT CALLED APPROPRIATELY AND COULD EASILY MAKE HIS NEEDS KNOWN. PATIENT ALERT AND ORIENTED WITH SOME MILD FORGETFULNESS. PATIENT UP WITH ARMATURE REWINDER AND WALKER TO THE BATHROOM. PATIENT STEADY ON HIS FEET. DISCHARGE MEDICATIONS FAXED TO [facility] PER PATIENT REQUEST. DISCHARGE INSTRUCTIONS AND EDUCATION PROVIDED TO PATIENT AND HIS SON. PATIENT DECLINED EVENING MEDS REPORTING THAT HE WOULD RATHER TAKE HIS AT HOME AND WHEN HE EATS DINNER AT HOME. ALL QUESTIONS AND CONCERNS ADDRESSED. PATIENT DISCHARGED IN WHEELCHAIR WITH SON. DENIED NEED FOR ESCORT. PATIENT STABLE AT TIME OF DISCHARGE.
== END 2021-01-14 18:22 | disposition home health service (06) | DRG 871 ==
LOC: ER 10:16 → PCU 16:50 → ICUE 17:42 → MEDS 01-14 12:15 → ENPENDDIS 01-14 18:09 → MEDS 01-14 18:22
PROVIDERS: Family Medicine; Student in an Organized Health Care Education/Training Program; ADMIT Internal Medicine
DX: A41.9 Sepsis, unspecified organism (principal); G92.8 Other toxic encephalopathy; J18.9 Pneumonia, unspecified organism; J69.0 Pneumonitis due to inhalation of food and vomit; J96.21 Acute and chronic respiratory failure with hypoxia; J96.22 Acute and chronic respiratory failure with hypercapnia; J44.0 Chronic obstructive pulmonary disease with (acute) lower respiratory infection; Z68.41 Body mass index [BMI] 40.0-44.9, adult; I16.1 Hypertensive emergency; F05 Delirium due to known physiological condition; I13.0 Hypertensive heart and chronic kidney disease with heart failure and stage 1 through stage 4 chronic kidney disease, or unspecified chronic kidney disease; I50.32 Chronic diastolic (congestive) heart failure; N17.9 Acute kidney failure, unspecified; E87.2 Acidosis; E78.5 Hyperlipidemia, unspecified; E11.22 Type 2 diabetes mellitus with diabetic chronic kidney disease; I48.91 Unspecified atrial fibrillation; Z20.822 Contact with and (suspected) exposure to COVID-19; R45.1 Restlessness and agitation; G47.33 Obstructive sleep apnea (adult) (pediatric); E11.65 Type 2 diabetes mellitus with hyperglycemia; R65.20 Severe sepsis without septic shock; E11.42 Type 2 diabetes mellitus with diabetic polyneuropathy; N40.0 Benign prostatic hyperplasia without lower urinary tract symptoms; E87.6 Hypokalemia; E66.9 Obesity, unspecified; N18.30 Chronic kidney disease, stage 3 unspecified; I16.0 Hypertensive urgency; I25.10 Atherosclerotic heart disease of native coronary artery without angina pectoris; Z88.1 Allergy status to other antibiotic agents; Z88.2 Allergy status to sulfonamides; Z90.49 Acquired absence of other specified parts of digestive tract; Z95.5 Presence of coronary angioplasty implant and graft; Z95.0 Presence of cardiac pacemaker; Z98.890 Other specified postprocedural states; Z78.1 Physical restraint status; Z79.51 Long term (current) use of inhaled steroids; Z79.4 Long term (current) use of insulin; Z79.899 Other long term (current) drug therapy; Z79.01 Long term (current) use of anticoagulants; Z28.89 Immunization not carried out for other reason
CPT/HCPCS: 0241U; 36415; 51701; 51702; 70450; 71045; 71260; 74177; 80048; 80053; 81001; 82550; 82803; 82947; 83036; 83605; 83690; 83735; 83880; 84145; 84443; 84484; 85025; 85027; 87040; 87070; 87086; 87205; 92526; 92610; 93005; 93010; 93306; 94640; 94660; 96365-59; 96366-59; 96367-59; 96375-59; 96376-59; 97110; 97116; 97162; 97166; 97530; 97535; 99285-25; A9270; C1751; C9113; J0360; J0456; J0692; J0696; J1630; J1644; J1790; J2060; J2405; J3370; J7050; Q9967

== ENCOUNTER → 2021-05-08 | Outpatient (CLI) | payer OTHER ==
[~2021-05-08] MED LIST changes: +AMLO10 PO; +Acetaminophen325 M1 PO; +CEFD300 PO; +COMBIVENT RESPIM4 G1 INH; +Crestor20 MG PO; +HUMALOG100 UNIT/1; +LOSA25 PO; +METR500 PO
[2021-05-08 13:57] LABS: Protein, Urine Random 70.4 mg/dL (0.0-11.9)
[2021-05-08 14:01] LABS: Protein/Creat Ratio, Ur Random 0.6
== END ==
LOC: LAB SHORT 12:02
PROVIDERS: Internal Medicine Nephrology
DX: N18.31 Chronic kidney disease, stage 3a (principal)
CPT/HCPCS: 82570; 84156

== ENCOUNTER 2022-07-07 07:00 | Day surgery (SDC) | payer MEDICARE, OTHER ==
[~2022-07-07] VITALS: Ht 172.7 cm; Wt 110.9 kg
[~2022-07-07 07:00] MED LIST changes: +ALOGLIPTIN25 M1 PO; +FARXIGA10 MG PO; +SOAANZ20 M1 PO
[2022-07-07 07:19] VITALS: BP 138/83
--- NOTE | 2022-07-07 07:24 | NUR ---
History, Chart, Medications and Allergies reviewed before start of procedure. Patient confirms NPO status and agrees with scheduled surgery. Pre-Op teaching done. Pt verbalizes understanding. Patient States Post-Procedure ride home has been arranged. Patient states colon prep results LIGHT GREEN, NO SEDIMENT OR STOOL PER PT.
--- NOTE | 2022-07-07 08:00 | NUR ---
07/07/22 0800 Joan Rashid MONITOR INTACT WITH CONTINUOUS PULSE OXIMETRY, CONTINUOUS END TITAL CO2, AND INTERMITTENT BLOOD PRESSURE. 3-LEAD EKG REVIEWED WITH PHYSICIAN PRIOR TO START OF PROCEDURE. O2 VIA N/C INTACT THROUGHOUT SEDATION/PROCEDURE. SEE ANESTHESIA RECORD FOR SEDATION.
[2022-07-07 08:51] VITALS: BP 94/72
[2022-07-07 09:05] VITALS: BP 118/92
[2022-07-07 09:17] VITALS: BP 124/80
--- NOTE | 2022-07-07 09:19 | NUR ---
DISCHARGE NOTE PT A&OX4, VSS, BREATHING RA. DRESSED INDEPENDENTLY C RN IN ROOM. PT TOLERATING PO FLUIDS. ABDOMEN IS SOFT AND NON-TENDER. Discharge instructions reviewed with patient. Patient verbalizes understanding. Copy given to patient to take home. Discharged via wheelchair to private car for ride home.
== END 2022-07-07 09:25 | disposition home or self-care (01) ==
LOC: ORSCMMR 07:00 → ORD 08:00 → ORSCMMR 09:25
PROVIDERS: Internal Medicine Gastroenterology
PROC: 0DBH8ZX Excision of Cecum, Via Natural or Artificial Opening Endoscopic, Diagnostic (ICD-10-PCS; principal; 2022-07-07 08:00)
DX: Z12.11 Encounter for screening for malignant neoplasm of colon (principal); D12.0 Benign neoplasm of cecum; Z86.010 Personal history of colon polyps; G47.33 Obstructive sleep apnea (adult) (pediatric); I48.91 Unspecified atrial fibrillation; J44.9 Chronic obstructive pulmonary disease, unspecified; E11.40 Type 2 diabetes mellitus with diabetic neuropathy, unspecified; E11.22 Type 2 diabetes mellitus with diabetic chronic kidney disease; N18.9 Chronic kidney disease, unspecified; I12.9 Hypertensive chronic kidney disease with stage 1 through stage 4 chronic kidney disease, or unspecified chronic kidney disease; I25.2 Old myocardial infarction; I25.10 Atherosclerotic heart disease of native coronary artery without angina pectoris; N40.0 Benign prostatic hyperplasia without lower urinary tract symptoms; F32.A Depression, unspecified; Z95.0 Presence of cardiac pacemaker; Z79.01 Long term (current) use of anticoagulants; Z79.84 Long term (current) use of oral hypoglycemic drugs; Z79.899 Other long term (current) drug therapy
CPT/HCPCS: 82947; 88305; J2704; J7120

== ENCOUNTER 2022-08-10 21:15 | Emergency (ER) | payer MEDICARE, OTHER ==
[~2022-08-10] VITALS: Ht 177.8 cm; Wt 113.4 kg
[2022-08-10] MEDS ORDERED: TAMS.4ER PO (21:42)
[2022-08-10] MEDS ORDERED: SITA25T2 PO (21:42)
[2022-08-10 21:48] LABS: BASOPHILS ABSOLUTE AUTO 0.03 K/mm3 (0.00-0.23); BASOPHILS PERCENT AUTO 0 % (0-2); EOSINOPHILS ABSOLUTE AUTO 0.25 K/mm3 (0.00-0.68); EOSINOPHILS PERCENT AUTO 2 % (0-6); Hematocrit 50.9 % (37.0-53.0); Hemoglobin 17.1 g/dL (13.5-17.5); IMMATURE GRAN ABSOLUTE AUTO 0.07 K/mm3 (0.00-0.10); IMMATURE GRAN PERCENT AUTO 1 % (0-1); LYMPHOCYTES ABSOLUTE AUTO 0.83 K/mm3 (0.84-5.20); LYMPHOCYTES PERCENT AUTO 6 % (21-46); MONOCYTES ABSOLUTE AUTO 0.62 K/mm3 (0.16-1.47); MONOCYTES PERCENT AUTO 5 % (4-13); Mean Corpuscular HGB 30.6 pg (26.0-34.0); Mean Corpuscular HGB Conc 33.6 g/dL (31.5-36.5); Mean Corpuscular Volume 91 fL (80-100); Mean Platelet Volume 10.9 fL (9.1-12.4); NEUTROPHILS ABSOLUTE AUTO 12.01 K/mm3 (1.96-9.15); NEUTROPHILS PERCENT AUTO 87 % (41-73); Platelet Count 146 K/mm3 (150-400); RDW Coefficient Variation 13.7 % (11.7-14.2); RDW Standard Deviation 45.8 fL (35.1-46.3); Red Blood Cell Count 5.58 M/mm3 (4.30-5.90); White Blood Cell Count 13.81 K/mm3 (4.00-11.30)
[2022-08-10 22:05] LABS: Albumin, Blood 3.7 g/dL (3.4-5.0); Albumin/Globulin Ratio 0.9 (0.8-1.8); Bun/Creatinine Ratio 16.7 (12.0-20.0); Calcium, Blood 8.9 mg/dL (8.5-10.1); Creatinine, Blood 1.68 mg/dL (0.60-1.20); Potassium, Blood 5.3 mmol/L (3.5-5.5); Total Protein, Blood 7.7 g/dL (6.4-8.2)
[2022-08-10 22:32] LABS: Source, Urine Straight Cath
[2022-08-10 22:37] LABS: Bilirubin, Urine Neg (Neg); Blood, Urine Neg (Neg); Glucose Qualitative, Urine 4+ (Neg); Ketones, Urine Neg (Neg); Leukocyte Esterase, Urine Neg (Neg); Nitrite, Urine Neg (Neg); Protein, Urine 2+ (Neg); Urobilinogen, Urine NORM (Normal)
[2022-08-10 22:43] LABS: Appearance, Urine Clear (Clear); Color, Urine Yellow (P-Yellow)
[2022-08-10 22:44] LABS: Bacteria Not Seen /hpf; Red Blood Cells, Urine Not Seen /hpf (0-2); Squamous Epithelial Cells Not Seen /hpf (Few); White Blood Cells, Urine 0-2 /hpf (0-5)
[2022-08-10 23:18] LABS: Influenza A, PCR NEGATIVE (NEGATIVE); Influenza B, PCR NEGATIVE (NEGATIVE); Resp Syncytial Virus, PCR NEGATIVE (NEGATIVE); SARS-Cov-2 (COVID-19) PCR, MMC NEGATIVE (NEGATIVE)
[2022-08-11] MEDS ORDERED: DOXYCYCLINE HY100 M1 PO (00:46)
[2022-08-11 02:00] VITALS: BP 149/71
== END 2022-08-11 02:23 | disposition home or self-care (01) ==
LOC: ER 21:15
PROVIDERS: Emergency Medicine
DX: J18.9 Pneumonia, unspecified organism (principal); E78.5 Hyperlipidemia, unspecified; E11.22 Type 2 diabetes mellitus with diabetic chronic kidney disease; I12.9 Hypertensive chronic kidney disease with stage 1 through stage 4 chronic kidney disease, or unspecified chronic kidney disease; N18.9 Chronic kidney disease, unspecified; I25.10 Atherosclerotic heart disease of native coronary artery without angina pectoris; Z88.0 Allergy status to penicillin; Z79.899 Other long term (current) drug therapy; Z79.84 Long term (current) use of oral hypoglycemic drugs; Z79.02 Long term (current) use of antithrombotics/antiplatelets; Z95.0 Presence of cardiac pacemaker; Z95.5 Presence of coronary angioplasty implant and graft; Z20.822 Contact with and (suspected) exposure to COVID-19
CPT/HCPCS: 0241U; 51701; 71045; 80053; 81001; 85025; 93005; 93010; 96365; 99285-25; J0696

== ENCOUNTER 2023-11-18 08:52 | Day surgery (SDC) | payer MEDICARE, OTHER ==
[~2023-11-18] VITALS: Ht 172.7 cm; Wt 108.0 kg
[~2023-11-18 08:52] MED LIST changes: +ACET325 PO; +ASCO500 PO; -CARV25 PT; +DOXYCYCLINE HY100 M1 PO; +FERSU300 PO; +MELATONIN5 M1 PO; +OMEP20ER PO; +PREG100 PO; +PROBIOTIC; +SITA25T2 PO; +THERA-D2000 UNIT PO; +TRULICITY4.5 MG/0.5 SQ; +Vitamin B Comple1 EA PO
[2023-11-18 09:32] VITALS: BP 128/72
[2023-11-18] MEDS ORDERED: Heparin Sodium 1000 Units/ML 10ML MDV ONE (10:22)
[2023-11-18] MEDS ORDERED: NS 1,000 ML IV ONE ×2 (10:22→10:37)
[2023-11-18] MEDS ORDERED: Vancomycin HCl 1000 MG ADDvantage ONE (10:22)
[2023-11-18] MEDS ORDERED: Midazolam HCl 1MG / ML 2ML Vial ONE (10:37)
[2023-11-18] MEDS ORDERED: FentaNYL Citrate 50 MCG/ML 2 ML Injection ONE (10:37)
[2023-11-18] MEDS ORDERED: Clindamycin 600mg in D5W 50 ML IV ONE (10:37)
[2023-11-18] MEDS ORDERED: NS 250 ML IV ONE (10:42)
[2023-11-18 13:20] VITALS: BP 111/82
[2023-11-18 13:30] VITALS: BP 119/68
[2023-11-18 13:45] VITALS: BP 110/76
--- NOTE | 2023-11-18 14:10 | NUR ---
PT AND VERBALIZED UNDERSTANDING OF WRITTEN AND VERBAL D/C INST. IV REMOVED. PT TAKEN OUT OF THE HRT CENTER VIA W/C.
== END 2023-11-18 15:25 | disposition home or self-care (01) ==
LOC: MHTC 08:52
DX: Z45.010 Encounter for checking and testing of cardiac pacemaker pulse generator [battery] (principal); I48.21 Permanent atrial fibrillation; I25.10 Atherosclerotic heart disease of native coronary artery without angina pectoris; I12.9 Hypertensive chronic kidney disease with stage 1 through stage 4 chronic kidney disease, or unspecified chronic kidney disease; E11.22 Type 2 diabetes mellitus with diabetic chronic kidney disease; N18.9 Chronic kidney disease, unspecified; J43.9 Emphysema, unspecified; G47.33 Obstructive sleep apnea (adult) (pediatric); Z79.01 Long term (current) use of anticoagulants; Z79.84 Long term (current) use of oral hypoglycemic drugs; Z79.899 Other long term (current) drug therapy; Z88.0 Allergy status to penicillin; Z88.2 Allergy status to sulfonamides; Z95.5 Presence of coronary angioplasty implant and graft; Z90.49 Acquired absence of other specified parts of digestive tract
CPT/HCPCS: 33210; 33228; 71045; 76937; 99152; 99153; C1785; C1894; J1644; J2250; J3010; J3370; J7030; J7040; J7050

== ENCOUNTER 2025-02-01 16:22 | Emergency (ER) | payer MEDICARE, OTHER ==
[~2025-02-01] VITALS: Ht 175.3 cm; Wt 105.2 kg
[2025-02-01 17:13] LABS: BASOPHILS ABSOLUTE AUTO 0.04 K/mm3 (0.00-0.23); BASOPHILS PERCENT AUTO 1 % (0-2); EOSINOPHILS ABSOLUTE AUTO 0.63 K/mm3 (0.00-0.68); EOSINOPHILS PERCENT AUTO 9 % (0-6); Hematocrit 50.4 % (37.0-53.0); Hemoglobin 17.6 g/dL (13.5-17.5); IMMATURE GRAN ABSOLUTE AUTO 0.03 K/mm3 (0.00-0.10); IMMATURE GRAN PERCENT AUTO 0 % (0-1); LYMPHOCYTES ABSOLUTE AUTO 1.81 K/mm3 (0.84-5.20); LYMPHOCYTES PERCENT AUTO 24 % (21-46); MONOCYTES ABSOLUTE AUTO 0.52 K/mm3 (0.16-1.47); MONOCYTES PERCENT AUTO 7 % (4-13); Mean Corpuscular HGB Conc 34.9 g/dL (31.5-36.5); Mean Corpuscular Volume 89 fL (80-100); NEUTROPHILS ABSOLUTE AUTO 4.42 K/mm3 (1.96-9.15); NEUTROPHILS PERCENT AUTO 59 % (41-73); NRBC ABSOLUTE 0.00 K/mm3 (0.00-0.02); NRBC Auto 0.0 /100 WBC (0.0-0.2); Platelet Count 124 K/mm3 (150-400); RDW Coefficient Variation 13.1 % (11.7-14.2); RDW Standard Deviation 42.4 fL (35.1-46.3)
[2025-02-01 17:27] LABS: Alanine Aminotransfer (ALT/SGP 73.0 U/L (12-78); Albumin, Blood 4.0 g/dL (3.4-5.0); Albumin/Globulin Ratio 1.1 (0.8-1.8); Anion Gap 9.0 mmol/L (3-11); Aspartate Aminotrans (AST/SGOT 29.0 U/L (12-37); Bilirubin, Total 0.9 mg/dL (0.1-1.0); Blood Urea Nitrogen 26.0 mg/dL (8-24); CO2, Blood 26.0 mmol/L (21-32); Calcium, Blood 9.3 mg/dL (8.5-10.1); Chloride, Blood 103.0 mmol/L (98-108); Creatinine, Blood 1.56 mg/dL (0.60-1.20); Globulin, Blood 3.5 g/dL (2.2-4.0); Glucose, Blood 229.0 mg/dL (70-99); Potassium, Blood 4.5 mmol/L (3.5-5.5); Sodium, Blood 133.0 mmol/L (136-145); Total Protein, Blood 7.5 g/dL (6.4-8.2)
[2025-02-01 17:28] LABS: Prothrombin Time Results 13.5 Sec (9.7-11.5)
[2025-02-01] MEDS ORDERED: DOXY100 PO (19:27)
[2025-02-01 20:18] VITALS: BP 159/103
== END 2025-02-01 20:18 | disposition home or self-care (01) ==
LOC: ER 16:22
PROVIDERS: Physician Assistant
DX: S62.633B Displaced fracture of distal phalanx of left middle finger, initial encounter for open fracture (principal); E78.00 Pure hypercholesterolemia, unspecified; I10 Essential (primary) hypertension; J44.9 Chronic obstructive pulmonary disease, unspecified; W27.0XXA Contact with workbench tool, initial encounter; Z79.84 Long term (current) use of oral hypoglycemic drugs; Z79.899 Other long term (current) drug therapy; Z88.0 Allergy status to penicillin; Z88.2 Allergy status to sulfonamides
CPT/HCPCS: 73130; 80053; 85025; 85610; 85730; 86850; 86900; 86901; 90715; A9270